=== PATIENT | male | born 1965 | race Caucasian/White ===

== ENCOUNTER → 2017-09-02 16:20 | Outpatient (REF) | payer MEDICAID, SELFPAY ==
[2017-09-02 20:30] LABS: Alanine Aminotransferase 47 U/L (12-78); Albumin/Globulin Ratio 1.4 (1.1-1.8); Alkaline Phosphatase 98 U/L (46-116); Anion Gap 11.5 mEq/L (5-15); Aspartate Amino Transferase 47 U/L (15-37); Bilirubin,Total 0.3 mg/dL (0.2-1.0); Blood Urea Nitrogen 12 mg/dL (7-18); Calcium 8.7 mg/dL (8.5-10.1); Carbon Dioxide 30 mmol/L (21.0-32.0); Chloride 102 mmol/L (98-107); Creatinine,Serum 1.17 mg/dL (0.70-1.30); Estimated Glomerular Filt Rate 66 ml/min (>60); GFR (African American) 80 ML/MIN (>60); Globulin 2.8 gm/dl (1.3-3.2); Glucose 72 mg/dL (74-106); Potassium 4.5 mmoL/L (3.5-5.1); Sodium 139 mmol/L (136-145); Total Protein,Serum 6.8 gm/dL (6.4-8.2)
== END ==
LOC: LAB 16:20
PROVIDERS: Visit Provider Emergency Medicine
DX: I10 Essential (primary) hypertension (principal); M54.2 Cervicalgia; Z29.9 Encounter for prophylactic measures, unspecified
CPT/HCPCS: 80053

== ENCOUNTER → 2022-07-13 10:56 | Outpatient (CLI) | payer MEDICAID, SELFPAY ==
--- NOTE | 2022-07-13 | CA_ITS ---
APPROVED REPORT Exam: Pharmacologic Technologist: Ana Hi, Ht: 6 ft 0 in Wt: 236 lbs BSA: 2.29 m2 HR: 59 bpm BP: 155/84 mmHg Medical History Medical History: HTN Medications: Lisinopril,,,,, Aspirin,,,,, Metoprolol,,,,, Trazadone,,,,, Gabapentin,,,,, Flovent,,,,, BuPRen-NALOXONE,,,,, Clonidine HCL,,,,, Allergies: CELECOXIB, NSAIDS, PENICILLIN Cardiac Risk Factors: HTN, FHX of CAD Stress Test Details Test: LEXISCAN HR Resting HR: 57 bpm Max Heart Rate (APMHR): 164.158117 bpm Max HR Achieved: 82 bpm Target HR (85% APMHR): 139.000432 bpm % of APMHR: 50.00 Recovery HR: 65 bpm BP Resting BP: 155/84 mmHg Max BP: 162/76 mmHg Recovery BP: 162.0/76.0 mmHg ECG Clinical Reason for Termination: Completed Protocol Exercise duration: 04:01 min Highest Stage Achieved: Stress ECG Conclusion NO CP <1.[address] SEGMENT CHANGES NON-DIAGNOSTIC Test Summary REST 12:14 . . 57 . 155/ 84 . . Stage 1 01:00 . . 74 . . . . Stage 2 01:00 . . 78 . . . . Stage 3 01:00 . . 69 . 159/ 85 . . Stage 4 01:00 . . 64 . 161/ 88 . . Stage 4 01:01 . . 64 . 161/ 88 . Stop exercise at 04:01 RECOVERY 01:00 . . 64 . . . . RECOVERY 01:55 . . 62 . 162/ 76 . . Electronically signed by : Diego Trejo MD 07/13/2022 15:51:44
--- NOTE | 2022-07-13 11:04 | CA_ITS ---
APPROVED REPORT EXAM: Comprehensive 2D, Doppler, and color-flow Echocardiogram Corporate Banking Officer: Danae Ko RVT Ht: 6 ft 0 in Wt: 236lbs BSA: 2.29 BP: 144/95 mmHg Indications: CP,HTN,VALADEZ,HTN,HLD,SMOKER 2D Dimensions LVOT 2.30 cm (M/F) 1.5-2.5 LA Volume 31.20 mL LA Volume Index 13.62 mL/m2 (M/F) 16-34 M-Mode Dimensions RVDd 3.90 cm (0.9-2.6) LA Diam 3.58 cm (1.9-4.0) LVDd 4.41 cm (3.5-5.7) Ao Diam 3.20 cm (2.0-3.7) LVDs 2.67 cm (3.5-5.7) IVSd 1.27 cm (0.6-1.1) PWd 1.06 cm (0.6-1.1) EF (Teich) 70.20% FS 39.50% EDV (Teich) 88.20 mL TAPSE 2.60 (<1.7) ESV (Teich) 26.30 mL LV Diastology E Decel Time 243.00 (160-240 msec) E/A Ratio 1.2 MED E' 8.60 (< 7 cm/sec) E'/MED E' Ratio 9.69 (>14) LAT E' 7.80 (<10 cm/sec) E/LAT E' Ratio 10.68 (>14) Aortic Valve AO Peak GR. 6.00 mmHg Mitral Valve MV E Max Michael. 83.00 (40-130 cm/s) MV A Velocity 68.00 (40-130 cm/s) E/A Ratio 1.23 MV Decel. Time 243.00 (160-240 ms) MV PHT 71.00 ms Pulmonary Valve PV Peak Velocity 82.00 (50-150 cm/s) Left Ventricle Left atrium is mildly enlarged, left ventricle normal size, mild concentric left ventricular hypertrophy, estimated ejection fraction 55% with no regional wall motion abnormality, diastolic parameters are inconclusive in the study. Right Ventricle Right atrium and right ventricle is mildly enlarged with normal contractility. Aortic Valve Aortic valve is minimally thickened and fibrosed there is no aortic stenosis or aortic insufficiency. Mitral Valve Mitral valve grossly normal, there is trace mitral regurgitation. Tricuspid Valve Tricuspid grossly normal, there is trace tricuspid regurgitation tricuspid regurgitation jet velocity is inadequate for calculation of the right ventricular systolic pressure. Pulmonic Valve Pulmonic valve is poorly visualized Great Vessels Aortic root is normal size. Inferior vena cava is normal 7 normal inspiratory collapse. Pericardium No significant pericardial effusion. Conclusion 1. Mild biatrial enlargement, normal left ventricular size, mild concentric left ventricular hypertrophy, estimated ejection fraction 55% with no regional wall motion abnormality, diastolic parameters are inconclusive. 2. Mildly enlarged right ventricle with normal contractility. 3. Trace mitral and tricuspid regurgitation. 4. No significant pericardial effusion 5. Inferior vena cava is normal size with normal inspiratory collapse. Electronically signed by : Diego Trejo MD 07/13/2022 12:36:38
--- NOTE | 2022-07-13 11:37 | NM_ITS ---
APPROVED REPORT Exam: Nuclear Stress Test Indication: chest pain..short of breath..fatigue Patient Location: Outpatient Stress Tech: Ana Hi NV Tech:Glory Haywood TAYLER RT(R)(N) Ht: 6 ft 0 in Wt: 230 lbs HR: 57 bpm BP: 155/84 mmHg BSA: 2.26 m2 TID: 1.21 History: chest pain..short of breath..fatigue Procedure: Patient received a 0.4 mg of intravenous Lexiscan, resting heart rate 57 bpm, resting blood pressure 155/84 mmHg, with Lexiscan maximum heart rate achived was 82 bpm which is Less than 85 % of the maximum predicted heart rate and blood pressure was 162/76 mmHg. With Lexiscan, patient denied any complaint of chest pain. Electrocardiogram Resting electrocardiogram shows sinus rhythm, with Lexiscan less than 1.[address] segment depression noted from the baseline EKG. The EKG portion of the Lexiscan is nondiagnostic. Cardiac Stress and Resting SPECT Images: Cardiac Stress and Resting SPECT images were obtained using technetium 99m Myoview 30.6 mCi stress and 10.69 mCi at rest. Gated SPECT analysis of segmental wall motion and calculation of the ejection fraction also done. Prone images were also obtained. Cardiac stress and rest SPECT images show reversible ischemia involving the apex and anteroseptal wall, computer derived ejection fraction is 53% with no regional wall motion abnormality, right ventricle is normal size and contractility. Conclusion: 1. The EKG portion of the Lexiscan is nondiagnostic. 2. Scintigraphic evidence of reversible ischemia involving the apex and anteroseptal wall, compared to ejection fraction 53% with no regional wall motion abnormality, right ventricle is normal size and contractility. 3. Abnormal Lexiscan Myoview study. Electronically signed by : Diego Trejo MD 07/13/2022 15:54:30
== END ==
PROVIDERS: PCP Family Medicine; Visit Provider Physician Assistant
DX: R07.89 Other chest pain (principal); I10 Essential (primary) hypertension; F17.200 Nicotine dependence, unspecified, uncomplicated; Z82.49 Family history of ischemic heart disease and other diseases of the circulatory system
CPT/HCPCS: 78452; 93017; 93306; A9502; J2785

== ENCOUNTER → 2022-07-18 13:47 | Outpatient (CLI) | payer MEDICAID, SELFPAY ==
[2022-07-18 14:22] LABS: Basophils % 0.7 % (0.1-2.0); Eosinophils # 0.3 K/mm3 (0.0-0.4); Eosinophils % 4.9 % (0.1-12.0); Hematocrit 43.9 % (42.0-52.0); Hemoglobin 13.9 g/dL (14.1-18.0); Lymphocytes # 1.4 K/mm3 (0.7-4.5); Lymphocytes % 21.8 % (10-50); Mean Corpuscular HGB Conc 31.8 g/dL (31.8-35.4); Mean Corpuscular Hemoglobin 32.1 pg (27.0-31.2); Mean Platelet Volume 8.2 fl (7.4-10.4); Monocytes # 0.5 K/mm3 (0.1-1.0); Monocytes % 8.3 % (1.7-9.3); Neutrophils % 64.3 % (37.0-80.0); Platelet Count 171 K/mm3 (142-424); Red Blood Count 4.35 M/mm3 (4.60-6.20); Red Cell Distribution Width 13.4 % (11.5-17.5); White Blood Count 6.2 K/mm3 (4.8-10.8)
[2022-07-18 15:29] LABS: Anion Gap 9.3 mEq/L (5-15); Blood Urea Nitrogen 9 mg/dl (9-20); Calcium 8.9 mg/dl (8.4-10.2); Carbon Dioxide 32 mmol/L (22.0-30.0); Chloride 103 mmol/L (98-107); Estimated Glomerular Filt Rate 52 ml/min (>60); GFR (African American) 63 ML/MIN (>60); Glucose 76 mg/dl (74-100); Potassium 4.3 mmoL/L (3.5-5.1); Sodium 140 mmol/L (136-145)
== END ==
PROVIDERS: PCP Family Medicine; Visit Provider Physician Assistant
DX: R06.00 Dyspnea, unspecified (principal); I20.8 Other forms of angina pectoris; I10 Essential (primary) hypertension; R94.39 Abnormal result of other cardiovascular function study; I63.9 Cerebral infarction, unspecified; F17.200 Nicotine dependence, unspecified, uncomplicated; Z82.49 Family history of ischemic heart disease and other diseases of the circulatory system
CPT/HCPCS: 36415; 80048; 85025

== ENCOUNTER 2022-07-23 14:53 | Observation (INO) | payer MEDICAID, SELFPAY ==
[2022-07-23] VITALS (20 sets, daily range): BP systolic 118–225; BP diastolic 39–130; PULSE 45–82; RESP 17–21; TEMP 36.6; O2SAT 90–100; BMI 33.2; BMI 32.1
--- NOTE | 2022-07-23 07:26 | IR_ITS ---
APPROVED REPORT Patient Location: Outpatient Floating Labor Gang Supervisor: TAYLER Joy RT (R) PROCEDURES Left heart catheterization Left ventriculogram Selective coronary angiogram Drug-eluting stent deployment to the proximal dominant right coronary INDICATION Coronary artery disease, Accelerated angina pectoris, Abnormal Myoview, Informed consent was obtained prior to the procedure. COMPLICATIONS None Estimated Blood Loss: Less than 10 mls TECHNIQUE One percent lidocaine used to anesthetize the right anterior aspect of the wrist. The right radial artery was accessed via the Seldinger technique. A 6 [place] sheath was placed in the right radial artery. 2.5 mg of verapamil, 800 mcg of nitroglycerin, 1mg Lidocaine and 5000 U Heparin were given through the arterial sheath. The papa catheter was also used to perform left heart catheterization, left ventriculogram and selective coronary angiogram. In the end of the diagnostic angiogram therapeutic heparin was administered giving a therapeutic ACT and the guide catheter was placed in the right coronary followed by a Choice PT extra-support wire. A 4 mm x 34 mm resolute [place] stent was deployed in the proximal portion of the right coronary and deployed at 20 ronald reducing the severe stenosis to 0% WILL-3 flow was present before and after the procedure. At the end of procedure the apparatus was removed the sheath was removed and hemostasis was achieved using TR banding patient was transferred to the postop putting in stable condition ANGIOGRAPHIC RESULTS The left main artery Normal The left anterior descending artery Has proximal 30% stenosis stenosis followed by an eccentric 30 to 40% stenosis immediately after a large first diagonal artery. The LAD itself after the first diagonal artery is 2 mm in diameter. The first diagonal artery is larger than the LAD itself. This diagonal artery has an ostial 40% concentric stenosis with distal 10 to 20% diffuse stenoses The circumflex artery Nondominant and has tandem 30 to 40% stenoses in the first obtuse marginal artery The right coronary artery Large dominant with a proximal concentric 70% stenosis The FONG ventriculogram reveals Normal 65% The left ventricular end-diastolic pressure 20 to 25 mmHg IMPRESSION Coronary disease as described above Successful stenting of the right coronary severe disease reduced to 0% with 1 drug-eluting stent Normal ejection fraction with elevated LVEDP PLAN 1. For antiplatelet therapy 2. LDL less than 55 to be achieved with high intensity statin 3. Avoidance of tobacco products 4. Recommend sleep study 5. Increase metoprolol succinate from 50 mg a day up to 100 mg daily 6. Add Lipitor 40 mg daily 7. Add hydrochlorothiazide 25 mg daily 8. Continue lisinopril 40 mg daily 9. Cardiac rehabilitation Electronically signed by : Noah Roche MD 07/23/2022 11:21:14
[2022-07-23 11:29] LABS: CATHL Activated Clotting Time 299 SEC (74-125)
--- NOTE | 2022-07-23 14:27 | SUR.PHASEI ---
1410 DR DRAPER CONTACTED R/T SOA AND HEART RATES DROPPING IN TO THE 38, BP 205/153. NEW ORDERS TO ADMIT THE PATIENT AND SEE MAR FOR MEDICATIONS
--- NOTE | 2022-07-23 14:42 | US_ITS ---
PROCEDURE INFORMATION: Exam: US Retroperitoneal; Complete; Kidneys and Bladder Exam date and time: 07/23/2022 4:40 PM Age: 57 years old Clinical indication: Condition or disease; Other: HTN; Additional info: Hypertension TECHNIQUE: Imaging protocol: Real-time ultrasound of the retroperitoneum with image documentation. Complete exam focused on the kidneys and bladder. COMPARISON: US CA RENAL ARTERY DUPLEX 07/23/2022 2:59 PM FINDINGS: Right kidney: Normal. No stones. No hydronephrosis. Left kidney: Normal. No stones. No hydronephrosis. Urinary bladder: Not imaged. IMPRESSION: Unremarkable kidneys.
--- NOTE | 2022-07-23 14:42 | CA_ITS ---
FINAL REPORT TECHNIQUE: Grayscale, color Doppler and duplex Doppler ultrasound of the kidneys, aorta and renal arteries was performed. Multiple velocities were measured. CLINICAL HISTORY: HYPERTENSION FINDINGS: Aorta velocity: 41 cm/sec Right kidney: 9.9 cm. No evidence of hydronephrosis or mass. Right intrarenal RI: 0.48 Right RAR (Renal artery-Aortic Ratio): 5.1 Left Kidney: 11.6 cm. No evidence of hydronephrosis or mass. Left intrarenal RI: 0.5 Left RAR (Renal Artery-Aortic Ratio): 5.6 IMPRESSION: Greater than 60% renal artery stenosis bilaterally. Recommend catheter directed angiogram. Reviewed, Interpreted and Dictated by Travon Malagon III, MD Transcribed by Radha Frazier Authenticated and [facility]
--- NOTE | 2022-07-23 14:52 | SUR.PHASEII ---
Pt in very SOA, notified and stated its from the brilinta, pt given supplemental o2 for comfort, VSS.
--- NOTE | 2022-07-23 15:25 | PC.NURSE ---
arrived to floor by stretcher from laborer [facility]
[2022-07-23 15:40] LABS: Coronavirus 19, PCR Not Detected (NotDetected); Influenza A, PCR Not Detected (NotDetected); Influenza B, PCR Not Detected (NotDetected)
--- NOTE | 2022-07-23 17:56 | EXP.HP ---
History of Present Illness *Admission Date: 07/23/22 *Reason for visit:: Chief complaint: Uncontrolled blood pressure *History of present illness: This is a 57-year-old male that presents to [facility] telemetry monitoring medical unit for uncontrolled blood pressure during his cardiac catheterization this afternoon. His past medical history significant for hypertension, coronary artery disease, osteoarthritis of the right hip and narcotic dependence. He reported chest discomfort to his PCP and was referred to cardiology for evaluation. A stress test was abnormal. He was referred for left heart cath which he underwent today identifying right coronary artery lesion requiring 1 drug-eluting stent. Uncontrolled blood pressures were identified during his procedure with systolics reaching 300. He required multiple agents to improve his blood pressure. After his cardiac procedure he was transitioned to the medical unit for telemetry monitoring and blood pressure control. Currently he is reporting a headache with no associated dysarthria, extremity numbness, or confusion. He denies any associated loss of motor function, visual changes or scotoma. He reports no associated retrosternal chest pain, palpitations or acute dyspnea. A renal ultrasound and duplex study was performed today which identifies bilateral greater than 60% renal artery stenosis. His most recent creatinine was 1.4 a few days ago with a baseline of 1.0 noted. [facility] Disclaimer: The information contained in this section may have been updated after the patient was seen, as this information can be updated by other users. Medical History (Updated 07/23/22 @ 18:04 by Marbin Hampton MD) Coronary artery disease HTN (hypertension) Narcotic dependence Osteoarthritis Tobacco dependence syndrome Surgical History (Updated 07/23/22 @ 18:04 by Marbin Hampton MD) History of right hip replacement S/P cardiac cath Family History (Updated 07/23/22 @ 18:05 by Marbin Hampton MD) Mother Heart attack, Onset Age: 42 Father Throat cancer, Onset Age: 81 Social History (Updated 07/23/22 @ 18:07 by Marbin Hampton MD) Smoking Status: Current every day smoker tobacco type: cigarettes packs per day: 1 years smoked: 30 alcohol intake: never substance use type: opiates current occupational status: employed Travel in the last 8 weeks: Inside the [place] household members: significant other lives independently: Yes marital status: number of children: 3 service: Yes status: retired branch: [employer] current occupation: [employer]- [employer] Review of Systems Review of Systems Review of systems:: pertinent systems reviewed and negative unless documented below Constitutional Constitutional: Reports headache(s) ENT Ears, Nose, Mouth, and Throat: Reports headache(s) *Cardiovascular Cardiovascular: Denies chest pain and Denies dyspnea *Respiratory Respiratory: Denies dyspnea *Gastrointestinal Gastrointestinal: Denies diarrhea and Denies vomiting *Neurologic Neurologic: Reports headache(s) Meds Home Medications and Allergies Home Medications Medication Instructions Recorded Confirmed Type buprenorphine 8 mg-naloxone 2 mg 2 tab sublingual QDAY . 09/02/17 07/23/22 History sublingual tablet fluticasone propionate 44 2 inh inhalation Q12H ,. 09/02/17 07/23/22 History mcg/actuation HFA aerosol inhaler gabapentin 400 mg capsule 400 mg PO TID Pain 06/19/22 07/23/22 History lisinopril 40 mg tablet 40 mg PO DAILY Hypertension 06/19/22 07/23/22 History trazodone 50 mg tablet 50 mg PO HS PRN Pain 06/19/22 07/23/22 History amlodipine 10 mg tablet (Norvasc) 10 mg PO DAILY #30 tabs 07/23/22 Rx aspirin 81 mg tablet,delayed 81 mg PO DAILY Chest pain 07/23/22 07/23/22 History release (Adult Aspirin Regimen) atorvastatin 40 mg tablet (Lipitor) 40 mg PO DAILY #30 tabs
[2022-07-23 18:45] LABS: Chloride 100 mmol/L (98-107); Potassium 3.8 mmoL/L (3.5-5.1); Sodium 140 mmol/L (136-145)
[2022-07-23 18:48] LABS: Anion Gap 14.8 mEq/L (5-15); Blood Urea Nitrogen 14 mg/dl (9-20); Calcium 9.9 mg/dl (8.4-10.2); Carbon Dioxide 29 mmol/L (22.0-30.0); Creatinine Clearance Estimated 90 mL/min (50-200); Estimated Glomerular Filt Rate 52 ml/min (>60); GFR (African American) 63 ML/MIN (>60); Glucose 104 mg/dl (74-100)
--- NOTE | 2022-07-23 21:08 | ECG_ITS ---
APPROVED REPORT Exam: Resting ECG HR:71 bpm ECG Measurements Heart Rate 71 AXES AK 155 P 64 QRSd 87 QRS -26 QT 399 T 64 QTc 422 Conclusion SINUS RHYTHM LEFT AXIS DEVIATION [QRS AXIS < -20] MODERATE VOLTAGE CRITERIA FOR LVH, CONSIDER NORMAL VARIANT [MEETS CRITERIA IN ONE OF: R(aVL), S(V1), R(V5), R(V5/V6)+S(V1)] NONSPECIFIC T-WAVE ABNORMALITY BORDERLINE ECG UNCONFIRMED REPORT Electronically signed by : Lior Harris MD 07/24/2022 19:55:06
[2022-07-24] VITALS (24 sets, daily range): BP systolic 117–194; BP diastolic 58–102; PULSE 43–85; RESP 12–26; TEMP 36.3–37; O2SAT 93–100; BMI 31.1
--- NOTE | 2022-07-24 00:46 | PC.NURSE ---
2345-bp 152/79, turned pt's drip off at 2350, bp had been below 160mmHg throughout shift; 0000-bp 182/82, turned drip back on at 0.1mcg/kg/min, bp at 0030 129/79
[2022-07-24 06:43] LABS: Basophils # 0.1 K/mm3 (0-0.2); Basophils % 0.7 % (0.1-2.0); Eosinophils # 0.3 K/mm3 (0.0-0.4); Eosinophils % 3.7 % (0.1-12.0); Hematocrit 43.8 % (42.0-52.0); Hemoglobin 14.2 g/dL (14.1-18.0); Lymphocytes # 1.7 K/mm3 (0.7-4.5); Lymphocytes % 20.2 % (10-50); Mean Corpuscular HGB Conc 32.5 g/dL (31.8-35.4); Mean Corpuscular Volume 98.6 fl (80-94); Mean Platelet Volume 8.8 fl (7.4-10.4); Monocytes # 0.6 K/mm3 (0.1-1.0); Monocytes % 7.5 % (1.7-9.3); Neutrophils # 5.7 K/mm3 (1.8-7.8); Platelet Count 174 K/mm3 (142-424); Red Blood Count 4.44 M/mm3 (4.60-6.20); Red Cell Distribution Width 13.8 % (11.5-17.5); White Blood Count 8.3 K/mm3 (4.8-10.8)
[2022-07-24 06:48] LABS: Chloride 101 mmol/L (98-107); Potassium 3.7 mmoL/L (3.5-5.1); Sodium 140 mmol/L (136-145)
[2022-07-24 06:49] LABS: Prothrombin Time 9.8 seconds (10.1-12.5)
[2022-07-24 06:51] LABS: Anion Gap 10.7 mEq/L (5-15); Blood Urea Nitrogen 12 mg/dl (9-20); Carbon Dioxide 32 mmol/L (22.0-30.0); Creatinine Clearance Estimated 87 mL/min (50-200); Estimated Glomerular Filt Rate 52 ml/min (>60); GFR (African American) 63 ML/MIN (>60); Glucose 104 mg/dl (74-100)
[2022-07-24 07:07] LABS: Hemoglobin A1C 5.9 % (4.0-6.0)
[2022-07-24 07:20] LABS: Thyroid Stimulating Hormone 2.06 uIU/mL (0.465-4.68)
--- NOTE | 2022-07-24 07:27 | HMH.PHAINT1 ---
Pharmacy Intervention Comments: Medication reconciliation completed via chart review and external fill history. -Bri Estrada, PharmD Candidate 2022
--- NOTE | 2022-07-24 08:47 | IR_ITS ---
APPROVED REPORT Patient Location: Inpatient Barrel Charrer: TAYLER Underwood RT (R) PROCEDURES Catheter placement in the abdominal aorta Abdominal aortography Bilateral selective renal angiography INDICATION Abnormal renal duplex, Bilateral renal artery stenosis, Chronic renal failure creatinine 1.4, Malignant hypertension, Informed consent was obtained prior to the procedure. COMPLICATIONS None Estimated Blood Loss: Less than 10 mls TECHNIQUE 1% lidocaine used to anesthetize the right femoral groin. The right femoral artery was accessed via the Seldinger technique. A 4 [place] sheath was placed in the right femoral artery. The JR4 catheter was used to selectively intubate each renal artery. At the end of the procedure pigtail catheter was advanced to the suprarenal abdominal aorta and abdominal aortography was performed. At the end the procedure the patient was transferred to the postop putting in stable condition for sheath removal ANGIOGRAPHIC RESULTS Right renal artery singular and has a proximal 10 to 20% nonflow limiting stenosis Left renal artery singular and has a proximal 10 to 20% nonflow limiting stenosis Suprarenal abdominal aorta is tortuous without atherosclerotic plaque Infrarenal abdominal aorta is tortuous without atherosclerotic plaque IMPRESSION Mild nonflow limiting renal artery stenosis which is not contributing to renovascular hypertension or renal insufficiency PLAN 1. Treatment of essential hypertension Electronically signed by : Noah Roche MD 07/24/2022 11:09:28
--- NOTE | 2022-07-24 09:34 | EXP.CARD.CON ---
History of Present Illness History of Present Illness Consult date: 07/24/22 Requesting physician: Marbin Hampton Consult reason: hypertension Chief complaint: htn post [facility] Additional Medical History:: Significant past medical history: Hypertension Coronary artery disease Osteoarthritis of right hip Narcotic dependent Left heart cath 07/23/2022: ANGIOGRAPHIC RESULTS The left main artery Normal The left anterior descending artery Has proximal 30% stenosis stenosis followed by an eccentric 30 to 40% stenosis immediately after a large first diagonal artery.? The LAD itself after the first diagonal artery is 2 mm in diameter.? The first diagonal artery is larger than the LAD itself.? This diagonal artery has an ostial 40% concentric stenosis with distal 10 to 20% diffuse stenoses The circumflex artery Nondominant and has tandem 30 to 40% stenoses in the first obtuse marginal artery The right coronary artery Large dominant with a proximal concentric 70% stenosis The FONG ventriculogram reveals Normal 65% The left ventricular end-diastolic pressure 20 to 25 mmHg IMPRESSION Coronary disease as described above Successful stenting of the right coronary severe disease reduced to 0% with 1 drug-eluting stent Normal ejection fraction with elevated LVEDP PLAN 1. For antiplatelet therapy 2. LDL less than 55 to be achieved with high intensity statin 3. Avoidance of tobacco products 4. Recommend sleep study 5. Increase metoprolol succinate from 50 mg a day up to 100 mg daily 6. Add Lipitor 40 mg daily 7. Add hydrochlorothiazide 25 mg daily 8. Continue lisinopril 40 mg daily 9. Cardiac rehabilitation History of present illness: 57-year-old white male with significant past medical history as listed above was admitted yesterday to the medical unit for telemetry monitoring for uncontrolled hypertension after left heart cath. Patient reports that he was initially referred to cardiology by his PCP after complaining of multiple episodes of intermittent midsternal chest pain. Patient underwent a stress test per cardiology which came back abnormal prompting left heart cath yesterday. Left heart cath identified a right coronary artery lesion which required 1 drug-eluting stent. Uncontrolled blood pressure was noted during procedure with systolic pressure reaching 300s. Patient was admitted and had a renal ultrasound and duplex which identified bilateral renal artery stenosis greater than 60%. Patient's creatinine noted to be 1.4 on admission. Baseline creatinine 1.1-1.3. Systolic blood pressure being maintained in the 130s on lowest dose of Nitropress. Patient's RN reports that as soon as she turns Nitropress off, blood pressure starts to rise. Patient denies chest pain or shortness of breath currently. Patient will return to [employer] today for procedural intervention. [facility] Disclaimer: The information contained in this section may have been updated after the patient was seen, as this information can be updated by other users. Medical History (Updated 07/24/22 @ 09:50 by Wendie Vázquez APRN) Coronary artery disease HTN (hypertension) Narcotic dependence Osteoarthritis Tobacco dependence syndrome Surgical History (Updated 07/23/22 @ 18:04 by Marbin Hampton MD) History of right hip replacement S/P cardiac cath Family History (Updated 07/23/22 @ 18:05 by Marbin Hampton MD) Mother Heart attack, Onset Age: 42 Father Throat cancer, Onset Age: 81 Social History (Updated 07/23/22 @ 18:07 by Marbin Hampton MD) Smoking Status: Current every day smoker tobacco type: cigarettes packs per day: 1 years smoked: 30 Tobacco counseling given: provider counseling alcohol intake: never substance use type: opiates current occupational status: employed Travel in the last 8 weeks: [place] the [place] household members: significant other lives independently: Yes marital status: number of
--- NOTE | 2022-07-24 10:13 | SUR.PREOP ---
Notified MD that pt is not able to give consent for renal angiogram, stated that it was an emergent procedure and MD is signing off on the procedure to be done.
--- NOTE | 2022-07-24 14:03 | EXP.DC.SUM ---
General Admission date:: 07/23/22 Discharge date: 07/24/22 HPI HPI HPI: This is a 57-year-old male that presents to [facility] telemetry monitoring medical unit for uncontrolled blood pressure during his cardiac catheterization this afternoon. His past medical history significant for hypertension, coronary artery disease, osteoarthritis of the right hip and narcotic dependence. He reported chest discomfort to his PCP and was referred to cardiology for evaluation. A stress test was abnormal. He was referred for left heart cath which he underwent today identifying right coronary artery lesion requiring 1 drug-eluting stent. Uncontrolled blood pressures were identified during his procedure with systolics reaching 300. He required multiple agents to improve his blood pressure. After his cardiac procedure he was transitioned to the medical unit for telemetry monitoring and blood pressure control. Currently he is reporting a headache with no associated dysarthria, extremity numbness, or confusion. He denies any associated loss of motor function, visual changes or scotoma. He reports no associated retrosternal chest pain, palpitations or acute dyspnea. A renal ultrasound and duplex study was performed today which identifies bilateral greater than 60% renal artery stenosis. His most recent creatinine was 1.4 a few days ago with a baseline of 1.0 noted. Hospital Course Hospital Course Hospital Course: 57-year-old male admitted for hypertensive emergency. Taken to the [facility] on 07/23 with findings as below. Given concern for renal artery stenosis on imaging, patient taken to [facility] on day of discharge for evaluation of renal arteries. No stents placed as flow was better than on ultrasound imaging. Did not necessitate stenting for renal artery stenosis. Patient had an abrupt change in his disposition and decided he no longer wanted to be in the hospital. Wanted to go smoke and was informed he could not. Became agitated and elected to leave AGAINST MEDICAL ADVICE after multiple attempts by nursing and providers to get him to stay for observation overnight and treatment of his hypertension. In light of his recent stent however, antiplatelet therapy was sent to his outpatient pharmacy to ensure that he at least had access to his Plavix if he chooses to take it. Cardiology counseled on the severity of his risk if he does not take medications and the necessity for him adhering to treatment of his blood pressure and meds for coronary artery disease. Would benefit from outpatient follow-up, unsure if he will keep appointment. Left heart cath 07/23/2022: ANGIOGRAPHIC RESULTS The left main artery Normal The left anterior descending artery Has proximal 30% stenosis followed by an eccentric 30 to 40% stenosis immediately after a large first diagonal artery. The LAD itself after the first diagonal artery is 2 mm in diameter.? The first diagonal artery is larger than the LAD itself.? This diagonal artery has an ostial 40% concentric stenosis with distal 10 to 20% diffuse stenoses The circumflex artery Nondominant and has tandem 30 to 40% stenoses in the first obtuse marginal artery The right coronary artery Large dominant with a proximal concentric 70% stenosis The FONG ventriculogram reveals Normal 65% The left ventricular end-diastolic pressure 20 to 25 mmHg IMPRESSION Coronary disease as described above Successful stenting of the right coronary severe disease reduced to 0% with 1 drug-eluting stent Normal ejection fraction with elevated LVEDP PLAN 1. For antiplatelet therapy 2. LDL less than 55 to be achieved with high intensity statin 3. Avoidance of tobacco products 4. Recommend sleep study 5. Increase metoprolol succinate from 50 mg a day up to 100 mg daily 6. Add Lipitor 40 mg daily 7. Add hydrochlorothiazide 25 mg daily 8. Continue lisinopril 40 mg daily 9. Cardiac rehabilitation Exam Data for Last 24 hours Vital signs and Labs f
--- NOTE | 2022-07-24 14:14 | PC.NURSE ---
While rounding on patient to check his groin patient stated he was ready to go home. He wants to leave to go smoke, offered patient nicotine patch which he declined, patient states he is not waiting for medication changes or the doctor to discharge him home he wants to leave AMA. Patient educated on the importance of medication changes and compliance to plan of care, patient still insisted on leaving AMA and began to rip off his telemetry leads and blood pressure cuff, obtained AMA form and was signed by patient, gave patient instructions on post cath care, medication changes, and follow up care, patient verbalized understanding, IV lines removed, left unit with girlfriend at [id number].
--- NOTE | 2022-07-25 13:20 | CARE MANAGER ---
Spoke with patient girlfriend for post-discharge phone interview, she states that patient is dong ok and has no issues at this time.
== END 2022-07-24 14:05 | disposition left against medical advice (07) ==
LOC: 2ND 14:55
PROVIDERS: Internal Medicine; Admitting Provider Family Medicine; PCP Family Medicine; Visit Provider Internal Medicine Adolescent Medicine
DX: I25.119 Atherosclerotic heart disease of native coronary artery with unspecified angina pectoris (principal); I16.1 Hypertensive emergency; I70.1 Atherosclerosis of renal artery; F17.210 Nicotine dependence, cigarettes, uncomplicated; I12.9 Hypertensive chronic kidney disease with stage 1 through stage 4 chronic kidney disease, or unspecified chronic kidney disease; M16.11 Unilateral primary osteoarthritis, right hip; Z95.5 Presence of coronary angioplasty implant and graft; Z66 Do not resuscitate; Z79.899 Other long term (current) drug therapy; N18.9 Chronic kidney disease, unspecified; Z20.822 Contact with and (suspected) exposure to COVID-19
CPT/HCPCS: 36252; 36415; 76770; 80048; 83036; 83735; 84443; 85025; 85347; 85610; 92928; 93005; 93458; 93976; 99152; C1725; C1769; C1876; C9600; C9803; G0378; J1644; Q9967; U0003; U0005

== ENCOUNTER → 2022-10-04 10:32 | Outpatient (CLI) | payer MEDICAID, SELFPAY ==
[2022-10-04 11:05] LABS: Basophils # 0.1 K/mm3 (0-0.2); Basophils % 0.8 % (0.1-2.0); Eosinophils # 0.3 K/mm3 (0.0-0.4); Eosinophils % 4.5 % (0.1-12.0); Hemoglobin 13.1 g/dL (14.1-18.0); Lymphocytes % 15.7 % (10-50); Mean Corpuscular Hemoglobin 31.5 pg (27.0-31.2); Mean Corpuscular Volume 98.4 fl (80-94); Mean Platelet Volume 8.4 fl (7.4-10.4); Monocytes # 0.5 K/mm3 (0.1-1.0); Monocytes % 6.9 % (1.7-9.3); Neutrophils # 4.7 K/mm3 (1.8-7.8); Neutrophils % 72.2 % (37.0-80.0); Platelet Count 214 K/mm3 (142-424); Red Blood Count 4.17 M/mm3 (4.60-6.20); Red Cell Distribution Width 14.1 % (11.5-17.5); White Blood Count 6.5 K/mm3 (4.8-10.8)
[2022-10-04 11:56] LABS: Chloride 104 mmol/L (98-107); Potassium 3.8 mmoL/L (3.5-5.1); Sodium 140 mmol/L (136-145)
[2022-10-04 11:58] LABS: Blood Urea Nitrogen 11 mg/dl (9-20); Estimated Glomerular Filt Rate 63 ml/min (>60); GFR (African American) 76 ML/MIN (>60)
[2022-10-04 11:59] LABS: Alanine Aminotransferase 31 U/L (12-78); Albumin Level 3.9 g/dl (3.5-5.0); Alkaline Phosphatase 105 U/L (38-126); Anion Gap 6.8 mEq/L (5-15); Aspartate Amino Transferase 34 U/L (17-59); Bilirubin,Direct 0.3 mg/dl (0.0-0.4); Bilirubin,Indirect 0.1 mg/dL (0.0-0.9); Bilirubin,Total 0.4 mg/dl (0.2-1.3); Bilirubin,Unconjugated 0.1 mg/dL (0.0-1.1); Calcium 8.5 mg/dl (8.4-10.2); Carbon Dioxide 33 mmol/L (22.0-30.0); Cholesterol 108 mg/dl (140-200); Glucose 119 mg/dl (74-100); Total Protein,Serum 6.5 g/dl (6.3-8.2); Triglycerides 110 mg/dl (30-150); VLDL Cholesterol 22 mg/dL (0-40)
[2022-10-04 12:00] LABS: Chol/HDL Ratio 3.7 (1-3.5); HDL Cholesterol 29 mg/dl (40-60); Magnesium 2.2 mg/dl (1.6-2.3)
[2022-10-04 12:11] LABS: Direct LDL Cholesterol 67.57 mg/dL (100-129)
[2022-10-04 12:15] LABS: Free T4 (Free Thyroxine) 0.85 ng/dl (0.78-2.19)
[2022-10-04 12:30] LABS: Thyroid Stimulating Hormone 0.74 uIU/mL (0.465-4.68)
== END ==
PROVIDERS: PCP Family Medicine; Visit Provider Nurse Practitioner
DX: R06.09 Other forms of dyspnea (principal); R60.0 Localized edema; I25.10 Atherosclerotic heart disease of native coronary artery without angina pectoris; I10 Essential (primary) hypertension; E78.5 Hyperlipidemia, unspecified; I70.1 Atherosclerosis of renal artery; F17.200 Nicotine dependence, unspecified, uncomplicated
CPT/HCPCS: 36415; 80048; 80061; 80076; 83735; 84439; 84443; 85025

== ENCOUNTER 2023-08-22 16:05 | Outpatient (CLI) | payer MEDICAID, SELFPAY ==
[2023-08-22 16:16] LABS: MANUAL DIFFERENTIAL MANUAL DIFFERENTIAL (MANUAL DIFF)
[2023-08-22 16:41] LABS: Basophils # 0.1 K/mm3 (0-0.2); Basophils % 0.8 % (0.1-2.0); Eosinophils # 0.3 K/mm3 (0.0-0.4); Eosinophils % 3.3 % (0.1-12.0); Hematocrit 45.1 % (42.0-52.0); Hemoglobin 15.1 g/dL (14.1-18.0); Lymphocytes # 2.1 K/mm3 (0.7-4.5); Lymphocytes % 21.4 % (10-50); Mean Corpuscular HGB Conc 33.6 g/dL (31.8-35.4); Mean Corpuscular Hemoglobin 32.8 pg (27.0-31.2); Mean Corpuscular Volume 97.7 fl (80-94); Mean Platelet Volume 8.8 fl (7.4-10.4); Monocytes # 0.7 K/mm3 (0.1-1.0); Monocytes % 6.6 % (1.7-9.3); Neutrophils # 6.6 K/mm3 (1.8-7.8); Neutrophils % 67.8 % (37.0-80.0); Platelet Count 223 K/mm3 (142-424); Red Blood Count 4.61 M/mm3 (4.60-6.20); Red Cell Distribution Width 13.5 % (11.5-17.5); White Blood Count 9.8 K/mm3 (4.8-10.8)
[2023-08-22 16:54] LABS: Eosinophils % 5 % (0-3); Lymphocytes % 25 % (10-50); Monocytes % 6 % (2-9); Neutrophils % 63 % (42-76); Nucleated Red Blood Cells 1; Platelet Estimate Normal; RBC Morphology Normal; Total Cells Counted 100
[2023-08-22 17:25] LABS: Chloride 98 mmol/L (98-107); Potassium 4.6 mmoL/L (3.5-5.1); Sodium 138 mmol/L (136-145)
[2023-08-22 17:27] LABS: Bilirubin,Unconjugated 0.5 mg/dL (0.0-1.1); Blood Urea Nitrogen 20 mg/dl (9-20); Estimated Glomerular Filt Rate 39 ml/min (>60); GFR (African American) 47 ML/MIN (>60)
[2023-08-22 17:28] LABS: Alanine Aminotransferase 36 U/L (12-78); Albumin Level 4.5 g/dl (3.5-5.0); Albumin/Globulin Ratio 1.7 (1.1-1.8); Alkaline Phosphatase 92 U/L (38-126); Anion Gap 13.6 mEq/L (5-15); Aspartate Amino Transferase 38 U/L (17-59); Bilirubin,Direct 0.1 mg/dl (0.0-0.4); Bilirubin,Indirect 0.4 mg/dL (0.0-0.9); Bilirubin,Total 0.5 mg/dl (0.2-1.3); Calcium 9.2 mg/dl (8.4-10.2); Carbon Dioxide 31 mmol/L (22.0-30.0); Chol/HDL Ratio 7.8 (1-3.5); Cholesterol 171 mg/dl (140-200); Globulin 2.7 g/dL (1.3-3.2); Glucose 91 mg/dl (74-100); HDL Cholesterol 22 mg/dl (40-60); Total Protein,Serum 7.2 g/dl (6.3-8.2); Triglycerides 229 mg/dl (30-150); VLDL Cholesterol 46 mg/dL (0-40)
[2023-08-22 17:39] LABS: Direct LDL Cholesterol 105.71 mg/dL (100-129)
== END 2023-08-22 23:59 ==
LOC: LAB 16:09
PROVIDERS: Visit Provider Internal Medicine
DX: I25.118 Atherosclerotic heart disease of native coronary artery with other forms of angina pectoris (principal)
CPT/HCPCS: 36415; 80053; 80061; 80076; 85007; 85014; 85018; 85048; 85049

== ENCOUNTER 2024-12-28 08:06 | Outpatient (CLI) | payer MEDICAID, SELFPAY ==
--- NOTE | 2024-12-28 08:09 | MR_ITS ---
FINAL REPORT CLINICAL HISTORY: *HARDWARE IN RT HIP/KNEE*SAMMY LBP/SAMMY SCIATICA right sided back pain with right leg pain pt stated right is worse than left COMPARISON: None FINDINGS: Multiplanar MR imaging of the lumbar spine was performed without contrast. On the sagittal T2-weighted images, there is abnormal decreased signal throughout the lumbar discs. There is significant disc space narrowing at L1-2, L3-4, L4-5, and L5-S1. The vertebral alignment is normal. T12-L1: There is no significant canal stenosis or neuroforaminal narrowing. L1-2: Moderate diffuse disc bulge. Endplate hypertrophy. Moderate spinal canal compromise. Moderate bilateral neuroforaminal narrowing. L2-3: Moderate diffuse disc bulge. Bilateral facet hypertrophy. Moderate spinal canal compromise. Moderate bilateral neuroforaminal narrowing. L3-4: Moderate diffuse disc bulge. Endplate hypertrophy. Moderate to high-grade spinal canal compromise. Moderate to high-grade left and moderate right neuroforaminal narrowing. L4-5: Moderate diffuse disc bulge. Bilateral facet hypertrophy. Moderate to high-grade spinal canal compromise. Moderate to high-grade bilateral neuroforaminal narrowing. L5-S1: Moderate diffuse disc bulge. Endplate hypertrophy. Facet hypertrophy. High-grade bilateral neuroforaminal narrowing. IMPRESSION: Multilevel changes of degenerative disc disease as above with neuroforaminal narrowing most evident on the left at L3-4 and bilaterally at L5-S1. Multilevel spinal canal compromise particularly evident at L1-2, L2-3, L3-4, and L4-5. Reviewed, Interpreted and Dictated by Carlos Enrique Barrera MD Transcribed by Stephanie Dougherty Authenticated and [facility]
== END 2024-12-28 23:59 | disposition home or self-care (01) ==
LOC: RAD 08:06
PROVIDERS: PCP Nurse Practitioner Family; Visit Provider Nurse Practitioner Family
DX: M51.16 Intervertebral disc disorders with radiculopathy, lumbar region (principal); M51.360 Other intervertebral disc degeneration, lumbar region with discogenic back pain only; M48.062 Spinal stenosis, lumbar region with neurogenic claudication; M51.17 Intervertebral disc disorders with radiculopathy, lumbosacral region; M99.73 Connective tissue and disc stenosis of intervertebral foramina of lumbar region
CPT/HCPCS: 72148

== ENCOUNTER 2025-01-13 12:31 | Observation (INO) | payer MEDICAID, SELFPAY ==
[2025-01-13] VITALS (40 sets, daily range): BP systolic 70–142; BP diastolic 37–110; PULSE 46–82; RESP 10–25; TEMP 36.4–36.8; O2SAT 75–98; BMI 30.5; BMI 28.4
--- NOTE | 2025-01-13 12:41 | ECG_ITS ---
APPROVED REPORT Exam: Resting ECG HR:78 bpm ECG Measurements Heart Rate 78 AXES FL 144 P 42 QRSd 111 QRS 10 QT 426 T 48 QTc 459 Conclusion SINUS RHYTHM MODERATE INTRAVENTRICULAR CONDUCTION DELAY [110+ ms QRS DURATION] MODERATE ST DEPRESSION [0.05+ mV ST DEPRESSION] No STEMI Electronically signed by : TY MACDONALD, 01/14/2025 06:42:57
--- NOTE | 2025-01-13 12:46 | ED_ITS ---
Discharge Plan Disposition Patient Disposition: Admitted Condition: Fair Prescriptions Prescriptions: No Action gabapentin 400 mg capsule 400 mg PO TID omeprazole 40 mg capsule,delayed release(DR/EC) 40 mg PO DAILY hydrochlorothiazide 12.5 mg tablet 12.5 mg PO DAILY Qty: 90 3RF valsartan 40 mg tablet 40 mg PO DAILY Qty: 90 3RF fluticasone propionate 44 mcg/actuation HFA aerosol inhaler 2 inh INHALATION Q12H buprenorphine-naloxone 8-2 mg tablet, sublingual 2 tab SUBLINGUAL QDAY aspirin 81 mg tablet,delayed release (DR/EC) See Rx Instructions .ROUTE .COMPLEX Qty: 90 3RF Dose Instruction: TAKE 1 TABLET 1 TIME EACH DAY Rx Instructions: TAKE 1 TABLET 1 TIME EACH DAY atorvastatin 40 mg tablet See Rx Instructions .ROUTE .COMPLEX Qty: 90 3RF Dose Instruction: TAKE 1 TABLET 1 TIME EACH DAY FOR HIGH CHOLESTEROL Rx Instructions: TAKE 1 TABLET 1 TIME EACH DAY FOR HIGH CHOLESTEROL clopidogrel 75 mg tablet See Rx Instructions .ROUTE .COMPLEX Qty: 90 3RF Dose Instruction: TAKE 1 TABLET 1 TIME EACH DAY FOR ARTERY DISEASE Rx Instructions: TAKE 1 TABLET 1 TIME EACH DAY FOR ARTERY DISEASE carvedilol 6.25 mg tablet See Rx Instructions .ROUTE .COMPLEX Qty: 180 3RF Dose Instruction: TAKE 1 TABLET 2 TIMES EACH DAY WITH FOOD Rx Instructions: TAKE 1 TABLET 2 TIMES EACH DAY WITH FOOD Referrals Follow up/Referrals: Rhiannon Almaguer APRN [Primary Care Provider, Medical] - See instructions Clinical Impressions Clinical Impression: Hypotension, Dehydration, GWENDOLYN (acute kidney injury), Hypokalemia, Diarrhea, Hypocalcemia, Knee pain, left Instructions Patient Instructions: DI for Syncope in Adults (Fainting), DI for Syncope in Children (Fainting) Print Language Print Language: Micronesian Discharge ED Provider: Rhiannon Jorge General Adult HPI General Chief complaint: Syncope Stated complaint: passing out/shaking for 2+days Time Seen by Provider: 01/13/25 12:37 History of Present Illness HPI narrative: This patient is a 59-year-old male with a history of CAD status post stenting, hypertension, hyperlipidemia, tobacco dependence, opioid dependence on Suboxone presenting to the emergency department for evaluation with concern for syncopal episode and shakiness. Patient states that he had been having really bad watery diarrhea for several days, nonbloody nonmelanotic. He states that yesterday while at work at [employer], he started having episodes of shaking and passing out, which have persisted into today. He denies anything else out of the ordinary such as headache, vision changes, numbness, tingling, unilateral weakness, chest pain, shortness of breath, abdominal pain, vomiting, urinary symptoms, or other concerns. He reports that he has had no recent changes in medications, taking all of his medications as prescribed including his valsartan and hydrochlorothiazide. In triage, he was noted to have hypotension with systolics in the 70s. No other concerns or complaints noted Related Data Home Medications ?Medication ?Instructions ?Recorded ?Confirmed buprenorphine 8 mg-naloxone 2 mg 2 tab sublingual QDAY opioid use 09/02/17 11/07/23 sublingual tablet disorder fluticasone propionate 44 2 inh inhalation Q12H Breath ing 09/02/17 11/07/23 mcg/actuation HFA aerosol inhaler problems gabapentin 400 mg capsule 400 mg PO TID Pain 06/19/22 11/07/23 omeprazole 40 mg capsule,delayed 40 mg PO DAILY 11/07/23 release Previous Rx's ?Medication ?Instructions ?Recorded aspirin 81 mg tablet,delayed See Rx Instructions .Rout e 09/26/22 release .COMPLEX #90 tabs atorvastatin 40 mg tablet See Rx Instructions .Route 0 10/01/23 .COMPLEX #90 tabs clopidogrel 75 mg tablet See Rx Instructions .Route 0 10/01/23 .COMPLEX #90 tabs hydrochlorothiazide 12.5 mg tablet 12.5 mg PO DAILY #9 0 tabs 10/22/23 valsartan 40 mg tablet 40 mg PO DAILY #90 tabs 10/10 10/05 carvedilol 6.25 mg tablet See Rx Instructions .Route 0 02/18/24 .COMPLEX #180 tabs Allergies Allergy/AdvReac Type Severity Reaction Status Date / Time celecoxib (From CELEBREX) Allergy Unknown I-HIVES Verified 11/07/23 14:39 NSAIDS (Non-Steroidal Allergy Unknown HEARTBURN/H Verified 11/07/23 14:39 Anti-Inflamma (NSAIDS EZEQUIEL (NON-STEROIDAL ANTI-INFLAMMA) Penicillins (PENICILLINS) Allergy Unknown I-HIVES Verified 11/07/23 14:39 amlodipine AdvReac Mild swelling Uncoded 11/07/23 14:39 brilinta AdvReac Mild Uncoded 11/07/23 14:59 isosorbide AdvReac Mild headache Uncoded 11/07/23 14:39 PFSH [facility] Disclaimer: The information contained in this section may have been updated after the patient was seen, as this information can be updated by other users. Medical History Typical angina Witnessed apneic spells Edema of both lower extremities Hyperlipidemia Osteoarthritis Narcotic dependence Coronary artery disease HTN (hypertension) Tobacco dependence syndrome Surgical History History of right hip replacement S/P cardiac cath Family History Mother Heart attack, Onset Age: 42 Father Throat cancer, Onset Age: 81 Social History Smoking Status: Current every day smoker tobacco type: cigarettes packs per day: 1 years smoked: 30 alcohol intake: never substance use type: opiates current occupational status: employed Travel in the last 8 weeks?: Inside the [place] household members: significant other lives independently: Yes marital status: number of children: 3 service: Yes status: retired branch: [employer] current occupation: [employer]- [employer] Have you lived/traveled outside US in past 30 days?: No Contact w/someone who lives/traveled outside US past 30 days?: No Exposure to someone with infectious disease in past 14 days?: No Do you have a fever (greater than 100.4 F or 38 C)?: No Have you tested positive for COVID-19?: No Exposed to someone with COVID-19 in past 14 days?: No Do you have a sore throat?: No Do you have a cough?: No Do you have any weakness?: No Do you have any diarrhea?: No Are you experiencing any unusual bleeding?: No Do you have any muscle aches/pain?: No Do you have any abdominal pain?: No Are you experiencing loss of taste or smell?: No Other Medical History Have you received the Flu Vaccine for this season: No Have you received the Pneumonia Vaccine: No ROS Obtained: Yes All systems reviewed & no additional complaints except as documented Physical Exam General General appearance: alert Comment: Ill-appearing, pale Head Head exam: atraumatic and normocephalic Eye Eye exam: Present normal appearance, PERRL and EOMI ENT ENT exam: Present mucous membranes dry and normal external ear exam Neck Neck exam: Present normal inspection, full ROM and trachea midline; Absent tenderness Chest Chest inspection: Present normal inspection and symmetric chest wall rise; Absent tenderness Respiratory Respiratory exam: Present normal lung sounds bilaterally; Absent respiratory distress, wheezes, stridor or accessory muscle use Cardiovascular Cardiovascular exam: Present regular rate and normal rhythm Abdominal Exam Abdominal exam: Present soft; Absent distention, tenderness or guarding Extremities Exam Extremities exam: Present normal inspection, full ROM and normal capillary refill; Absent tenderness or edema Back Exam Back exam: Present normal inspection and full ROM; Absent tenderness Neurological Exam Neurological exam: Present alert, oriented X3, CN II-XII intact and other (Generally weak without any focal deficit); Absent motor sensory deficit Psychiatric Psychiatric exam: Present normal affect and normal mood Skin Skin exam: Present warm, dry and pallor Medical Decision Making Medical Records Medical records reviewed: Yes I reviewed the patient's medical records. Screening: Per USPSTF and CDC recommendations, given the prevalence of disease in our region, it is our hospital?s policy to screen for HIV and viral Hepatitis for all patients aged 18 and over and those with ongoing risk factors. Bryson Inquiry Pt receiving controlled substance: No Vital Signs: 01/13/25 12:35 01/13/25 12:43 01/13/25 13:00 Temperature 98.2 F Temperature Source Oral Pulse Rate 70 63 Pulse Rate [Right] 82 Respiratory Rate 18 18 25 H Blood Pressure 73/48 L 88/52 L Blood Pressure [Right Arm] 70/41 L Blood Pressure Mean Blood Pressure Mean [Right Arm] 50 Blood Pressure Source [Right Arm] Automatic Cuff 02 Sat by Pulse Oximetry 94 L 95 95 Oxygen Delivery Method Room Air Room Air Room Air 01/13/25 13:54 01/13/25 14:01 01/13/25 14:03 Temperature Temperature Source Pulse Rate 57 L 60 60 Pulse Rate [Right] Respiratory Rate 13 17 Blood Pressure 79/41 L 88/62 L 88/62 L Blood Pressure [Right Arm] Blood Pressure Mean 67 Blood Pressure Mean [Right Arm] Blood Pressure Source [Right Arm] 02 Sat by Pulse Oximetry 97 97 96 Oxygen Delivery Method Room Air Room Air 01/13/25 14:17 01/13/25 14:31 01/13/25 15:00 Temperature Temperature Source Pulse Rate 60 60 57 L Pulse Rate [Right] Respiratory Rate 16 16 18 Blood Pressure 102/85 L 95/58 L 88/51 L Blood Pressure [Right Arm] Blood Pressure Mean 89 70 67 Blood Pressure Mean [Right Arm] Blood Pressure Source [Right Arm] 02 Sat by Pulse Oximetry 96 96 95 Oxygen Delivery Method Lab Data Lab results reviewed: Yes I reviewed the patient's lab results. Lab Results 01/13/25 12:43: VBG pH 7.39, VBG pCO2 62.7 H, VBG pO2 27.5 L, VBG HCO3 37.1 H, V BG Total CO2 39.0 H, VBG O2 Saturation 47.6 L, VBG Base Excess 12.1 H, VBG Lactic Acid 3.3 H 01/13/25 12:45: WBC 8.1, RBC 3.20 L, Hgb 12.4 L, Hct 34.8 L, MCV 108.8 H, MCH 38.8 H, MCHC 35.6 H, RDW 14.3, Plt Count 218, MPV 9.4, Neut % (Auto) 72.2, Lymph % (Auto) 13.4, [place] % (Auto) 11.4 H, Eos % (Auto) 2.0, Baso % (Auto) 0.4, Neut # (Auto) 5.9, Lymph # (Auto) 1.1, [place] # (Auto) 0.9, Eos # (Auto) 0.2, Baso # (Auto) 0.0, PT 11.4, INR 1.03, APTT 26.2, D-Dimer 1.24 H, Sodium 131 L, P otassium 2.4 L*, Chloride 86 L, Carbon Dioxide 40 H, Anion Gap 7.4, BUN 24 H, C reatinine 3.10 H, Estimated Creat Clear 37, Estimated GFR 21 L, Est GFR ( Amer) 25 L, Glucose 101 H, Calcium 8.0 L, Phosphorus 3.7, Magnesium 1.9, Total Bilirubin 1.3, AST 45, ALT 28, Alkaline Phosphatase 97, Troponin I 0.02, C- Reactive Protein 59.0 H, Total Protein 6.4, Albumin 3.6, Globulin 2.8, Albumin/Globulin Ratio 1.3, Procalcitonin 0.229, TSH 0.23 L, Thyroxine (T4) 8.0 01/13/25 12:45 01/13/25 12:45 Orders (Tests/Meds): ED MEDICATIONS Discontinued Medications Generic Name Dose Route Start Last Admin Trade Name Freq PRN Reason Stop Dose Admin Acetaminophen 1,000 mg 01/13/25 13:18 01/13/25 13:20 Acetaminophen 500mg Tab PO 01/13/25 13:19 1,000 mg ONCE ONE Administration Lactated Ringer's 2,000 mls @ 1,000 mls/hr 01/13/25 13:04 01/13/25 13:05 Lactated Ringer's 1000 Ml Bag IV 01/13/25 15:03 1,000 mls/hr .Q2H ONE Administration Potassium Chloride/Water 100 mls @ 100 mls/hr 01/13/25 13:15 01/13/25 14:58 Potassium Chloride 10meq/100ml Ivpb IV 01/13/25 15:14 100 mls/hr Q1H ELVIRA Administration Iopamidol 70 ml 01/13/25 13:55 01/13/25 13:59 Iopamidol-370 (76%);100ml Bottle IV 01/13/25 13:56 70 ml ONCE ONE Administration Ondansetron HCl 4 mg 01/13/25 13:18 01/13/25 13:19 Ondansetron 4mg/2ml Vial IV 01/13/25 13:19 4 mg ONCE ONE Administration Potassium Chloride 40 meq 01/13/25 13:15 01/13/25 13:19 Potassium Chloride 20meq Tab PO 01/13/25 13:16 40 meq ONCE ONE Administration Sodium Chloride 10 ml 01/13/25 13:55 01/13/25 13:59 Sodium Chloride 0.9% 10ml Syr (Rad Only) IV 01/13/25 13:56 10 ml ONCE ONE Administration Sodium Chloride 50 ml 01/13/25 13:55 01/13/25 13:59 0.9 % Sodium Chloride 50 Ml Vial IV 01/13/25 13:56 50 ml ONCE ONE Administration ORDERS Category Date Time Status CT abdomen pelvis w con Stat Cat Scan 01/13/25 13:[address] angio chest PE protocol Stat Cat Scan 01/13/25 13:30 Completed Femur XR left 2 views [XR femur LT 2V] Stat Exams 01/13/25 13:16 Taken Knee XR left 3 views [XR knee LT 3V] Stat Exams 01/13/25 13:16 Taken Tibia/fibula XR left 2 views [XR tibia fibula LT 2V] Exams 01/13/25 13:16 Taken Stat CBC w/Auto Diff [Complete Blood Count Auto Diff] Stat Lab 01/13/25 12:45 Completed CMP [Comprehensive Metabolic Panel] Stat Lab 01/13/25 12:45 Completed CRP [C-Reactive Protein] Stat Lab 01/13/25 12:45 Completed D-Dimer Stat Lab 01/13/25 12:45 Completed Diarrhea 23 Panel, PCR Stat Lab 01/13/25 12:43 Ordered MAG [Magnesium] Stat Lab 01/13/25 12:45 Completed PHOS [Phosphorous] Stat Lab 01/13/25 12:45 Completed PT INR [Prothrombin Time INR] Stat Lab 01/13/25 12:45 Completed PTT [Activated Partial Thrombo Time] Stat Lab 01/13/25 12:45 Completed Procalcitonin Stat Lab 01/13/25 12:45 Completed T4 (Thyroxine) Stat Lab 01/13/25 12:45 Completed TSH [Thyroid Stimulating Hormone] Stat Lab 01/13/25 12:45 Completed Trop I [Troponin I] Stat Lab 01/13/25 12:45 Completed Troponin I Q3H Lab 01/13/25 15:45 Ordered Troponin I Q3H Lab 01/13/25 18:45 Ordered UA [Urinalysis and Microscopic] Stat Lab 01/13/25 12:43 Ordered UDS [Drug Screen,Urine] Stat Lab 01/13/25 12:43 Ordered Blood Culture Stat Micro 01/13/25 12:47 Received VBG [Venous Blood Gas] Stat RT 01/13/25 12:43 Completed ECG Data Tracing #1: I reviewed this ECG and interpreted as documented below: Normal sinus rhythm with a ventricular rate of [address] changes concerning for ischemia. Normal intervals ECG initial impression date: 01/13/25 ECG initial impression time: 12:43 Medical Decision Narrative: In summary, this patient is a 59-year-old male presenting to the Emergency Department for evaluation of episodes of shaking and passing out for the last 2 days. He also notes that he has had multiple days of profuse, watery diarrhea. Differential diagnoses considered include but are not limited to dehydration, electrolyte derangements, orthostatic hypotension, sepsis, septic shock, colitis, ACS, PE. Ruling out the most morbid conditions drove assessment. It should be noted patient's history includes CAD status post stenting, hypertension, hyperlipidemia, tobacco dependence, opioid dependence which may or may not be at goal therapy. This complicates all aspects of care by increasing patient's risk for morbidity. I reviewed patient's past medical records and noted prior evaluations by cardiology for maintenance of health in the setting of CAD, hypertension, hyperlipidemia. On exam, the patient is ill-appearing, pale. He has dry mucous membranes. He is hypotensive with normal heart rate, normal O2 saturation. No increased work of breathing. He denies any current or recent complaints of pain, and cardiopulmonary and abdominal exams are within normal limits. He is completely neurologically intact without any neurologic symptoms that would suggest acute stroke or intracranial process. It is possible he could have volume depletion in the setting of recent diarrheal illness, but it also is possible he could be septic with septic shock in the setting of infection causing acute diarrheal illness. Patient is not tachycardic in the setting of hypotension, but he is on carvedilol. He also takes valsartan and hydrochlorothiazide, which she is still been taking despite this acute illness, so this is further contributing to his hypotension. Workup included broad lab evaluation to evaluate for infectious, metabolic, cardiac derangements. I did elect to obtain a D-dimer given multiple events of syncope, though I do feel that PE is less likely. EKG was obtained and is reassuring with no acute ST changes. Fluid resuscitation was initiated with a 1 L bolus of IV fluids. Labs are concerning for significant GWENDOLYN with a creatinine up to 3.1 from a baseline of around 1.8 on most recent labs from last year. He also has hyponatremia and significant hypokalemia with a potassium of 2.4. IV and oral potassium repletion were ordered, and patient was monitored on cardiac telemetry receiving potassium. CRP is elevated, but white blood cell count is normal. Lactic acid is mildly elevated. Lactic acid elevation could be related to dehydration and poor perfusion in the setting of hypotension, but cannot exclude sepsis. D-dimer that was obtained is elevated. Given this, I elected to obtain CTA PE protocol and CT abdomen pelvis with IV contrast to further assess for blood clot or acute infectious pathology. I did explain to the patient the risk of contrast induced nephropathy, though minimal, and he is also receiving IV fluids which will help dilute and improve his kidney function. He is receiving 2 L of IV fluids as opposed to a full sepsis bolus given history of cardiac dysfunction, as I felt 2.3 L could be detrimental to him. Patient also complains of left knee pain after falling during a syncopal episode yesterday, without any obvious deformity noted on exam. He is neurovascularly intact. I elected to obtain x-rays of the left femur, knee, and tib-fib. He was given oral Tylenol and IV Zofran for symptomatic improvement. I independently interpreted CT and x-ray prior to the radiologist read and noted no large focal consolidation concerning for pneumonia, no PE, no significant colonic inflammation, no urinary obstruction, no fracture. Please see their read for final interpretation. Patient received 2 L of IV fluids with systolics still in the 80s. Blood pressure was 80s over 50s with MAP of 67. He does have improved perfusion. Additional 500 of fluids was ordered for continued resuscitation while he receives IV potassium repletion. He has been afebrile the entire time is been in the emergency department. Ultimately, I feel he likely has GWENDOLYN in the setting of dehydration and the GWENDOLYN, dehydration, and continued use of his blood pressure medications are likely causing his hypotension. I considered starting antibiotics, but I do not have identifiable infection at this time aside from possible diarrheal illness, for which he is not been able to yet provide a stool sample. Given his low blood pressures, dehydration, GWENDOLYN, I feel he would benefit from admission for further evaluation and management. I had indirect discussion with the hospitalist who admitted the patient in stable condition Critical Care Critical Care Time Critical Care Time: Yes Attestation: On 01/13/25, the high probability of a clinically significant, sudden or life threatening deterioration of the following system(s) required my full and direct attention, intervention and personal management. The time I documented below is in addition to time spent performing reported procedures but includes the following listed in this critical care notation. Total Time Total Critical Care Time: 45
--- NOTE | 2025-01-13 12:57 | PC.NURSE ---
notified RT on vbg
[2025-01-13 12:58] LABS: Basophils % 0.4 % (0.1-2.0); Eosinophils # 0.2 Kmm3 (0.0-0.4); Hematocrit 34.8 % (42.0-52.0); Hemoglobin 12.4 g/dL (14.1-18.0); Immature Granulocytes # 0.05 10^3uL; Immature Granulocytes % 0.6 %; Lymphocytes # 1.1 K/mm3 (0.7-4.5); Lymphocytes % 13.4 % (10-50); Mean Corpuscular HGB Conc 35.6 g/dL (31.8-35.4); Mean Corpuscular Hemoglobin 38.8 pg (27.0-31.2); Mean Corpuscular Volume 108.8 fl (80-94); Mean Platelet Volume 9.4 fl (7.4-10.4); Monocytes # 0.9 K/mm3 (0.1-1.0); Monocytes % 11.4 % (1.7-9.3); Neutrophils # 5.9 K/mm3 (1.8-7.8); Neutrophils % 72.2 % (37.0-80.0); Nucleated Red Blood Cells # 0 10^3/uL; Nucleated Red Blood Cells % 0 %; Platelet Count 218 K/mm3 (142-424); Red Cell Distribution Width 14.3 % (11.5-17.5); Red Cell Distribution Width-SD 57.5 fL; White Blood Count 8.1 K/mm3 (4.8-10.8)
[2025-01-13 13:03] LABS: VBG Base Excess 12.1 mmol/L (-2.4-2.3); VBG HCO3 37.1 mmol/L (23-30); VBG Oxygen Saturation 47.6 % (50-70); VBG PCO2 62.7 mmol/L (35-51); VBG PH 7.39 mmol/L (7.31-7.41); VBG PO2 27.5 mmol/L (28-40)
[2025-01-13 13:03] LABS: Albumin Level 3.6 g/dl (3.5-5.0); Chloride 86 mmol/L (98-107); Sodium 131 mmol/L (136-145)
[2025-01-13 13:05] LABS: Lactate Venous 3.3 mmol/L (0.4-2.0)
[2025-01-13] MEDS: LACTATED RINGERS 1000ML 2,000 ML 1000 ML IV (13:05)
[2025-01-13 13:06] LABS: Alanine Aminotransferase 28 U/L (12-78); Albumin/Globulin Ratio 1.3 (1.1-1.8); Alkaline Phosphatase 97 U/L (38-126); Aspartate Amino Transferase 45 U/L (17-59); Bilirubin,Total 1.3 mg/dl (0.2-1.3); Blood Urea Nitrogen 24 mg/dl (9-20); Creatinine Clearance Estimated 37 mL/min (50-200); Estimated Glomerular Filt Rate 21 ml/min (>60); GFR (African American) 25 ML/MIN (>60); Globulin 2.8 g/dL (1.3-3.2); Total Protein,Serum 6.4 g/dl (6.3-8.2)
[2025-01-13 13:07] LABS: Glucose 101 mg/dl (74-100); Magnesium 1.9 mg/dl (1.6-2.3); Phosphorous 3.7 mg/dl (2.5-4.5)
[2025-01-13 13:09] LABS: Activated Partial Thrombo Time 26.2 seconds (22.8-30.6); INR 1.03 (0.9-1.1); Prothrombin Time 11.4 seconds (10.1-12.5)
[2025-01-13 13:14] LABS: Potassium 2.4 mmoL/L (3.5-5.1)
--- NOTE | 2025-01-13 13:16 | XR_ITS ---
FINAL REPORT CLINICAL HISTORY: syncope + fall, L knee pain COMPARISON: None FINDINGS: AP, lateral and oblique views of the left knee were obtained. There is no prior exam for comparison. There is no acute osseous abnormality of the left knee. The joint space is preserved. Chondrocalcinosis is noted. There is no joint effusion. IMPRESSION: No acute osseous abnormality of the left knee. Reviewed, Interpreted and Dictated by Ninfa Rincon MD Transcribed by Nathalia Reilly Authenticated and [facility]
--- NOTE | 2025-01-13 13:16 | XR_ITS ---
FINAL REPORT TECHNIQUE: 4 views left femur CLINICAL HISTORY: syncope + fall, L knee pain COMPARISON: None FINDINGS: LEFT FEMUR: 4 images of the left femur were obtained. There is no evidence of fracture or dislocation. Mild degenerative change of the left hip is noted. There is no soft tissue abnormality identified. IMPRESSION: No acute bony abnormality. Reviewed, Interpreted and Dictated by Ninfa Rincon MD Transcribed by Nathalia Reilly Authenticated and [facility]
--- NOTE | 2025-01-13 13:16 | XR_ITS ---
FINAL REPORT CLINICAL HISTORY: syncope + fall, L knee pain COMPARISON: None FINDINGS: AP and lateral views of the left tibia and fibula were obtained. There is no prior exam for comparison. There is no acute fracture of the left tibia or fibula. The knee and ankle demonstrate degenerative joint disease, greater in the ankle than the knee. The soft tissues are normal. IMPRESSION: No acute osseous abnormality of the left tibia or fibula. Reviewed, Interpreted and Dictated by Ninfa Rincon MD Transcribed by Nathalia Reilly Authenticated and [facility]
[2025-01-13 13:18] LABS: D-Dimer 1.24 ug/mL (0.0-0.5)
[2025-01-13] MEDS: POTASSIUM CHLORIDE 20MEQ TAB 40 MEQ PO (13:19)
[2025-01-13] MEDS: ONDANSETRON 4MG/2ML VIAL 4 MG IV ×2 (13:19→17:28)
[2025-01-13] MEDS: KCl 10mEq/100ml 100 ML 100 MEQ IV ×2 (13:19→14:58)
[2025-01-13] MEDS: ACETAMINOPHEN 500MG TAB 1000 MG PO (13:20)
[2025-01-13 13:21] LABS: Troponin I 0.02 ng/ml (0.00-0.034)
[2025-01-13 13:23] LABS: Anion Gap 7.4 mEq/L (5-15); Carbon Dioxide 40 mmol/L (22.0-30.0)
--- NOTE | 2025-01-13 13:30 | CT_ITS ---
FINAL REPORT TECHNIQUE: Axial imaging of the chest is obtained after the administration of contrast. 3-D MIP reformatted images were also obtained and reviewed per PE protocol. This study was performed with techniques to keep radiation doses as low as reasonably achievable (ALARA). Individualized dose reduction techniques using automated exposure control or adjustment of mA and/or kV according to the patient's size were employed. CLINICAL HISTORY: diarrhea, GWENDOLYN, hypotension, recurrent syncope COMPARISON: None FINDINGS: The pulmonary arteries are well filled. There is no evidence of pulmonary embolus. The exam is limited for evaluation of aortic dissection secondary to bolus timing. Heart size is normal. There is no mediastinal, hilar, or axillary lymphadenopathy. There are innumerable bilateral calcified granulomas present. There is a noncalcified groundglass nodule in the left upper lobe, measuring 8 mm in size, best seen on image #25 of series 5. There are additional noncalcified less than 5 mm in size nodules, that likely represent noncalcified granulomas. There is no pleural or pericardial effusion. Limited evaluation of the upper abdomen is without acute abnormality. No acute osseous abnormality. IMPRESSION: No evidence of pulmonary embolism. Aortic dissection cannot be excluded secondary to bolus timing. Noncalcified groundglass nodule in the left upper lobe, 8 mm in size, consider 6-month follow-up chest CT for further evaluation. Innumerable bilateral calcified granulomas. Reviewed, Interpreted and Dictated by Ninfa Rincon MD Transcribed by Nathalia Reilly Authenticated and [facility]
--- NOTE | 2025-01-13 13:30 | CT_ITS ---
FINAL REPORT TECHNIQUE: Thin section axial images are obtained through the abdomen and pelvis after intravenous contrast. Reconstruction images were obtained from the axial data. Exam was performed using dose reduction techniques. CLINICAL HISTORY: diarrhea, GWENDOLYN, hypotension, recurrent syncope FINDINGS: LIVER: Fatty infiltrated. No focal lesion. GALLBLADDER/BILIARY SYSTEM: Gallbladder is present. No gallstones. No biliary dilatation. SPLEEN: Unremarkable. PANCREAS: Unremarkable. ADRENALS: Unremarkable. KIDNEYS/URETERS/BLADDER: No hydronephrosis, renal mass, or renal stone. Unremarkable urinary bladder. GI TRACT: No small bowel obstruction or dilatation. Normal appendix. No acute colon abnormality. PELVIC ORGANS: Prostate is mildly enlarged. LYMPH NODES/RETROPERITONEUM/MESENTERY: No lymphadenopathy. No abdominal aortic aneurysm. ABDOMINAL WALL: The abdominal wall is intact. FREE FLUID: No ascites. BONES: No acute osseous abnormality. IMPRESSION: No acute abnormality. Fatty infiltration of the liver. Reviewed, Interpreted and Dictated by Ninfa Rincon MD Transcribed by Radha Frazier Authenticated and [facility]
[2025-01-13 13:31] LABS: Procalcitonin 0.229 ng/mL (0.0-2.0)
[2025-01-13 13:40] LABS: Thyroid Stimulating Hormone 0.23 uIU/mL (0.465-4.68)
--- NOTE | 2025-01-13 13:50 | PC.NURSE ---
pt back from rad
[2025-01-13] MEDS: SODIUM CHLORIDE 0.9% 10ML SYR (RAD ONLY) 10 ML IV (13:59)
[2025-01-13] MEDS: 0.9 % SODIUM CHLORIDE 50 ML VIAL IV (13:59)
[2025-01-13] MEDS: IOPAMIDOL-370 (76%);100ML BOTTLE 70 ML IV (13:59)
--- NOTE | 2025-01-13 15:30 | PC.NURSE ---
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
--- NOTE | 2025-01-13 15:49 | CA_ITS ---
APPROVED REPORT EXAM: Comprehensive 2D, Doppler, and color-flow Echocardiogram [employer]: Vivi Montes De Oca RT(R) Ht: 6 ft 0 in Wt: 225lbs BSA: 2.24 BP: 88/51 mmHg Indications: hypotension, bradycardia, syncope, smoker 2D Dimensions LVEF (Flowers's) 54.50 % M: 52 - 72 LV Volume 113.30 mL M: 62 - 150 EF AP4 55.20 % EF AP2 55.3 % EF BP 54.5 % GL Strain -20.4 % M-Mode Dimensions RVDd 2.96 cm (0.9-2.6) LA Diam 3.20 cm (1.9-4.0) LVDd 5.47 cm (3.5-5.7) LVDs 3.69 cm (3.5-5.7) IVSd 0.53 cm (0.6-1.1) PWd 0.84 cm (0.6-1.1) EF (Teich) 60.30% FS 32.50% EDV (Teich) 145.60 mL ESV (Teich) 57.80 mL LV Diastology E Decel Time 207 (160-240 msec) E/A Ratio 1.2 Mitral Valve MV E Max Michael. 83.0 (40-130 cm/s) MV A Velocity 68.0 (40-130 cm/s) E/A Ratio 1.23 MV PHT 61.0 ms Left Ventricle The left ventricle is normal size. The left ventricular systolic function is normal. The left ventricular ejection fraction is within the normal range. There is normal left ventricular wall thickness. There is normal LV segmental wall motion. The left ventricular diastolic function is normal. LVEF is 55%. Right Ventricle The right ventricle is normal size. The right ventricular systolic function is normal. Atria The left atrium size is normal. The right atrium size is normal. There is likely color Doppler evidence of left to right interatrial shunt. Aortic Valve The aortic valve opens well. There is no aortic valvular stenosis. No aortic regurgitation is present. Mitral Valve The mitral valve is normal in structure. No evidence of mitral valve stenosis. Trace mitral regurgitation. Tricuspid Valve Tricuspid valve is grossly normal in structure and function. Mild tricuspid regurgitation. RVSP is 20-25 mmHg. Pulmonic Valve The pulmonary valve is normal in structure. Trace pulmonic regurgitation. Great Vessels The aortic root is normal in size. IVC is normal in size and collapses >50% with inspiration. Pericardium There is no pericardial effusion. Other Information Study Quality: Fair Conclusion Normal biventricular size and systolic function. Mild TR. There is likely color Doppler evidence of left to right interatrial shunt. Electronically signed by : Joana Gomes MD 01/15/2025 14:52:39
--- NOTE | 2025-01-13 15:54 | P.HP_ITS ---
<Statement entered by Ta New MD - 01/18/25 17:41> Personally evaluated the patient and agree with the plan of care as outlined by the [facility]. History of Present Illness *Admission Date: 01/13/25 *Reason for visit:: Hypokalemia, hypotension, GWENDOLYN *History of present illness: Mr. Barker is a 59-year-old male with a history of hypertension, CAD, cardiac stents, tobacco dependence, alcohol use disorder, history of drug use, COPD, and GERD. He presented to the emergency department today with weakness, syncopal episodes, and injury to his left knee. He also complains of watery diarrhea for the last several days. After further evaluation in the emergency department was found that he has hypokalemia with a potassium of 2.4, sodium 131, and chloride 86. He was also found to have an acute kidney injury with a BUN of 24 and a creatinine of 3.3. D-dimer was also found to be elevated in the emergency department and CTA PE protocol was obtained and was unremarkable. CT of abdomen/pelvis were also obtained and were also unremarkable. Patient denies chest pain, shortness of breath, nausea, or vomiting. Decision was made by the ER physician to consult hospital medicine for admission and further management. [facility] Disclaimer: The information contained in this section may have been updated after the patient was seen, as this information can be updated by other users. Medical History Typical angina Witnessed apneic spells Edema of both lower extremities Hyperlipidemia Osteoarthritis Narcotic dependence Coronary artery disease HTN (hypertension) Tobacco dependence syndrome Surgical History History of right hip replacement S/P cardiac cath Family History Mother Heart attack, Onset Age: 42 Father Throat cancer, Onset Age: 81 Social History Smoking Status: Current every day smoker tobacco type: cigarettes packs per day: 1 years smoked: 30 alcohol intake: never substance use type: opiates current occupational status: employed Travel in the last 8 weeks?: [place] the [employer] household members: significant other lives independently: Yes marital status: number of children: 3 service: Yes status: retired branch: [employer] current occupation: [employer]- [employer] Have you lived/traveled outside [place] in past 30 days?: No Contact w/someone who lives/traveled outside US past 30 days?: No Exposure to someone with infectious disease in past 14 days?: No Do you have a fever (greater than 100.4 F or 38 C)?: No Have you tested positive for COVID-19?: No Exposed to someone with COVID-19 in past 14 days?: No Do you have a sore throat?: No Do you have a cough?: No Do you have any weakness?: No Do you have any diarrhea?: No Are you experiencing any unusual bleeding?: No Do you have any muscle aches/pain?: No Do you have any abdominal pain?: No Are you experiencing loss of taste or smell?: No Other Medical History Have you received the Flu Vaccine for this season: No Have you received the Pneumonia Vaccine: No Review of Systems Review of Systems Review of systems:: pertinent systems reviewed and negative unless documented below Constitutional Constitutional: Reports weakness ENT Ears, Nose, Mouth, and Throat: Reports dizziness *Cardiovascular Cardiovascular: Reports syncope *Gastrointestinal Gastrointestinal: Reports loose stools *Neurologic Neurologic: Reports dizziness, Reports restless legs, Reports syncope and Reports weakness Meds Home Medications and Allergies Home Medications ?Medication ?Instructions ?Recorded ?Confirmed ?Type buprenorphine 8 mg-naloxone 2 mg 2 tab sublingual QDAY opioid use 09/02/17 01/13/25 History sublingual tablet disorder fluticasone propionate 44 2 inh inhalation Q12H Breath ing 09/02/17 01/13/25 History mcg/actuation HFA aerosol inhaler problems aspirin 81 mg tablet,delayed See Rx Instructions .Rout e 09/26/22 01/13/25 Rx release .COMPLEX #90 tabs atorvastatin 40 mg tablet See Rx Instructions .Route 0 10/01/23 01/13/25 Rx .COMPLEX #90 tabs hydrochlorothiazide 12.5 mg tablet 12.5 mg PO DAILY #9 0 tabs 10/22/23 01/13/25 Rx omeprazole 40 mg capsule,delayed 40 mg PO DAILY 01/13/25 History release valsartan 40 mg tablet 40 mg PO DAILY #90 tabs 10/1001/13/25 Rx carvedilol 6.25 mg tablet See Rx Instructions .Route 0 02/18/24 01/13/25 Rx .COMPLEX #180 tabs New Prescriptions to Start Prescriptions: Allergies Allergy/AdvReac Type Severity Reaction Status Date / Time celecoxib (From CELEBREX) Allergy Unknown I-HIVES Verified 01/13/25 15:58 NSAIDS (Non-Steroidal Allergy Unknown HEARTBURN/H Verified 01/13/25 15:58 Anti-Inflamma (NSAIDS EZEQUIEL (NON-STEROIDAL ANTI-INFLAMMA) Penicillins (PENICILLINS) Allergy Unknown I-HIVES Verified 01/13/25 15:58 amlodipine AdvReac Mild swelling Uncoded 11/07/23 14:39 brilinta AdvReac Mild Hypertensio Uncoded 01/13/25 15:58 n isosorbide AdvReac Mild headache Uncoded 11/07/23 14:39 Exam Data for Last 24 hours Vital signs and Labs for Last 24 Hours: Temp Pulse Resp BP Pulse Ox O2 Del Method 98.2 F 62 16 100/56 L 98 Room Air 01/13/25 12:35 01/13/25 15:30 01/13/25 15:30 01/13/25 15:30 01/13/25 15:30 01/13/25 14:01 Laboratory Results - last 24 hr 01/13/25 12:43: VBG pH 7.39, VBG pCO2 62.7 H, VBG pO2 27.5 L, VBG HCO3 37.1 H, VBG Total CO2 39.0 H, VBG O2 Saturation 47.6 L, VBG Base Excess 12.1 H, VBG Lactic Acid 3.3 H 01/13/25 12:45: WBC 8.1, RBC 3.20 L, Hgb 12.4 L, Hct 34.8 L, MCV 108.8 H, MCH 38.8 H, MCHC 35.6 H, RDW 14.3, Plt Count 218, MPV 9.4, Neut % (Auto) 72.2, Lymph % (Auto) 13.4, [place] % (Auto) 11.4 H, Eos % (Auto) 2.0, Baso % (Auto) 0.4, Neut # (Auto) 5.9, Lymph # (Auto) 1.1, [place] # (Auto) 0.9, Eos # (Auto) 0.2, Baso # (Auto) 0.0, PT 11.4, INR 1.03, APTT 26.2, D-Dimer 1.24 H, Sodium 131 L, Potassium 2.4 L*, Chloride 86 L, Carbon Dioxide 40 H, Anion Gap 7.4, BUN 24 H, Creatinine 3.10 H, Estimated Creat Clear 37, Estimated GFR 21 L, Est GFR ( Amer) 25 L, Glucose 101 H, Calcium 8.0 L, Phosphorus 3.7, Magnesium 1.9, Total Bilirubin 1.3, AST 45, ALT 28, Alkaline Phosphatase 97, Troponin I 0.02, C-Reactive Protein 59.0 H, Total Protein 6.4, Albumin 3.6, Globulin 2.8, Albumin/Globulin Ratio 1.3, Procalcitonin 0.229, TSH 0.23 L, Thyroxine (T4) 8.0 I & O for Last 24 hours: Intake & Output 01/10/25 01/11/25 01/12/25 01/13/25 23:59 23:59 23:59 23:59 Weight 102.058 kg Constitutional Constitutional: mild distress and cooperative *Routine HEENT Exam Head: Present normocephalic Eye: Present EOMI ENT: Present mucous membranes dry *Routine Neck Exam Neck: Present full ROM *Routine Respiratory Exam Respiratory: Present CTA bilaterally and able to speak in complete sentences *Routine Cardiovascular Exam Cardiovascular: Present RRR *Routine Abdominal Exam Abdominal: Present normoactive bowel sounds and obese; Absent tenderness *Routine Rectal Exam Rectal:: deferred *Routine Genitalia Exam Genitalia:: deferred *Routine Extremities Exam Extremities: Present full ROM; Absent clubbing or edema *Routine Skin Exam Skin: Present intact and dry *Routine Neurological Exam Neurological: Present alert, oriented X3 and tremors; Absent facial asymmetry Assessment and Plan *Assessment and plan (1) Hypokalemia: Status: Acute Category: Medical Code(s): E87.6 - Hypokalemia (2) GWENDOLYN (acute kidney injury): Status: Acute Category: Medical Code(s): N17.9 - Acute kidney failure, unspecified (3) Hypotension: Status: Acute Category: Medical Code(s): I95.9 - Hypotension, unspecified (4) Dehydration: Status: Acute Category: Medical Code(s): E86.0 - Dehydration (5) Knee pain, left: Status: Acute Category: Medical Code(s): M25.562 - Pain in left knee (6) Diarrhea: Status: Acute Category: Medical Code(s): R19.7 - Diarrhea, unspecified (7) Coronary artery disease: Status: Acute Qualifiers: Associated angina: with other forms of angina Coronary Disease- Associated Artery/Lesion type: [place] artery [place] vs. transplanted heart: [place] heart Qualified Code(s): I25.118 - Atherosclerotic heart disease of [place] coronary artery with other forms of angina pectoris Category: Medical Code(s): I25.10 - Atherosclerotic heart disease of [place] coronary artery without angina pectoris (8) Tobacco dependence syndrome: Status: Acute Category: Medical Code(s): F17.200 - Nicotine dependence, unspecified, uncomplicated Plan Mr. Barker is a 59-year-old male admitted to the hospital today for hypotension, hypokalemia, and acute kidney injury. Patient does admit to drinking 5-6 beers per day, and smoking marijuana. Patient does have a history of narcotic drug use, currently takes Suboxone daily. Further management of his symptoms detailed below: #Hypokalemia: ?40 mEq oral potassium and 2-10 mEq runs of potassium given in the ED. ?Patient placed on telemetry to monitor for EKG changes. ?Electrolyte protocol ordered. ?CMP ordered for the a.m. #Acute kidney injury #Dehydration #Diarrhea: ?2.5 L bolus of LR given in the emergency room. ?Maintenance fluids of LR at 125 mL an hour started. ?Oral hydration encouraged. ?Repeat kidney function ordered for the morning. ?Patient states he is no longer having the diarrhea, discussed with patient if he does have another bowel movement to let us know so we can send off a stool sample. #Hypotension: ?Patient placed in stepdown for frequent blood pressure checks and close monitoring. #Knee pain, left: ?Patient received x-rays of left tibia and fibula, knee, and femur; all were unremarkable. ?Acetaminophen 650 every 6 hours as needed for pain ordered. #Coronary artery disease: ?Home meds continued, atorvastatin 40 mg daily. #Tobacco use disorder: ?Transdermal nicotine patches ordered as needed. ?Smoking cessation education given. Full code Regular diet Up as tolerated Lovenox 30 mg sq DVT prophylaxis
[2025-01-13 16:12] LABS: Creatine Kinase 528 U/L (55-170)
--- NOTE | 2025-01-13 16:20 | PC.NURSE ---
I spoke with Briana SINGLETON notifying her of the pts blood pressure drop.
[2025-01-13 16:30] LABS: Free T4 (Free Thyroxine) 1.39 ng/dl (0.78-2.19)
[2025-01-13 16:35] LABS: Troponin I 0.02 ng/ml (0.00-0.034)
--- NOTE | 2025-01-13 16:39 | PC.NURSE ---
Patients blood pressure of 74/40. notified. New orders received. Continuation of care plan.
[2025-01-13] MEDS: LACTATED RINGERS 1000ML 1,000 ML 999 ML IV (16:42)
--- NOTE | 2025-01-13 16:42 | PC.NURSE ---
states administer LR bolus and Glucagon before starting ordered Levophed. Continuation of care plan.
[2025-01-13] MEDS: NICOTINE 21MG/24HR PATCH 21 MG TD (16:43)
[2025-01-13 17:06] LABS: Reflex Lactic Add Lactic Reflex
[2025-01-13] MEDS: GLUCAGON 1 MG/ML VIAL 5 MG IV (17:07)
[2025-01-13] MEDS: ACETAMINOPHEN 325MG TAB 650 MG PO (17:09)
[2025-01-13 17:30] LABS: Adenovirus,PCR Not Detected (NotDetected); Bordetella Pertussis Not Detected (NotDetected); Chlamydophila Pneumoniae, PCR Not Detected (NotDetected); Coronavirus 19, PCR Not Detected (NotDetected); Coronavirus 229E Not Detected (NotDetected); Coronavirus NL63 Not Detected (NotDetected); Coronavirus OC43 Not Detected (NotDetected); Coronovirus HKU1,PCR Not Detected (NotDetected); Human Metapneumovirus Not Detected (NotDetected); Influenza A, PCR Not Detected (NotDetected); Influenza AH1, 2009 Not Detected (NotDetected); Influenza AH1, PCR Not Detected (NotDetected); Influenza AH3,PCR Not Detected (NotDetected); Influenza B, PCR Not Detected (NotDetected); Mycoplasma Pneumoniae, PCR Not Detected (NotDetected); Parainfluenza 1, PCR Not Detected (NotDetected); Parainfluenza 2, PCR Not Detected (NotDetected); Parainfluenza 4, PCR Not Detected (NotDetected); Respiratory Syncytial Virus Not Detected (NotDetected); Rhinovirus/Enterovirus Not Detected (NotDetected)
--- NOTE | 2025-01-13 17:51 | PC.NURSE ---
Patients blood pressure of 74/40. notified. New orders received. Continuation of care plan.
--- NOTE | 2025-01-13 17:57 | PC.NURSE ---
Echo states patients EF is between 50-55%. notified. No new orders received. Continuation of care plan.
[2025-01-13] MEDS: LACTATED RINGERS 1000ML 1,000 ML 125 ML IV (18:08)
[2025-01-13] MEDS: NOREPINEPHRINE BITARTRATE/D5W 8 MG/250 ML PLAST..BAG 3.87 MG IV (18:25)
[2025-01-13 19:17] LABS: Lactic Acid Follow Up (RFLX 1) 1.5 mmol/L (0.7-2.1)
[2025-01-13 19:31] LABS: Troponin I 0.01 ng/ml (0.00-0.034)
[2025-01-13 19:31] LABS: Parainfluenza 3, PCR Detected (NotDetected)
[2025-01-13 20:19] LABS: Amphetamine/Metha Screen,Urine Negative ng/ml (<1000)
[2025-01-13 20:20] LABS: Barbiturates Screen,Urine Negative ng/ml (<200); Benzodiazepines Screen,Urine Negative ng/ml (<200)
[2025-01-13 20:21] LABS: Cannabinoid Screen,Urine Negative ng/ml (<50); Cocaine Screen,Urine Negative ng/ml (<300)
[2025-01-13 20:22] LABS: Methadone Screen,Urine Negative ng/ml (<300)
[2025-01-13 20:24] LABS: Opiate Screen,Urine Negative ng/ml (<300)
[2025-01-13 20:25] LABS: Phencyclidine Screen,Urine Negative ng/ml (<25)
[2025-01-13 23:36] LABS: Microscopic, Urine URINE MICROSCOPIC (MICROSCOPIC)
[2025-01-13 23:37] LABS: Appearance,Urine CLEAR (Clear); Bilirubin,Urine Negative (Negative); Blood, Urine Negative (Negative); Color,Urine YELLOW (Yellow); Glucose,Urine (UA) Negative (Negative); Ketones,Urine Negative (Negative); Leukocyte Esterase,Urine Negative (Negative); Nitrate,Urine Negative (Negative); Protein,Urine Negative (Negative); Specific Gravity, Urine <= 1.005 (1.005-1.030); Urobilinogen,Urine 0.2 EU/dl (0.2)
[2025-01-13 23:57] LABS: Bacteria,Urine 1+ /lpf; RBC,Urine Occasional #/hpf (0-3)
[2025-01-14] VITALS (23 sets, daily range): BP systolic 94–158; BP diastolic 55–106; PULSE 44–71; RESP 11–22; O2SAT 92–100; BMI 28.6
[2025-01-14] MEDS: LACTATED RINGERS 1000ML 1,000 ML 125 ML IV ×2 (03:39→08:54)
--- NOTE | 2025-01-14 04:20 | ECG_ITS ---
APPROVED REPORT Exam: Resting ECG HR:49 bpm ECG Measurements Heart Rate 49 AXES [place] 134 P 99 QRSd 111 QRS -5 QT 489 T -11 QTc 458 Conclusion SINUS BRADYCARDIA POSSIBLE LATERAL MYOCARDIAL INFARCTION , PROBABLY OLD [30 ms Q WAVE IN I/aVL/V5/V6] BORDERLINE ECG UNCONFIRMED REPORT Electronically signed by : Lior Harris MD 01/14/2025 08:35:02
--- NOTE | 2025-01-14 04:28 | PC.NURSE ---
Provider axel schmidt notified of heart rate going down to 32, patient complained of lightheadedness and was harder to arouse but blood pressure was stable at 187/89, has not been low since heart rate has dropped. Since arrival to my shift patient heart rate has stayed between 42-59 and has not had any complaints, ekg done and showed no significant changes or concerns. provider was at bedside, aware of ekg and said as long as bp is not dropping with heart rate to continue to monitor.
[2025-01-14] MEDS: ACETAMINOPHEN 500MG TAB 1000 MG PO (05:08)
[2025-01-14 06:12] LABS: Albumin Level 3.2 g/dl (3.5-5.0)
[2025-01-14 06:13] LABS: Chloride 98 mmol/L (98-107); Sodium 135 mmol/L (136-145)
[2025-01-14 06:15] LABS: Alanine Aminotransferase 25 U/L (12-78); Albumin/Globulin Ratio 1.2 (1.1-1.8); Alkaline Phosphatase 108 U/L (38-126); Anion Gap 6.8 mEq/L (5-15); Aspartate Amino Transferase 61 U/L (17-59); Bilirubin,Total 0.7 mg/dl (0.2-1.3); Blood Urea Nitrogen 20 mg/dl (9-20); Carbon Dioxide 33 mmol/L (22.0-30.0); Creatinine Clearance Estimated 68 mL/min (50-200); Estimated Glomerular Filt Rate 45 ml/min (>60); GFR (African American) 54 ML/MIN (>60); Globulin 2.6 g/dL (1.3-3.2); Total Protein,Serum 5.8 g/dl (6.3-8.2); Triglycerides 80 mg/dl (30-150); VLDL Cholesterol 16 mg/dL (0-40)
[2025-01-14 06:16] LABS: Calcium 7.8 mg/dl (8.4-10.2); Chol/HDL Ratio 4.8 (1-3.5); Cholesterol 96 mg/dl (140-200); Glucose 113 mg/dl (74-100); HDL Cholesterol 20 mg/dl (40-60); Magnesium 2.2 mg/dl (1.6-2.3); Phosphorous 3.4 mg/dl (2.5-4.5)
[2025-01-14 06:19] LABS: Potassium 2.8 mmoL/L (3.5-5.1)
[2025-01-14 06:27] LABS: Direct LDL Cholesterol 45.65 mg/dL (100-129)
[2025-01-14 06:33] LABS: Basophils % 0.8 % (0.1-2.0); Eosinophils # 0.1 Kmm3 (0.0-0.4); Eosinophils % 3.8 % (0.1-12.0); Hematocrit 33.5 % (42.0-52.0); Hemoglobin 11.9 g/dL (14.1-18.0); Immature Granulocytes # 0.04 10^3uL; Immature Granulocytes % 1.1 %; Lymphocytes % 26.1 % (10-50); Mean Corpuscular HGB Conc 35.5 g/dL (31.8-35.4); Mean Corpuscular Hemoglobin 38.5 pg (27.0-31.2); Mean Corpuscular Volume 108.4 fl (80-94); Mean Platelet Volume 10.6 fl (7.4-10.4); Monocytes # 0.4 K/mm3 (0.1-1.0); Monocytes % 10.1 % (1.7-9.3); Neutrophils # 2.1 K/mm3 (1.8-7.8); Neutrophils % 58.1 % (37.0-80.0); Nucleated Red Blood Cells # 0 10^3/uL; Nucleated Red Blood Cells % 0 %; Platelet Count 148 K/mm3 (142-424); Red Blood Count 3.09 M/mm3 (4.60-6.20); Red Cell Distribution Width 14.5 % (11.5-17.5); Red Cell Distribution Width-SD 56.9 fL; White Blood Count 3.7 K/mm3 (4.8-10.8)
[2025-01-14 06:49] LABS: VBG Base Excess 11.6 mmol/L (-2.4-2.3); VBG HCO3 34.5 mmol/L (23-30); VBG Oxygen Saturation 87.9 % (50-70); VBG PCO2 43.5 mmol/L (35-51); VBG PH 7.52 mmol/L (7.31-7.41); VBG Total CO2 35.8 mmol/L (23-27)
[2025-01-14 06:50] LABS: Lactate Venous 2.1 mmol/L (0.4-2.0)
[2025-01-14 07:32] LABS: POC Glucose,Bedside 116 (70-110)
--- NOTE | 2025-01-14 08:07 | PC.NURSE ---
Pt placed in droplet precautions for + parainfluenza 3 per resp panel
--- NOTE | 2025-01-14 08:35 | HMH.PHAINT1 ---
Pharmacy Intervention Comments: MEDICATION RECONCILIATION COMPLETED ON PATIENT USING EXTERNAL FILL HISTORY FROM PHARMACY AND ASHTYN REPORT. -JAZZY LANG, HAKEEMD
[2025-01-14] MEDS: ENOXAPARIN 40MG/0.4ML SYRINGE 40 MG SUBCUT (08:52)
[2025-01-14] MEDS: POTASSIUM CHLORIDE 20MEQ TAB 40 MEQ PO ×3 (08:52→15:34)
[2025-01-14] MEDS: THIAMINE 100MG TABLET 100 MG PO (08:53)
[2025-01-14] MEDS: FOLIC ACID 1MG TABLET 1 MG PO (08:53)
--- NOTE | 2025-01-14 09:39 | XR_ITS ---
FINAL REPORT CLINICAL HISTORY: cough and congestion COMPARISON: 09/02/2024 FINDINGS: A portable view of the chest was obtained. Cardiac and mediastinal silhouettes are within normal limits. There are multiple bilateral calcified granulomas. The lungs are otherwise clear. There is no pleural effusion or pneumothorax. IMPRESSION: No acute process on this portable exam. Reviewed, Interpreted and Dictated by Ninfa Rincon MD Transcribed by Stephanie Dougherty Authenticated and [facility]
--- NOTE | 2025-01-14 10:18 | P.PN_ITS ---
Subjective Subjective Date: 01/14/25 Time: 09:00 Principal diagnosis: syncope Interval history: This patient is a 59-year-old male with a history of CAD status post stenting, hypertension, hyperlipidemia, tobacco dependence and opioid dependency on Suboxone who present to the emergency department for evaluation of syncope and shakiness. Patient complains of watery diarrhea for several days. Patient was noted to be hypotensive on presentation to ER. Initial EKG showed sinus rhythm at a rate of 78, negative for stemi. Significant labs as follow: Sodium 131, potassium 2.4, BUN 24, creatinine 3.1, total creatinine kinase 528, C-reactive protein 59, D-dimer positive and serial troponins negative. CTA was negative for PE. CT abdomen pelvis was negative for acute findings. Patient was started on IV and oral potassium repletion and admitted for dehydration, acute kidney injury, hyponatremia and hypokalemia. Last night patient became bradycardic and hypotensive briefly requiring a Levophed drip. Patient has been weaned off of Levophed and is maintaining a blood pressure of 114/73 today. Patient remains bradycardic with heart rate in the 50s. Patient denies dizziness or lightheadedness. Continues to receive fluids for dehydration. Preliminary echo shows an estimated EF of 55%. Official read is pending. Serial troponins remain negative. Of note, patient was evaluated in cardiology clinic over a year ago with complaints of chest pain and was advised he should obtain an outpatient stress test and echo which he did not have done. At this time patient denies chest pain or shortness of breath. Exam Data for Last 24 hours Vital signs and Labs for Last 24 Hours: Temp Pulse Resp BP Pulse Ox O2 Del Method O2 Flow Rate 97.6 F 49 L 13 114/73 92 L Room Air 2 01/13/25 16:01 01/14/25 10:01/14/25 10:01/14/25 10:01/14/25 10:01/14/25 10:01/14/25 07:31 Laboratory Results - last 24 hr 01/13/25 12:43: VBG pH 7.39, VBG pCO2 62.7 H, VBG pO2 27.5 L, VBG HCO3 37.1 H, VBG Total CO2 39.0 H, VBG O2 Saturation 47.6 L, VBG Base Excess 12.1 H, VBG Lactic Acid 3.3 H 01/13/25 12:45: WBC 8.1, RBC 3.20 L, Hgb 12.4 L, Hct 34.8 L, MCV 108.8 H, MCH 38.8 H, MCHC 35.6 H, RDW 14.3, Plt Count 218, MPV 9.4, Neut % (Auto) 72.2, Lymph % (Auto) 13.4, [place] % (Auto) 11.4 H, Eos % (Auto) 2.0, Baso % (Auto) 0.4, Neut # (Auto) 5.9, Lymph # (Auto) 1.1, [place] # (Auto) 0.9, Eos # (Auto) 0.2, Baso # (Auto) 0.0, PT 11.4, INR 1.03, APTT 26.2, D-Dimer 1.24 H, Sodium 131 L, Potassium 2.4 L*, Chloride 86 L, Carbon Dioxide 40 H, Anion Gap 7.4, BUN 24 H, Creatinine 3.10 H, Estimated Creat Clear 37, Estimated GFR 21 L, Est GFR ( Amer) 25 L, Glucose 101 H, Calcium 8.0 L, Phosphorus 3.7, Magnesium 1.9, Total Bilirubin 1.3, AST 45, ALT 28, Alkaline Phosphatase 97, Total Creatine Kinase 528 H*, Troponin I 0.02, C-Reactive Protein 59.0 H, Total Protein 6.4, Albumin 3.6, Globulin 2.8, Albumin/Globulin Ratio 1.3, Procalcitonin 0.229, TSH 0.23 L, Free T4 1.39, Thyroxine (T4) 8.0 01/13/25 16:07: Troponin I 0.02 01/13/25 17:23: Chlamy pneumoniae PCR Not detected, Adenovirus (PCR) Not detected, B. pertussis DNA (PCR) Not detected, Coronavirus OC43 (PCR) Not detected, Coronavirus HKU1 (PCR) Not detected, Coronavirus 229E (PCR) Not detected, SARS-CoV-2 (PCR) Not detected, Coronavirus NL63 (PCR) Not detected, Human Metapneumovir PCR Not detected, Influenza A (H1) PCR Not detected, Influ A (H1N1/09) PCR Not detected, Influenza A (H3) PCR Not detected, Influenza Type A (PCR) Not detected, Influenza Type B (PCR) Not detected, M. pneumoniae (PCR) Not detected, Parainfluenza 1 (PCR) Not detected, Parainfluenza 2 (PCR) Not detected, Parainfluenza 3 (PCR) Detected A, Parainfluenza 4 (PCR) Not detected, RSV (PCR) Not detected, Entero/Rhino (PCR) Not detected 01/13/25 18:55: Lactate 1.5, Troponin I 0.01 01/13/25 18:56: Urine Color Yellow, Urine Appearance Clear, Urine pH 6.0, Ur Specific [place] <= 1.005, Urine Protein Negative, Urine Glucose (UA) Negative, Urine Ketones Negative, Urine Blood Negative, Urine Nitrate Negative, Urine Bilirubin Negative, Urine Urobilinogen 0.2, Ur Leukocyte Esterase Negative, Urine RBC Occasional, Urine WBC 3-5, Ur Squamous Epith Cells 3-5, Urine Bacteria 1+, Urine Opiates Screen Negative, Urine Methadone Screen Negative, Ur Maryjane tuates Screen Negative, Ur Phencyclidine Scrn Negative, Ur Amphetamines Screen Negative, U Benzodiazepines Scrn Negative, Urine Cocaine Screen Negative, U Marijuana (THC) Screen Negative 01/14/25 04:22: POC Glucose 116 H 01/14/25 04:59: WBC 3.7 L D, RBC 3.09 L, Hgb 11.9 L, Hct 33.5 L, MCV 108.4 H, MCH 38.5 H, MCHC 35.5 H, RDW 14.5, Plt Count 148 D, MPV 10.6 H, Neut % (Auto) 58.1, Lymph % (Auto) 26.1, [place] % (Auto) 10.1 H, Eos % (Auto) 3.8, Baso % (Auto) 0.8, Neut # (Auto) 2.1, Lymph # (Auto) 1.0, [place] # (Auto) 0.4, Eos # (Auto) 0.1, Baso # (Auto) 0.0, Sodium 135 L, Potassium 2.8 L*, Chloride 98, Carbon Dioxide 33 H, Anion Gap 6.8, BUN 20, Creatinine 1.60 H D, Estimated Creat Clear 68, Estimated GFR 45 L, Est GFR ( Amer) 54 L D, Glucose 113 H, Calcium 7.8 L, Phosphorus 3.4, Magnesium 2.2 D, Total Bilirubin 0.7, AST 61 H D, ALT 25, Alkaline Phosphatase 108, Total Protein 5.8 L, Albumin 3.2 L D, Globulin 2.6, Albumin/Globulin Ratio 1.2, Triglycerides 80, Cholesterol 96 L, LDL Cholesterol Direct 45.65 L, VLDL Cholesterol 16, HDL Cholesterol 20 L, Cholesterol/HDL Ratio 4.8 H 01/14/25 06:00: VBG pH 7.52 H, VBG pCO2 43.5, VBG pO2 50.0 H, VBG HCO3 34.5 H, VBG Total CO2 35.8 H, VBG O2 Saturation 87.9 H, VBG Base Excess 11.6 H, VBG Lactic Acid 2.1 H I & O for Last 24 hours: Intake & Output 01/11/25 01/12/25 01/13/25 01/14/25 23:59 23:59 23:59 23:59 Intake Total 1302.321 / 1802.321 763.688 / 763.688 Output Total 1400 / 2100 3325 / 3325 Balance -97.679 / -297.679 -2561.312 / -2561.312 Weight 209 lb 9.6 oz 211 lb 9.6 oz Constitutional Constitutional: no acute distress *Routine Respiratory Exam Respiratory: Present CTA bilaterally and symmetric chest movement *Routine Cardiovascular Exam Cardiovascular: Present RRR, Normal S1 and Normal S2 *Routine Abdominal Exam Abdominal: Present soft and normoactive bowel sounds; Absent tenderness *Routine Extremities Exam Extremities: Present full ROM and normal capillary refill; Absent edema *Routine Skin Exam Skin: Present intact, dry and warm Detailed Neck Exam: Thyroids Thyroid: Absent bruit Progress Note: A&P Assessment and plan (1) Hypokalemia: Status: Acute (2) GWENDOLYN (acute kidney injury): Status: Acute (3) Hypotension: Status: Acute (4) Dehydration: Status: Acute (5) Knee pain, left: Status: Acute (6) Diarrhea: Status: Acute (7) Coronary artery disease: Status: Acute (8) Tobacco dependence syndrome: Status: Acute Assessment and Plan Assessment and Plan for All Diagnoses:: Bradycardia Hypotension Diarrhea Parainfluenza Acute kidney injury Preliminary echo shows a estimated EF of 55%. Official read is pending Serial troponins remain negative Sodium 131 trending up to 135 Potassium 2.4 trending up to 2.8 Creatinine 3.1 trending down to 1.6 Blood pressure and heart rate improving Recommend holding AV blockers, valsartan and hydrochlorothiazide. Can resume as blood pressure will tolerate. Continue fluids Primary services replacing potassium Discharge home with a 2-week event monitor Outpatient ischemic evaluation as needed 01/14/2025: Bradycardia and hypotension are likely secondary to dehydration from diarrhea. Recommend holding all AV blockers, valsartan and hydrochlorothiazide and continue to hydrate patient. Can slowly resume blood pressure medications as blood pressure will tolerate. Please discharge patient in a 2-week event monitor for further evaluation of bradycardia. Cardiology will sign off. Please contact service as needed for any additional concerns.
--- NOTE | 2025-01-14 10:22 | PC.NURSE ---
Pain Management notified of consult @ this time
--- NOTE | 2025-01-14 10:33 | P.PN_ITS ---
Subjective *Date: 01/14/25 *Time: 14:13 Interval history: Patient lying in bed sleeping this morning. Awoken for exam. Patient denies weakness, dizziness, chest pain, shortness of breath. Patient does complain of chronic knee pain. Patient takes Suboxone which he gets through the [facility] in [facility]. Plan to restart Suboxone today. Patient states he is tolerating his diet well and has had no episodes of diarrhea since admission. Patient did have an episode of bradycardia overnight heart rate down to the 30s. Patient states during this period he felt dizzy and lightheaded. Cardiology consulted and discussed with patient. Medical Exam Vital signs and Labs for Last 24 Hours: Vital Signs Temp Pulse Pulse Pulse Pulse Resp BP 01/14/25 10:00 50 L 22 123/73 01/14/25 10:00 49 L 13 114/73 01/14/25 09:30 52 L 15 117/58 L 01/14/25 09:01 56 L 15 113/55 L 01/14/25 09:00 01/14/25 08:31 50 L 16 102/55 L 01/14/25 08:00 68 01/14/25 08:00 70 17 109/59 L 01/14/25 07:54 51 L 15 01/14/25 07:46 64 14 128/74 01/14/25 07:31 60 16 94/73 L 01/14/25 07:15 54 L 17 135/93 H 01/14/25 07:00 01/14/25 06:00 53 L 16 114/73 01/14/25 05:00 71 17 142/80 H 01/14/25 05:00 01/14/25 04:00 01/14/25 04:00 44 L 01/14/25 04:00 47 L 16 143/86 H 01/14/25 03:00 52 L 12 138/70 01/14/25 03:00 01/14/25 02:00 46 L 14 129/77 01/14/25 01:01 46 L 14 128/79 01/14/25 01:00 01/14/25 00:31 49 L 14 01/14/25 00:31 112/71 01/14/25 00:15 50 L 13 01/14/25 00:15 136/84 01/14/25 00:00 45 L 01/14/25 00:00 50 L 13 116/77 01/13/25 23:45 50 L 12 103/75 L 01/13/25 23:30 56 L 10 L 99/64 L 01/13/25 23:15 129/79 01/13/25 23:15 52 L 11 L 01/13/25 23:01 69 10 L 01/13/25 23:01 99/80 L 01/13/25 23:00 64 10 L 99/80 L 01/13/25 22:20 01/13/25 22:01 55 L 15 117/98 H 01/13/25 22:00 62 14 117/98 H 01/13/25 21:45 51 L 14 121/76 01/13/25 21:30 46 L 15 109/71 L 01/13/25 21:16 51 L 15 109/69 L 01/13/25 21:00 57 L 16 142/81 H 01/13/25 21:00 01/13/25 20:00 55 L 01/13/25 20:00 112/65 01/13/25 20:00 64 13 01/13/25 20:00 01/13/25 19:45 112/61 01/13/25 19:45 14 01/13/25 19:31 55 L 20 01/13/25 19:31 131/110 H 01/13/25 19:16 16 01/13/25 19:16 111/67 01/13/25 19:01 51 L 16 109/63 L 01/13/25 19:00 46 L 15 109/63 L 01/13/25 18:45 55 L 15 115/63 01/13/25 18:32 56 L 89/55 L 01/13/25 18:14 47 L 15 80/40 L 01/13/25 18:07 01/13/25 18:00 59 L 15 85/54 L 01/13/25 17:45 72 14 89/50 L 01/13/25 17:31 67 16 71/49 L 01/13/25 17:18 63 16 79/44 L 01/13/25 17:01 62 16 86/37 L 01/13/25 17:00 58 L 58 L 01/13/25 17:00 01/13/25 17:00 16 01/13/25 16:47 60 14 71/44 L 01/13/25 16:38 60 16 74/40 L 01/13/25 16:01 97.6 F 65 16 74/41 L 01/13/25 16:00 98.2 F 60 16 100/60 L 01/13/25 15:30 62 16 100/56 L 01/13/25 15:00 57 L 18 88/51 L 01/13/25 14:31 60 16 95/58 L 01/13/25 14:17 60 16 102/85 L 01/13/25 14:03 60 17 88/62 L 01/13/25 14:01 60 13 88/62 L 01/13/25 13:54 57 L 79/41 L 01/13/25 13:00 63 25 H 88/52 L 01/13/25 12:43 70 18 73/48 L 01/13/25 12:35 98.2 F 82 18 BP BP BP Pulse Ox O2 Del Method O2 Flow Rate 01/14/25 10:00 97 Room Air 01/14/25 10:00 92 L Room Air 01/14/25 09:30 92 L Room Air 01/14/25 09:01 97 Room Air 01/14/25 09:00 Room Air 01/14/25 08:31 92 L Room Air 01/14/25 08:00 01/14/25 08:00 97 Room Air 01/14/25 07:54 93 L Room Air 01/14/25 07:46 92 L Room Air 01/14/25 07:31 98 Nasal Cannula 2 01/14/25 07:15 98 Nasal Cannula 2 01/14/25 07:00 Nasal Cannula 3 01/14/25 06:00 96 01/14/25 05:00 92 L 01/14/25 05:00 Nasal Cannula 2 01/14/25 04:00 Nasal Cannula 3 01/14/25 04:00 01/14/25 04:00 95 01/14/25 03:00 100 01/14/25 03:00 Nasal Cannula 2 01/14/25 02:00 96 Nasal Cannula 2 01/14/25 01:01 98 01/14/25 01:00 Nasal Cannula 2 01/14/25 00:31 96 01/14/25 00:31 01/14/25 00:15 97 01/14/25 00:15 01/14/25 00:00 01/14/25 00:00 95 01/13/25 23:45 94 L 01/13/25 23:30 93 L 01/13/25 23:15 01/13/25 23:15 93 L 01/13/25 23:01 75 L 01/13/25 23:01 01/13/25 23:00 92 L 01/13/25 22:20 Nasal Cannula 2 01/13/25 22:01 96 01/13/25 22:00 94 L 01/13/25 21:45 89 L 01/13/25 21:30 94 L 01/13/25 21:16 93 L 01/13/25 21:00 90 L 01/13/25 21:00 Nasal Cannula 2 01/13/25 20:00 01/13/25 20:00 01/13/25 20:00 95 01/13/25 20:00 Nasal Cannula 2 01/13/25 19:45 01/13/25 19:45 01/13/25 19:31 96 01/13/25 19:31 01/13/25 19:16 01/13/25 19:16 01/13/25 19:01 97 01/13/25 19:00 96 01/13/25 18:45 94 L Nasal Cannula 2 01/13/25 18:32 93 L Nasal Cannula 2 01/13/25 18:14 92 L Nasal Cannula 2 01/13/25 18:07 Nasal Cannula 2 01/13/25 18:00 92 L Nasal Cannula 2 01/13/25 17:45 92 L Nasal Cannula 2 01/13/25 17:31 93 L Nasal Cannula 2 01/13/25 17:18 96 Nasal Cannula 2 01/13/25 17:01 98 Nasal Cannula 2 01/13/25 17:00 71/44 L 80/40 L 01/13/25 17:00 Nasal Cannula 2 01/13/25 17:00 96 Nasal Cannula 2 01/13/25 16:47 96 Nasal Cannula 2 01/13/25 16:38 95 Nasal Cannula 2 01/13/25 16:01 95 Nasal Cannula 2 01/13/25 16:00 Nasal Cannula 2 01/13/25 15:30 98 01/13/25 15:00 95 01/13/25 14:31 96 01/13/25 14:17 96 01/13/25 14:03 96 01/13/25 14:01 97 Room Air 01/13/25 13:54 97 Room Air 01/13/25 13:00 95 Room Air 01/13/25 12:43 95 Room Air 01/13/25 12:35 70/41 L 94 L Room Air Intake and Output 01/13/25 01/14/25 01/14/25 23:59 07:59 15:59 Intake Total 1302.321 / 1802.321 523.688 / 763.688 240 / 763.688 Output Total 1400 / 2100 2875 / 3325 450 / 3325 Balance -97.679 / -297.679 -2351.312 / -2561.312 -210 / -2561.312 Intake: Intake, Oral Amount 280 / 280 240 / 240 Intake, Total IV Amount 1022.321 / 1522.321 523.688 / 523.688 Lactated Ringers 1000ML 1,000 1000 / 1500 500 / 500 ml @ 999 mls/hr IV .Q1H1M ONE Rx#:[id number] Output: Output, Urine Amount 1200 / 1900 2875 / 3325 450 / 3325 Output, Emesis Amount 200 / 200 Other: Weight 95.073 kg 95.98 kg Patient Weight 01/14/25 23:59 Weight 95.98 kg Laboratory Results - last 24 hr 01/13/25 12:43: VBG pH 7.39, VBG pCO2 62.7 H, VBG pO2 27.5 L, VBG HCO3 37.1 H, VBG Total CO2 39.0 H, VBG O2 Saturation 47.6 L, VBG Base Excess 12.1 H, VBG Lactic Acid 3.3 H 01/13/25 12:45: WBC 8.1, RBC 3.20 L, Hgb 12.4 L, Hct 34.8 L, MCV 108.8 H, MCH 38.8 H, MCHC 35.6 H, RDW 14.3, Plt Count 218, MPV 9.4, Neut % (Auto) 72.2, Lymph % (Auto) 13.4, [place] % (Auto) 11.4 H, Eos % (Auto) 2.0, Baso % (Auto) 0.4, Neut # (Auto) 5.9, Lymph # (Auto) 1.1, [place] # (Auto) 0.9, Eos # (Auto) 0.2, Baso # (Auto) 0.0, PT 11.4, INR 1.03, APTT 26.2, D-Dimer 1.24 H, Sodium 131 L, Potassium 2.4 L*, Chloride 86 L, Carbon Dioxide 40 H, Anion Gap 7.4, BUN 24 H, Creatinine 3.10 H, Estimated Creat Clear 37, Estimated GFR 21 L, Est GFR ( Amer) 25 L, Glucose 101 H, Calcium 8.0 L, Phosphorus 3.7, Magnesium 1.9, Total Bilirubin 1.3, AST 45, ALT 28, Alkaline Phosphatase 97, Total Creatine Kinase 528 H*, Troponin I 0.02, C-Reactive Protein 59.0 H, Total Protein 6.4, Albumin 3.6, Globulin 2.8, Albumin/Globulin Ratio 1.3, Procalcitonin 0.229, TSH 0.23 L, Free T4 1.39, Thyroxine (T4) 8.0 01/13/25 16:07: Troponin I 0.02 01/13/25 17:23: Chlamy pneumoniae PCR Not detected, Adenovirus (PCR) Not detected, B. pertussis DNA (PCR) Not detected, Coronavirus OC43 (PCR) Not detected, Coronavirus HKU1 (PCR) Not detected, Coronavirus 229E (PCR) Not detected, SARS-CoV-2 (PCR) Not detected, Coronavirus NL63 (PCR) Not detected, Human Metapneumovir PCR Not detected, Influenza A (H1) PCR Not detected, Influ A (H1N1/09) PCR Not detected, Influenza A (H3) PCR Not detected, Influenza Type A (PCR) Not detected, Influenza Type B (PCR) Not detected, M. pneumoniae (PCR) Not detected, Parainfluenza 1 (PCR) Not detected, Parainfluenza 2 (PCR) Not detected, Parainfluenza 3 (PCR) Detected A, Parainfluenza 4 (PCR) Not detected, RSV (PCR) Not detected, Entero/Rhino (PCR) Not detected 01/13/25 18:55: Lactate 1.5, Troponin I 0.01 01/13/25 18:56: Urine Color Yellow, Urine Appearance Clear, Urine pH 6.0, Ur Specific [place] <= 1.005, Urine Protein Negative, Urine Glucose (UA) Negative, Urine Ketones Negative, Urine Blood Negative, Urine Nitrate Negative, Urine Bilirubin Negative, Urine Urobilinogen 0.2, Ur Leukocyte Esterase Negative, Urine RBC Occasional, Urine WBC 3-5, Ur Squamous Epith Cells 3-5, Urine Bacteria 1+, Urine Opiates Screen Negative, Urine Methadone Screen Negative, Ur Barbituates Screen Negative, Ur Phencyclidine Scrn Negative, Ur Amphetamines Screen Negative, U Benzodiazepines Scrn Negative, Urine Cocaine Screen Negative, U Marijuana (THC) Screen Negative 01/14/25 04:22: POC Glucose 116 H 01/14/25 04:59: WBC 3.7 L D, RBC 3.09 L, Hgb 11.9 L, Hct 33.5 L, MCV 108.4 H, MCH 38.5 H, MCHC 35.5 H, RDW 14.5, Plt Count 148 D, MPV 10.6 H, Neut % (Auto) 58.1, Lymph % (Auto) 26.1, [place] % (Auto) 10.1 H, Eos % (Auto) 3.8, Baso % (Auto) 0.8, Neut # (Auto) 2.1, Lymph # (Auto) 1.0, [place] # (Auto) 0.4, Eos # (Auto) 0.1, Baso # (Auto) 0.0, Sodium 135 L, Potassium 2.8 L*, Chloride 98, Carbon Dioxide 33 H, Anion Gap 6.8, BUN 20, Creatinine 1.60 H D, Estimated Creat Clear 68, Estimated GFR 45 L, Est GFR ( Amer) 54 L D, Glucose 113 H, Calcium 7.8 L, Phosphorus 3.4, Magnesium 2.2 D, Total Bilirubin 0.7, AST 61 H D, ALT 25, Alkaline Phosphatase 108, Total Protein 5.8 L, Albumin 3.2 L D, Globulin 2.6, Albumin/Globulin Ratio 1.2, Triglycerides 80, Cholesterol 96 L, LDL Cholesterol Direct 45.65 L, VLDL Cholesterol 16, HDL Cholesterol 20 L, Cholesterol/HDL Ratio 4.8 H 01/14/25 06:00: VBG pH 7.52 H, VBG pCO2 43.5, VBG pO2 50.0 H, VBG HCO3 34.5 H, VBG Total CO2 35.8 H, VBG O2 Saturation 87.9 H, VBG Base Excess 11.6 H, VBG Lactic Acid 2.1 H I & O for Labs for Last 24 Hours: Intake & Output 01/11/25 01/12/25 01/13/25 01/14/25 23:59 23:59 23:59 23:59 Intake Total 1302.321 / 1802.321 763.688 / 763.688 Output Total 1400 / 2100 3325 / 3325 Balance -97.679 / -297.679 -2561.312 / -2561.312 Weight 95.073 kg 95.98 kg Neck: Present normal inspection and full ROM Respiratory: Present CTA bilaterally, diminished air movement and symmetric chest movement Comment:: productive cough Cardiac: Present Regular Rhythm and Bradycardia GI: Present soft and normal bowel sounds; Absent tenderness Rectal (male): Present deferred (male): Present deferred Extremities: Present normal inspection, tenderness (Bilateral knees) and joint swelling (Left knee) Skin: Present intact Neuro: Present awake, oriented x 3 and moves all extremities Assessment and Plan *Assessment and plan (1) Hypovolemic shock: Status: Acute Category: Medical Code(s): R57.1 - Hypovolemic shock (2) Hypotension: Status: Acute Category: Medical Code(s): I95.9 - Hypotension, unspecified (3) Bradycardia: Status: Acute Category: Medical Code(s): R00.1 - Bradycardia, unspecified (4) GWENDOLYN (acute kidney injury): Status: Acute Category: Medical Code(s): N17.9 - Acute kidney failure, unspecified (5) Hypokalemia: Status: Acute Category: Medical Code(s): E87.6 - Hypokalemia (6) Dehydration: Status: Acute Category: Medical Code(s): E86.0 - Dehydration (7) Knee pain, left: Status: Acute Category: Medical Code(s): M25.562 - Pain in left knee (8) Parainfluenza: Status: Acute Category: Medical Code(s): B34.8 - Other viral infections of unspecified site (9) Diarrhea: Status: Acute Category: Medical Code(s): R19.7 - Diarrhea, unspecified (10) Coronary artery disease: Status: Acute Qualifiers: Associated angina: with other forms of angina Coronary Disease- Associated Artery/Lesion type: [place] artery [place] vs. transplanted heart: [place] heart Qualified Code(s): I25.118 - Atherosclerotic heart disease of [place] coronary artery with other forms of angina pectoris Category: Medical Code(s): I25.10 - Atherosclerotic heart disease of [place] coronary artery without angina pectoris (11) Tobacco dependence syndrome: Status: Acute Category: Medical Code(s): F17.200 - Nicotine dependence, unspecified, uncomplicated (12) Opioid use disorder in remission: Status: Acute Category: Medical Code(s): F11.91 - Opioid use, unspecified, in remission Plan Mr. Barker is a 59-year-old male admitted to the hospital today for hypotension, hypokalemia, and acute kidney injury. He initially presented to the emergency department with a syncopal episode yesterday and weakness. After evaluation he was found to have significant electrolyte abnormalities and hospital medicine was consulted for admission. Further management of his symptoms detailed below: #Hypovolemic shock #Parainfluenza #Gastroenteritis #Acute kidney injury #Dehydration #Diarrhea #Hypokalemia #Hypotension: Patient presented to the emergency department with weakness and syncopal episode. Upon evaluation was found to be hypotensive with systolic pressures in the 70s. Fluid resuscitation initiated with a 2-1/2 L bolus given in the emergency department. Patient was also found to have acute kidney injury with a creatinine of 3.1 and hypokalemia with a potassium of 2.4. Patient stated that he had watery diarrhea stools x 1 week. Patient had full respiratory panel and tested positive for parainfluenza, diarrhea likely related related to gastroenteritis due to viral infection. Other infectious workup unremarkable patient responded well to fluid resuscitation and potassium given p.o. and IV. L evophed briefly given to maintain blood pressure. Maintenance IV fluids given and oral hydration encouraged. Repeat creatinine today close to baseline at 1.6, down from 3.1. Potassium repleted orally. Patient has had no episodes of diarrhea since being admitted. Has had 1 normal bowel movement. #Bradycardia: Orthostatic vital signs were within normal limits and walk test was successful with no signs of distress noted. Patient did have 1 episode of asymptomatic bradycardia during the night, an EKG was obtained cardiology consulted. Echo ordered and prelim shows EF of 55%. Patient baseline heart rate usually in the 50s. Cardiology recommends 2-week event monitor upon discharge and outpatient follow-up with cardiology. #Knee pain, left: Patient received x-rays of left tibia and fibula, knee, and femur; all were unremarkable. Pain management was consulted and outpatient appointment was made for follow-up. Patient will be discharged with a knee brace. #Coronary artery disease: ?Home meds continued, atorvastatin 40 mg daily. #Tobacco use disorder: ?Transdermal nicotine patches prescribed. ?Smoking cessation education given. #Alcohol use disorder: CIWA protocol was initiated upon admission. Patient never exhibited signs of withdrawal. Scores always have been less than 1. Peers support was consulted to assess patient during admission. #Opioid use disorder, former: Patient receives Suboxone from [facility] in [place], Suboxone therapy initiated during stay.
[2025-01-14 10:50] LABS: Reflex Lactic Add Lactic Reflex
[2025-01-14] MEDS: BUPRENORPHINE/NALOXONE 8MG/2MG ODT 2 EACH SL (12:01)
[2025-01-14 13:46] LABS: Occult Blood,Stool Negative (Negative)
--- NOTE | 2025-01-14 14:05 | PC.NURSE ---
Pt ambulated in room w/o difficulty. Denies dizziness w/ activity. Pt does c/o pain in his left knee from recent fall [employer]. L knee visibly swollen, skin intact, no bruising. Brace provided to pt for his knee w/ providers approval.
--- NOTE | 2025-01-14 14:12 | PC.NURSE ---
RT notified of need for event monitor.
--- NOTE | 2025-01-14 14:36 | P.DS_ITS ---
<Statement entered by Ta New MD - 01/18/25 17:39> Personally evaluated the patient and agree with the plan of care as outlined by the SENIOR COMMUNICATIONS ENGINEER. General Admission date:: 01/13/25 Discharge date: 01/14/25 HPI HPI HPI: Mr. Barker is a 59-year-old male with a history of hypertension, CAD, cardiac stents, tobacco dependence, alcohol use disorder, history of drug use, COPD, and GERD. He presented to the emergency department today with weakness, syncopal episodes, and injury to his left knee. He also complains of watery diarrhea for the last several days. After further evaluation in the emergency department was found that he has hypokalemia with a potassium of 2.4, sodium 131, and chloride 86. He was also found to have an acute kidney injury with a BUN of 24 and a creatinine of 3.3. D-dimer was also found to be elevated in the emergency department and CTA PE protocol was obtained and was unremarkable. CT of abdomen/pelvis were also obtained and were also unremarkable. Patient denies chest pain, shortness of breath, nausea, or vomiting. Decision was made by the ER physician to consult hospital medicine for admission and further management. Hospital Course Hospital Course Hospital Course: Mr. Barker is a 59-year-old male admitted to the hospital today for h ypotension, hypokalemia, and acute kidney injury. He initially presented to the emergency department with a syncopal episode yesterday and weakness. After evaluation he was found to have significant electrolyte abnormalities and hospital medicine was consulted for admission. Further management of his symptoms detailed below: #Hypovolemic shock #Parainfluenza #Gastroenteritis #Acute kidney injury #Dehydration #Diarrhea #Hypokalemia #Hypotension: Patient presented to the emergency department with weakness and syncopal episode. Upon evaluation was found to be hypotensive with systolic pressures in the 70s. Aggressive fluid resuscitation initiated. Patient was also found to have acute kidney injury with a creatinine of 3.1 and hypokalemia with a potassium of 2.4. Patient stated that he had watery diarrhea stools x 1 week. Patient had full respiratory panel and tested positive for parainfluenza, diarrhea likely related related to gastroenteritis due to viral infection. Other infectious workup unremarkable patient responded well to fluid resuscitation and potassium given p.o. and IV. Levophed briefly given to maintain blood pressure. Maintenance IV fluids given and oral hydration encouraged. Repeat creatinine today close to baseline at 1.6, down from 3.1. Potassium repleted orally. Patient has had no episodes of diarrhea since being admitted. Has had 1 normal bowel movement. #Bradycardia: Orthostatic vital signs were within normal limits and walk test was successful with no signs of distress noted. Patient did have 1 episode of asymptomatic bradycardia during the night, an EKG was obtained cardiology consulted. Echo ordered and prelim shows EF of 55%. Patient baseline heart rate usually in the 50s. Cardiology recommends 2-week event monitor upon discharge and outpatient follow-up with cardiology. #Knee pain, left: Patient received x-rays of left tibia and fibula, knee, and femur; all were unremarkable. Pain management was consulted and outpatient appointment was made for follow-up. Patient will be discharged with a knee brace. #Coronary artery disease: ?Home meds continued, atorvastatin 40 mg daily. #Tobacco use disorder: ?Transdermal nicotine patches prescribed. ?Smoking cessation education given. #Alcohol use disorder: CIWA protocol was initiated upon admission. Patient never exhibited signs of withdrawal. Scores always have been less than 1. Peers support was consulted to assess patient during admission. #Opioid use disorder, former: Patient receives Suboxone from [facility] in [place], Suboxone therapy initiated during stay. Total time spent on discharge: 32 minutes on chart review, counseling, documentation, and direct care with patient. Exam Data for Last 24 hours Vital signs and Labs for Last 24 Hours: Temp Pulse Resp BP Pulse Ox O2 Del Method O2 Flow Rate 97.6 F 58 L 11 L 128/106 H 95 Room Air 2 01/13/25 16:01 01/14/25 13:00 01/14/25 13:00 01/14/25 12:00 01/14/25 13:00 01/14/25 13:00 01/14/25 07:31 Laboratory Results - last 24 hr 01/13/25 12:45: Total Creatine Kinase 528 H*, Free T4 1.39 01/13/25 16:07: Troponin I 0.02 01/13/25 17:23: Chlamy pneumoniae PCR Not detected, Adenovirus (PCR) Not detected, B. pertussis DNA (PCR) Not detected, Coronavirus OC43 (PCR) Not detected, Coronavirus HKU1 (PCR) Not detected, Coronavirus 229E (PCR) Not detected, SARS-CoV-2 (PCR) Not detected, Coronavirus NL63 (PCR) Not detected, Human Metapneumovir PCR Not detected, Influenza A (H1) PCR Not detected, Influ A (H1N1/09) PCR Not detected, Influenza A (H3) PCR Not detected, Influenza Type A (PCR) Not detected, Influenza Type B (PCR) Not detected, M. pneumoniae (PCR) Not detected, Parainfluenza 1 (PCR) Not detected, Parainfluenza 2 (PCR) Not detected, Parainfluenza 3 (PCR) Detected A, Parainfluenza 4 (PCR) Not detected, RSV (PCR) Not detected, Entero/Rhino (PCR) Not detected 01/13/25 18:55: Lactate 1.5, Troponin I 0.01 01/13/25 18:56: Urine Color Yellow, Urine Appearance Clear, Urine pH 6.0, Ur Specific [place] <= 1.005, Urine Protein Negative, Urine Glucose (UA) Negative, Urine Ketones Negative, Urine Blood Negative, Urine Nitrate Negative, Urine Bilirubin Negative, Urine Urobilinogen 0.2, Ur Leukocyte Esterase Negative, Urine RBC Occasional, Urine WBC 3-5, Ur Squamous Epith Cells 3-5, Urine Bacteria 1+, Urine Opiates Screen Negative, Urine Methadone Screen Negative, Ur Barbituates Screen Negative, Ur Phencyclidine Scrn Negative, Ur Amphetamines Screen Negative, U Benzodiazepines Scrn Negative, Urine Cocaine Screen Negative, U Marijuana (THC) Screen Negative 01/14/25 04:22: POC Glucose 116 H 01/14/25 04:59: WBC 3.7 L D, RBC 3.09 L, Hgb 11.9 L, Hct 33.5 L, MCV 108.4 H, MCH 38.5 H, MCHC 35.5 H, RDW 14.5, Plt Count 148 D, MPV 10.6 H, Neut % (Auto) 58.1, Lymph % (Auto) 26.1, [place] % (Auto) 10.1 H, Eos % (Auto) 3.8, Baso % (Auto) 0.8, Neut # (Auto) 2.1, Lymph # (Auto) 1.0, [place] # (Auto) 0.4, Eos # (Auto) 0.1, Baso # (Auto) 0.0, Sodium 135 L, Potassium 2.8 L*, Chloride 98, Carbon Dioxide 33 H, Anion Gap 6.8, BUN 20, Creatinine 1.60 H D, Estimated Creat Clear 68, Estimated GFR 45 L, Est GFR ( Amer) 54 L D, Glucose 113 H, Calcium 7.8 L, Phosphorus 3.4, Magnesium 2.2 D, Total Bilirubin 0.7, AST 61 H D, ALT 25, Alkaline Phosphatase 108, Total Protein 5.8 L, Albumin 3.2 L D, Globulin 2.6, Albumin/Globulin Ratio 1.2, Triglycerides 80, Cholesterol 96 L, LDL Cholesterol Direct 45.65 L, VLDL Cholesterol 16, HDL Cholesterol 20 L, Cholesterol/HDL Ratio 4.8 H 01/14/25 06:00: VBG pH 7.52 H, VBG pCO2 43.5, VBG pO2 50.0 H, VBG HCO3 34.5 H, VBG Total CO2 35.8 H, VBG O2 Saturation 87.9 H, VBG Base Excess 11.6 H, VBG Lactic Acid 2.1 H 01/14/25 13:20: Stool Occult Blood Negative I & O for Last 24 hours: Intake & Output 01/11/25 01/12/25 01/13/25 01/14/25 23:59 23:59 23:59 23:59 Intake Total 1302.321 / 0479.183 0941.688 / 1123.688 Output Total 1400 / 2100 4275 / 4275 Balance -97.679 / -297.679 -3151.312 / -3151.312 Weight 95.073 kg 95.98 kg Microbiology Reports for the Last 24 Hours: Microbiology 01/13/25 12:47 Blood Blood Culture - Preliminary NO GROWTH AFTER 24 HOURS 01/13/25 12:47 Blood Blood Culture - Preliminary NO GROWTH AFTER 24 HOURS Constitutional Constitutional: no acute distress and cooperative *Routine Neck Exam Neck: Present full ROM *Routine Respiratory Exam Respiratory: Present CTA bilaterally and symmetric chest movement *Routine Cardiovascular Exam Cardiovascular: Present Normal S1, Normal S2 and bradycardia *Routine Abdominal Exam Abdominal: Present soft and normoactive bowel sounds; Absent tenderness *Routine Extremities Exam Extremities: Present full ROM, normal capillary refill and tenderness (left knee); Absent edema *Routine Skin Exam Skin: Present intact, dry and warm *Routine Neurological Exam Neurological: Present alert, oriented X3 and moving all extremities Detailed Neck Exam: Thyroids Thyroid: Absent bruit Results Data Completed and Pending Labs on day of discharge: Labs from last 24 hours 01/14/25 01/14/25 01/14/25 13:20 06:00 04:59 WBC 3.7 L D RBC 3.09 L Hgb 11.9 L Hct 33.5 L MCV 108.4 H MCH 38.5 H MCHC 35.5 H RDW 14.5 Plt Count 148 D MPV 10.6 H Neut % (Auto) 58.1 Lymph % (Auto) 26.1 [place] % (Auto) 10.1 H Eos % (Auto) 3.8 Baso % (Auto) 0.8 Neut # (Auto) 2.1 Lymph # (Auto) 1.0 [place] # (Auto) 0.4 Eos # (Auto) 0.1 Baso # (Auto) 0.0 VBG pH 7.52 H VBG pCO2 43.5 VBG pO2 50.0 H VBG HCO3 34.5 H VBG Total CO2 35.8 H VBG O2 Saturation 87.9 H VBG Base Excess 11.6 H VBG Lactic Acid 2.1 H Sodium 135 L Potassium 2.8 L* Chloride 98 Carbon Dioxide 33 H Anion Gap 6.8 BUN 20 Creatinine 1.60 H D Estimated Creat Clear 68 Estimated GFR 45 L Est GFR ( Amer) 54 L D Glucose 113 H POC Glucose Lactate Calcium 7.8 L Phosphorus 3.4 Magnesium 2.2 D Total Bilirubin 0.7 AST 61 H D ALT 25 Alkaline Phosphatase 108 Total Creatine Kinase Troponin I Total Protein 5.8 L Albumin 3.2 L D Globulin 2.6 Albumin/Globulin Ratio 1.2 Triglycerides 80 Cholesterol 96 L LDL Cholesterol Direct 45.65 L VLDL Cholesterol 16 HDL Cholesterol 20 L Cholesterol/HDL Ratio 4.8 H Free T4 Urine Color Urine Appearance Urine pH Ur Specific [place] Urine Protein Urine Glucose (UA) Urine Ketones Urine Blood Urine Nitrate Urine Bilirubin Urine Urobilinogen Ur Leukocyte Esterase Urine RBC Urine WBC Ur Squamous Epith Cells Urine Bacteria Stool Occult Blood Negative Urine Opiates Screen Urine Methadone Screen Ur Barbituates Screen Ur Phencyclidine Scrn Ur Amphetamines Screen U Benzodiazepines Scrn Urine Cocaine Screen U Marijuana (THC) Screen Chlamy pneumoniae PCR Adenovirus (PCR) B. pertussis DNA (PCR) Coronavirus OC43 (PCR) Coronavirus HKU1 (PCR) Coronavirus 229E (PCR) SARS-CoV-2 (PCR) Coronavirus NL63 (PCR) Human Metapneumovir PCR Influenza A (H1) PCR Influ A () PCR Influenza A (H3) PCR Influenza Type A (PCR) Influenza Type B (PCR) M. pneumoniae (PCR) Parainfluenza 1 (PCR) Parainfluenza 2 (PCR) Parainfluenza 3 (PCR) Parainfluenza 4 (PCR) RSV (PCR) Entero/Rhino (PCR) 01/14/25 01/13/25 01/13/25 04:22 18:56 18:55 WBC RBC Hgb Hct MCV MCH MCHC RDW Plt Count MPV Neut % (Auto) Lymph % (Auto) [place] % (Auto) Eos % (Auto) Baso % (Auto) Neut # (Auto) Lymph # (Auto) [place] # (Auto) Eos # (Auto) Baso # (Auto) VBG pH VBG pCO2 VBG pO2 VBG HCO3 VBG Total CO2 VBG O2 Saturation VBG Base Excess VBG Lactic Acid Sodium Potassium Chloride Carbon Dioxide Anion Gap BUN Creatinine Estimated Creat Clear Estimated GFR Est GFR ( Amer) Glucose POC Glucose 116 H Lactate 1.5 Calcium Phosphorus Magnesium Total Bilirubin AST ALT Alkaline Phosphatase Total Creatine Kinase Troponin I 0.01 Total Protein Albumin Globulin Albumin/Globulin Ratio Triglycerides Cholesterol LDL Cholesterol Direct VLDL Cholesterol HDL Cholesterol Cholesterol/HDL Ratio Free T4 Urine Color Yellow Urine Appearance Clear Urine pH 6.0 Ur Specific [place] <= 1.005 Urine Protein Negative Urine Glucose (UA) Negative Urine Ketones Negative Urine Blood Negative Urine Nitrate Negative Urine Bilirubin Negative Urine Urobilinogen 0.2 Ur Leukocyte Esterase Negative Urine RBC Occasional Urine WBC 3-5 Ur Squamous Epith Cells 3-5 Urine Bacteria 1+ Stool Occult Blood Urine Opiates Screen Negative Urine Methadone Screen Negative Ur Barbituates Screen Negative Ur Phencyclidine Scrn Negative Ur Amphetamines Screen Negative U Benzodiazepines Scrn Negative Urine Cocaine Screen Negative U Marijuana (THC) Screen Negative Chlamy pneumoniae PCR Adenovirus (PCR) B. pertussis DNA (PCR) Coronavirus OC43 (PCR) Coronavirus HKU1 (PCR) Coronavirus 229E (PCR) SARS-CoV-2 (PCR) Coronavirus NL63 (PCR) Human Metapneumovir PCR Influenza A (H1) PCR Influ A () PCR Influenza A (H3) PCR Influenza Type A (PCR) Influenza Type B (PCR) M. pneumoniae (PCR) Parainfluenza 1 (PCR) Parainfluenza 2 (PCR) Parainfluenza 3 (PCR) Parainfluenza 4 (PCR) RSV (PCR) Entero/Rhino (PCR) 01/13/25 01/13/25 01/13/25 17:23 16:07 12:45 WBC RBC Hgb Hct MCV MCH MCHC RDW Plt Count MPV Neut % (Auto) Lymph % (Auto) [place] % (Auto) Eos % (Auto) Baso % (Auto) Neut # (Auto) Lymph # (Auto) [place] # (Auto) Eos # (Auto) Baso # (Auto) VBG pH VBG pCO2 VBG pO2 VBG HCO3 VBG Total CO2 VBG O2 Saturation VBG Base Excess VBG Lactic Acid Sodium Potassium Chloride Carbon Dioxide Anion Gap BUN Creatinine Estimated Creat Clear Estimated GFR Est GFR ( Amer) Glucose POC Glucose Lactate Calcium Phosphorus Magnesium Total Bilirubin AST ALT Alkaline Phosphatase Total Creatine Kinase 528 H* Troponin I 0.02 Total Protein Albumin Globulin Albumin/Globulin Ratio Triglycerides Cholesterol LDL Cholesterol Direct VLDL Cholesterol HDL Cholesterol Cholesterol/HDL Ratio Free T4 1.39 Urine Color Urine Appearance Urine pH Ur Specific [place] Urine Protein Urine Glucose (UA) Urine Ketones Urine Blood Urine Nitrate Urine Bilirubin Urine Urobilinogen Ur Leukocyte Esterase Urine RBC Urine WBC Ur Squamous Epith Cells Urine Bacteria Stool Occult Blood Urine Opiates Screen Urine Methadone Screen Ur Barbituates Screen Ur Phencyclidine Scrn Ur Amphetamines Screen U Benzodiazepines Scrn Urine Cocaine Screen U Marijuana (THC) Screen Chlamy pneumoniae PCR Not detected Adenovirus (PCR) Not detected B. pertussis DNA (PCR) Not detected Coronavirus OC43 (PCR) Not detected Coronavirus HKU1 (PCR) Not detected Coronavirus 229E (PCR) Not detected SARS-CoV-2 (PCR) Not detected Coronavirus NL63 (PCR) Not detected Human Metapneumovir PCR Not detected Influenza A (H1) PCR Not detected Influ A (H1N1/09) PCR Not detected Influenza A (H3) PCR Not detected Influenza Type A (PCR) Not detected Influenza Type B (PCR) Not detected M. pneumoniae (PCR) Not detected Parainfluenza 1 (PCR) Not detected Parainfluenza 2 (PCR) Not detected Parainfluenza 3 (PCR) Detected A Parainfluenza 4 (PCR) Not detected RSV (PCR) Not detected Entero/Rhino (PCR) Not detected Preliminary micro results at discharge 01/13/25 12:47 Blood Culture - Preliminary Blood NO GROWTH AFTER 24 HOURS 01/13/25 12:47 Blood Culture - Preliminary Blood NO GROWTH AFTER 24 HOURS DS: Diagnosis Discharge Diagnosis (1) Hypovolemic shock: Status: Acute Code(s): R57.1 - Hypovolemic shock (2) Hypotension: Status: Acute Code(s): I95.9 - Hypotension, unspecified (3) Bradycardia: Status: Acute Code(s): R00.1 - Bradycardia, unspecified (4) GWENDOLYN (acute kidney injury): Status: Acute Code(s): N17.9 - Acute kidney failure, unspecified (5) Hypokalemia: Status: Acute Code(s): E87.6 - Hypokalemia (6) Dehydration: Status: Acute Code(s): E86.0 - Dehydration (7) Knee pain, left: Status: Acute Code(s): M25.562 - Pain in left knee (8) Parainfluenza: Status: Acute Code(s): B34.8 - Other viral infections of unspecified site (9) Diarrhea: Status: Acute Code(s): R19.7 - Diarrhea, unspecified (10) Coronary artery disease: Status: Acute Code(s): I25.10 - Atherosclerotic heart disease of [place] coronary artery without angina pectoris Qualifiers: Associated angina: with other forms of angina Coronary Disease- Associated Artery/Lesion type: [place] artery [place] vs. transplanted heart: [place] heart Qualified Code(s): I25.118 - Atherosclerotic heart disease of [place] coronary artery with other forms of angina pectoris (11) Tobacco dependence syndrome: Status: Acute Code(s): F17.200 - Nicotine dependence, unspecified, uncomplicated (12) Opioid use disorder in remission: Status: Acute Code(s): F11.91 - Opioid use, unspecified, in remission Meds Home Medications and Allergies Home Medications ?Medication ?Instructions ?Recorded ?Confirmed ?Type omeprazole 40 mg capsule,delayed 40 mg PO DAILY 01/13/25 History release aspirin 81 mg tablet,delayed 81 mg PO DAILY 01/14/25 0 01/14/25 History release atorvastatin 40 mg tablet 40 mg PO HS 01/14/25 5 History buprenorphine 8 mg-naloxone 2 mg 2 tab sublingual JONNATHAN Y 01/14/25 01/14/25 History sublingual tablet carvedilol 6.25 mg tablet 6.25 mg PO BID 01/14/2501/03 History Held on 01/14/25. Instructions: after visit with cardiology hydrochlorothiazide 25 mg tablet 25 mg PO DAILY 01/14/25 History Held on 01/14/25. Instructions: until PCP visit nicotine 21 mg/24 hr daily 1 patch transdermal Q24H sm oking 01/14/25 Rx transdermal patch cessation #28 ea valsartan 80 mg tablet 80 mg PO DAILY 01/14/2501/03 History Held on 01/14/25. Instructions: until visit with PCP New Prescriptions to Start Prescriptions: Briana Garg Allergy/AdvReac Type Severity Reaction Status Date / Time celecoxib (From CELEBREX) Allergy Unknown I-HIVES Verified 01/13/25 15:58 NSAIDS (Non-Steroidal Allergy Unknown HEARTBURN/H Verified 01/13/25 15:58 Anti-Inflamma (NSAIDS EZEQUIEL (NON-STEROIDAL ANTI-INFLAMMA) Penicillins (PENICILLINS) Allergy Unknown I-HIVES Verified 01/13/25 15:58 amlodipine AdvReac Mild swelling Uncoded 11/07/23 14:39 brilinta AdvReac Mild Hypertensio Uncoded 01/13/25 15:58 n isosorbide AdvReac Mild headache Uncoded 11/07/23 14:39 Discharge Plan Disposition Patient Disposition: Home, Self-Care Condition: Fair Discharge Order Discharge Orders: Discharge Order (Routine); Ordered 01/14/25 Ordered By: Briana Hardwick Follow up Plan Follow up with: Wendie Jarrell APRN [Nurse Practitioner, Cardiology] - Enter time for follow up Referral Note: 3 weeks Alessio Bonilla MD [Staff Physician, Pain Management] - 01/27/25 2:30 pm Rhiannon Almaguer APRN [Primary Care Provider, Medical] - Enter time for follow up Referral Note: 1 week Prescriptions/Medication Reconciliation: New nicotine 21 mg/24 hr patch 24 hour 1 patch transdermal Q24H Qty: 28 0RF Continued omeprazole 40 mg capsule,delayed release(DR/EC) 40 mg PO DAILY atorvastatin 40 mg tablet 40 mg PO HS aspirin 81 mg tablet,delayed release (DR/EC) 81 mg PO DAILY buprenorphine-naloxone 8-2 mg Tablet, Sublingual 2 tab SUBLINGUAL DAILY Held valsartan 80 mg tablet 80 mg PO DAILY Hold Instructions: until visit with PCP Patient Comments: TAKE ONE TABLET BY MOUTH EVERY DAY hydrochlorothiazide 25 mg tablet 25 mg PO DAILY Hold Instructions: until PCP visit Patient Comments: TAKE ONE TABLET BY MOUTH EVERY DAY carvedilol 6.25 mg tablet 6.25 mg PO BID Hold Instructions: after visit with cardiology Problem Reconciliation Problems Reviewed?: Yes Patient Discharge Instructions ACTIVITY: Continue current activity DIET: continue same diet Patient Instructions: Nicotine Addiction, Bradycardia, Acute Kidney Injury, DI for Chronic Pain -- Adult Print Language: [place]ic Providers Primary Care Provider: Rhiannon Almaguer Admit Provider: Surinder Ambriz Attending Provider: Surinder Ambriz
[2025-01-14] MEDS: ACETAMINOPHEN 325MG TAB 650 MG PO (14:41)
--- NOTE | 2025-01-14 14:55 | PC.NURSE ---
RT @ bedside placing event monitor on pt
--- NOTE | 2025-01-15 10:27 | SW/DCPLANNER ---
Spoke with patient on the phone. Patient stated that he is doing ok. Patient stated that he hasnt gotten his medicine picked up yet but plans on getting them today. Patient stated that he is aware of his upcoming appointments. Patient stated that he has no concerns or questions at this time. Elif Cee
--- NOTE | 2025-01-18 16:27 | PEERSUPPORT ---
Peer Support Note Patient Information Patient Information: DOS: 01/14/2025 ? Pt admitted he has been drinking for pain relief in evenings. He is enrolled and actively participates at [facility] outpatient MAT clinic. Has great relationships with providers and counselors. ? -Pt is in [facility] recovery from opiate use disorder managed with buprenorphine. Ps provided positive support with understanding to importance of a program and services offered for maintaining and sustaining recovery. ? Ps shared personal experience relevant to situation, emphasizing priority of sobriety through healthy coping skills alternative to substances and or chemicals. ? -Pt stated he is attending [facility]? bi-weekly for his drinking habits and openly discussing with his treatment team. ? Pt receptive to ps and appreciates supportive visit agreeing to follow up phone calls. ? Plan of action: Follow up with [facility] for managing alcohol use Take medications as prescribed Attend follow up appointments Ps will follow up periodically Refrain from use of use of alcohol and or drugs for overall health ?
== END 2025-01-14 16:05 | disposition home or self-care (01) ==
LOC: ER 15:06 → ICU 01-14 00:05
PROVIDERS: Admitting Provider Nurse Practitioner Family; Emergency Provider Emergency Medicine; PCP Nurse Practitioner Family; Visit Provider Nurse Practitioner Family
DX: B34.8 Other viral infections of unspecified site (principal); R57.1 Hypovolemic shock; K52.9 Noninfective gastroenteritis and colitis, unspecified; N17.9 Acute kidney failure, unspecified; E86.0 Dehydration; E87.6 Hypokalemia; I95.9 Hypotension, unspecified; R00.1 Bradycardia, unspecified; M25.562 Pain in left knee; I25.10 Atherosclerotic heart disease of native coronary artery without angina pectoris; F17.210 Nicotine dependence, cigarettes, uncomplicated; F11.91 Opioid use, unspecified, in remission; Z95.5 Presence of coronary angioplasty implant and graft; Z79.82 Long term (current) use of aspirin; Z79.899 Other long term (current) drug therapy
CPT/HCPCS: 96361; 96365; 96366 ×2; 96367; 96375; 99285; 0223U; 36415; 71045; 71275; 73552; 73562; 73590; 74177; 80053; 80061; 80307; 81001; 82272; 82533; 82550; 82803; 82962; 83605; 83735; 84100; 84145; 84436; 84439; 84443; 84484; 85025; 85378; 85610; 85730; 86140; 87040; 87633; 93005; 93270; 93306; G0328; G0378; J0574; J1611; J1650; J2405; J3480; J7120; Q9967

== ENCOUNTER 2025-04-26 12:43 | Inpatient (IN) | payer MEDICAID, SELFPAY ==
[2025-04-26] VITALS (12 sets, daily range): BP systolic 143–237; BP diastolic 74–140; PULSE 42–132; RESP 14–24; TEMP 36.4–37; O2SAT 91–100; BMI 42.2; BMI 25.5
--- NOTE | 2025-04-26 12:42 | ECG_ITS ---
APPROVED REPORT Exam: Resting ECG HR:93 bpm ECG Measurements Heart Rate 93 AXES NJ 124 P 80 QRSd 116 QRS 3 QT 337 T 52 QTc 388 Conclusion SINUS RHYTHM WITH FREQUENT VENTRICULAR PREMATURE COMPLEXES IN A BIGEMINAL PATTERN POSSIBLE LEFT ATRIAL ENLARGEMENT [-0.1mV P-WAVE IN V1/V2] INCOMPLETE RIGHT BUNDLE BRANCH BLOCK [90+ ms QRS DURATION, TERMINAL R IN V1/V2, 40+ ms S IN I/aVL/V4/V5/V6] POSSIBLE SEPTAL MYOCARDIAL INFARCTION , PROBABLY OLD [30 ms Q WAVE IN V1/V2] PROBABLE LATERAL MYOCARDIAL INFARCTION , PROBABLY OLD [35 ms Q WAVE IN I/aVL/V5/V6] ST DEPRESSION, CONSIDER SUBENDOCARDIAL INJURY [0.1+ mV ST DEPRESSION] ABNORMAL ECG UNCONFIRMED REPORT Electronically signed by : Geovanni Dean, 04/26/2025 15:25:59
--- OUTSIDE RECORDS SUMMARY | 2025-04-26 12:54 | XMS_ITS | Referral Summary ---
Author Organization [employer] ([place], [place], [place], [place]) Address [address] [place] [address] Care Team Providers Care Demurrage Clerk Name Role Phone Unavailable Primary Care Provider Unavailabl e Allergies Active Allergy Reactions Criticality Noted Date Comments Penicillin 06/28/2022 Medications ProAir HFA 90 mcg/actuation inhaler 2 puffs every 4 (four) hours as needed. 04/03/2022 Active aspirin 81 MG EC tablet TAKE 1 TABLET 1 TIME EACH DAY 06/19/2022 Active buprenorphine-na loxone (SUBOXONE) 8-[address] 2 tablets under the tongue daily. 06/21/2022 Active gabapentin (NEURONTIN) 400 MG capsule Take 400 mg by mouth 3 (three) times daily. 06/19/2022 Active lisinopriL (PRINIVIL,ZESTRI L) 40 MG tablet TAKE 1 TABLET 1 TIME EACH DAY 06/19/2022 Active pantoprazole (PROTONIX) 40 MG tablet Take 1 tablet (40 mg total) by mouth 2 (two) times daily before meals. 90 tablet 3 07/17/2022 Active amLODIPine (NORVASC) 10 MG tablet Take 1 tablet (10 mg total) by mouth in the morning. 09/12/2022 Active atorvastatin (LIPITOR) 40 MG tablet Take 1 tablet (40 mg total) by mouth in the morning. 09/12/2022 Active carvediloL (COREG) 6.25 MG tablet Take 1 tablet (6.25 mg total) by mouth in the morning and 1 tablet (6.25 mg total) before bedtime. 09/26/2022 Active clopidogreL (PLAVIX) 75 mg tablet Take 1 tablet (75 mg total) by mouth in the morning. 09/12/2022 Active hydroCHLOROthiaz lamonte (HYDRODIURIL) 25 MG tablet Take 1 tablet (25 mg total) by mouth in the morning. 09/12/2022 Active isosorbide mononitrate (IMDUR) 30 MG 24 hr tablet Take 1 tablet (30 mg total) by mouth in the morning. 09/26/2022 Active metoprolol succinate (TOPROL-XL) 100 MG 24 hr tablet TAKE 1 TABLET 1 TIME EACH DAY 09/12/2022 Active Narcan 4 mg/actuation [place] SMARTSIG:Bot h Nares 08/23/2022 Active loratadine (CLARITIN) 10 mg tablet Take 1 tablet (10 mg total) by mouth in the morning. Active Active Problems Problem Noted Date Diagnosed Date COPD (chronic obstructive pulmonary disease) Coronary arteriosclerosis 11/09/2022 Stented coronary artery 11/09/2022 Chest pain 11/09/2022 Hypertension 07/02/2022 Chronic pain 07/02/2022 Social History Tobacco Use Types Packs/Day Years Used Date Smoking Tobacco: Every Day Cigarettes 1 25 Smokeless Tobacco: Never Alcohol Use Standard Drinks/Week Comments Yes 0 (1 standard drink = 0.6 oz pur e alcohol) Caffeine use Food Insecurity Answer Date Recorded Food run out past 12 months Not on file 08/12 Food did not last past 12 months Not on file 08/30/2023 Employment Answer Date Recorded Help finding and keeping a job Not on file 0 08/30/2023 Family and Community Support Answer Sudheer e Recorded Help with Day to Day Activities Not on file 08/30/2023 Feeling Lonely or Isolated Not on file 08/30 Educational Attainment Answer Date Calvin rded Speak language other than [place] at home Not on file 08/30/2023 Want help with school or training Not on file 08/30/2023 Substance Use Answer Date Recorded Used prescription meds for non-medical reasons N ot on file 08/30/2023 Used illegal drugs past 12 months Not on file 08/30/2023 Sex and Gender Information Value Date Recorded Sex Assigned at Not on file Legal Sex Male 7:22 PM CDT Gender Identity Not on file Sexual Orientation Not on file Last Filed Vital Signs Vital Sign Reading Time Taken Comments Blood Pressure 149/107 07/02/2022 2:38 PM EST Pulse 69 07/02/2022 2:38 PM EST Temperature 36.4 C (97.6 F) 07/02/2022 2:07 PM EST Respiratory Rate 20 07/02/2022 2:38 PM EST Oxygen Saturation 99% 07/02/2022 2:38 PM EST RA Inhaled Oxygen Concentration - - Weight 104.3 kg (230 lb) 07/02/2022 12:45 PM EST Height 182.9 cm (6') 07/02/2022 12:45 PM EST Body Mass Index 31.19 07/02/2022 12:45 PM EST Plan of Treatment Not on file Medical Devices Implanted Type Area Applicator Sprayer Device Identifier Shelf Expiration Date Model / Serial / Lot Implants IMPLANTS Right: Hip Insurance [employer] [facility] Advance Directives For more information, please contact: [phone] * Full Code (Latest Code Status on File) Date Activated Date Inactivated Comments 07/02/2022 11:51 AM 07/02/2022 4:02 PM -Attempt Resuscitation if person has no pulse and is not breathing. -If no pulse or not breathing attempt CPR/CODE. -Call Rapid Response if patient is in distress.
--- OUTSIDE RECORDS SUMMARY | 2025-04-26 12:54 | XMS_ITS | Clinical Summary ---
Author Organization [employer] ([place], [place], [place], [place]) Address [address] [place] [address] Care Team Providers Care Transmission And Coordination Engineer Name Role Phone Unavailable Primary Care Provider [...] EACH DAY 09/12/2022 Active Narcan 4 mg/actuation [place] SMARTSIG:Bot h Nares 08/23/2022 Active loratadine (CLARITIN) 10 mg tablet Take 1 tablet (10 mg total) by mouth in the morning. Active Active Problems Problem Noted Date Diagnosed Date COPD (chronic obstructive pulmonary disease) Coronary arteriosclerosis 11/09/2022 Stented coronary artery 11/09/2022 Chest pain 11/09/2022 Hypertension 07/02/2022 Chronic pain 07/02/2022 Family History Medical History Relation Name Comments Cancer Father throat cancer Relation Name Status Comments Father Social History Tobacco Use Types Packs/Day Years [...] Date Calvin rded Speak language other than [place] at home Not on file 08/30/2023 Want [...] 07/02/2022 12:45 PM EST Plan of Treatment Health Maintenance Due Date Last Done Comments CT Colonography 1966 FOBT/FIT 1966 Fit-DNA (Cologuard) 1966 Sigmoidoscopy 1966 Depression Screening (12+) 1978 HIV Screening 1981 Hepatitis C Screening 02/10/1984 DTAP/TDAP/TD VACCINES (1 - Tdap) 1985 Lipid Panel 2001 Shingles Vaccine (Zoster) (1 of 2) 02/10/2016 Pneumococcal 50+ years (2 of 2 - PCV) 09/02/2018 Tobacco Cessation Counseling and Screening (12+) 07/02/2023 07/02/2022 COVID-19 VACCINE (2 - season) 04/12/202510/2020 Influenza Vaccine (#1) 2025 , 07/14/2018, 09/02/2017 Colonoscopy 07/02/2032 07/02/2022 Colorectal Cancer Screening 07/02/2032 Medical Devices Implanted Type Area Em Physician Device Identifier Shelf Expiration Date Model / Serial / Lot Implants IMPLANTS Right: Hip Insurance [employer]ORT [facility] [place] [address] Advance Directives For more information, please contact: [phone] * Full Code (Latest Code Status on File) Date Activated Date Inactivated Comments 07/02/2022 11:51 AM 07/02/2022 4:02 PM -Attempt Resuscitation if person has no pulse and is not breathing. -If no pulse or not breathing attempt CPR/CODE. -Call Rapid Response if patient is in distress.
--- OUTSIDE RECORDS SUMMARY | 2025-04-26 12:54 | XMS_ITS | Clinical Summary ---
Author Organization Healthcare Address [address] [place] [address] Care Team Providers Care Operation Specialist Name Role Phone Felton Cruz MD Primary Care Provider + [phone] Family History Medical History Relation Name Comments Hypertension Mother Relation Name Status Comments Mother Social History Tobacco Use Types Packs/Day Years Used Date Smoking Tobacco: Every Day Sex and Gender Information Value Date Recorded Sex Assigned at Not on file Legal Sex Male 8:40 PM EDT Gender Identity Not on file Sexual Orientation Not on file Last Filed Vital Signs Vital Sign Reading Time Taken Comments Blood Pressure - - Pulse - - Temperature - - Respiratory Rate - - Oxygen Saturation - - Inhaled Oxygen Concentration - - Weight 106 kg (233 lb 15.9 oz) 10/26/2014 10:59 AM EDT Height - - Body Mass Index - - Plan of Treatment Not on file Care Teams Operation Specialist Relationship Specialty Start Date End Date Felton Cruz MD [address] [place] [address] PCP - General 12/23/20
--- NOTE | 2025-04-26 13:04 | CT_ITS ---
FINAL REPORT TECHNIQUE: After the administration of intravenous contrast, axial images were obtained through the abdomen and pelvis by computed tomography. This study was performed with technique to keep radiation doses as low as reasonably achievable, (ALARA). Individualized dose reduction techniques using automated exposure control or adjustment of the MA and/or KV according to the patient's size were employed. CLINICAL HISTORY: Diffuse abd pain nausea vomiting FINDINGS: Abdomen: There are innumerable calcified granulomas at the lung bases. Lung bases are otherwise clear. The liver is normal in size and attenuation. The spleen is unremarkable. The adrenals are normal. There is stranding surrounding the entire pancreas consistent with pancreatitis. There is no pseudocyst or evidence or pancreatic necrosis. Gallbladder is unremarkable. No biliary obstruction is seen. The kidneys enhance appropriately. The aorta is normal in caliber. There is no free fluid or adenopathy. Bowel is unremarkable. Pelvis: The appendix is normal. The urinary bladder is unremarkable. There is no free fluid or adenopathy. IMPRESSION: Pancreatitis without evidence of pseudocyst, pancreatic necrosis or biliary obstruction. Reviewed, Interpreted and Dictated by Zafar Vela MD Transcribed by Radha Frazier Authenticated and [facility]
--- NOTE | 2025-04-26 13:05 | XR_ITS ---
FINAL REPORT TECHNIQUE: Single view chest CLINICAL HISTORY: CP COMPARISON: 01/14/2025 FINDINGS: A single view of the chest was obtained. The heart and mediastinum are within normal limits. There are innumerable, tiny calcified granulomas throughout the lungs. The lungs are otherwise clear. There is no pneumothorax. IMPRESSION: No acute cardiopulmonary process. Reviewed, Interpreted and Dictated by Zafar Vela MD Transcribed by Radha Frazier Authenticated and [facility]
--- NOTE | 2025-04-26 13:07 | ED_ITS ---
<Statement entered by Soledad Dean MD - 04/26/25 15:42> I was consulted by the BEN, and we discussed the complexity of the problems being addressed. I approved the treatment and management plan for this patient's care in the emergency department, thus performing a substantive portion of the medical decision making. Soledad Dean MD, DIANA, FACEP Discharge Plan Disposition Patient Disposition: Admitted Condition: Fair Clinical Impressions Clinical Impression: Pancreatitis, History of alcohol use, Acute hypokalemia Discharge ED Provider: Soledad Dean General Adult HPI General Chief complaint: Abdominal Pain Stated complaint: chest pain Time Seen by Provider: 04/26/25 13:01 Mode of Arrival: Ambulatory Source of Information: Patient Limitations: No Limitations History of Present Illness HPI narrative: 60-year-old male presents the emergency department with diffuse abdominal pain, nausea and vomiting that started this morning, patient denies any fever chills, admits to chest pain that started this morning as well, he is actively vomiting and retching at the bedside, he is unsure if it is his chest or stomach hurting, he denies any diarrhea constipation, hematuria melena hematochezia or hematemesis, denies any urinary type symptomatology, is any fever chills, denies any shortness of breath, patient states that he drinks alcohol every other day , patient states he drank 6 fireball shots , last night around 6 PM, he is a current everyday smoker, denies any other drug use, initial triage vitals are notable for tachycardia, other past medical history is consistent with opioid use disorder in remission, CAD status post 1 stent placement, hyperlipidemia, hypertension. please note that above description of symptoms, in this electronic medical record under categorization of recalled from ER triage doctor by RN are reflective of an initial nursing assessment, however, is not reflective of my full history and physical exam that was personally taken and clarified. Consequentially, this preceding description of symptoms, which may include the patient's categorized chief complaint in the EMR, do not reflect my personal clinical impression, and the ultimate description of history of present illness and patient stated complaints should be deferred to this section of the note. Unless stated otherwise or congruent with this section of the note, additional signs, symptoms, or incongruence should be interpreted as inaccurate with my clinical impression. Onset (ago): hour(s) Related Data Home Medications ?Medication ?Instructions ?Recorded ?Confirmed omeprazole 40 mg capsule,delayed 40 mg PO DAILY 04/26/25 release aspirin 81 mg tablet,delayed 81 mg PO DAILY 01/14/25 0 04/26/25 release atorvastatin 40 mg tablet 40 mg PO HS 01/14/25 5 buprenorphine 8 mg-naloxone 2 mg 2 tab sublingual JONNATHAN Y 01/14/25 01/14/25 sublingual tablet carvedilol 6.25 mg tablet 6.25 mg PO BID 01/14/2501/03 Held on 01/14/25. Instructions: after visit with cardiology hydrochlorothiazide 25 mg tablet 25 mg PO DAILY 01/14/25 Held on 01/14/25. Instructions: until PCP visit valsartan 80 mg tablet 80 mg PO DAILY 01/14/2501/03 Held on 01/14/25. Instructions: until visit with PCP Allergies Allergy/AdvReac Type Severity Reaction Status Date / Time celecoxib (From CELEBREX) Allergy Unknown I-HIVES Verified 02/10/25 08:51 NSAIDS (Non-Steroidal Allergy Unknown HEARTBURN/H Verified 02/10/25 08:51 Anti-Inflamma (NSAIDS EZEQUIEL (NON-STEROIDAL ANTI-INFLAMMA) Penicillins (PENICILLINS) Allergy Unknown I-HIVES Verified 02/10/25 08:51 amlodipine AdvReac Mild swelling Uncoded 02/10/25 08:51 brilinta AdvReac Mild Hypertensio Uncoded 02/10/25 08:51 n isosorbide AdvReac Mild headache Uncoded 02/10/25 08:51 PFSH PFS Disclaimer: The information contained in this section may have been updated after the patient was seen, as this information can be updated by other users. Medical History Hypovolemic shock Hypocalcemia Diarrhea Abnormal cardiovascular stress test Atypical angina Dyspnea Atypical chest pain Opioid use disorder Typical angina Witnessed apneic spells Edema of both lower extremities Hyperlipidemia Osteoarthritis Narcotic dependence Coronary artery disease HTN (hypertension) Tobacco dependence syndrome Surgical History History of right hip replacement S/P cardiac cath Family History Mother Heart attack, Onset Age: 42 Father Throat cancer, Onset Age: 81 Social History Smoking Status: Current every day smoker tobacco type: cigarettes packs per day: 1 years smoked: 30 alcohol intake: never substance use type: opiates current occupational status: employed Travel in the last 8 weeks?: Inside the [place] household members: significant other lives independently: Yes marital status: number of children: 3 service: Yes status: retired branch: [employer] current occupation: [employer]- [employer] Have you lived/traveled outside [place] in past 30 days?: No Contact w/someone who lives/traveled outside [place] past 30 days?: No Exposure to someone with infectious disease in past 14 days?: No Do you have a fever (greater than 100.4 F or 38 C)?: No Have you tested positive for COVID-19?: No Exposed to someone with COVID-19 in past 14 days?: No Do you have a sore throat?: No Do you have a cough?: No Do you have any weakness?: No Do you have any diarrhea?: No Are you experiencing any unusual bleeding?: No Do you have any muscle aches/pain?: No Do you have any abdominal pain?: No Are you experiencing loss of taste or smell?: No Other Medical History Have you received the Flu Vaccine for this season: No Have you received the Pneumonia Vaccine: Yes ROS Obtained: Yes All systems reviewed & no additional complaints except as documented Physical Exam General General appearance: alert, in no apparent distress and anxious Comment: Diaphoretic, anxious, actively vomiting and retching at the bedside Head Head exam: atraumatic and normocephalic Eye Eye exam: Present PERRL and EOMI ENT ENT exam: Present mucous membranes moist Neck Neck exam: Present normal inspection Chest Chest inspection: Present normal inspection and symmetric chest wall rise Respiratory Respiratory exam: Present normal lung sounds bilaterally; Absent respiratory distress, wheezes or stridor Cardiovascular Cardiovascular exam: Present regular rate and normal rhythm Abdominal Exam Abdominal exam: Present soft and tenderness; Absent guarding, rebound or rigidity Abdominal tenderness: Present diffuse Extremities Exam Extremities exam: Present normal inspection Neurological Exam Neurological exam: Present alert and oriented X3 Psychiatric Psychiatric exam: Present normal affect Skin Skin exam: Present warm and dry Medical Decision Making Medical Records Medical records reviewed: Yes I reviewed the patient's medical records. Screening: Per USPSTF and CDC recommendations, given the prevalence of disease in our region, it is our hospital?s policy to screen for HIV and viral Hepatitis for all patients aged 18 and over and those with ongoing risk factors. Bryson Inquiry Pt receiving controlled substance: Yes Bryson was queried for this patient: No Reason not queried -: Emergent pt cond-no time Risks and benefits of using a controlled substance: were discussed with pt by me Vital Signs: 04/26/25 12:43 04/26/25 13:55 04/26/25 14:09 Temperature 98.6 F Temperature Source Oral Pulse Rate 121 H 76 Pulse Rate [Left Radial] 85 Respiratory Rate 18 18 18 Blood Pressure 212/114 H 187/114 H Blood Pressure [Right Arm] 143/74 H Blood Pressure Mean 168 Blood Pressure Mean [Right Arm] 97 Blood Pressure Source Blood Pressure Position 02 Sat by Pulse Oximetry 93 L 98 91 L Oxygen Delivery Method Room Air 04/26/25 14:30 04/26/25 15:00 04/26/25 15:10 Temperature Temperature Source Pulse Rate 124 H 129 H 132 H Pulse Rate [Left Radial] Respiratory Rate 24 24 20 Blood Pressure 171/127 H 219/140 H 186/110 H Blood Pressure [Right Arm] Blood Pressure Mean 141 152 Blood Pressure Mean [Right Arm] Blood Pressure Source Automatic Cuff Blood Pressure Position Supine 02 Sat by Pulse Oximetry 100 100 100 Oxygen Delivery Method Room Air 04/26/25 15:11 04/26/25 15:35 Temperature Temperature Source Pulse Rate 81 78 Pulse Rate [Left Radial] Respiratory Rate Blood Pressure 186/110 H 237/89 H Blood Pressure [Right Arm] Blood Pressure Mean 135 138 Blood Pressure Mean [Right Arm] Blood Pressure Source Blood Pressure Position 02 Sat by Pulse Oximetry 100 Oxygen Delivery Method Lab Data Lab results reviewed: Yes I reviewed the patient's lab results. Lab Results 04/26/25 12:50: WBC 7.2, RBC 4.16 L, Hgb 15.4, Hct 42.7, MCV 102.6 H, MCH 37.0 H , MCHC 36.1 H, RDW 13.2, Plt Count 146, MPV 10.0, Neut % (Auto) 83.8 H, Lymph % (Auto) 10.2, [place] % (Auto) 4.9, Eos % (Auto) 0.4, Baso % (Auto) 0.1, Neut # (Auto) 6.0, Lymph # (Auto) 0.7, [place] # (Auto) 0.4, Eos # (Auto) 0.0, Baso # (Auto) 0.0, Sodium 136, Potassium 1.6 L*, Chloride 83 L, Carbon Dioxide 37 H, [place] 17.6 H, BUN 4 L, Creatinine 0.70, Estimated GFR 115, Est GFR ( Amer) 140, Glucose 185 H, Calcium 8.0 L, Magnesium 1.3 L, Total Bilirubin 2.0 H, AST 86 H, ALT 52, Alkaline Phosphatase 155 H, Troponin I 0.02, NT-Pro-B Natriuret Pep 681 H, Total Protein 7.1, Albumin 4.0, Globulin 3.1, Albumin/Globulin Ratio 1.3, Lipase 1644 H, Plasma/Serum Alcohol < 10 04/26/25 14:14: Potassium 2.5 L* D 04/26/25 14:22: Urine Color Yellow, Urine Appearance Clear, Urine pH 8.0, Ur Specific [place] 1.015, Urine Protein Negative, Urine Glucose (UA) Trace, Urine Ketones Negative, Urine Blood 1+ A, Urine Nitrate Negative, Urine Bilirubin Negative, Urine Urobilinogen 0.2, Ur Leukocyte Esterase Negative, Urine RBC None, Urine WBC Occasional, Ur Squamous Epith Cells Occasional, Urine Bacteria None, Urine Opiates Screen Positive H, Urine Methadone Screen Negative, Ur Barbituates Screen Negative, Ur Phencyclidine Scrn Negative, Ur Amphetamines Screen Negative, U Benzodiazepines Scrn Negative, Urine Cocaine Screen Negative, U Marijuana (THC) Screen Negative 04/26/25 12:50 04/26/25 14:14 Orders (Tests/Meds): ED MEDICATIONS Generic Name Dose Route Start Last Admin Trade Name Freq PRN Reason Stop Dose Admin Potassium Chloride/Water 100 mls @ 100 mls/hr 04/26/25 13:45 04/26/25 16:22 Potassium Chloride 10meq/100ml Ivpb IV 04/26/25 16:44 Infused Q1H ELVIRA Infusion Discontinued Medications Generic Name Dose Route Start Last Admin Trade Name Freq PRN Reason Stop Dose Admin Diazepam 2 mg 04/26/25 15:39 04/26/25 15:44 Diazepam 10mg/2ml Syringe IV 04/26/25 15:40 2 mg ONCE ONE Administration Hydromorphone HCl 0.5 mg 04/26/25 13:55 04/26/25 14:04 Hydromorphone 2mg/Ml Syringe IV 04/26/25 13:56 0.5 mg ONCE ONE Administration Hydromorphone HCl 0.5 mg 04/26/25 15:00 04/26/25 15:08 Hydromorphone 2mg/Ml Syringe IV 04/26/25 15:01 0.5 mg ONCE ONE Administration Magnesium Sulfate 2 gm in 50 mls @ 50 mls/hr 04/26/25 13:30 04/26/25 16:22 Magnesium Sulfate 2gm/50ml Premix IV 04/26/25 14:29 Infused ONCE ONE Infusion Iopamidol 75 ml 04/26/25 13:38 04/26/25 13:39 Iopamidol-370 (76%);100ml Bottle IV 04/26/25 13:39 75 ml ONCE ONE Administration Morphine Sulfate 4 mg 04/26/25 13:06 04/26/25 13:18 Morphine 4mg/Ml Syringe IV 04/26/25 13:07 4 mg ONCE ONE Administration Ondansetron HCl 4 mg 04/26/25 13:06 04/26/25 13:18 Ondansetron 4mg/2ml Vial IV 04/26/25 13:07 4 mg ONCE ONE Administration Sodium Chloride 10 ml 04/26/25 13:38 04/26/25 13:39 Sodium Chloride 0.9% 10ml Syr (Rad Only) IV 04/26/25 13:39 10 ml ONCE ONE Administration ORDERS Category Date Time Status CT abdomen pelvis w con Stat Cat Scan 04/26/25 13:04 Completed XR chest portable Stat Exams 04/26/25 13:05 Completed Complete Blood Count Auto Diff Stat Lab 04/26/25 12:50 Completed Comprehensive Metabolic Panel Stat Lab 04/26/25 12:50 Completed Drug Screen,Urine Stat Lab 04/26/25 14:22 Completed Ethanol [Ethyl Alcohol] Stat Lab 04/26/25 12:50 Completed Lactic Acid Stat Lab 04/26/25 13:05 Ordered Lipase Stat Lab 04/26/25 12:50 Completed Magnesium Stat Lab 04/26/25 12:50 Completed NT Pro Brain Natriuretic Pep. Stat Lab 04/26/25 12:50 Completed Potassium Stat Lab 04/26/25 14:14 Completed Troponin I Q3H Lab 04/26/25 16:13 Received Troponin I Q3H Lab 04/26/25 19:15 Ordered Troponin I Stat Lab 04/26/25 12:50 Completed Urinalysis and Microscopic Stat Lab 04/26/25 14:22 Completed Medical Decision Narrative: 60-year-old male presents to the emergency department with abdominal pain chest pain nausea vomiting for several hours, differential diagnose include but not limited to, alcoholic gastritis, ACS, cardiac arrhythmia, electrolyte disturbance, pancreatitis, diverticulitis, cholelithiasis, cholecystitis, cholangitis, bowel obstruction, ileus, alcohol withdrawal, acute alcohol intoxication, among others. I discussed this patient's case with the attending physician Will obtain basic labs lipase lactate level UDS ethanol level magnesium level, proBNP troponin UA, EKG CT head and pelvis with contrast and chest x-ray. Will give 4 mg IV morphine and 4 mg IV Zofran for pain and nausea, will also obtain CIWA protocol per nursing staff. CBC is notable for MCV elevation at 102.6, appears to be within baseline anemia CMP is noted for severe hypokalemia at 1.6, anion gap of 17.6, hypocalcemia at 8, hypomagnesia 1.3, total bilirubin is elevated 2, AST is elevated 86, lipase is significantly elevated at 1644, ethyl alcohol levels less than 10. Start hypokalemia potassium replacement protocol, also start IV magnesium with 2 g IV magnesium replacement. I reviewed the patient's EKG along with the attending physician, see documentation, patient has tachycardia and frequent PVCs, will however repeat repeat CMP for potassium. Initial troponin 0.02, proBNP is mildly evaded at 681 Patient still and quite significant amount of pain, will give 0.05 of IV Dilaudid for pain. I reviewed the patient's CT abdomen pelvis with contrast along the corresponding radiologic report, there is pancreatitis without evidence of pseudocyst pancreatic necrosis or biliary obstruction. I called hospitalist physician at approximately 2 PM, performing patient care at this time, will call me back. Discussed this case again with the hospitalist physician via telephone at 2:12 PM, he is in agreement with the current initial plan/admission plan, patient be admitted to stepdown unit. I discussed need for admission with the patient the bedside patient is in agreement with the current admission plan/treatment plan. I reviewed the patient's chest x-ray along with the corresponding radiologic report no acute cardiopulmonary process. Repeat potassium is 2.5 Patient still complaining of some pain, will give additional dose of 0.5 Dilaudid IV. UA is notable for 1+ hematuria, negative for nitrites negative leukocyte esterase. UDS is positive for opioids otherwise negative. Upon admission to the floor, patient is quite hypertensive, still has some sweating, CIWA was recorded as less than 8, however to prevent alcohol withdrawal in the setting of the patient's most likely alcohol induced pancreatitis, will give 2 IV Valium. Critical Care Critical Care Time Critical Care Time: No
[2025-04-26 13:13] LABS: Hematocrit 42.7 % (42.0-52.0); Hemoglobin 15.4 g/dL (14.1-18.0); Immature Granulocytes % 0.6 %; Mean Corpuscular HGB Conc 36.1 g/dL (31.8-35.4); Mean Corpuscular Hemoglobin 37.0 pg (27.0-31.2); Mean Corpuscular Volume 102.6 fl (80-94); Nucleated Red Blood Cells % 0 %; Platelet Count 146 K/mm3 (142-424); Red Blood Count 4.16 M/mm3 (4.60-6.20); Red Cell Distribution Width-SD 50.4 fL; White Blood Count 7.2 K/mm3 (4.8-10.8)
[2025-04-26 13:18] LABS: Chloride 83 mmol/L (98-107)
[2025-04-26] MEDS: ONDANSETRON 4MG/2ML VIAL 4 MG IV ×2 (13:18→16:57)
[2025-04-26] MEDS: MORPHINE 4MG/ML SYRINGE 4 MG IV ×2 (13:18→16:44)
[2025-04-26 13:19] LABS: Albumin Level 4.0 g/dl (3.5-5.0); Sodium 136 mmol/L (136-145)
[2025-04-26 13:21] LABS: Blood Urea Nitrogen 4 mg/dl (9-20); Creatinine,Serum 0.70 mg/dl (0.66-1.25); Estimated Glomerular Filt Rate 115 ml/min (>60); GFR (African American) 140 ML/MIN (>60)
[2025-04-26 13:22] LABS: Alanine Aminotransferase 52 U/L (12-78); Albumin/Globulin Ratio 1.3 (1.1-1.8); Alkaline Phosphatase 155 U/L (38-126); Anion Gap 17.6 mEq/L (5-15); Aspartate Amino Transferase 86 U/L (17-59); Bilirubin,Total 2.0 mg/dl (0.2-1.3); Calcium 8.0 mg/dl (8.4-10.2); Carbon Dioxide 37 mmol/L (22.0-30.0); Globulin 3.1 g/dL (1.3-3.2); Glucose 185 mg/dl (74-100); Total Protein,Serum 7.1 g/dl (6.3-8.2)
[2025-04-26 13:23] LABS: Magnesium 1.3 mg/dl (1.6-2.3)
[2025-04-26 13:26] LABS: Lipase 1644 U/L (23-300); Potassium 1.6 mmoL/L (3.5-5.1)
[2025-04-26 13:31] LABS: NT Pro Brain Natriuretic Pep. 681 pg/mL (0-125)
[2025-04-26 13:34] LABS: Troponin I 0.02 ng/ml (0.00-0.034)
[2025-04-26] MEDS: SODIUM CHLORIDE 0.9% 10ML SYR (RAD ONLY) 10 ML IV (13:39)
[2025-04-26] MEDS: IOPAMIDOL-370 (76%);100ML BOTTLE 75 ML IV (13:39)
[2025-04-26] MEDS: HYDROMORPHONE 2MG/ML SYRINGE 0.5 MG IV ×3 (14:04→23:25)
--- NOTE | 2025-04-26 14:21 | PC.NURSE ---
print line supervisor contacted for bed
[2025-04-26] MEDS: MAGNESIUM SULFATE IN WATER 2 GM/50 ML PIGGYBACK IV (14:32)
[2025-04-26 14:33] LABS: Microscopic, Urine URINE MICROSCOPIC (MICROSCOPIC)
--- NOTE | 2025-04-26 14:36 | EXP.HP ---
History of Present Illness *Admission Date: 04/26/25 *Reason for visit:: Abdominal pain *History of present illness: Jeison Barker is a 60-year-old male with a medical history significant for alcohol use disorder, opioid use disorder (reportedly on Suboxone), CAD with stents, GERD who presents with abdominal pain that started this morning. Patient states he has been drinking both beer and 5 shots of fireball, started having epigastric abdominal pain today. Also endorses some chest pain without radiation, denies shortness of breath, fever/chills. Workup in the ED significant for lipase 1644, troponin 0.06, AST 86, ALP 155 CT abdomen/pelvis showed pancreatitis without pseudocyst or necrosis. WBC 7.2, potassium 1.6, magnesium 1.3.. Patient was given morphine, Dilaudi x 2, Zofran, IV potassium and magnesium. Given these findings ED provider discussed case with manage decided to admit patient for acute pancreatitis. [facility] Disclaimer: The information contained in this section may have been updated after the patient was seen, as this information can be updated by other users. Medical History (Updated 04/26/25 @ 18:24 by Ta New MD) Hypovolemic shock Hypocalcemia Diarrhea Abnormal cardiovascular stress test Atypical angina Dyspnea Atypical chest pain Opioid use disorder Typical angina Witnessed apneic spells Edema of both lower extremities Hyperlipidemia Osteoarthritis Narcotic dependence Coronary artery disease HTN (hypertension) Tobacco dependence syndrome Surgical History History of right hip replacement S/P cardiac cath Family History Mother Heart attack, Onset Age: 42 Father Throat cancer, Onset Age: 81 Social History (Updated 04/26/25 @ 17:14 by Yelitza Mars RN) Smoking Status: Current every day smoker tobacco type: cigarettes packs per day: 1 years smoked: 30 alcohol intake: current substance use type: opiates current occupational status: employed Travel in the last 8 weeks?: [place] the [place] household members: significant other lives independently: Yes marital status: number of children: 3 service: Yes status: retired branch: [employer] current occupation: [employer]- [employer] Have you lived/traveled outside US in past 30 days?: No Contact w/someone who lives/traveled outside US past 30 days?: No Exposure to someone with infectious disease in past 14 days?: No Do you have a fever (greater than 100.4 F or 38 C)?: No Have you tested positive for COVID-19?: No Exposed to someone with COVID-19 in past 14 days?: No Do you have a sore throat?: No Do you have a cough?: No Do you have any weakness?: No Are you experiencing any nausea/vomitting?: No Do you have any diarrhea?: No Are you experiencing any unusual bleeding?: No Do you have any muscle aches/pain?: No Do you have any abdominal pain?: No Are you experiencing loss of taste or smell?: No Other Medical History Have you received the Flu Vaccine for this season: No Have you received the Pneumonia Vaccine: Yes Meds Home Medications and Allergies Home Medications ?Medication ?Instructions ?Recorded ?Confirmed ?Type omeprazole 40 mg capsule,delayed 40 mg PO DAILY 10/22/23 04/26/25 History release aspirin 81 mg tablet,delayed 81 mg PO DAILY 01/14/25 04/26/25 History release atorvastatin 40 mg tablet 40 mg PO HS 01/14/25 04/26/25 History buprenorphine 8 mg-naloxone 2 mg 2 tab sublingual DAILY 01/14/25 04/26/25 History sublingual tablet New Prescriptions to Start Prescriptions: Allergies Allergy/AdvReac Type Severity Reaction Status Date / Time celecoxib (From CELEBREX) Allergy Unknown I-HIVES Verified 02/10/25 08:51 NSAIDS (Non-Steroidal Allergy Unknown HEARTBURN/H Verified 02/10/25 08:51 Anti-Inflamma (NSAIDS EZEQUIEL (NON-STEROIDAL ANTI-INFLAMMA) Penicillins (PENICILLINS) Allergy Unknown I-HIVES Verified 02/10/25 08:51 amlodipine AdvReac Mild swelling Uncoded 02/10/25 08:51 brilinta AdvReac Mild Hypertensio Uncoded 02/10/25 08:51 n isosorbide AdvReac Mild headache Uncoded 02/10/25 08:51 Exam Data for Last 24 hours Vital signs and Labs for Last 24 Hours: Temp Pulse Resp BP Pulse Ox O2 Del Method 98.6 F 76 18 187/114 H 91 L Room Air 04/26/25 12:43 04/26/25 14:04/26/25 14:04/26/25 14:04/26/25 14:04/26/25 12:43 Laboratory Results - last 24 hr 04/26/25 12:50: WBC 7.2, RBC 4.16 L, Hgb 15.4, Hct 42.7, MCV 102.6 H, MCH 37.0 H, MCHC 36.1 H, RDW 13.2, Plt Count 146, MPV 10.0, Neut % (Auto) 83.8 H, Lymph % (Auto) 10.2, [place] % (Auto) 4.9, Eos % (Auto) 0.4, Baso % (Auto) 0.1, Neut # (Auto) 6.0, Lymph # (Auto) 0.7, [place] # (Auto) 0.4, Eos # (Auto) 0.0, Baso # (Auto) 0.0, Sodium 136, Potassium 1.6 L*, Chloride 83 L, Carbon Dioxide 37 H, Anion Gap 17.6 H, BUN 4 L, Creatinine 0.70, Estimated GFR 115, Est GFR ( Amer) 140, Glucose 185 H, Calcium 8.0 L, Magnesium 1.3 L, Total Bilirubin 2.0 H, AST 86 H, ALT 52, Alkaline Phosphatase 155 H, Troponin I 0.02, NT-Pro-B Natriuret Pep 681 H, Total Protein 7.1, Albumin 4.0, Globulin 3.1, Albumin/Globulin Ratio 1.3, Lipase 1644 H, Plasma/Serum Alcohol < 10 I & O for Last 24 hours: Intake & Output 04/23/25 04/24/25 04/25/25 04/26/25 23:59 23:59 23:59 23:59 Weight 88.451 kg Constitutional Constitutional: no acute distress *Routine HEENT Exam Head: Present normocephalic Eye: Present EOMI and PERRL ENT: Present mucous membranes moist *Routine Neck Exam Neck: Present supple; Absent lymphadenopathy *Routine Respiratory Exam Respiratory: Present CTA bilaterally *Routine Cardiovascular Exam Cardiovascular: Present RRR *Routine Abdominal Exam Abdominal: Present soft, normoactive bowel sounds and tenderness *Routine Rectal Exam Rectal:: deferred *Routine Genitalia Exam Genitalia:: deferred *Routine Extremities Exam Extremities: Absent cyanosis, clubbing or edema *Routine Skin Exam Skin: Present warm; Absent rash *Routine Neurological Exam Neurological: Present alert and oriented X3 Assessment and Plan *Assessment and plan (1) Acute hypokalemia: Status: Acute Category: Medical Code(s): E87.6 - Hypokalemia (2) History of alcohol use: Status: Acute Category: Medical Code(s): Z87.898 - Personal history of other specified conditions (3) Pancreatitis: Status: Acute Category: Medical Code(s): K85.90 - Acute pancreatitis without necrosis or infection, unspecified (4) NSTEMI (non-ST elevated myocardial infarction): Status: Acute Category: Medical Code(s): I21.4 - Non-ST elevation (NSTEMI) myocardial infarction (5) Opioid use disorder: Status: Acute Category: Medical Code(s): F11.90 - Opioid use, unspecified, uncomplicated Plan Jeison Barker is a 60-year-old male with a medical history significant for alcohol use disorder, opioid use disorder (reportedly on Suboxone), CAD with stents, GERD who presents with abdominal pain that started this morning. Patient states he has been drinking both beer and 5 shots of fireball, started having epigastric abdominal pain today. Also endorses some chest pain without radiation, denies shortness of breath, fever/chills. Workup in the ED significant for lipase 1644, troponin 0.06, AST 86, ALP 155, total bilirubin 2.0, CT abdomen/pelvis showed pancreatitis without pseudocyst or necrosis. WBC 7.2, potassium 1.6, magnesium 1.3.. Patient was given morphine, Dilaudi x 2, Zofran, IV potassium and magnesium. Given these findings ED provider discussed case with manage decided to admit patient for acute pancreatitis. #Acute pancreatitis #Elevated LFTs ? Presented with epigastric pain, had been drinking beer and 5 shots of fireball daily. Initial lipase 1644, with CT findings of acute pancreatitis. ? LFTs also elevated, AST 86, ALP 155, total bilirubin 2.0. Also concern for gallstone pancreatitis. ? Follow-up RUQ ultrasound. N.p.o. at midnight. ? Full liquid diet ordered. Advance diet as tolerated. Rally pack at 125 mL/h. ? Toradol 30 mg, Percocet 5 to 10 mg, and IV Dilaudid 0.5 mg available for breakthrough pain. Patient is on Suboxone, may require higher doses of opioids. Monitor for toxicity. #NSTEMI, likely type II #History of CAD with stents #PVCs ? Initial troponin 0.06, continue to trend. EKG without acute ischemic changes. Does have profound PVCs. ? Will give one-time dose of therapeutic Lovenox. ? Follow-up ECHO. ? Consider cardiology consultation if troponin uptrend, ECHO abnormalities. ? Continue home aspirin, statin. ? Started metoprolol succinate 25 mg for PVCs. #Hypokalemia #Hypomagnesemia ? Initial potassium 1.6, improved to 2.5. Initial magnesium 1.3. Replete per protocol. ? Follow-up morning CMP. #Alcohol use disorder ? Multivitamins, rally pack. ? Monitor for withdrawal signs with CIWA. Diazepam as needed. ? Peer support consulted, patient open to alcohol cessation. #Opioid use disorder ? Reportedly on Suboxone. Will need to confirm with [facility] clinic. Hold during admission due to opioid needs. ? Also reports using friend's Percocet to help control abdominal pain. #GERD ? Continue IV Protonix nightly. Full code DVT prophylaxis: Lovenox 40 mg
[2025-04-26 14:42] LABS: Potassium 2.5 mmoL/L (3.5-5.1)
--- NOTE | 2025-04-26 14:43 | PC.NURSE ---
CHAPIS Hagen notified of K+ 2.5.
[2025-04-26 14:53] LABS: Bilirubin,Urine Negative (Negative); Color,Urine YELLOW (Yellow); Glucose,Urine (UA) TRACE (Negative); Ketones,Urine Negative (Negative); Leukocyte Esterase,Urine Negative (Negative); PH,Urine 8.0 (5.0-8.5); Protein,Urine Negative (Negative); Specific Gravity, Urine 1.015 (1.005-1.030); Urobilinogen,Urine 0.2 EU/dl (0.2)
--- NOTE | 2025-04-26 15:07 | PC.NURSE ---
attempted to call report. ICU staff busy with high acuity patient and will call back for pt report.
[2025-04-26 15:09] LABS: Amphetamine/Metha Screen,Urine Negative ng/ml (<1000); Barbiturates Screen,Urine Negative ng/ml (<200)
[2025-04-26 15:10] LABS: Benzodiazepines Screen,Urine Negative ng/ml (<200)
[2025-04-26 15:12] LABS: Methadone Screen,Urine Negative ng/ml (<300)
[2025-04-26 15:13] LABS: Opiate Screen,Urine Positive ng/ml (<300); Phencyclidine Screen,Urine Negative ng/ml (<25)
[2025-04-26 15:25] LABS: Squamous Epithelial Cell,Urine Occasional #/hpf (0-5); WBC,Urine Occasional #/hpf (0-3)
[2025-04-26] MEDS: diazePAM 10MG/2ML SYRINGE 2 MG IV (15:44)
--- NOTE | 2025-04-26 16:18 | PC.NURSE ---
arrived by w/c from ED
[2025-04-26 16:41] LABS: Troponin I 0.06 ng/ml (0.00-0.034)
[2025-04-26] MEDS: LACTATED RINGERS 1000ML 1,000 ML 100 ML IV (16:57)
[2025-04-26] MEDS: KETOROLAC 30MG/ML VIAL 30 MG IV (17:55)
[2025-04-26] MEDS: MVI, ADULT NO.1 WITH VIT K 10 ML, THIAMINE HCL 100 MG, MAGNESIUM SULFATE 2 GM in LACTAT... 125 ML IV (18:06)
[2025-04-26 18:07] LABS: Cholesterol 106 mg/dl (140-200); HDL Cholesterol 31 mg/dl (40-60); Triglycerides 120 mg/dl (30-150)
--- NOTE | 2025-04-26 18:17 | PC.NURSE ---
CIWA at 1700 was 1 (nausea) pts is rating abd pain 10/10 with no relief from prescribed pain meds, notified md. md came to bs to assess pt and change pain meds. pt admits to drinking 6 shot size bottles of fireball and a few beers with it everyday for atleast the last 6 months not missing a day. pt stated his pain began this morning and he got a percocet 10 of his jaquan. also said he snorted a percocet last night but he does not do them often. takes suboxon daily. cb within reach, walks independently, seizure precautions in place. pt still c/o of pain at this time. ivmf started. no needs at this time
[2025-04-26] MEDS: OXYCODONE 5MG W/APAP 325MG TABLET 2 EACH PO ×2 (19:24→23:00)
[2025-04-26] MEDS: diazePAM 10MG/2ML SYRINGE 5 MG IV ×2 (19:50→22:04)
--- NOTE | 2025-04-26 20:32 | PC.NURSE ---
2027 lactate was called to Sonya Barrera ACPN notified. Orders to follow. MATTHEW CAMPOS RN
[2025-04-26 20:42] LABS: Troponin I 0.27 ng/ml (0.00-0.034)
[2025-04-26] MEDS: RINGERS SOLUTION,LACTATED 500 ML 999 ML IV (20:55)
--- NOTE | 2025-04-26 20:57 | ECG_ITS ---
APPROVED REPORT Exam: Resting ECG HR:92 bpm ECG Measurements Heart Rate 92 AXES VT 168 P 61 QRSd 106 QRS -14 QT 327 T 59 QTc 376 Conclusion SINUS RHYTHM WITH FREQUENT VENTRICULAR PREMATURE COMPLEXES POSSIBLE LEFT ATRIAL ENLARGEMENT [-0.1mV P-WAVE IN V1/V2] NONSPECIFIC ST & T-WAVE ABNORMALITY ABNORMAL RHYTHM ECG UNCONFIRMED REPORT Electronically signed by : Lior Harris MD 04/27/2025 08:43:32
[2025-04-26] MEDS: ATORVASTATIN 40MG TABLET 40 MG PO (21:42)
[2025-04-26] MEDS: THIAMINE 100MG TABLET 100 MG PO (21:43)
[2025-04-26] MEDS: PANTOPRAZOLE 40MG VIAL 40 MG IV (21:45)
[2025-04-26] MEDS: ASPIRIN 325MG TABLET 325 MG PO (22:50)
[2025-04-26] MEDS: METOPROLOL SUCCINATE XL 25MG TABLET 25 MG PO (22:54)
[2025-04-26 23:49] LABS: Reflex Lactic Add Lactic Reflex
[2025-04-27] VITALS (8 sets, daily range): BP systolic 136–187; BP diastolic 73–110; PULSE 42–93; RESP 14–17; TEMP 36.4–36.7; O2SAT 90–98; BMI 26.4
[2025-04-27] MEDS: PROMETHAZINE HCL 25MG/ML 1ML VIAL 25 MG IV ×3 (00:38→17:04)
[2025-04-27] MEDS: SODIUM CHLORIDE 0.9% 25ML BAG 25 ML IV ×3 (00:39→17:04)
[2025-04-27 00:53] LABS: Lactic Acid Follow Up (RFLX 1) 2.9 mmol/L (0.7-2.1)
[2025-04-27] MEDS: HYDROMORPHONE 2MG/ML SYRINGE 0.5 MG IV ×3 (00:53→20:16)
[2025-04-27 01:53] LABS: Troponin I 0.44 ng/ml (0.00-0.034)
[2025-04-27 02:26] LABS: Reflex Lactic (2 hrs) Add Lactic Reflex
[2025-04-27 03:15] LABS: Lactic Acid Follow up (RFLX 2) 3.3 mmol/L (0.7-2.1)
[2025-04-27] MEDS: OXYCODONE 5MG W/APAP 325MG TABLET 2 EACH PO ×2 (03:17→09:30)
[2025-04-27] MEDS: diazePAM 10MG/2ML SYRINGE 5 MG IV (03:17)
[2025-04-27] MEDS: HYDRALAZINE 20MG/ML VIAL 10 MG IV (04:19)
--- NOTE | 2025-04-27 06:00 | US_ITS ---
FINAL REPORT TECHNIQUE: Multiple transverse and longitudinal images CLINICAL HISTORY: Acute pancreatitis COMPARISON: None FINDINGS: The gallbladder shows no wall thickening, distention or stone disease. No biliary ductal dilatation is appreciated. A trace amount of perihepatic ascites is noted. There is fatty infiltration of the liver. Limited portions of the right kidney are unremarkable. Pancreas is largely obscured by bowel gas. IMPRESSION: No evidence of acute gallbladder disease or biliary obstruction. Small amount of ascites in the right upper quadrant Reviewed, Interpreted and Dictated by Zafar Vela MD Transcribed by Stephanie Dougherty Authenticated and [facility]
--- NOTE | 2025-04-27 06:06 | PC.NURSE ---
2028 troponin of 0.20 was call as critical. notified Sonya Barrera CIGAR HEAD PEGGER was made aware. MATTHEW CAMPOS RN
--- NOTE | 2025-04-27 06:08 | PC.NURSE ---
at 0026 PT was vomiting , heart rate has dropped to 43 during vital check. Notified Sonya Barrera MYSQL DATABASE ADMINISTRATOR Added Telemetry at that time to PT. Sonya Barrera MYSQL DATABASE ADMINISTRATOR came to see patient and ordered Phenergan and a One time dose of Dilaudid 0.50 mg. Pt was resting quietly. call light with in reach, MATTHEW CAMPOS RN
--- NOTE | 2025-04-27 06:13 | PC.NURSE ---
015 Critical Troponin was called 0.44 was the Level Notified Sonya Barrera NP. MATTHEW CAMPOS RN
--- NOTE | 2025-04-27 06:14 | PC.NURSE ---
0916 @ 0354 PT b/p 187/110 messaged Sonya Barrera CARD CLEANER she had orders to follow. MATTHEW CAMPOS RN
[2025-04-27 06:29] LABS: Hematocrit 50.0 % (42.0-52.0); Immature Granulocytes % 0.6 %; Mean Corpuscular HGB Conc 34.4 g/dL (31.8-35.4); Mean Corpuscular Hemoglobin 36.1 pg (27.0-31.2); Mean Corpuscular Volume 105.0 fl (80-94); Nucleated Red Blood Cells % 0 %; Platelet Count 104 K/mm3 (142-424); Red Blood Count 4.76 M/mm3 (4.60-6.20); Red Cell Distribution Width-SD 54.2 fL; White Blood Count 17.1 K/mm3 (4.8-10.8)
[2025-04-27 06:45] LABS: Alanine Aminotransferase 43 U/L (12-78); Albumin Level 3.6 g/dl (3.5-5.0); Albumin/Globulin Ratio 1.1 (1.1-1.8); Alkaline Phosphatase 185 U/L (38-126); Anion Gap 11.6 mEq/L (5-15); Aspartate Amino Transferase 114 U/L (17-59); Bilirubin,Total 1.9 mg/dl (0.2-1.3); Blood Urea Nitrogen 11 mg/dl (9-20); Calcium 7.0 mg/dl (8.4-10.2); Carbon Dioxide 39 mmol/L (22.0-30.0); Chloride 85 mmol/L (98-107); Creatinine Clearance Estimated 142 mL/min (50-200); Creatinine,Serum 0.70 mg/dl (0.66-1.25); Estimated Glomerular Filt Rate 115 ml/min (>60); GFR (African American) 140 ML/MIN (>60); Globulin 3.2 g/dL (1.3-3.2); Glucose 133 mg/dl (74-100); Magnesium 2.3 mg/dl (1.6-2.3); Sodium 134 mmol/L (136-145); Total Protein,Serum 6.8 g/dl (6.3-8.2)
[2025-04-27 06:50] LABS: Potassium 1.6 mmoL/L (3.5-5.1)
[2025-04-27 07:15] LABS: Thyroid Stimulating Hormone 0.23 uIU/mL (0.465-4.68)
[2025-04-27 07:41] LABS: Total Cells Counted 100
[2025-04-27 07:42] LABS: Macrocytosis 2+
[2025-04-27] MEDS: MORPHINE 4MG/ML SYRINGE 4 MG IV (07:49)
[2025-04-27 08:16] LABS: Phosphorous 4.0 mg/dl (2.5-4.5)
[2025-04-27] MEDS: MVI, ADULT NO.1 WITH VIT K 10 ML, THIAMINE HCL 100 MG, MAGNESIUM SULFATE 2 GM in LACTAT... 125 ML IV (09:32)
[2025-04-27] MEDS: CALCIUM GLUC IN NACL, ISO-OSM 2 GM/100 ML BAG IV (09:33)
[2025-04-27 11:24] LABS: Hemoglobin 17.2 g/dL (14.1-18.0)
[2025-04-27] MEDS: OXYCODONE 5MG W/APAP 325MG TABLET 3 EACH PO ×3 (12:06→23:28)
--- NOTE | 2025-04-27 12:06 | P.CONPHA_ITS ---
Pharmacy Intervention Comments: MEDICATION RECONCILIATION COMPLETED ON PATIENT USING EXTERNAL FILL HISTORY FROM PHARMACY. VERIFIED SUBOXONE DOSE WITH ELLY IN [place]. -HAKEEM DAVISOND
[2025-04-27] MEDS: POTASSIUM CHLORIDE 20MEQ TAB 40 MEQ PO ×5 (12:15→23:29)
[2025-04-27] MEDS: FOLIC ACID 1MG TABLET 1 MG PO (12:16)
[2025-04-27] MEDS: THIAMINE 100MG TABLET 100 MG PO (12:16)
[2025-04-27] MEDS: CAPTOPRIL 12.5MG TABLET 6.25 MG PO (12:16)
[2025-04-27] MEDS: ASPIRIN EC 81MG TABLET 81 MG PO (12:16)
[2025-04-27] MEDS: METOPROLOL SUCCINATE XL 25MG TABLET 25 MG PO (12:16)
[2025-04-27] MEDS: NICOTINE 21MG/24HR PATCH 21 MG TD (12:21)
--- NOTE | 2025-04-27 12:25 | EXP.CARD.CON ---
History of Present Illness History of Present Illness Consult date: 04/27/25 Requesting physician: Ta New Chief complaint: elevated troponin in setting of pancreatitis Additional Medical History:: 1. Tobacco use 2. Hypertension A. Echo, 07/2022, mild biatrial enlargement, normal LV size, mild concentric LVH, EF 55%, mild RVE with normal contractility. Trace MR/TR. B. Renal angiogram, 07/2022, 10-20% bilateral TRICIA. Tortuous aorta noted 3. Family history of coronary artery disease 4. CAD A. Lexiscan Myoview, 07/2022, reversible ischemia in the apex and anteroseptal wall, EF 53% B. Cardiac cath, 07/23/2022, RENY to RCA. Medical therapy for moderate LAD, diagonal and circumflex disease. EF 65%, LVEDP 20-25 mmHg. 5. Hyperlipidemia 6. History of opioid dependency, on Suboxone 7. Arrhythmias, event monitor, 01/2025, PACs, PVCs, atrial runs and ventricular couplets. 3.3-second pause on the day the monitor was put on was felt due to recent acute illness. No significant bradycardia or pauses thereafter. History of present illness: Jeison Barker is a 60-year-old male with a medical history significant for alcohol use disorder, opioid use disorder (reportedly on Suboxone), CAD with stents, GERD who presents with abdominal pain that started this morning. Patient states he has been drinking both beer and 5 shots of fireball, started having epigastric abdominal pain today. Also endorses some chest pain without radiation, denies shortness of breath, fever/chills. Workup in the ED significant for lipase 1644, troponin 0.06, AST 86, ALP 155 CT abdomen/pelvis showed pancreatitis without pseudocyst or necrosis. WBC 7.2, potassium 1.6, magnesium 1.3.. Patient was given morphine, Dilaudid x 2, Zofran, IV potassium and magnesium. Given these findings ED provider discussed case with manage decided to admit patient for acute pancreatitis. The above per Dr. New. Cardiology consulted due to the patient's history of coronary artery disease with stenting and now with elevated troponins and significant PVCs in setting of hypokalemia and hypomagnesemia. Patient's already being supplemented with potassium and magnesium. He has been started on metoprolol for the PVCs along with continuing his home aspirin and statin use. [facility] Disclaimer: The information contained in this section may have been updated after the patient was seen, as this information can be updated by other users. Medical History (Updated 04/27/25 @ 14:48 by CHAPIS Gonzalez) Hypovolemic shock Hypocalcemia Diarrhea Abnormal cardiovascular stress test Atypical angina Dyspnea Atypical chest pain Opioid use disorder Typical angina Witnessed apneic spells Edema of both lower extremities Hyperlipidemia Osteoarthritis Narcotic dependence Coronary artery disease HTN (hypertension) Tobacco dependence syndrome Surgical History History of right hip replacement S/P cardiac cath Family History Mother Heart attack, Onset Age: 42 Father Throat cancer, Onset Age: 81 Social History (Updated 04/26/25 @ 17:14 by Yelitza Mars RN) Smoking Status: Current every day smoker tobacco type: cigarettes packs per day: 1 years smoked: 30 alcohol intake: current substance use type: opiates current occupational status: employed Travel in the last 8 weeks?: [place] the [place] household members: significant other lives independently: Yes marital status: number of children: 3 service: Yes status: retired branch: [employer] current occupation: [employer]- [employer] Have you lived/traveled outside US in past 30 days?: No Contact w/someone who lives/traveled outside US past 30 days?: No Exposure to someone with infectious disease in past 14 days?: No Do you have a fever (greater than 100.4 F or 38 C)?: No Have you tested positive for COVID-19?: No Exposed to someone with COVID-19 in past 14 days?: No Do you have a sore throat?: No Do you have a cough?: No Do you have any weakness?: No Are you experiencing any nausea/vomitting?: No Do you have any diarrhea?: No Are you experiencing any unusual bleeding?: No Do you have any muscle aches/pain?: No Do you have any abdominal pain?: No Are you experiencing loss of taste or smell?: No Review of Systems Review of Systems Review of systems:: pertinent systems reviewed and negative unless documented below *Cardiovascular Cardiovascular: Denies chest pain and Reports dyspnea on exertion *Respiratory Respiratory: Denies cough and Reports dyspnea on exertion *Gastrointestinal Gastrointestinal: Reports abdominal pain Exam Data for Last 24 hours Vital signs and Labs for Last 24 Hours: Temp Pulse Resp BP Pulse Ox O2 Del Method 97.7 F 75 17 149/73 H 95 Room Air 04/27/25 08:00 04/27/25 08:00 04/27/25 08:00 04/27/25 08:00 04/27/25 08:00 04/27/25 11:00 Laboratory Results - last 24 hr 04/26/25 12:50: WBC 7.2, RBC 4.16 L, Hgb 15.4, Hct 42.7, MCV 102.6 H, MCH 37.0 H, MCHC 36.1 H, RDW 13.2, Plt Count 146, MPV 10.0, Neut % (Auto) 83.8 H, Lymph % (Auto) 10.2, [place] % (Auto) 4.9, Eos % (Auto) 0.4, Baso % (Auto) 0.1, Neut # (Auto) 6.0, Lymph # (Auto) 0.7, [place] # (Auto) 0.4, Eos # (Auto) 0.0, Baso # (Auto) 0.0, Sodium 136, Potassium 1.6 L*, Chloride 83 L, Carbon Dioxide 37 H, Anion Gap 17.6 H, BUN 4 L, Creatinine 0.70, Estimated GFR 115, Est GFR ( Amer) 140, Glucose 185 H, Calcium 8.0 L, Magnesium 1.3 L, Total Bilirubin 2.0 H, AST 86 H, ALT 52, Alkaline Phosphatase 155 H, Troponin I 0.02, NT-Pro-B Natriuret Pep 681 H, Total Protein 7.1, Albumin 4.0, Globulin 3.1, Albumin/Globulin Ratio 1.3, Lipase 1644 H, Plasma/Serum Alcohol < 10 04/26/25 14:14: Potassium 2.5 L* D 04/26/25 14:22: Urine Color Yellow, Urine Appearance Clear, Urine pH 8.0, Ur Specific Mona 1.015, Urine Protein Negative, Urine Glucose (UA) Trace, Urine Ketones Negative, Urine Blood 1+ A, Urine Nitrate Negative, Urine Bilirubin Negative, Urine Urobilinogen 0.2, Ur Leukocyte Esterase Negative, Urine RBC None, Urine WBC Occasional, Ur Squamous Epith Cells Occasional, Urine Bacteria None, Urine Opiates Screen Positive H, Urine Methadone Screen Negative, Ur Barbituates Screen Negative, Ur Phencyclidine Scrn Negative, Ur Amphetamines Screen Negative, U Benzodiazepines Scrn Negative, Urine Cocaine Screen Negative, U Marijuana (THC) Screen Negative 04/26/25 16:13: Troponin I 0.06 H, Triglycerides 120, Cholesterol 106 L, LDL Cholesterol Direct 51.40 L, VLDL Cholesterol 24, HDL Cholesterol 31 L, Cholesterol/HDL Ratio 3.4 04/26/25 19:42: Lactate 4.2 H, Troponin I 0.27 H 04/26/25 23:46: Troponin I 0.44 H 04/27/25 00:15: Lactate 2.9 H 04/27/25 02:55: Lactate 3.3 H 04/27/25 06:03: WBC 17.1 H D, RBC 4.76, Hgb 17.2 D, Hct 50.0, MCV 105.0 H, MCH 36.1 H, MCHC 34.4, RDW 13.7, Plt Count 104 L D, MPV 10.3, Neut % (Auto) 92.2 H, Lymph % (Auto) 3.0 L, [place] % (Auto) 4.0, Eos % (Auto) 0.1, Baso % (Auto) 0.1, Neut # (Auto) 15.8 H, Lymph # (Auto) 0.5 L, [place] # (Auto) 0.7, Eos # (Auto) 0.0, Baso # (Auto) 0.0, Total Counted 100, Neutrophils % (Manual) 92 H, Lymphocytes % (Manual) 5 L, Monocytes % (Manual) 3, Platelet Estimate Slight decrease, Macrocytosis 2+, Sodium 134 L, Potassium 1.6 L* D, Chloride 85 L, Carbon Dioxide 39 H, Anion Gap 11.6, BUN 11 D, Creatinine 0.70, Estimated Creat Clear 142, Estimated GFR 115, Est GFR ( Amer) 140, Glucose 133 H D, Calcium 7.0 L, Phosphorus 4.0, Magnesium 2.3 D, Total Bilirubin 1.9 H, AST 114 H D, ALT 43, Alkaline Phosphatase 185 H, Total Protein 6.8, Albumin 3.6, Globulin 3.2, Albumin/Globulin Ratio 1.1, TSH 0.23 L I & O for Last 24 hours: Intake & Output 04/25/25 04/26/25 04/27/25 04/28/25 11:59 11:59 11:59 11:59 Intake Total 2201.667 / 2201.667 Output Total 501 / 501 Balance 1700.667 / 1700.667 Weight 195 lb Constitutional Constitutional: moderate distress *Routine Respiratory Exam Respiratory: Present CTA bilaterally and diminished air movement *Routine Cardiovascular Exam Cardiovascular: Present RRR; Absent murmur, gallop or rubs *Routine Extremities Exam Extremities: Absent edema *Routine Neurological Exam Neurological: Present alert, oriented X3 and CN II-XII intact Meds Home Medications and Allergies Home Medications ?Medication ?Instructions ?Recorded ?Confirmed ?Type omeprazole 40 mg capsule,delayed 40 mg PO DAILY 10/22/23 04/26/25 History release aspirin 81 mg tablet,delayed 81 mg PO DAILY 01/14/25 04/26/25 History release atorvastatin 40 mg tablet 40 mg PO HS 01/14/25 04/26/25 History buprenorphine 8 mg-naloxone 2 mg 2 tab sublingual DAILY 01/14/25 04/26/25 History sublingual tablet New Prescriptions to Start Prescriptions: Allergies Allergy/AdvReac Type Severity Reaction Status Date / Time celecoxib (From CELEBREX) Allergy Unknown I-HIVES Verified 02/10/25 08:51 NSAIDS (Non-Steroidal Allergy Unknown HEARTBURN/H Verified 02/10/25 08:51 Anti-Inflamma (NSAIDS EZEQUIEL (NON-STEROIDAL ANTI-INFLAMMA) Penicillins (PENICILLINS) Allergy Unknown I-HIVES Verified 02/10/25 08:51 amlodipine AdvReac Unknown Verified 04/27/25 07:24 allergy reaction isosorbide AdvReac Headache Verified 04/27/25 07:24 ticagrelor (From Brilinta) AdvReac Hypertensio Verified 04/27/25 07:24 n Assessment and Plan *Assessment and plan (1) Pancreatitis: Status: Acute Qualifiers: Chronicity: acute Pancreatitis type: alcohol induced Acute pancreatitis complication: unspecified Qualified Code(s): K85.20 - Alcohol induced acute pancreatitis without necrosis or infection Category: Medical Code(s): K85.90 - Acute pancreatitis without necrosis or infection, unspecified (2) History of alcohol use: Status: Acute Category: Medical Code(s): Z87.898 - Personal history of other specified conditions (3) Acute hypokalemia: Status: Acute Category: Medical Code(s): E87.6 - Hypokalemia (4) Opioid use disorder: Status: Acute Category: Medical Code(s): F11.90 - Opioid use, unspecified, uncomplicated (5) NSTEMI (non-ST elevated myocardial infarction): Status: Acute Category: Medical Code(s): I21.4 - Non-ST elevation (NSTEMI) myocardial infarction (6) Coronary artery disease: Status: Acute Qualifiers: Coronary Disease-Associated Artery/Lesion type: [place] artery [place] vs. transplanted heart: [place] heart Associated angina: with other forms of angina Qualified Code(s): I25.118 - Atherosclerotic heart disease of [place] coronary artery with other forms of angina pectoris Category: Medical Code(s): I25.10 - Atherosclerotic heart disease of [place] coronary artery without angina pectoris Plan 1. Alcohol induced pancreatitis -Lipase [address] findings of acute pancreatitis -Workup in progress with pain medication per hospitalist -monitor for withdrawal symptoms -Lactate decreasing from 4.2-3.3 currently 2. Electrolyte abnormalities including hypokalemia and hypomagnesemia -Replacements have been ordered 3. Elevated troponins (Tmax 0.44) with concern for non-STEMI type II -Limited echo shows normal ejection fraction -Consider Lexiscan Myoview as outpatient, once patient's pancreatitis has cleared -Continue aspirin and metoprolol -repeat troponin in today 4. Cardiac arrhythmias on admission (PVCs) -Improving with replacement of electrolytes -repeat EKG today and in AM -on metoprolol 5. Hypertension, improving - On metoprolol and captopril 6. Hyperlipidemia -On atorvastatin as outpatient 7. Coronary disease with history of stenting to RCA -Continue aspirin and metoprolol Concerned that captopril and statin could worsen the pancreatitis. Recommend discontinue and use more metoprolol if needed for BP control. Consider restarting statin as outpatient. Nothing further to add. No plans for further testing this admission unless something changes. Please call if needed.
[2025-04-27] MEDS: MULTIVITAMIN TABLET 1 EACH PO (16:57)
[2025-04-27 17:02] LABS: Troponin I 0.36 ng/ml (0.00-0.034)
--- NOTE | 2025-04-27 18:09 | PC.NURSE ---
pt has had better pain control this shift. currently asleep in bed. peer support gayatri was just at bs. n/v (green bile- one time) this shift, treated per mar with relief. cb within reach no needs at this time
--- NOTE | 2025-04-27 18:20 | CA_ITS ---
APPROVED REPORT EXAM: Limited 2D Echocardiogram Lacquer Sizer: Rosalba Cormier CRT Ht: 6 ft 0 in Wt: 188lbs BSA: 2.08 BP: 100/60 mmHg Indications: EF Check, alcohol use disorder, CAD, stents, smoker M-Mode Dimensions RVDd 2.43 cm (0.9-2.6) LA Diam 2.83 cm (1.9-4.0) LVDd 3.93 cm (3.5-5.7) LVDs 2.54 cm (3.5-5.7) IVSd 1.86 cm (0.6-1.1) PWd 0.97 cm (0.6-1.1) EF (Teich) 65.40% FS 35.40% EDV (Teich) 67.10 mL ESV (Teich) 23.20 mL Other Information Study Quality: Fair Conclusion This is a limited TTE to evaluate for LV systolic function. Limited windows are obtained. The left ventricle is normal in size. There is increased LV wall thickness. There is normal global LV systolic function. No regional wall motion abnormalities are present. LVEF is 60%. Electronically signed by : Joana Gomes MD 04/27/2025 10:40:10
--- NOTE | 2025-04-27 18:22 | EXP.ACUTE.PN ---
Subjective *Date: 04/27/25 *Time: 18:35 Interval history: Continues to have significant abdominal pain. Appears to not have expected response to Dilaudid and oxycodone. Confirmed with patient's pain management/opiate use disorder clinic that he does take Suboxone 8/2 twice daily. This is likely a culprit in his hyperalgesia and poor response to opiate therapy. Will increase pain control regimen today. No vomiting. Continue with liquid diet. Stable on room air Medical Exam Vital signs and Labs for Last 24 Hours: Vital Signs Temp Pulse Pulse Resp BP Pulse Ox O2 Del Method 04/27/25 18:19 Room Air 04/27/25 17:00 Room Air 04/27/25 16:00 97.9 F 80 17 151/81 H 96 Room Air 04/27/25 16:00 80 04/27/25 15:00 Room Air 04/27/25 13:00 Room Air 04/27/25 12:00 70 04/27/25 11:00 Room Air 04/27/25 09:00 Room Air 04/27/25 08:00 Room Air 04/27/25 08:00 80 04/27/25 08:00 97.7 F 75 17 149/73 H 95 Room Air 04/27/25 05:56 Room Air 04/27/25 05:00 Room Air 04/27/25 04:00 97.6 F 80 14 187/110 H 98 Room Air 04/27/25 04:00 80 04/27/25 03:00 Room Air 04/27/25 01:00 Room Air 04/27/25 00:30 50 L 04/27/25 00:00 97.6 F 42 L 16 154/87 H 90 L Room Air 04/26/25 23:00 Room Air 04/26/25 21:00 Room Air 04/26/25 20:00 Room Air 04/26/25 20:00 97.6 F 42 L 14 158/96 H 95 Room Air 04/26/25 18:28 Room Air Intake and Output 04/27/25 04/27/25 04/27/25 07:59 15:59 23:59 Intake Total 1095 / 3050 940 / 3050 1015 / 3050 Output Total 1 / 501 500 / 501 Balance 1094 / 2549 440 / 2549 1015 / 2549 Intake: Intake, Oral Amount 80 / 620 540 / 620 Intake, Total IV Amount 1015 / 2430 400 / 2430 1015 / 2430 Calcium Gluc in NaCl, Iso-Osm 2 100 / 100 gm In 100 ml @ 50 mls/hr IV ONCE ONE Rx#:[id number] KCl 10mEq/100ml 100 ml @ 100 300 / 300 mls/hr IV Q1H [facility] Rx#:[id number] Mvi, Adult No.1 with Vit K 10 5 / 2029 1015 / 2029 ml Thiamine HCl 100 mg Magnesium Sulfate 2 gm In Lactated Ringers 1000ML 1,000 ml @ 125 mls/hr IV DAILY [facility] Rx #:[id number] Output: Output, Urine Amount 500 / 501 Other: Number of Voids 1 Number of Unmeasured Voids 0 2 Weight 88.451 kg Patient Weight 04/27/25 23:59 Weight 88.451 kg Laboratory Results - last 24 hr 04/26/25 16:13: Triglycerides 120, Cholesterol 106 L, LDL Cholesterol Direct 51.40 L, VLDL Cholesterol 24, HDL Cholesterol 31 L, Cholesterol/HDL Ratio 3.4 04/26/25 19:42: Lactate 4.2 H, Troponin I 0.27 H 04/26/25 23:46: Troponin I 0.44 H 04/27/25 00:15: Lactate 2.9 H 04/27/25 02:55: Lactate 3.3 H 04/27/25 06:03: WBC 17.1 H D, RBC 4.76, Hgb 17.2 D, Hct 50.0, MCV 105.0 H, MCH 36.1 H, MCHC 34.4, RDW 13.7, Plt Count 104 L D, MPV 10.3, Neut % (Auto) 92.2 H, Lymph % (Auto) 3.0 L, [place] % (Auto) 4.0, Eos % (Auto) 0.1, Baso % (Auto) 0.1, Neut # (Auto) 15.8 H, Lymph # (Auto) 0.5 L, [place] # (Auto) 0.7, Eos # (Auto) 0.0, Baso # (Auto) 0.0, Total Counted 100, Neutrophils % (Manual) 92 H, Lymphocytes % (Manual) 5 L, Monocytes % (Manual) 3, Platelet Estimate Slight decrease, Macrocytosis 2+, Sodium 134 L, Potassium 1.6 L* D, Chloride 85 L, Carbon Dioxide 39 H, Anion Gap 11.6, BUN 11 D, Creatinine 0.70, Estimated Creat Clear 142, Estimated GFR 115, Est GFR ( Amer) 140, Glucose 133 H D, Calcium 7.0 L, Phosphorus 4.0, Magnesium 2.3 D, Total Bilirubin 1.9 H, AST 114 H D, ALT 43, Alkaline Phosphatase 185 H, Troponin I 0.36 H, Total Protein 6.8, Albumin 3.6, Globulin 3.2, Albumin/Globulin Ratio 1.1, TSH 0.23 L I & O for Labs for Last 24 Hours: Intake & Output 04/24/25 04/25/25 04/26/25 04/27/25 23:59 23:59 23:59 23:59 Intake Total 1007 / 1087 3050 / 3050 Output Total 0 / 0 501 / 501 Balance 1007 / 1087 2549 / 2549 Weight 85.531 kg 88.451 kg Constitutional: Present mild distress, average body habitus, chronically ill appearing and cooperative Head: Present atraumatic and normocephalic Respiratory: Present normal respiratory effort; Absent accessory muscle use, rhonchi, wheezes or crackles Cardiac: Present Reg Rate and Rhythm GI: Present soft, tenderness (No significant left upper quadrant), guarding and diminished bowel sounds; Absent distention Extremities: Present normal inspection and full ROM Skin: Present intact; Absent erythema Neuro: Present Grossly Intact, alert, awake, oriented x 3 and moves all extremities Assessment and Plan *Assessment and plan (1) Pancreatitis: Status: Acute Qualifiers: Acute pancreatitis complication: unspecified Chronicity: acute Pancreatitis type: alcohol induced Qualified Code(s): K85.20 - Alcohol induced acute pancreatitis without necrosis or infection Category: Medical Code(s): K85.90 - Acute pancreatitis without necrosis or infection, unspecified (2) Acute hypokalemia: Status: Acute Category: Medical Code(s): E87.6 - Hypokalemia (3) History of alcohol use: Status: Acute Category: Medical Code(s): Z87.898 - Personal history of other specified conditions (4) NSTEMI (non-ST elevated myocardial infarction): Status: Acute Category: Medical Code(s): I21.4 - Non-ST elevation (NSTEMI) myocardial infarction (5) Opioid use disorder: Status: Acute Category: Medical Code(s): F11.90 - Opioid use, unspecified, uncomplicated Plan Jeison Barker is a 60-year-old male with a medical history significant for alcohol use disorder, opioid use disorder (reportedly on Suboxone), CAD with stents, GERD who presents with abdominal pain that started this morning. Patient states he has been drinking both beer and 5 shots of fireball, started having epigastric abdominal pain today. Also endorses some chest pain without radiation, denies shortness of breath, fever/chills. Workup in the ED significant for lipase 1644, troponin 0.06, AST 86, ALP 155, total bilirubin 2.0, CT abdomen/pelvis showed pancreatitis without pseudocyst or necrosis. WBC 7.2, potassium 1.6, magnesium 1.3.. Patient was given morphine, Dilaudi x 2, Zofran, IV potassium and magnesium. Given these findings ED provider discussed case with manage decided to admit patient for acute pancreatitis. Poor pain control. Right upper quadrant ultrasound obtained today. Continues to require patient management. Advance diet as tolerated. Problems addressed as follows: #Acute pancreatitis #Elevated LFTs ? Presented with epigastric pain, had been drinking beer and 5 shots of fireball daily. Initial lipase 1644, with CT findings of acute pancreatitis. ? Calcium decreased to 7. Potassium low at 1.6, magnesium 2.3. LLFTs elevated with bilirubin 1.9, AST 114, alk phos 185, ALT 43. - Right upper quadrant ultrasound obtained, no evidence of gallbladder disease or biliary obstruction my review. ? Full liquid diet ordered. Advance diet as tolerated. Rally pack at 125 mL/h. ? Increase Percocet to 15 mg every 6 hours scheduled, continue Dilaudid 0.5 mg as needed every 3 hours for breakthrough pain. Patient's outpatient Suboxone use complicates his therapy. Monitor for toxicity. #NSTEMI, likely type II #History of CAD with stents #PVCs ? Initial troponin 0.06, peaked at 0.4, trending down to 0.36. Suspect secondary to pain and hypertension. - Cardiology evaluated today. Echo with normal EF at 60%. Normal LV systolic function. No regional wall motion abnormality - Discussed case with cardiology, recommend holding captopril and statin. No further recommendations for inpatient evaluation or testing. Plan for follow-up as an outpatient ? Started metoprolol succinate 25 mg for PVCs. #Hypokalemia #Hypomagnesemia ? Initial potassium 1.6, improved to 2.5. Began to 1.6 this morning. Replacing aggressively both IV and oral. Magnesium improved to 2.3. Replace per protocol - Repeat CBC, CMP, magnesium ordered for the morning #Alcohol use disorder ? Multivitamins, rally pack. ? Monitor for withdrawal signs with CIWA. Diazepam as needed. ? Peer support consulted, patient open to alcohol cessation. #Opioid use disorder ? Reportedly on Suboxone. Confirmed with [facility]. Will resume at discharge. - Also reports using friend's Percocet to help control abdominal pain. #GERD ? Continue IV Protonix nightly. Full code DVT prophylaxis: Lovenox 40 mg
[2025-04-27] MEDS: PANTOPRAZOLE 40MG VIAL 40 MG IV (20:17)
[2025-04-27] MEDS: SODIUM CHLORIDE 0.9% 10ML VIAL 10 ML IV (20:17)
[2025-04-28] VITALS: PULSE 85
[2025-04-28] MEDS: POTASSIUM CHLORIDE 20MEQ TAB 40 MEQ PO ×7 (03:31→23:14)
[2025-04-28] MEDS: PROMETHAZINE HCL 25MG/ML 1ML VIAL 25 MG IV ×3 (03:31→19:36)
[2025-04-28] MEDS: SODIUM CHLORIDE 0.9% 25ML BAG 25 ML IV (03:31)
[2025-04-28 04:00] VITALS: BP 128/81; PULSE 90; PULSE 93; RESP 16; TEMP 36.4; O2SAT 93; BMI 27.1
[2025-04-28 06:38] LABS: Hematocrit 42.7 % (42.0-52.0); Immature Granulocytes % 0.7 %; Mean Corpuscular HGB Conc 34.7 g/dL (31.8-35.4); Mean Corpuscular Hemoglobin 37.2 pg (27.0-31.2); Mean Corpuscular Volume 107.3 fl (80-94); Nucleated Red Blood Cells % 0 %; Platelet Count 94 K/mm3 (142-424); Red Blood Count 3.98 M/mm3 (4.60-6.20); Red Cell Distribution Width-SD 56.8 fL; White Blood Count 18.3 K/mm3 (4.8-10.8)
[2025-04-28 06:43] LABS: Alanine Aminotransferase 25 U/L (12-78); Albumin Level 2.8 g/dl (3.5-5.0); Albumin/Globulin Ratio 1.1 (1.1-1.8); Alkaline Phosphatase 95 U/L (38-126); Aspartate Amino Transferase 52 U/L (17-59); Bilirubin,Total 1.7 mg/dl (0.2-1.3); Blood Urea Nitrogen 23 mg/dl (9-20); Calcium 5.8 mg/dl (8.4-10.2); Chloride 87 mmol/L (98-107); Creatinine Clearance Estimated 93 mL/min (50-200); Creatinine,Serum 1.10 mg/dl (0.66-1.25); Estimated Glomerular Filt Rate 69 ml/min (>60); GFR (African American) 83 ML/MIN (>60); Globulin 2.6 g/dL (1.3-3.2); Glucose 104 mg/dl (74-100); Magnesium 2.4 mg/dl (1.6-2.3); Sodium 132 mmol/L (136-145); Total Protein,Serum 5.4 g/dl (6.3-8.2)
[2025-04-28 06:45] LABS: Hemoglobin 14.9 g/dL (14.1-18.0)
[2025-04-28 06:51] LABS: Anion Gap 8.3 mEq/L (5-15); Carbon Dioxide 39 mmol/L (22.0-30.0)
[2025-04-28 07:00] LABS: Potassium 2.3 mmoL/L (3.5-5.1)
--- NOTE | 2025-04-28 07:00 | PC.NURSE ---
0700 critical Potassium 2.3 called from lab. Phoned Dr. Fan he ordered the electrolyte protocol. MATTHEW CAMPOS RN
[2025-04-28] MEDS: HYDROMORPHONE 2MG/ML SYRINGE 0.5 MG IV ×3 (07:55→20:38)
[2025-04-28 08:00] VITALS: BP 140/85; PULSE 94; RESP 16; TEMP 36.6; O2SAT 96
[2025-04-28] MEDS: FOLIC ACID 1MG TABLET 1 MG PO (08:01)
[2025-04-28] MEDS: THIAMINE 100MG TABLET 100 MG PO (08:01)
[2025-04-28] MEDS: METOPROLOL SUCCINATE XL 25MG TABLET 25 MG PO (08:01)
[2025-04-28] MEDS: IRBESARTAN 75MG TABLET 75 MG PO (08:01)
[2025-04-28] MEDS: ASPIRIN EC 81MG TABLET 81 MG PO (08:01)
[2025-04-28] MEDS: MVI, ADULT NO.1 WITH VIT K 10 ML, THIAMINE HCL 100 MG, MAGNESIUM SULFATE 2 GM in LACTAT... 125 ML IV (08:18)
[2025-04-28] MEDS: POLYETHYLENE GLYCOL 3350 17 GM PACKET PO ×2 (08:19→20:00)
[2025-04-28] MEDS: ONDANSETRON 4MG/2ML VIAL 4 MG IV (08:25)
--- NOTE | 2025-04-28 08:32 | PC.NURSE ---
soke with dr. gomez for pts K being 2.3. He is ok with just getting the protocol of 40 meq as ordered
[2025-04-28] MEDS: CALCIUM GLUC IN NACL, ISO-OSM 2 GM/100 ML BAG IV ×3 (09:15→20:01)
--- NOTE | 2025-04-28 10:05 | EXP.PULM.CON ---
History of Present Illness History of present illness: Mr. Barker is a 60-year-old male current smoker greater than [id number] smoking history using albuterol inhaler at baseline needing it 3-4 times a day not using any oxygen supplementation presented with worsening abdominal distress being managed for acute pancreatitis found to have an abnormal chest x-ray and pulmonary was called for further evaluation and management. [facility] Disclaimer: The information contained in this section may have been updated after the patient was seen, as this information can be updated by other users. Medical History (Updated 04/28/25 @ 12:55 by Vannessa Loera MD) Abnormal chest x-ray with multiple lung nodules Acute respiratory failure with hypoxia Hypovolemic shock Hypocalcemia Diarrhea Abnormal cardiovascular stress test Atypical angina Dyspnea Atypical chest pain Opioid use disorder Typical angina Witnessed apneic spells Edema of both lower extremities Hyperlipidemia Osteoarthritis Narcotic dependence Coronary artery disease HTN (hypertension) Tobacco dependence syndrome Surgical History History of right hip replacement S/P cardiac cath Family History Mother Heart attack, Onset Age: 42 Father Throat cancer, Onset Age: 81 Social History (Updated 04/26/25 @ 17:14 by Yelitza Mars RN) Smoking Status: Current every day smoker tobacco type: cigarettes packs per day: 1 years smoked: 30 alcohol intake: current substance use type: opiates current occupational status: employed Travel in the last 8 weeks?: Inside the [place] household members: significant other lives independently: Yes marital status: number of children: 3 service: Yes status: retired branch: [employer] current occupation: [employer]- [employer] Have you lived/traveled outside [place] in past 30 days?: No Contact w/someone who lives/traveled outside [place] past 30 days?: No Exposure to someone with infectious disease in past 14 days?: No Do you have a fever (greater than 100.4 F or 38 C)?: No Have you tested positive for COVID-19?: No Exposed to someone with COVID-19 in past 14 days?: No Do you have a sore throat?: No Do you have a cough?: No Do you have any weakness?: No Are you experiencing any nausea/vomitting?: No Do you have any diarrhea?: No Are you experiencing any unusual bleeding?: No Do you have any muscle aches/pain?: No Do you have any abdominal pain?: No Are you experiencing loss of taste or smell?: No Review of Systems Constitutional Constitutional: Reports anorexia, Reports body ache(s) and Reports fatigue Eyes Eyes: Denies eye discharge, Denies dry eyes, Denies irritation and Denies itchy eyes ENT Ears, Nose, Mouth, and Throat: Denies epistaxis, Denies facial pain, Denies lip swelling and Denies throat swelling *Cardiovascular Cardiovascular: Reports dyspnea and Reports dyspnea on exertion *Respiratory Respiratory: Denies change in phlegm color, Reports chest congestion, Reports cough, Reports dyspnea, Reports dyspnea on exertion, Denies excessive phlegm production, Denies hemoptysis, Denies pain on inspiration, Denies pain with cough and Reports wheezing *Gastrointestinal Gastrointestinal: Reports abdominal pain and Denies belching *Musculoskeletal Musculoskeletal: Reports back pain, Reports myalgias and Reports other (No small joint swelling or Pain) Psychiatric Psychiatric: Denies homicidal ideation and Denies suicidal ideation Endocrine Endocrine: Reports fatigue and Denies heat intolerance Hematologic/Lymphatic Hematologic/Lymphatic: Denies easy bleeding and Denies lymphadenopathy Allergic/Immunologic Allergic/Immunologic: Denies itchy eyes, Denies lip swelling, Denies throat swelling and Reports wheezing Pulmonology Exam Inpatient Vital signs and Labs for Last 24 Hours: Temp Pulse Resp BP Pulse Ox O2 Del Method O2 Flow Rate 97.6 F 93 H 16 128/81 93 L Nasal Cannula 2 04/28/25 04:00 04/28/25 04:00 04/28/25 04:00 04/28/25 04:00 04/28/25 04:00 04/28/25 09:00 04/28/25 09:00 Laboratory Results - last 24 hr 04/27/25 06:03: Hgb 17.2 D, Troponin I 0.36 H 04/28/25 06:03: WBC 18.3 H, RBC 3.98 L, Hgb 14.9 D, Hct 42.7, MCV 107.3 H, MCH 37.2 H, MCHC 34.7, RDW 14.1, Plt Count 94 L, MPV 11.0 H, Neut % (Auto) 92.3 H, Lymph % (Auto) 3.5 L, [place] % (Auto) 3.3, Eos % (Auto) 0.1, Baso % (Auto) 0.1, Neut # (Auto) 16.9 H, Lymph # (Auto) 0.7, [place] # (Auto) 0.6, Eos # (Auto) 0.0, Baso # (Auto) 0.0, Sodium 132 L, Potassium 2.3 L* D, Chloride 87 L, Carbon Dioxide 39 H, Anion Gap 8.3, BUN 23 H D, Creatinine 1.10 D, Estimated Creat Clear 93, Estimated GFR 69, Est GFR ( Amer) 83 D, Glucose 104 H D, Calcium 5.8 L, Magnesium 2.4 H, Total Bilirubin 1.7 H, AST 52 D, ALT 25 D, Alkaline Phosphatase 95, Lactate Dehydrogenase 1063 H, Total Protein 5.4 L, Albumin 2.8 L D, Globulin 2.6, Albumin/Globulin Ratio 1.1 I & O for Labs for Last 24 Hours: Intake & Output 04/25/25 04/26/25 04/27/25 04/28/25 23:59 23:59 23:59 23:59 Intake Total 1007 / 1087 3050 / 3530 480 / 480 Output Total 0 / 0 501 / 501 0 / 0 Balance 1007 / 1087 2549 / 3029 480 / 480 Weight 188 lb 9 oz 195 lb 200 lb 6.4 oz Constitutional: Present moderate distress Head: Present normocephalic and atraumatic ENT: Present normal exam, normal oropharynx and mucous membranes moist Neck: Present normal inspection and full ROM Respiratory: Present prolonged expiratory phase, rhonchi, wheezes and able to speak in complete sentences Cardiac: Present S1/S2, Tachycardia and radial pulses present GI: Present soft and distention Skin: Present intact; Absent cyanosis or jaundice Neuro: Present alert, awake and oriented x 3 Extremities: Present normal inspection; Absent clubbing or cyanosis Psychiatric: Present normal affect and cooperative Meds Home Medications and Allergies Home Medications ?Medication ?Instructions ?Recorded ?Confirmed ?Type omeprazole 40 mg capsule,delayed 40 mg PO DAILY 10/22/23 04/26/25 History release aspirin 81 mg tablet,delayed 81 mg PO DAILY 01/14/25 04/26/25 History release atorvastatin 40 mg tablet 40 mg PO HS 01/14/25 04/26/25 History buprenorphine 8 mg-naloxone 2 mg 2 tab sublingual DAILY 01/14/25 04/26/25 History sublingual tablet New Prescriptions to Start Prescriptions: Allergies Allergy/AdvReac Type Severity Reaction Status Date / Time celecoxib (From CELEBREX) Allergy Unknown I-HIVES Verified 02/10/25 08:51 NSAIDS (Non-Steroidal Allergy Unknown HEARTBURN/H Verified 02/10/25 08:51 Anti-Inflamma (NSAIDS EZEQUIEL (NON-STEROIDAL ANTI-INFLAMMA) Penicillins (PENICILLINS) Allergy Unknown I-HIVES Verified 02/10/25 08:51 amlodipine AdvReac Unknown Verified 04/27/25 07:24 allergy reaction isosorbide AdvReac Headache Verified 04/27/25 07:24 ticagrelor (From Brilinta) AdvReac Hypertensio Verified 04/27/25 07:24 n Results Laboratory Findings 04/28/25 06:03 04/28/25 06:03 Abnormal lab findings: Abnormal Labs 04/26/25 04/26/25 04/26/25 12:50 14:14 14:22 WBC RBC 4.16 L MCV 102.6 H MCH 37.0 H MCHC 36.1 H Plt Count MPV Neut % (Auto) 83.8 H Lymph % (Auto) Neut # (Auto) Lymph # (Auto) Neutrophils % (Manual) Lymphocytes % (Manual) Sodium Potassium 1.6 L* 2.5 L* D Chloride 83 L Carbon Dioxide 37 H Anion Gap 17.6 H BUN 4 L Glucose 185 H Lactate Calcium 8.0 L Magnesium 1.3 L Total Bilirubin 2.0 H AST 86 H Alkaline Phosphatase 155 H Lactate Dehydrogenase Troponin I NT-Pro-B Natriuret Pep 681 H Total Protein Albumin Cholesterol LDL Cholesterol Direct HDL Cholesterol Lipase 1644 H TSH Urine Blood 1+ A Urine Opiates Screen Positive H 04/26/25 04/26/25 04/26/25 16:13 19:42 23:46 WBC RBC MCV MCH MCHC Plt Count MPV Neut % (Auto) Lymph % (Auto) Neut # (Auto) Lymph # (Auto) Neutrophils % (Manual) Lymphocytes % (Manual) Sodium Potassium Chloride Carbon Dioxide Anion Gap BUN Glucose Lactate 4.2 H Calcium Magnesium Total Bilirubin AST Alkaline Phosphatase Lactate Dehydrogenase Troponin I 0.06 H 0.27 H 0.44 H NT-Pro-B Natriuret Pep Total Protein Albumin Cholesterol 106 L LDL Cholesterol Direct 51.40 L HDL Cholesterol 31 L Lipase TSH Urine Blood Urine Opiates Screen 04/27/25 04/27/25 04/27/25 00:15 02:55 06:03 WBC 17.1 H D RBC MCV 105.0 H MCH 36.1 H MCHC Plt Count 104 L D MPV Neut % (Auto) 92.2 H Lymph % (Auto) 3.0 L Neut # (Auto) 15.8 H Lymph # (Auto) 0.5 L Neutrophils % (Manual) 92 H Lymphocytes % (Manual) 5 L Sodium 134 L Potassium 1.6 L* D Chloride 85 L Carbon Dioxide 39 H Anion Gap BUN Glucose 133 H D Lactate 2.9 H 3.3 H Calcium 7.0 L Magnesium Total Bilirubin 1.9 H AST 114 H D Alkaline Phosphatase 185 H Lactate Dehydrogenase Troponin I 0.36 H NT-Pro-B Natriuret Pep Total Protein Albumin Cholesterol LDL Cholesterol Direct HDL Cholesterol Lipase TSH 0.23 L Urine Blood Urine Opiates Screen 04/28/25 06:03 WBC 18.3 H RBC 3.98 L MCV 107.3 H MCH 37.2 H MCHC Plt Count 94 L MPV 11.0 H Neut % (Auto) 92.3 H Lymph % (Auto) 3.5 L Neut # (Auto) 16.9 H Lymph # (Auto) Neutrophils % (Manual) Lymphocytes % (Manual) Sodium 132 L Potassium 2.3 L* D Chloride 87 L Carbon Dioxide 39 H Anion Gap BUN 23 H D Glucose 104 H D Lactate Calcium 5.8 L Magnesium 2.4 H Total Bilirubin 1.7 H AST Alkaline Phosphatase Lactate Dehydrogenase 1063 H Troponin I NT-Pro-B Natriuret Pep Total Protein 5.4 L Albumin 2.8 L D Cholesterol LDL Cholesterol Direct HDL Cholesterol Lipase TSH Urine Blood Urine Opiates Screen Assessment and Plan *Assessment and plan (1) Acute respiratory failure with hypoxia: Status: Acute Category: Medical Code(s): J96.01 - Acute respiratory failure with hypoxia (2) Abnormal chest x-ray with multiple lung nodules: Status: Acute Category: Medical Code(s): R91.8 - Other nonspecific abnormal finding of lung field Plan Mr. Barker is a 60-year-old male current smoker greater than [id number] smoking history using albuterol inhaler at baseline needing it 3-4 times a day not using any oxygen supplementation presented with worsening abdominal distress being managed for acute pancreatitis found to have an abnormal chest x-ray and pulmonary was called for further evaluation and management. Patient admits chickenpox infection when he was young. 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 Denies any known TB contacts. Hypocalcemia noted in the setting of acute pancreatitis. Chest x-ray per admission multiple scattered calcified nodules and miliary pattern. CT chest January 2025 multiple less than 6 mm scattered calcified pulmonary nodules. Also noted to have right upper lobe fissural based 12 mm ground glass nodule along with 9mm left lower nodule central calcification. Calcified mediastinal lymphadenopathy noted. On examination mild respiratory distress. Minimal wheezing noted on auscultation. Needing 2 L nasal cannula oxygen supplementation to maintain O2 saturation goal of 90% and above. Chest x-ray on this admission no dense consolidative/airspace changes. We noted with aortic calcifications can well be from his prior histoplasmosis exposure. Will follow with TB QuantiFERON testing. Will follow-up with serum fungal serologies diagnostic immunization status as an outpatient basis. Patient does have other normal pulmonary nodules with largest being a 12 mm in size that need to be followed as an outpatient basis with 3-month CT chest without contrast. Plan: Continue oxygen supplementation to maintain O2 saturation goal of 90% and above DuoNebs every 6 hours on a scheduled basis TB QuantiFERON testing Will follow with additional serological testing to evaluate for possible etiologies of the noted medullary calcifications as an outpatient basis Will also follow as an outpatient basis for the concerning right upper lobe 12 mm ground glass nodule. # Thank you for involving pulmonary in this patient care. Will continue to follow.
[2025-04-28] MEDS: OXYCODONE 5MG W/APAP 325MG TABLET 3 EACH PO ×3 (10:23→23:14)
--- NOTE | 2025-04-28 10:47 | EXP.ACUTE.PN ---
Subjective *Date: 04/28/25 *Time: 15:34 Interval history: Still having significant abdominal pain, mildly thick today, brown. Intermittent emesis that is bilious. Having bowel sounds but has not had a bowel movement yet. Stable on 2 L oxygen Medical Exam Vital signs and Labs for Last 24 Hours: Vital Signs Temp Pulse Pulse Resp BP Pulse Ox O2 Del Method 04/28/25 09:00 Nasal Cannula 04/28/25 08:48 Nasal Cannula 04/28/25 08:00 97.8 F 94 H 16 140/85 96 Nasal Cannula 04/28/25 07:00 Nasal Cannula 04/28/25 05:00 Nasal Cannula 04/28/25 04:00 97.6 F 93 H 16 128/81 93 L Nasal Cannula 04/28/25 04:00 90 04/28/25 03:00 Nasal Cannula 04/28/25 01:00 Nasal Cannula 04/28/25 00:00 85 04/27/25 23:53 97.5 F L 93 H 17 136/80 94 L Room Air 04/27/25 23:00 Room Air 04/27/25 21:00 Room Air 04/27/25 20:00 Room Air 04/27/25 20:00 85 04/27/25 20:00 98.1 F 91 H 16 138/86 91 L Room Air 04/27/25 18:19 Room Air 04/27/25 17:00 Room Air 04/27/25 16:00 97.9 F 80 17 151/81 H 96 Room Air 04/27/25 16:00 80 04/27/25 15:00 Room Air 04/27/25 13:00 Room Air 04/27/25 12:00 70 04/27/25 11:00 Room Air O2 Flow Rate 04/28/25 09:00 2 04/28/25 08:48 2 04/28/25 08:00 2 04/28/25 07:00 2 04/28/25 05:00 2 04/28/25 04:00 2 04/28/25 04:00 04/28/25 03:00 2 04/28/25 01:00 2 04/28/25 00:00 04/27/25 23:53 04/27/25 23:00 04/27/25 21:00 04/27/25 20:00 04/27/25 20:00 04/27/25 20:00 04/27/25 18:19 04/27/25 17:00 04/27/25 16:00 04/27/25 16:00 04/27/25 15:00 04/27/25 13:00 04/27/25 12:00 04/27/25 11:00 Intake and Output 04/27/25 04/28/25 04/28/25 23:59 07:59 15:59 Intake Total 1015 / 3530 480 / 480 Output Total 0 / 501 0 / 0 Balance 1015 / 3029 480 / 480 Intake: Intake, Oral Amount 480 / 480 Intake, Total IV Amount 1015 / 2430 Mvi, Adult No.1 with Vit K 10 1015 / 2030 ml Thiamine HCl 100 mg Magnesium Sulfate 2 gm In Lactated Ringers 1000ML 1,000 ml @ 125 mls/hr IV DAILY [facility] Rx #:[id number] Output: Output, Urine Amount 0 / 501 0 / 0 Other: Number of Unmeasured Voids 1 1 Weight 90.9 kg Patient Weight 04/28/25 23:59 Weight 90.9 kg Laboratory Results - last 24 hr 04/27/25 06:03: Hgb 17.2 D, Troponin I 0.36 H 04/28/25 06:03: WBC 18.3 H, RBC 3.98 L, Hgb 14.9 D, Hct 42.7, MCV 107.3 H, MCH 37.2 H, MCHC 34.7, RDW 14.1, Plt Count 94 L, MPV 11.0 H, Neut % (Auto) 92.3 H, Lymph % (Auto) 3.5 L, Nobles % (Auto) 3.3, Eos % (Auto) 0.1, Baso % (Auto) 0.1, Neut # (Auto) 16.9 H, Lymph # (Auto) 0.7, Nobles # (Auto) 0.6, Eos # (Auto) 0.0, Baso # (Auto) 0.0, Sodium 132 L, Potassium 2.3 L* D, Chloride 87 L, Carbon Dioxide 39 H, Anion Gap 8.3, BUN 23 H D, Creatinine 1.10 D, Estimated Creat Clear 93, Estimated GFR 69, Est GFR ( Amer) 83 D, Glucose 104 H D, Calcium 5.8 L, Magnesium 2.4 H, Total Bilirubin 1.7 H, AST 52 D, ALT 25 D, Alkaline Phosphatase 95, Lactate Dehydrogenase 1063 H, Total Protein 5.4 L, Albumin 2.8 L D, Globulin 2.6, Albumin/Globulin Ratio 1.1 I & O for Labs for Last 24 Hours: Intake & Output 04/25/25 04/26/25 04/27/25 04/28/25 23:59 23:59 23:59 23:59 Intake Total 1007 / 1087 3050 / 3530 480 / 480 Output Total 0 / 0 501 / 501 0 / 0 Balance 1007 / 1087 2549 / 3029 480 / 480 Weight 85.531 kg 88.451 kg 90.9 kg Constitutional: Present moderate distress, average body habitus, chronically ill appearing and cooperative Head: Present atraumatic and normocephalic Respiratory: Present normal respiratory effort; Absent accessory muscle use, rhonchi, wheezes or crackles Cardiac: Present Regular Rhythm and Tachycardia GI: Present soft, tenderness (Diffusely tender, no rebound. Does have guarding. Worse pain in right and left upper quadrant), guarding and hypoactive bowel sounds; Absent distention Extremities: Present normal inspection and full ROM Skin: Present intact; Absent erythema Neuro: Present Grossly Intact, alert, awake, oriented x 3 and moves all extremities Assessment and Plan *Assessment and plan (1) Pancreatitis: Status: Acute Qualifiers: Acute pancreatitis complication: unspecified Chronicity: acute Pancreatitis type: alcohol induced Qualified Code(s): K85.20 - Alcohol induced acute pancreatitis without necrosis or infection Category: Medical Code(s): K85.90 - Acute pancreatitis without necrosis or infection, unspecified (2) Acute hypokalemia: Status: Acute Category: Medical Code(s): E87.6 - Hypokalemia (3) History of alcohol use: Status: Acute Category: Medical Code(s): Z87.898 - Personal history of other specified conditions (4) NSTEMI (non-ST elevated myocardial infarction): Status: Acute Category: Medical Code(s): I21.4 - Non-ST elevation (NSTEMI) myocardial infarction (5) Opioid use disorder: Status: Acute Category: Medical Code(s): F11.90 - Opioid use, unspecified, uncomplicated (6) Abnormal chest x-ray with multiple lung nodules: Status: Acute Category: Medical Code(s): R91.8 - Other nonspecific abnormal finding of lung field (7) Acute respiratory failure with hypoxia: Status: Acute Category: Medical Code(s): J96.01 - Acute respiratory failure with hypoxia Plan Jeison Barker is a 60-year-old male with a medical history significant for alcohol use disorder, opioid use disorder (reportedly on Suboxone), CAD with stents, GERD who presents with abdominal pain that started this morning. Patient states he has been drinking both beer and 5 shots of fireball, started having epigastric abdominal pain today. Also endorses some chest pain without radiation, denies shortness of breath, fever/chills. Workup in the ED significant for lipase 1644, troponin 0.06, AST 86, ALP 155, total bilirubin 2.0, CT abdomen/pelvis showed pancreatitis without pseudocyst or necrosis. WBC 7.2, potassium 1.6, magnesium 1.3.. Patient was given morphine, Dilaudi x 2, Zofran, IV potassium and magnesium. Given these findings ED provider discussed case with manage decided to admit patient for acute pancreatitis. Poor pain control. Continues to have significant pain and discomfort. Moderate pancreatitis at this time, concern for potential worsening if develops worsening organ dysfunction. Continues to require inpatient management. Advance diet as tolerated. Problems addressed as follows: #Acute pancreatitis #Elevated LFTs ? Presented with epigastric pain, had been drinking beer and 5 shots of fireball daily. Initial lipase 1644, with CT findings of acute pancreatitis. ?Calcium continues to decrease, 5.8 today. Will administer 2 g calcium gluconate IV twice today. Repeat calcium level ordered for this afternoon. LFTs with no elevation. - LDH elevated at 1600. Patient has 4 points on Erie criteria, 15% mortality rate - Full liquid diet ordered. Advance diet as tolerated. Rally pack at 125 mL/h. ?Continue Percocet 15 mg every 6 hours scheduled, continue Dilaudid 0.5 mg as needed every 3 hours for breakthrough pain. Patient's outpatient Suboxone use complicates his therapy. Monitor for toxicity. #NSTEMI, likely type II #History of CAD with stents #PVCs ? Initial troponin 0.06, peaked at 0.4, trending down to 0.36. Suspect secondary to pain and hypertension. - Cardiology evaluated today. Echo with normal EF at 60%. Normal LV systolic function. No regional wall motion abnormality - Discussed case with cardiology, recommend holding captopril and statin. No further recommendations for inpatient evaluation or testing. Plan for follow-up as an outpatient ? Started metoprolol succinate 25 mg for PVCs. Abnormal image findings, bilateral calcified granulomas Acute hypoxic respiratory failure. - Saturation of 90 in the setting of distress from pancreatitis. - Pulmonology consulted today due to diffuse innumerable calcified lesions in lungs bilaterally. Will obtain TB QuantiFERON testing. I have added HIV testing. Continue oxygen supplementation as needed for goal sats greater 90%. Currently on 2 L. DuoNebs every 6 hours as needed. No focal consolidation or indication for antibiotics from a pneumonia standpoint at this time. -Reviewed old chest x-rays on patient, has diffuse granulomas per my review. CT of abdomen on admission per my review shows calcified granulomas in lower lung barker. - Findings on chest x-ray consistent per my review with histoplasmosis, miliary TB, or other potential fungal abnormality. He was treated for histo approximately 15 years ago and has no known TB contacts. #Hypokalemia #Hypomagnesemia ?Potassium low this morning at 2.3. Magnesium 2.4. Continue replacement per protocol. Repeat CMP and magnesium level ordered for this afternoon. Repeat CBC, CMP, magnesium ordered for the #Alcohol use disorder ? Multivitamins, rally pack. ? Monitor for withdrawal signs with CIWA. Diazepam as needed. ? Peer support consulted, patient open to alcohol cessation. #Opioid use disorder ? Reportedly on Suboxone. Confirmed with [facility] clinic. Will resume at discharge. - Also reports using friend's Percocet to help control abdominal pain. #GERD ? Continue IV Protonix nightly. Full code DVT prophylaxis: Lovenox 40 mg
[2025-04-28] MEDS: SENNOSIDES 8.6MG/DOCUSATE 50MG TABLET 1 TAB PO (11:25)
[2025-04-28 12:00] VITALS: PULSE 100
[2025-04-28 16:00] VITALS: PULSE 100
[2025-04-28] MEDS: MULTIVITAMIN TABLET 1 EACH PO (17:38)
--- NOTE | 2025-04-28 17:51 | PC.NURSE ---
pt resting in bed, PRN given through out the day, small amounts of vomit x2 today (Dr. 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
--- NOTE | 2025-04-28 17:52 | PEERSUPPORT ---
Peer Support Note Patient Information Patient Information: DOS: 04/27/2025 ? Pt states he is in pain with his stomach, not able to communicate at best due to pain and discomfort. -He has never felt this kind of pain and sickness in his stomach with no desire to eat. -Admits to drinking daily after work in the evenings, then getting three pain pills to help with his pain the day before coming to hospital. ? -Actively enrolled at [facility] and taking suboxone. ? Ps educated on alcohol use disorder, withdrawal symptoms, and timeline being a process to bring awareness. ? Pt receptive to ps. ? Ps acted as advocate to nurse KB of pts discomfort. ? -Ps will follow up on 04/28/2025 ?
[2025-04-28 18:07] LABS: Albumin Level 2.7 g/dl (3.5-5.0); Chloride 88 mmol/L (98-107); Potassium 3.8 mmoL/L (3.5-5.1); Sodium 132 mmol/L (136-145)
[2025-04-28 18:10] LABS: Alanine Aminotransferase 20 U/L (12-78); Albumin/Globulin Ratio 1.0 (1.1-1.8); Alkaline Phosphatase 80 U/L (38-126); Anion Gap 7.8 mEq/L (5-15); Aspartate Amino Transferase 51 U/L (17-59); Bilirubin,Total 1.6 mg/dl (0.2-1.3); Blood Urea Nitrogen 31 mg/dl (9-20); Calcium 6.4 mg/dl (8.4-10.2); Carbon Dioxide 40 mmol/L (22.0-30.0); Creatinine Clearance Estimated 68 mL/min (50-200); Creatinine,Serum 1.50 mg/dl (0.66-1.25); Estimated Glomerular Filt Rate 48 ml/min (>60); GFR (African American) 58 ML/MIN (>60); Globulin 2.6 g/dL (1.3-3.2); Glucose 104 mg/dl (74-100); Magnesium 2.5 mg/dl (1.6-2.3); Total Protein,Serum 5.3 g/dl (6.3-8.2)
--- NOTE | 2025-04-28 19:30 | PC.NURSE ---
contacted Kiki in lab for update on [facility] lab results - it is a send out lab and will take roughly 5 days to result.
[2025-04-28 20:00] VITALS: BP 116/67; PULSE 90; PULSE 93; RESP 17; TEMP 36.6; O2SAT 96
[2025-04-28] MEDS: PANTOPRAZOLE 40MG VIAL 40 MG IV (20:00)
[2025-04-29] VITALS: BP 110/67; PULSE 86; PULSE 90; RESP 17; TEMP 36.5; O2SAT 94
[2025-04-29] MEDS: PROMETHAZINE HCL 25MG/ML 1ML VIAL 25 MG IV ×4 (01:20→23:36)
[2025-04-29] MEDS: CALCIUM GLUC IN NACL, ISO-OSM 2 GM/100 ML BAG IV ×2 (01:49→06:39)
[2025-04-29] MEDS: POTASSIUM CHLORIDE 20MEQ TAB 40 MEQ PO ×5 (03:09→22:42)
[2025-04-29] MEDS: HYDROMORPHONE 2MG/ML SYRINGE 0.5 MG IV ×5 (03:09→20:26)
--- NOTE | 2025-04-29 03:38 | PC.NURSE ---
Pt A&OX4 and has remained on 2L nasal cannula. He has complained of nausea and abdominal pain multiple times this shift and was medicated per MAR. Electrolytes have been replaced throughout the shift. No complaints at this time, call light within reach.
[2025-04-29 04:00] VITALS: BP 127/71; PULSE 80; PULSE 88; RESP 16; TEMP 36.8; O2SAT 94; BMI 27.3
[2025-04-29] MEDS: OXYCODONE 5MG W/APAP 325MG TABLET 3 EACH PO ×4 (04:47→22:42)
[2025-04-29 06:16] LABS: Hematocrit 37.5 % (42.0-52.0); Immature Granulocytes % 0.7 %; Mean Corpuscular HGB Conc 33.6 g/dL (31.8-35.4); Mean Corpuscular Hemoglobin 37.5 pg (27.0-31.2); Mean Corpuscular Volume 111.6 fl (80-94); Nucleated Red Blood Cells % 0 %; Platelet Count 100 K/mm3 (142-424); Red Blood Count 3.36 M/mm3 (4.60-6.20); Red Cell Distribution Width-SD 60.7 fL; White Blood Count 13.5 K/mm3 (4.8-10.8)
[2025-04-29 06:26] LABS: Hemoglobin 12.6 g/dL (14.1-18.0)
[2025-04-29 06:33] LABS: Alanine Aminotransferase 19 U/L (12-78); Albumin Level 2.6 g/dl (3.5-5.0); Albumin/Globulin Ratio 1.0 (1.1-1.8); Alkaline Phosphatase 89 U/L (38-126); Anion Gap 6.5 mEq/L (5-15); Aspartate Amino Transferase 48 U/L (17-59); Bilirubin,Total 1.7 mg/dl (0.2-1.3); Blood Urea Nitrogen 33 mg/dl (9-20); Calcium 6.6 mg/dl (8.4-10.2); Carbon Dioxide 39 mmol/L (22.0-30.0); Chloride 89 mmol/L (98-107); Creatinine Clearance Estimated 54 mL/min (50-200); Creatinine,Serum 1.90 mg/dl (0.66-1.25); Estimated Glomerular Filt Rate 36 ml/min (>60); GFR (African American) 44 ML/MIN (>60); Globulin 2.6 g/dL (1.3-3.2); Glucose 96 mg/dl (74-100); Magnesium 2.8 mg/dl (1.6-2.3); Potassium 3.5 mmoL/L (3.5-5.1); Sodium 131 mmol/L (136-145); Total Protein,Serum 5.2 g/dl (6.3-8.2)
--- NOTE | 2025-04-29 07:45 | P.PN_ITS ---
Subjective *Date: 04/29/25 *Time: 11:23 Interval history: Moderate abdominal pain. Still having intermittent bilious emesis. Finally had large bowel movement this morning. Continuing to require 2 L oxygen. Remains afebrile Medical Exam Vital signs and Labs for Last 24 Hours: Vital Signs Temp Pulse Pulse Resp BP Pulse Ox O2 Del Method 04/29/25 07:00 Nasal Cannula 04/29/25 05:00 Nasal Cannula 04/29/25 04:00 98.3 F 88 16 127/71 94 L Nasal Cannula 04/29/25 04:00 80 04/29/25 03:00 Nasal Cannula 04/29/25 01:00 Nasal Cannula 04/29/25 00:00 90 04/29/25 00:00 97.7 F 86 17 110/67 94 L 04/28/25 23:00 Nasal Cannula 04/28/25 20:50 Nasal Cannula 04/28/25 20:00 90 04/28/25 20:00 Nasal Cannula 04/28/25 20:00 97.9 F 93 H 17 116/67 96 Nasal Cannula 04/28/25 18:11 Room Air 04/28/25 16:19 Room Air 04/28/25 16:00 100 H 04/28/25 14:21 Room Air 04/28/25 12:00 100 H 04/28/25 11:00 Nasal Cannula 04/28/25 09:00 Nasal Cannula 04/28/25 08:48 Nasal Cannula 04/28/25 08:00 97.8 F 94 H 16 140/85 96 Nasal Cannula O2 Flow Rate 04/29/25 07:00 2 04/29/25 05:00 2 04/29/25 04:00 04/29/25 04:00 04/29/25 03:00 2 04/29/25 01:00 2 04/29/25 00:00 04/29/25 00:00 04/28/25 23:00 2 04/28/25 20:50 2 04/28/25 20:00 04/28/25 20:00 2 04/28/25 20:00 04/28/25 18:11 04/28/25 16:19 04/28/25 16:00 04/28/25 14:21 04/28/25 12:00 04/28/25 11:00 2 09/17/25 09:00 2 04/28/25 08:48 2 04/28/25 08:00 2 Intake and Output 04/28/25 04/28/25 04/29/25 15:59 23:59 07:59 Intake Total 300 / 2195 1315 / 2195 200 / 200 Output Total 400 / 400 Balance 300 / 2195 1315 / 2195 -200 / -200 Intake: Intake, Oral Amount 100 / 680 100 / 100 Intake, Total IV Amount 200 / 1515 1315 / 1515 100 / 100 Calcium Gluc in NaCl, Iso-Osm 2 100 / 100 gm In 100 ml @ 50 mls/hr IV ONCE ONE Rx#:[id number] Calcium Gluc in NaCl, Iso-Osm 2 100 / 100 gm In 100 ml @ 50 mls/hr IV ONCE ONE Rx#:[id number] Calcium Gluc in NaCl, Iso-Osm 2 100 / 100 100 / 100 gm In 100 ml @ 50 mls/hr IV Q6H [facility] Rx#:[id number] KCl 20mEq/100ml 100 ml @ 50 mls 100 / 200 100 / 200 /hr IV Q2H [facility] Rx#:[id number] Mvi, Adult No.1 with Vit K 10 1015 / 1015 ml Thiamine HCl 100 mg Magnesium Sulfate 2 gm In Lactated Ringers 1000ML 1,000 ml @ 125 mls/hr IV DAILY [facility] Rx #:[id number] Output: Output, Urine Amount 400 / 400 Other: Number of Unmeasured Voids 0 Weight 91.626 kg Patient Weight 04/29/25 23:59 Weight 91.626 kg Laboratory Results - last 24 hr 04/28/25 06:03: Lactate Dehydrogenase 1063 H 04/28/25 17:44: Sodium 132 L, Potassium 3.8 D, Chloride 88 L, Carbon Dioxide 40 H, Anion Gap 7.8, BUN 31 H D, Creatinine 1.50 H D, Estimated Creat Clear 68, Estimated GFR 48 L, Est GFR ( Amer) 58 L D, Glucose 104 H, Calcium 6.4 L, Magnesium 2.5 H, Total Bilirubin 1.6 H, AST 51, ALT 20, Alkaline Phosphatase 80, Total Protein 5.3 L, Albumin 2.7 L, Globulin 2.6, Albumin/Globulin Ratio 1.0 L, HIV Ag/Ab Combo Qual Negative 04/29/25 05:37: WBC 13.5 H D, RBC 3.36 L, Hgb 12.6 L D, Hct 37.5 L, MCV 111.6 H, MCH 37.5 H, MCHC 33.6, RDW 14.6, Plt Count 100 L, MPV 10.4, Neut % (Auto) 90.0 H , Lymph % (Auto) 5.1 L, Jerome % (Auto) 3.5, Eos % (Auto) 0.6, Baso % (Auto) 0.1, Neut # (Auto) 12.2 H, Lymph # (Auto) 0.7, Jerome # (Auto) 0.5, Eos # (Auto) 0.1, Baso # (Auto) 0.0, Sodium 131 L, Potassium 3.5, Chloride 89 L, Carbon Dioxide 39 H, Anion Gap 6.5, BUN 33 H, Creatinine 1.90 H D, Estimated Creat Clear 54, Estimated GFR 36 L, Est GFR ( Amer) 44 L D, Glucose 96, Calcium 6.6 L, Magnesium 2.8 H D, Total Bilirubin 1.7 H, AST 48, ALT 19, Alkaline Phosphatase 89, Total Protein 5.2 L, Albumin 2.6 L, Globulin 2.6, Albumin/Globulin Ratio 1.0 L I & O for Labs for Last 24 Hours: Intake & Output 04/26/25 04/27/25 04/28/25 04/29/25 23:59 23:59 23:59 23:59 Intake Total 1007 / 1087 3050 / 3530 2094 / 2195 200 / 200 Output Total 0 / 0 501 / 501 0 / 0 400 / 400 Balance 1007 / 1087 2549 / 3029 2094 / 2194 -200 / -200 Weight 85.531 kg 88.451 kg 90.9 kg 91.626 kg Constitutional: Present mild distress, average body habitus, chronically ill appearing and cooperative Head: Present atraumatic and normocephalic Respiratory: Present normal respiratory effort; Absent accessory muscle use, rhonchi, wheezes or crackles Cardiac: Present Regular Rhythm and Tachycardia GI: Present soft, tenderness (Diffusely tender, no rebound. Does have guarding. Worse pain in right and left upper quadrant), guarding and hypoactive bowel sounds; Absent distention Extremities: Present normal inspection and full ROM Skin: Present intact; Absent erythema Neuro: Present Grossly Intact, alert, awake, oriented x 3 and moves all extremities Assessment and Plan *Assessment and plan (1) Pancreatitis: Status: Acute Qualifiers: Acute pancreatitis complication: unspecified Chronicity: acute Pancreatitis type: alcohol induced Qualified Code(s): K85.20 - Alcohol induced acute pancreatitis without necrosis or infection Category: Medical Code(s): K85.90 - Acute pancreatitis without necrosis or infection, unspecified (2) Hypocalcemia: Status: Acute Category: Medical Code(s): E83.51 - Hypocalcemia (3) Acute hypokalemia: Status: Acute Category: Medical Code(s): E87.6 - Hypokalemia (4) Acute kidney injury: Status: Acute Category: Medical Code(s): N17.9 - Acute kidney failure, unspecified (5) History of alcohol use: Status: Acute Category: Medical Code(s): Z87.898 - Personal history of other specified conditions (6) NSTEMI (non-ST elevated myocardial infarction): Status: Acute Category: Medical Code(s): I21.4 - Non-ST elevation (NSTEMI) myocardial infarction (7) Opioid use disorder: Status: Acute Category: Medical Code(s): F11.90 - Opioid use, unspecified, uncomplicated (8) Abnormal chest x-ray with multiple lung nodules: Status: Acute Category: Medical Code(s): R91.8 - Other nonspecific abnormal finding of lung field (9) Acute respiratory failure with hypoxia: Status: Acute Category: Medical Code(s): J96.01 - Acute respiratory failure with hypoxia Plan Jeison Barker is a 60-year-old male with a medical history significant for alcohol use disorder, opioid use disorder (reportedly on Suboxone), CAD with stents, GERD who presents with abdominal pain that started this morning. Patient states he has been drinking both beer and 5 shots of fireball, started having epigastric abdominal pain today. Also endorses some chest pain without radiation, denies shortness of breath, fever/chills. Workup in the ED significant for lipase 1644, troponin 0.06, AST 86, ALP 155, total bilirubin 2.0, CT abdomen/pelvis showed pancreatitis without pseudocyst or necrosis. WBC 7.2, potassium 1.6, magnesium 1.3.. Patient was given morphine, Dilaudi x 2, Zofran, IV potassium and magnesium. Given these findings ED provider discussed case with manage decided to admit patient for acute pancreatitis. Poor pain control. Continues to have significant pain and discomfort. Moderate pancrea titis at this time, concern for potential worsening if develops worsening organ dysfunction. Continues to require inpatient management. Advance diet as tolerated. Problems addressed as follows: #Acute pancreatitis, severe with organ dysfunction (GWENDOLYN, oxygen requirement/respiratory failure) #Elevated LFTs #Acute hypocalcemia ? Presented with epigastric pain, had been drinking beer and 5 shots of fireball daily. Initial lipase 1644, with CT findings of acute pancreatitis. ? Calcium showing slow response but necessitating significant repletion. Continuing 2 g replacement every 6 hours IV. Calcium 6.6 this morning. Repeat level ordered for the afternoon. - LDH elevated at 1600. Patient has 4 points on Gilles criteria, 15% mortality rate - Continue with full liquid diet. Will attempt to advance. Administer 1 L LR bolus at 500 cc an hour for 2 hours. Finished rally pack today. Will transition to maintenance fluids with LR ?Continue Percocet 15 mg every 6 hours scheduled, continue Dilaudid 0.5 mg as needed every 3 hours for breakthrough pain. Patient's outpatient Suboxone use complicates his therapy. Monitor for toxicity. - White count improved to 13.5. Hemoglobin 12.6. Liver enzymes bilirubin 1.7, AST 48, ALT 19, alk phos 89. GWENDOLYN - Kidney function worsening. Creatinine up to 1.9, BUN 33. Baseline creatinine about 0.7 - Repeat CMP ordered for the afternoon. CBC, CMP, magnesium ordered for the morning - GWENDOLYN likely from pancreatitis and poor p.o. intake #NSTEMI, likely type II #History of CAD with stents #PVCs ? Initial troponin 0.06, peaked at 0.4, trending down to 0.36. Suspect secondary to pain and hypertension. - Cardiology evaluated today. Echo with normal EF at 60%. Normal LV systolic function. No regional wall motion abnormality - Discussed case with cardiology, recommend holding captopril and statin. No further recommendations for inpatient evaluation or testing. Plan for follow-up as an outpatient ? Continue metoprolol succinate 25 mg for PVCs. Abnormal image findings, bilateral calcified granulomas Acute hypoxic respiratory failure. - Saturation of 90 in the setting of distress from pancreatitis. Continues to require 2 L for sats greater 90%. Wean as tolerated - Pulmonology consulted today due to diffuse innumerable calcified lesions in lungs bilaterally. Will obtain TB QuantiFERON testing. I have added HIV testing. - DuoNebs every 6 hours as needed. No focal consolidation or indication for antibiotics from a pneumonia standpoint at this time. - Findings on chest x-ray consistent per my review with histoplasmosis, miliary TB, or other potential fungal abnormality. He was treated for histo approximately 15 years ago and has no known TB contacts. #Hypokalemia #Hypomagnesemia ? Potassium improved to 3.5, magnesium 2.8. Continue replacement per protocol. Repeat CMP and magnesium level ordered for this afternoon. Repeat CBC, CMP, magnesium ordered for the #Alcohol use disorder ? Finish rally pack today, discontinue thereafter. Minimal CIWA scores the past 24 hours. No benzos in 48 hours. Discontinue CIWA protocol - Peer support consulted, patient open to alcohol cessation. #Opioid use disorder ? Reportedly on Suboxone. Confirmed with [facility] clinic. Will resume at discharge. - Also reports using friend's Percocet to help control abdominal pain. #GERD ? Continue IV Protonix nightly. Full code DVT prophylaxis: Lovenox 40 mg Full liquid diet
[2025-04-29 08:00] VITALS: BP 134/84; PULSE 90; RESP 16; TEMP 36.6; O2SAT 94
[2025-04-29 08:01] LABS: Lipase 505 U/L (23-300)
[2025-04-29] MEDS: ONDANSETRON 4MG/2ML VIAL 4 MG IV (08:13)
[2025-04-29] MEDS: IRBESARTAN 75MG TABLET 75 MG PO (08:13)
[2025-04-29] MEDS: SENNOSIDES 8.6MG/DOCUSATE 50MG TABLET 1 TAB PO (08:13)
[2025-04-29] MEDS: FOLIC ACID 1MG TABLET 1 MG PO (08:14)
[2025-04-29] MEDS: POLYETHYLENE GLYCOL 3350 17 GM PACKET PO ×2 (08:14→20:26)
[2025-04-29] MEDS: METOPROLOL SUCCINATE XL 25MG TABLET 25 MG PO (08:14)
[2025-04-29] MEDS: MVI, ADULT NO.1 WITH VIT K 10 ML, THIAMINE HCL 100 MG, MAGNESIUM SULFATE 2 GM in LACTAT... 125 ML IV (08:50)
[2025-04-29] MEDS: ASPIRIN EC 81MG TABLET 81 MG PO (08:50)
[2025-04-29] MEDS: CALCIUM CHLORIDE 2 GM in 0.9 % SODIUM CHLORIDE 250 ML IV ×2 (09:58→23:36)
[2025-04-29] MEDS: LACTATED RINGERS 1000ML 1,000 ML 500 ML IV (11:29)
[2025-04-29 12:00] VITALS: BP 132/76; PULSE 68; PULSE 80; RESP 16; TEMP 36.6; O2SAT 96
[2025-04-29] MEDS: MULTIVITAMIN TABLET 1 EACH PO (15:15)
[2025-04-29 16:00] VITALS: BP 147/90; PULSE 101; RESP 16; TEMP 36.6; O2SAT 96
[2025-04-29] MEDS: OXYCODONE 10MG W/APAP 325MG TABLET 2 EACH PO (17:20)
[2025-04-29] MEDS: PROMETHAZINE 25MG TABLET 25 MG PO (17:25)
--- NOTE | 2025-04-29 17:32 | PC.NURSE ---
Iv infiltrated and removed by charge nurse.
[2025-04-29] MEDS: SODIUM CHLORIDE 0.9% 25ML BAG 25 ML IV (18:02)
[2025-04-29 20:00] VITALS: BP 163/95; PULSE 100; PULSE 98; RESP 16; TEMP 36.5; O2SAT 97
[2025-04-29] MEDS: PANTOPRAZOLE 40MG VIAL 40 MG IV (20:26)
[2025-04-29 20:58] LABS: Albumin Level 2.6 g/dl (3.5-5.0); Chloride 92 mmol/L (98-107); Sodium 132 mmol/L (136-145)
[2025-04-29 20:59] LABS: Potassium 3.6 mmoL/L (3.5-5.1)
[2025-04-29 21:01] LABS: Alanine Aminotransferase 19 U/L (12-78); Albumin/Globulin Ratio 1.0 (1.1-1.8); Alkaline Phosphatase 101 U/L (38-126); Anion Gap 7.6 mEq/L (5-15); Aspartate Amino Transferase 51 U/L (17-59); Bilirubin,Total 1.6 mg/dl (0.2-1.3); Blood Urea Nitrogen 30 mg/dl (9-20); Calcium 7.0 mg/dl (8.4-10.2); Carbon Dioxide 36 mmol/L (22.0-30.0); Creatinine Clearance Estimated 79 mL/min (50-200); Creatinine,Serum 1.30 mg/dl (0.66-1.25); Estimated Glomerular Filt Rate 57 ml/min (>60); GFR (African American) 68 ML/MIN (>60); Globulin 2.7 g/dL (1.3-3.2); Glucose 109 mg/dl (74-100); Magnesium 2.5 mg/dl (1.6-2.3); Total Protein,Serum 5.3 g/dl (6.3-8.2)
[2025-04-29] MEDS: NICOTINE 21MG/24HR PATCH 21 MG TD (22:42)
[2025-04-30] VITALS: BP 170/96; PULSE 90; RESP 16; TEMP 36.8; O2SAT 93
[2025-04-30] MEDS: HYDROMORPHONE 2MG/ML SYRINGE 0.5 MG IV ×5 (00:57→20:05)
[2025-04-30] MEDS: POTASSIUM CHLORIDE 20MEQ TAB 40 MEQ PO (02:49)
[2025-04-30 04:00] VITALS: BP 188/107; PULSE 100; PULSE 92; RESP 17; TEMP 36.5; O2SAT 92; BMI 27.8
--- NOTE | 2025-04-30 04:13 | PC.NURSE ---
Pt A&OX4 and has tolerated room air. He has continued to complain of abdominal pain throughout the shift. He has been treated per MAR. He has ambulated to the bathroom independently. No other complaints at this time, call light within reach.
[2025-04-30] MEDS: OXYCODONE 5MG W/APAP 325MG TABLET 3 EACH PO ×4 (04:31→22:05)
[2025-04-30] MEDS: PROMETHAZINE HCL 25MG/ML 1ML VIAL 25 MG IV ×4 (05:33→23:10)
[2025-04-30 07:18] LABS: Hematocrit 34.9 % (42.0-52.0); Hemoglobin 11.7 g/dL (14.1-18.0); Immature Granulocytes % 0.6 %; Mean Corpuscular HGB Conc 33.5 g/dL (31.8-35.4); Mean Corpuscular Hemoglobin 37.3 pg (27.0-31.2); Mean Corpuscular Volume 111.1 fl (80-94); Nucleated Red Blood Cells % 0 %; Platelet Count 114 K/mm3 (142-424); Red Blood Count 3.14 M/mm3 (4.60-6.20); Red Cell Distribution Width-SD 56.6 fL; White Blood Count 9.5 K/mm3 (4.8-10.8)
[2025-04-30 07:45] LABS: Total Cells Counted 100
[2025-04-30 07:46] LABS: Macrocytosis 2+
[2025-04-30 08:00] VITALS: BP 191/111; PULSE 62; PULSE 90; RESP 20; TEMP 36.6; O2SAT 98
[2025-04-30] MEDS: ASPIRIN EC 81MG TABLET 81 MG PO (08:25)
[2025-04-30] MEDS: FOLIC ACID 1MG TABLET 1 MG PO (08:25)
[2025-04-30] MEDS: METOPROLOL SUCCINATE XL 25MG TABLET 25 MG PO (08:25)
[2025-04-30] MEDS: IRBESARTAN 75MG TABLET 75 MG PO (08:25)
[2025-04-30 10:01] LABS: Albumin Level 2.8 g/dl (3.5-5.0)
[2025-04-30 10:03] LABS: Alanine Aminotransferase 20 U/L (12-78); Blood Urea Nitrogen 23 mg/dl (9-20); Carbon Dioxide 34 mmol/L (22.0-30.0); Creatinine Clearance Estimated 105 mL/min (50-200); Creatinine,Serum 1.00 mg/dl (0.66-1.25); Estimated Glomerular Filt Rate 76 ml/min (>60); GFR (African American) 93 ML/MIN (>60)
[2025-04-30 10:04] LABS: Albumin/Globulin Ratio 1.1 (1.1-1.8); Aspartate Amino Transferase 53 U/L (17-59); Calcium 8.4 mg/dl (8.4-10.2); Globulin 2.6 g/dL (1.3-3.2); Glucose 94 mg/dl (74-100); Magnesium 2.3 mg/dl (1.6-2.3); Total Protein,Serum 5.4 g/dl (6.3-8.2)
[2025-04-30] MEDS: KETOROLAC 30MG/ML VIAL 30 MG IV ×3 (10:58→23:10)
--- NOTE | 2025-04-30 11:58 | CT_ITS ---
FINAL REPORT TECHNIQUE: After the administration of intravenous contrast, axial images were obtained through the abdomen and pelvis by computed tomography. This study was performed with technique to keep radiation doses as low as reasonably achievable, (ALARA). Individualized dose reduction techniques using automated exposure control or adjustment of the MA and/or KV according to the patient's size were employed. CLINICAL HISTORY: eval pancreatitis evolutioin, cyst? COMPARISON: 04/26/2025 FINDINGS: Abdomen: There are moderate left and small right pleural effusions, new from prior exam. There is a new small amount of ascites in the upper quadrants. There is severe pancreatitis, which has significantly progressed from prior exam. There is increased peripancreatic fluid. There are no pseudocyst, although the patient is considered high risk for pseudocyst formation. There is borderline biliary ductal dilatation. The gallbladder is mildly distended. There is new wall thickening of the distal stomach and duodenum probably related to secondary inflammation. There is a fluid-filled bowel suggestive of ileus. Pelvis: There is trace free fluid. The pelvic bowel loops are unremarkable. The bladder and prostate are unremarkable. IMPRESSION: Significant worsening of pancreatitis with increasing surrounding fluid, ascites, and pleural effusions. Although not present at this time, the patient remains at high risk for the development of pseudocyst. Reviewed, Interpreted and Dictated by Zafar Vela MD Transcribed by Juliet Coelho Authenticated and . [facility]
[2025-04-30 11:59] LABS: Anion Gap 9.0 mEq/L (5-15); Chloride 94 mmol/L (98-107); Potassium 4.0 mmoL/L (3.5-5.1); Sodium 133 mmol/L (136-145)
[2025-04-30 12:00] VITALS: BP 186/113; PULSE 80; PULSE 88; RESP 12; TEMP 36.7; O2SAT 98
[2025-04-30 12:02] LABS: Alkaline Phosphatase 97 U/L (38-126); Bilirubin,Total 2.0 mg/dl (0.2-1.3)
--- NOTE | 2025-04-30 12:53 | EXP.ACUTE.PN ---
Subjective *Date: 04/30/25 *Time: 12:55 Interval history: Continues to have significant pain. Still having bilious emesis. Having flatus and bowel movements. Afebrile. Transition to to room air in the past 24 hours. Medical Exam Vital signs and Labs for Last 24 Hours: Vital Signs Temp Pulse Pulse Resp BP Pulse Ox O2 Del Method 04/30/25 12:00 98.1 F 88 12 186/113 H 98 Room Air 04/30/25 11:00 Room Air 04/30/25 09:00 Room Air 04/30/25 08:00 Room Air 04/30/25 08:00 90 04/30/25 08:00 97.8 F 62 20 191/111 H 98 Room Air 04/30/25 06:51 Room Air 04/30/25 05:00 Room Air 04/30/25 04:00 97.7 F 92 H 17 188/107 H 92 L Room Air 04/30/25 04:00 100 H 04/30/25 03:00 Room Air 04/30/25 01:00 Room Air 04/30/25 00:00 98.3 F 90 16 170/96 H 93 L 04/29/25 23:00 Room Air 04/29/25 21:00 Room Air 04/29/25 20:00 100 H 04/29/25 20:00 Room Air 04/29/25 20:00 97.7 F 98 H 16 163/95 H 97 Room Air 04/29/25 18:30 Room Air 04/29/25 16:18 Room Air 04/29/25 16:00 98 F 101 H 16 147/90 H 96 Room Air 04/29/25 13:00 Room Air Intake and Output 04/29/25 04/30/25 04/30/25 23:59 07:59 15:59 Intake Total 1215 / 2905 270 / 510 240 / 510 Output Total 300 / 300 0 / 300 Balance 1215 / 2405 -30 / 210 240 / 210 Intake: Intake, Oral Amount 200 / 420 240 / 240 Intake, Total IV Amount 1015 / 2485 270 / 270 Calcium Chloride 2 gm In 0.9 % 270 / 270 Sodium Chloride 250 ml @ 67.5 mls/hr IV Q6H [facility] Rx#:[id number] Mvi, Adult No.1 with Vit K 10 1015 / 1015 ml Thiamine HCl 100 mg Magnesium Sulfate 2 gm In Lactated Ringers 1000ML 1,000 ml @ 125 mls/hr IV DAILY [facility] Rx #:[id number] Output: Output, Urine Amount 300 / 300 0 / 300 Other: Number of Unmeasured Voids 1 Number of Bowel Movements 1 Weight 93.44 kg Patient Weight 04/30/25 23:59 Weight 93.44 kg Laboratory Results - last 24 hr 04/29/25 20:40: Sodium 132 L, Potassium 3.6, Chloride 92 L, Carbon Dioxide 36 H, Anion Gap 7.6, BUN 30 H, Creatinine 1.30 H D, Estimated Creat Clear 79, Estimated GFR 57 L, Est GFR ( Amer) 68 D, Glucose 109 H, Calcium 7.0 L, Magnesium 2.5 H D, Total Bilirubin 1.6 H, AST 51, ALT 19, Alkaline Phosphatase 101, Total Protein 5.3 L, Albumin 2.6 L, Globulin 2.7, Albumin/Globulin Ratio 1.0 L 04/30/25 06:50: WBC 9.5 D, RBC 3.14 L, Hgb 11.7 L, Hct 34.9 L, MCV 111.1 H, MCH 37.3 H, MCHC 33.5, RDW 13.8, Plt Count 114 L, MPV 10.3, Neut % (Auto) 88.1 H, Lymph % (Auto) 4.4 L, [place] % (Auto) 5.6, Eos % (Auto) 1.1, Baso % (Auto) 0.2, Neut # (Auto) 8.4 H, Lymph # (Auto) 0.4 L, [place] # (Auto) 0.5, Eos # (Auto) 0.1, Baso # (Auto) 0.0, Total Counted 100, Neutrophils % (Manual) 87 H, Lymphocytes % (Manual) 7 L, Monocytes % (Manual) 5, Eosinophils % (Manual) 1, Platelet Estimate Normal, Macrocytosis 2+, Sodium 133 L, Potassium 4.0, Chloride 94 L, Carbon Dioxide 34 H, Anion Gap 9.0, BUN 23 H, Creatinine 1.00 D, Estimated Creat Clear 105, Estimated GFR 76, Est GFR ( Amer) 93 D, Glucose 94, Calcium 8.4, Magnesium 2.3, Total Bilirubin 2.0 H, AST 53, ALT 20, Alkaline Phosphatase 97, Total Protein 5.4 L, Albumin 2.8 L, Globulin 2.6, Albumin/Globulin Ratio 1.1 I & O for Labs for Last 24 Hours: Intake & Output 04/27/25 04/28/25 04/29/25 04/30/25 23:59 23:59 23:59 23:59 Intake Total 3050 / 3530 5 / 2195 2905 / 2905 510 / 510 Output Total 501 / 501 0 / 0 500 / 500 300 / 300 Balance 2549 / 3029 5 / 2195 2405 / 2405 210 / 210 Weight 88.451 kg 90.9 kg 91.626 kg 93.44 kg Constitutional: Present mild distress, average body habitus, chronically ill appearing and cooperative Head: Present atraumatic and normocephalic Respiratory: Present normal respiratory effort; Absent accessory muscle use, rhonchi, wheezes or crackles Cardiac: Present Reg Rate and Rhythm GI: Present soft, distention, tenderness (Diffusely tender, no rebound. Does have guarding. Worse pain in right and left upper quadrant), guarding and normal bowel sounds Extremities: Present normal inspection and full ROM Skin: Present intact; Absent erythema Neuro: Present Grossly Intact, alert, awake, oriented x 3 and moves all extremities Assessment and Plan *Assessment and plan (1) Pancreatitis: Status: Acute Qualifiers: Acute pancreatitis complication: unspecified Chronicity: acute Pancreatitis type: alcohol induced Qualified Code(s): K85.20 - Alcohol induced acute pancreatitis without necrosis or infection Category: Medical Code(s): K85.90 - Acute pancreatitis without necrosis or infection, unspecified (2) Hypocalcemia: Status: Acute Category: Medical Code(s): E83.51 - Hypocalcemia (3) Acute hypokalemia: Status: Acute Category: Medical Code(s): E87.6 - Hypokalemia (4) Acute kidney injury: Status: Acute Category: Medical Code(s): N17.9 - Acute kidney failure, unspecified (5) History of alcohol use: Status: Acute Category: Medical Code(s): Z87.898 - Personal history of other specified conditions (6) NSTEMI (non-ST elevated myocardial infarction): Status: Acute Category: Medical Code(s): I21.4 - Non-ST elevation (NSTEMI) myocardial infarction (7) Opioid use disorder: Status: Acute Category: Medical Code(s): F11.90 - Opioid use, unspecified, uncomplicated (8) Abnormal chest x-ray with multiple lung nodules: Status: Acute Category: Medical Code(s): R91.8 - Other nonspecific abnormal finding of lung field (9) Acute respiratory failure with hypoxia: Status: Acute Category: Medical Code(s): J96.01 - Acute respiratory failure with hypoxia Plan Jeison Barker is a 60-year-old male with a medical history significant for alcohol use disorder, opioid use disorder (reportedly on Suboxone), CAD with stents, GERD who presents with abdominal pain that started this morning. Patient states he has been drinking both beer and 5 shots of fireball, started having epigastric abdominal pain today. Also endorses some chest pain without radiation, denies shortness of breath, fever/chills. Workup in the ED significant for lipase 1644, troponin 0.06, AST 86, ALP 155, total bilirubin 2.0, CT abdomen/pelvis showed pancreatitis without pseudocyst or necrosis. WBC 7.2, potassium 1.6, magnesium 1.3.. Patient was given morphine, Dilaudi x 2, Zofran, IV potassium and magnesium. Given these findings ED provider discussed case with manage decided to admit patient for acute pancreatitis. Continues to have significant pain. See improvement in kidney function however. Given his severity of pancreatitis, will obtain repeat CT today to evaluate for development of pseudocyst or pancreatic necrosis. Continue to advance diet. Will continue to work on pain control. Would like to see improvement in electrolytes, stable kidney function, stable pain control prior to discharge home. Problems addressed as follows: #Acute pancreatitis, severe with organ dysfunction (GWENDOLYN, oxygen requirement/respiratory failure) #Elevated LFTs #Acute hypocalcemia ? Presented with epigastric pain, had been drinking beer and 5 shots of fireball daily. Initial lipase 1644, with CT findings of acute pancreatitis. ? Calcium showing slow response but necessitating significant repletion. Continuing 2 g replacement every 6 hours IV. Calcium 6.6 this morning. Repeat level ordered for the afternoon. - LDH elevated at 1600. Repeat lipase at 500 yesterday. Patient has 4 points on [place] criteria, 15% mortality rate - Advance to bland diet. Holding on IV fluids today. Continue aggressive pain control with Percocet 15 mg every 6 hours scheduled. Continue Dilaudid 0.5 mg as needed every 3 hours. Will initiate Toradol 30 mg IV every 6 hours for nonopiate pain control. Monitoring for toxicity. - White count improved to 9.5. - Repeat CT of abdomen with contrast to evaluate for pseudocyst or pancreatic necrosis development given continued severity of pain GWENDOLYN, improving - Kidney function improving today, creatinine 1.0. BUN 23. Baseline approximate 0.7. Magnesium 2.3. - Repeat CBC, CMP, magnesium ordered for the morning - GWENDOLYN likely from pancreatitis and poor p.o. intake #NSTEMI, likely type II #History of CAD with stents #PVCs ? Initial troponin 0.06, peaked at 0.4, trending down to 0.36. Suspect secondary to pain and hypertension. - Cardiology evaluated today. Echo with normal EF at 60%. Normal LV systolic function. No regional wall motion abnormality - Continue metoprolol succinate 25 mg for PVCs. Abnormal image findings, bilateral calcified granulomas Acute hypoxic respiratory failure. - Saturation of 90 in the setting of distress from pancreatitis. Continues to require 2 L for sats greater 90%. Wean as tolerated - Pulmonology consulted today due to diffuse innumerable calcified lesions in lungs bilaterally. Will obtain TB QuantiFERON testing. I have added HIV testing. - DuoNebs every 6 hours as needed. No focal consolidation or indication for antibiotics from a pneumonia standpoint at this time. - Findings on chest x-ray consistent per my review with histoplasmosis, miliary TB, or other potential fungal abnormality. He was treated for histo approximately 15 years ago and has no known TB contacts. #Hypokalemia #Hypomagnesemia ? Potassium improved to 3.5, magnesium 2.8. Continue replacement per protocol. Repeat CMP and magnesium level ordered for this afternoon. Repeat CBC, CMP, magnesium ordered for the #Alcohol use disorder ? No withdrawal symptoms. No benzos needed for over 48 hours. Discontinued CIWA protocol. Discontinued rally packs. Peer support assisting with care. #Opioid use disorder ? Reportedly on Suboxone. Confirmed with [facility]. Will resume at discharge. - Also reports using friend's Percocet to help control abdominal pain. #GERD ? Continue IV Protonix nightly. Full code DVT prophylaxis: Lovenox 40 mg Full liquid diet
[2025-04-30] MEDS: SODIUM CHLORIDE 0.9% 10ML SYR (RAD ONLY) 10 ML IV (13:36)
[2025-04-30] MEDS: IOPAMIDOL-370 (76%);100ML BOTTLE 75 ML IV (13:36)
[2025-04-30 15:56] VITALS: BMI 27.8
[2025-04-30 16:00] VITALS: BP 163/101; PULSE 95; RESP 18; TEMP 36.7; O2SAT 98
[2025-04-30] MEDS: MULTIVITAMIN TABLET 1 EACH PO (16:11)
[2025-04-30] MEDS: ONDANSETRON 4MG/2ML VIAL 4 MG IV ×2 (16:16→22:05)
--- NOTE | 2025-04-30 18:10 | PC.NURSE ---
AOX4, TOLERATING ROOM AIR. MEDICATED FOR PAIN AND NAUSEA AT FREQUENT INTERVALS.
[2025-04-30 20:00] VITALS: BP 138/93; PULSE 90; RESP 14; TEMP 36.4; O2SAT 88; O2SAT 98
[2025-04-30] MEDS: SODIUM CHLORIDE 0.9% 10ML VIAL 10 ML IV (20:05)
[2025-04-30] MEDS: PANTOPRAZOLE 40MG VIAL 40 MG IV (20:05)
[2025-04-30] MEDS: POLYETHYLENE GLYCOL 3350 17 GM PACKET PO (20:05)
[2025-04-30] MEDS: SODIUM CHLORIDE 0.9% 25ML BAG 25 ML IV (23:10)
[2025-05-01 04:00] VITALS: BP 160/98; PULSE 102; RESP 16; TEMP 36.8; O2SAT 98; BMI 27.5
[2025-05-01] MEDS: ONDANSETRON 4MG/2ML VIAL 4 MG IV ×2 (04:00→20:03)
[2025-05-01] MEDS: OXYCODONE 5MG W/APAP 325MG TABLET 3 EACH PO ×4 (04:00→23:23)
--- NOTE | 2025-05-01 04:10 | PC.NURSE ---
Patient is alert and oriented x4. He was observed to be resting in bed with eyes closed, respirations even and unlabored on room air, and no apparent distress throughout most of this shift. Patient has complained of severe, burning, abdominal pain (right quadrants, particular to left quadrants) this shift of which has been treated accordingly with scheduled Oxycodone and as needed Toradol (no apparent allergic reactions noted this shift). Dilautid was given once thus far for breakthrough pain. Patient stated that all of these medications help with his pain, but they do not last very long for him. He has also complained of intermittent nausea throughout this shift and has been expelling thin, green intestinal contents. Zofran and Phenergan have been administered accordingly per OCT for the nausea complaints. Abdomen is especially aggravated by palpation and is slightly round in appearance. Patient reports having a fair appetite, just can't keep anything down. On bland diet. He also stated that consuming food items does not aggravate his pain. Scheduled Miralax and Protonix given per MAR. Patient ambulates independently without difficulties. Auscultation of his heart and bowels were within normal findings; lung sounds clear but diminished. At this time, the patient is resting in bed with no new needs vocalized. Call light within reach.
[2025-05-01] MEDS: KETOROLAC 30MG/ML VIAL 30 MG IV ×3 (05:05→19:35)
[2025-05-01] MEDS: PROMETHAZINE HCL 25MG/ML 1ML VIAL 25 MG IV ×3 (05:05→18:27)
[2025-05-01] MEDS: SODIUM CHLORIDE 0.9% 25ML BAG 25 ML IV ×2 (05:05→12:16)
[2025-05-01 07:28] LABS: Hematocrit 32.9 % (42.0-52.0); Hemoglobin 11.3 g/dL (14.1-18.0); Immature Granulocytes % 2.9 %; Mean Corpuscular HGB Conc 34.3 g/dL (31.8-35.4); Mean Corpuscular Hemoglobin 37.5 pg (27.0-31.2); Mean Corpuscular Volume 109.3 fl (80-94); Nucleated Red Blood Cells % 0 %; Platelet Count 116 K/mm3 (142-424); Red Blood Count 3.01 M/mm3 (4.60-6.20); Red Cell Distribution Width-SD 56.7 fL; White Blood Count 7.0 K/mm3 (4.8-10.8)
[2025-05-01 08:00] VITALS: BP 185/98; PULSE 93; RESP 20; TEMP 36.4; O2SAT 95
[2025-05-01 08:10] LABS: Albumin Level 2.7 g/dl (3.5-5.0); Chloride 96 mmol/L (98-107); Sodium 134 mmol/L (136-145)
[2025-05-01 08:11] LABS: Potassium 3.3 mmoL/L (3.5-5.1)
[2025-05-01] MEDS: HYDROMORPHONE 2MG/ML SYRINGE 0.5 MG IV ×3 (08:12→20:03)
[2025-05-01] MEDS: POLYETHYLENE GLYCOL 3350 17 GM PACKET PO (08:12)
[2025-05-01 08:13] LABS: Alanine Aminotransferase 15 U/L (12-78); Anion Gap 12.3 mEq/L (5-15); Aspartate Amino Transferase 47 U/L (17-59); Bilirubin,Total 1.5 mg/dl (0.2-1.3); Blood Urea Nitrogen 16 mg/dl (9-20); Carbon Dioxide 29 mmol/L (22.0-30.0); Creatinine Clearance Estimated 130 mL/min (50-200); Creatinine,Serum 0.80 mg/dl (0.66-1.25); Estimated Glomerular Filt Rate 99 ml/min (>60); GFR (African American) 120 ML/MIN (>60)
[2025-05-01 08:14] LABS: Albumin/Globulin Ratio 1.0 (1.1-1.8); Alkaline Phosphatase 115 U/L (38-126); Calcium 7.0 mg/dl (8.4-10.2); Globulin 2.7 g/dL (1.3-3.2); Glucose 84 mg/dl (74-100); Magnesium 2.3 mg/dl (1.6-2.3); Total Protein,Serum 5.4 g/dl (6.3-8.2)
[2025-05-01] MEDS: FOLIC ACID 1MG TABLET 1 MG PO (08:14)
[2025-05-01] MEDS: METOPROLOL SUCCINATE XL 25MG TABLET 25 MG PO (08:14)
[2025-05-01] MEDS: IRBESARTAN 75MG TABLET 75 MG PO (08:14)
[2025-05-01] MEDS: ASPIRIN EC 81MG TABLET 81 MG PO (08:14)
[2025-05-01 08:24] LABS: RBC Morphology Normal; Total Cells Counted 100
--- NOTE | 2025-05-01 09:19 | EXP.ACUTE.PN ---
Subjective *Date: 05/01/25 *Time: 13:06 Interval history: No vomiting overnight. Tolerating some p.o. intake. Stable on room air today. Abdomen tinning equipment tender but showing improvement. Had large loose bowel movement overnight. Afebrile Medical Exam Vital signs and Labs for Last 24 Hours: Vital Signs Temp Pulse Pulse Pulse Resp BP Pulse Ox 05/01/25 08:00 97.6 F 93 H 20 185/98 H 95 05/01/25 06:35 05/01/25 05:00 05/01/25 04:00 98.2 F 102 H 16 160/98 H 98 05/01/25 03:00 05/01/25 01:00 04/30/25 23:00 04/30/25 21:00 04/30/25 20:00 98 04/30/25 20:00 97.6 F 90 14 138/93 H 88 L 04/30/25 17:12 04/30/25 17:00 04/30/25 16:00 98.0 F 95 H 18 163/101 H 98 04/30/25 15:00 04/30/25 13:00 04/30/25 12:00 80 04/30/25 12:00 98.1 F 88 12 186/113 H 98 04/30/25 11:00 O2 Del Method 05/01/25 08:00 Room Air 05/01/25 06:35 Room Air 05/01/25 05:00 Room Air 05/01/25 04:00 Room Air 05/01/25 03:00 Room Air 05/01/25 01:00 Room Air 04/30/25 23:00 Room Air 04/30/25 21:00 Room Air 04/30/25 20:00 Room Air 04/30/25 20:00 Room Air 04/30/25 17:12 Room Air 04/30/25 17:00 Room Air 04/30/25 16:00 Room Air 04/30/25 15:00 Room Air 04/30/25 13:00 Room Air 04/30/25 12:00 04/30/25 12:00 Room Air 04/30/25 11:00 Room Air Intake and Output 04/30/25 05/01/25 05/01/25 23:59 07:59 15:59 Intake Total 240 / 1170 200 / 440 240 / 440 Output Total 150 / 450 425 / 425 0 / 425 Balance 90 / 720 -225 / 15 240 / 15 Intake: Intake, Oral Amount 240 / 900 200 / 440 240 / 440 Output: Output, Urine Amount 0 / 300 425 / 425 0 / 425 Output, Emesis Amount 150 / 150 Other: Number of Unmeasured Voids 1 0 1 Number of Bowel Movements 1 Weight 92.17 kg Patient Weight 05/01/25 23:59 Weight 92.17 kg Laboratory Results - last 24 hr 04/28/25 13:06: TB Test (QFT) Nil 0.01, TB Test (QFT) Mitogen 4.93, TB Test (QFT) Ag 1 0.01, TB Test (QFT) Ag 2 0.02, TB Positive Criteria Comment, TB Test (QFT) Interp Negative 04/30/25 06:50: Sodium 133 L, Potassium 4.0, Chloride 94 L, Carbon Dioxide 34 H, Anion Gap 9.0, BUN 23 H, Creatinine 1.00 D, Estimated Creat Clear 105, Estimated GFR 76, Est GFR ( Amer) 93 D, Glucose 94, Calcium 8.4, Magnesium 2.3, Total Bilirubin 2.0 H, AST 53, ALT 20, Alkaline Phosphatase 97, Total Protein 5.4 L, Albumin 2.8 L, Globulin 2.6, Albumin/Globulin Ratio 1.1 05/01/25 06:42: WBC 7.0 D, RBC 3.01 L, Hgb 11.3 L, Hct 32.9 L, MCV 109.3 H, MCH 37.5 H, MCHC 34.3, RDW 14.0, Plt Count 116 L, MPV 10.1, Neut % (Auto) 80.2 H, Lymph % (Auto) 6.0 L, Moore % (Auto) 7.9, Eos % (Auto) 2.7, Baso % (Auto) 0.3, Neut # (Auto) 5.6, Lymph # (Auto) 0.4 L, Moore # (Auto) 0.6, Eos # (Auto) 0.2, Baso # (Auto) 0.0, Total Counted 100, Neutrophils % (Manual) 79 H, Lymphocytes % (Manual) 8 L, Monocytes % (Manual) 8, Eosinophils % (Manual) 5 H, Platelet Estimate Normal, RBC Morphology Normal, Sodium 134 L, Potassium 3.3 L, Chloride 96 L, Carbon Dioxide 29, Anion Gap 12.3, BUN 16 D, Creatinine 0.80, Estimated Creat Clear 130, Estimated GFR 99, Est GFR ( Amer) 120 D, Glucose 84, Calcium 7.0 L, Magnesium 2.3, Total Bilirubin 1.5 H, AST 47, ALT 15, Alkaline Phosphatase 115, Total Protein 5.4 L, Albumin 2.7 L, Globulin 2.7, Albumin/Globulin Ratio 1.0 L I & O for Labs for Last 24 Hours: Intake & Output 04/28/25 04/29/25 04/30/25 05/01/25 23:59 23:59 23:59 23:59 Intake Total 2094 / 5 2905 / 2905 970 / 1170 440 / 440 Output Total 0 / 0 500 / 500 450 / 450 425 / 425 Balance 2094 / 5 2405 / 2405 520 / 720 15 Weight 90.9 kg 91.626 kg 93.44 kg 92.17 kg Constitutional: Present mild distress, average body habitus, chronically ill appearing and cooperative Head: Present atraumatic and normocephalic Respiratory: Present diminished air movement (Bases bilateral) and normal respiratory effort; Absent accessory muscle use, rhonchi, wheezes or crackles Cardiac: Present Reg Rate and Rhythm GI: Present soft, distention, tenderness (Interval improvement diffusely tender, no rebound. Does have guarding), guarding and normal bowel sounds Extremities: Present normal inspection and full ROM Skin: Present intact; Absent erythema Neuro: Present Grossly Intact, alert, awake, oriented x 3 and moves all extremities Assessment and Plan *Assessment and plan (1) Pancreatitis: Status: Acute Qualifiers: Acute pancreatitis complication: unspecified Chronicity: acute Pancreatitis type: alcohol induced Qualified Code(s): K85.20 - Alcohol induced acute pancreatitis without necrosis or infection Category: Medical Code(s): K85.90 - Acute pancreatitis without necrosis or infection, unspecified (2) Hypocalcemia: Status: Acute Category: Medical Code(s): E83.51 - Hypocalcemia (3) Acute hypokalemia: Status: Acute Category: Medical Code(s): E87.6 - Hypokalemia (4) Acute kidney injury: Status: Acute Category: Medical Code(s): N17.9 - Acute kidney failure, unspecified (5) History of alcohol use: Status: Acute Category: Medical Code(s): Z87.898 - Personal history of other specified conditions (6) NSTEMI (non-ST elevated myocardial infarction): Status: Acute Category: Medical Code(s): I21.4 - Non-ST elevation (NSTEMI) myocardial infarction (7) Opioid use disorder: Status: Acute Category: Medical Code(s): F11.90 - Opioid use, unspecified, uncomplicated (8) Abnormal chest x-ray with multiple lung nodules: Status: Acute Category: Medical Code(s): R91.8 - Other nonspecific abnormal finding of lung field (9) Acute respiratory failure with hypoxia: Status: Acute Category: Medical Code(s): J96.01 - Acute respiratory failure with hypoxia Plan Jeison Barker is a 60-year-old male with a medical history significant for alcohol use disorder, opioid use disorder (reportedly on Suboxone), CAD with stents, GERD who presents with abdominal pain that started this morning. Patient states he has been drinking both beer and 5 shots of fireball, started having epigastric abdominal pain today. Also endorses some chest pain without radiation, denies shortness of breath, fever/chills. Workup in the ED significant for lipase 1644, troponin 0.06, AST 86, ALP 155, total bilirubin 2.0, CT abdomen/pelvis showed pancreatitis without pseudocyst or necrosis. WBC 7.2, potassium 1.6, magnesium 1.3.. Patient was given morphine, Dilaudi x 2, Zofran, IV potassium and magnesium. Given these findings ED provider discussed case with manage decided to admit patient for acute pancreatitis. Continues to have significant pain. See improvement in kidney function however. Given his severity of pancreatitis, will obtain repeat CT today to evaluate for development of pseudocyst or pancreatic necrosis. Continue to advance diet. Will continue to work on pain control. Would like to see improvement in electrolytes, stable kidney function, stable pain control prior to discharge home. Problems addressed as follows: #Acute pancreatitis, severe with organ dysfunction (GWENDOLYN, oxygen requirement/respiratory failure) #Elevated LFTs #Acute hypocalcemia ? Presented with epigastric pain, had been drinking beer and 5 shots of fireball daily. Initial lipase 1644, with CT findings of acute pancreatitis. ? Calcium showing slow response but necessitating significant repletion. Continue gluconate 2 g replacement IV once today. Calcium 7 this morning. Magnesium 2.3. Potassium 3.3. Replace per protocol. -Repeat CT obtained yesterday, shows pancreatic necrosis and significant peripancreatic edema with effusion in lower lung field bilaterally. No formal cyst identified per my review - Continue with bland diet. - Holding on IV fluids today. - Continue aggressive pain control with Percocet 15 mg every 6 hours scheduled. Continue Dilaudid 0.5 mg as needed every 3 hours. Will initiate Toradol 30 mg IV every 6 hours for nonopiate pain control. Monitoring for toxicity. - White count normal at 7, hemoglobin 11. Repeat CBC, CMP, magnesium ordered for the morning. GWENDOLYN, resolved - Kidney function better with BUN 16, creatinine 0.8. Back to baseline #NSTEMI, likely type II #History of CAD with stents #PVCs ? Initial troponin 0.06, peaked at 0.4, trending down to 0.36. Suspect secondary to pain and hypertension. - Cardiology evaluated today. Echo with normal EF at 60%. Normal LV systolic function. No regional wall motion abnormality - Continue metoprolol succinate 25 mg for PVCs. Abnormal image findings, bilateral calcified granulomas Acute hypoxic respiratory failure. - Saturation of 90 in the setting of distress from pancreatitis. On room air today - Pulmonology consulted today due to diffuse innumerable calcified lesions in lungs bilaterally. Quant Farren gold negative for TB. - HIV pending - DuoNebs every 6 hours as needed. No focal consolidation or indication for antibiotics from a pneumonia standpoint at this time. #Hypokalemia #Hypomagnesemia ? Potassium 3.3, magnesium 2.3 #Alcohol use disorder ? No withdrawal symptoms. No benzos needed for over 48 hours. Discontinued CIWA protocol. Discontinued rally packs. Peer support assisting with care. #Opioid use disorder ? Reportedly on Suboxone. Confirmed with [facility]. Will resume at discharge. - Also reports using friend's Percocet to help control abdominal pain. #GERD ? Continue IV Protonix nightly. Full code DVT prophylaxis: Lovenox 40 mg [place] diet
[2025-05-01] MEDS: BUMETANIDE 1MG/4ML VIAL 1 MG IV (09:42)
[2025-05-01] MEDS: CALCIUM GLUC IN NACL, ISO-OSM 2 GM/100 ML BAG IV (09:42)
[2025-05-01 15:58] VITALS: BP 167/107; PULSE 91; RESP 16; TEMP 36.7; O2SAT 94
--- NOTE | 2025-05-01 16:40 | PC.NURSE ---
patient is a/o x4 and remains on room air. treated pain and nausea per MAR. no episodes of emesis this shift. patient had loose BM this shift. tolerating bland diet. call light within reach, no further requests at this time
[2025-05-01] MEDS: MULTIVITAMIN TABLET 1 EACH PO (17:34)
[2025-05-01] MEDS: POTASSIUM CHLORIDE 20MEQ TAB 40 MEQ PO ×2 (17:34→19:35)
[2025-05-01 20:00] VITALS: BP 164/102; PULSE 102; RESP 18; TEMP 36.5; O2SAT 96
[2025-05-01] MEDS: PANTOPRAZOLE 40MG VIAL 40 MG IV (20:02)
[2025-05-02] VITALS (7 sets, daily range): BP systolic 144–171; BP diastolic 84–109; PULSE 88–97; RESP 14–16; TEMP 36.7–37.1; O2SAT 91–97; BMI 27.3
[2025-05-02] MEDS: KETOROLAC 30MG/ML VIAL 30 MG IV ×4 (01:20→23:37)
[2025-05-02] MEDS: PROMETHAZINE HCL 25MG/ML 1ML VIAL 25 MG IV ×4 (01:20→21:04)
--- NOTE | 2025-05-02 01:31 | PC.NURSE ---
Pt AOx4. Still tolerating room air. Pt has had continuous nausea and pain throughout shift that has been treated with prn medications per the MAR. Pt is currently resting in bed. Respirations even and unlabored. Bed is low, locked, and call light is in reach. Pt denies additional needs at this time.
[2025-05-02] MEDS: OXYCODONE 5MG W/APAP 325MG TABLET 3 EACH PO (05:14)
[2025-05-02] MEDS: ONDANSETRON 4MG/2ML VIAL 4 MG IV ×3 (05:14→23:37)
[2025-05-02 07:44] LABS: Hematocrit 32.7 % (42.0-52.0); Hemoglobin 11.0 g/dL (14.1-18.0); Immature Granulocytes % 3.0 %; Mean Corpuscular HGB Conc 33.6 g/dL (31.8-35.4); Mean Corpuscular Hemoglobin 37.3 pg (27.0-31.2); Mean Corpuscular Volume 110.8 fl (80-94); Nucleated Red Blood Cells % 0 %; Platelet Count 138 K/mm3 (142-424); Red Blood Count 2.95 M/mm3 (4.60-6.20); Red Cell Distribution Width-SD 59.7 fL; White Blood Count 6.6 K/mm3 (4.8-10.8)
[2025-05-02 07:54] LABS: Albumin Level 2.7 g/dl (3.5-5.0); Chloride 97 mmol/L (98-107); Potassium 4.0 mmoL/L (3.5-5.1); Sodium 136 mmol/L (136-145)
[2025-05-02 07:57] LABS: Alanine Aminotransferase 15 U/L (12-78); Albumin/Globulin Ratio 0.9 (1.1-1.8); Alkaline Phosphatase 126 U/L (38-126); Anion Gap 8.0 mEq/L (5-15); Aspartate Amino Transferase 40 U/L (17-59); Bilirubin,Total 1.2 mg/dl (0.2-1.3); Blood Urea Nitrogen 16 mg/dl (9-20); Calcium 7.1 mg/dl (8.4-10.2); Carbon Dioxide 35 mmol/L (22.0-30.0); Creatinine Clearance Estimated 103 mL/min (50-200); Creatinine,Serum 1.00 mg/dl (0.66-1.25); Estimated Glomerular Filt Rate 76 ml/min (>60); GFR (African American) 93 ML/MIN (>60); Globulin 2.9 g/dL (1.3-3.2); Glucose 116 mg/dl (74-100); Total Protein,Serum 5.6 g/dl (6.3-8.2)
[2025-05-02 07:58] LABS: Magnesium 2.2 mg/dl (1.6-2.3)
[2025-05-02] MEDS: SODIUM CHLORIDE 0.9% 25ML BAG 25 ML IV ×2 (08:32→14:41)
[2025-05-02] MEDS: OXYCODONE 5MG W/APAP 325MG TABLET 2 EACH PO ×3 (08:39→19:58)
[2025-05-02] MEDS: ASPIRIN EC 81MG TABLET 81 MG PO (08:40)
[2025-05-02] MEDS: METOPROLOL SUCCINATE XL 25MG TABLET 25 MG PO (08:41)
[2025-05-02] MEDS: FOLIC ACID 1MG TABLET 1 MG PO (08:41)
[2025-05-02] MEDS: IRBESARTAN 75MG TABLET 75 MG PO (08:41)
[2025-05-02] MEDS: CALCIUM GLUC IN NACL, ISO-OSM 1 GM/50 ML BAG IV (08:52)
[2025-05-02 09:33] LABS: RBC Morphology Normal; Total Cells Counted 100
--- NOTE | 2025-05-02 10:00 | EXP.ACUTE.PN ---
Subjective *Date: 05/02/25 *Time: 10:00 Interval history: During he feels some 100 today. Still having bowel movements. No vomiting for 24 hours. Stable on room air. Pain improving. Discussed weaning pain regimen today in anticipation of home in the next 24 to 48 hours. Medical Exam Vital signs and Labs for Last 24 Hours: Vital Signs Temp Pulse Resp BP Pulse Ox O2 Del Method 05/02/25 08:00 95 Room Air 05/02/25 07:32 98.1 F 94 H 16 165/109 H 95 Room Air 05/02/25 06:39 Room Air 05/02/25 05:00 Room Air 05/02/25 04:00 98.4 F 92 H 16 171/96 H 91 L Room Air 05/02/25 03:00 Room Air 05/02/25 01:00 Room Air 05/02/25 00:00 98.2 F 92 H 16 156/90 H 93 L Room Air 05/01/25 23:00 Room Air 05/01/25 21:00 Room Air 05/01/25 20:00 97.7 F 102 H 18 164/102 H 96 Room Air 05/01/25 20:00 Room Air 05/01/25 18:34 Room Air 05/01/25 17:00 Room Air 05/01/25 15:58 98.1 F 91 H 16 167/107 H 94 L Room Air 05/01/25 15:00 Room Air 05/01/25 13:00 Room Air 05/01/25 11:00 Room Air Intake and Output 05/01/25 05/02/25 05/02/25 23:59 07:59 15:59 Intake Total 240 / 500 260 / 500 Output Total 50 / 725 350 / 350 Balance -50 / 275 -110 / 150 260 / 150 Intake: Intake, Oral Amount 240 / 500 260 / 500 Output: Output, Urine Amount 50 / 725 350 / 350 Other: Number of Unmeasured Voids 1 1 Number of Bowel Movements 1 2 Weight 91.824 kg Patient Weight 05/02/25 23:59 Weight 91.824 kg Laboratory Results - last 24 hr 05/02/25 07:25: WBC 6.6, RBC 2.95 L, Hgb 11.0 L, Hct 32.7 L, MCV 110.8 H, MCH 37.3 H, MCHC 33.6, RDW 14.4, Plt Count 138 L, MPV 9.5, Neut % (Auto) 77.8, Lymph % (Auto) 7.1 L, [place] % (Auto) 8.4, Eos % (Auto) 3.2, Baso % (Auto) 0.5, Neut # (Auto) 5.2, Lymph # (Auto) 0.5 L, [place] # (Auto) 0.6, Eos # (Auto) 0.2, Baso # (Auto) 0.0, Total Counted 100, Neutrophils % (Manual) 81 H, Lymphocytes % (Manual) 8 L, Monocytes % (Manual) 8, Eosinophils % (Manual) 3, Platelet Estimate Normal, RBC Morphology Normal, Sodium 136, Potassium 4.0 D, Chloride 97 L, Carbon Dioxide 35 H, Anion Gap 8.0, BUN 16, Creatinine 1.00 D, Estimated Creat Clear 103, Estimated GFR 76, Est GFR ( Amer) 93 D, Glucose 116 H, Calcium 7.1 L, Magnesium 2.2, Total Bilirubin 1.2, AST 40, ALT 15, Alkaline Phosphatase 126, Total Protein 5.6 L, Albumin 2.7 L, Globulin 2.9, Albumin/Globulin Ratio 0.9 L I & O for Labs for Last 24 Hours: Intake & Output 04/29/25 04/30/25 05/01/25 05/02/25 23:59 23:59 23:59 23:59 Intake Total 2905 / 2905 970 / 1170 760 / 1000 500 / 500 Output Total 500 / 500 450 / 450 725 / 725 350 / 350 Balance 2405 / 2405 520 / 720 35 / 275 150 / 150 Weight 91.626 kg 93.44 kg 92.17 kg 91.824 kg Constitutional: Present no acute distress, average body habitus, chronically ill appearing and cooperative Head: Present atraumatic and normocephalic Respiratory: Present crackles (Bases bilaterally), diminished air movement (Bases bilateral) and normal respiratory effort; Absent accessory muscle use, rhonchi or wheezes Cardiac: Present Reg Rate and Rhythm GI: Present soft, distention, tenderness (Interval improvement, tender only in right upper quadrant, left quadrant better today) and normal bowel sounds; Absent guarding Extremities: Present normal inspection and full ROM Skin: Present intact; Absent erythema Neuro: Present Grossly Intact, alert, awake, oriented x 3 and moves all extremities Assessment and Plan *Assessment and plan (1) Pancreatitis: Status: Acute Qualifiers: Acute pancreatitis complication: unspecified Chronicity: acute Pancreatitis type: alcohol induced Qualified Code(s): K85.20 - Alcohol induced acute pancreatitis without necrosis or infection Category: Medical Code(s): K85.90 - Acute pancreatitis without necrosis or infection, unspecified (2) Hypocalcemia: Status: Acute Category: Medical Code(s): E83.51 - Hypocalcemia (3) Acute hypokalemia: Status: Acute Category: Medical Code(s): E87.6 - Hypokalemia (4) Acute kidney injury: Status: Acute Category: Medical Code(s): N17.9 - Acute kidney failure, unspecified (5) History of alcohol use: Status: Acute Category: Medical Code(s): Z87.898 - Personal history of other specified conditions (6) NSTEMI (non-ST elevated myocardial infarction): Status: Acute Category: Medical Code(s): I21.4 - Non-ST elevation (NSTEMI) myocardial infarction (7) Opioid use disorder: Status: Acute Category: Medical Code(s): F11.90 - Opioid use, unspecified, uncomplicated (8) Abnormal chest x-ray with multiple lung nodules: Status: Acute Category: Medical Code(s): R91.8 - Other nonspecific abnormal finding of lung field (9) Acute respiratory failure with hypoxia: Status: Acute Category: Medical Code(s): J96.01 - Acute respiratory failure with hypoxia Plan Jeison Barker is a 60-year-old male with a medical history significant for alcohol use disorder, opioid use disorder (reportedly on Suboxone), CAD with stents, GERD who presents with abdominal pain that started this morning. Patient states he has been drinking both beer and 5 shots of fireball, started having epigastric abdominal pain today. Also endorses some chest pain without radiation, denies shortness of breath, fever/chills. Workup in the ED significant for lipase 1644, troponin 0.06, AST 86, ALP 155, total bilirubin 2.0, CT abdomen/pelvis showed pancreatitis without pseudocyst or necrosis. WBC 7.2, potassium 1.6, magnesium 1.3.. Patient was given morphine, Dilaudi x 2, Zofran, IV potassium and magnesium. Given these findings ED provider discussed case with manage decided to admit patient for acute pancreatitis. Continues to have significant pain. See improvement in kidney function however. Given his severity of pancreatitis, will obtain repeat CT today to evaluate for development of pseudocyst or pancreatic necrosis. Advance to low-fat diet today. Weaning pain control. Electrolytes doing well. Anticipate discharge in the next day or 2. Problems addressed as follows: #Acute pancreatitis, severe with organ dysfunction (GWENDOLYN, oxygen requirement/respiratory failure) #Elevated LFTs #Acute hypocalcemia ? Presented with epigastric pain, had been drinking beer and 5 shots of fireball daily. Initial lipase 1644, with CT findings of acute pancreatitis. ? Calcium 7.1, will replace with 1 g IV gluconate today. Repeat CBC, CMP, magnesium ordered for the morning. Magnesium 2.2, potassium 4.0. Replace per protocol - Repeat CT obtained 04/30 in the afternoon showed pancreatic necrosis and significant peripancreatic edema with effusion in lower lung field bilaterally. No formal cyst identified per my review -Albumin also low at 2.7. Initiate boost with trays -Initiate weaning of pain control today. Continue Percocet 10 mg every 6 hours scheduled. Decrease frequency of Dilaudid to 0.5 mg every 4 hours as needed for breakthrough. Continue Toradol 30 mg IV every 6 hours for nonopiate pain control. Monitoring for toxicity. - White count normal at 6.6, hemoglobin stable at 11 GWENDOLYN, resolved: BUN stable at 16. Creatinine 1 #NSTEMI, likely type II #History of CAD with stents #PVCs ? Initial troponin 0.06, peaked at 0.4, trending down to 0.36. Suspect secondary to pain and hypertension. - Cardiology evaluated today. Echo with normal EF at 60%. Normal LV systolic function. No regional wall motion abnormality - Continue metoprolol succinate 25 mg for PVCs. Abnormal image findings, bilateral calcified granulomas Acute hypoxic respiratory failure. - Saturation of 90 in the setting of distress from pancreatitis. On room air today - Pulmonology consulted today due to diffuse innumerable calcified lesions in lungs bilaterally. QuantiFERON gold negative for TB. - HIV negative - DuoNebs every 6 hours as needed. No focal consolidation or indication for antibiotics from a pneumonia standpoint at this time. #Hypokalemia #Hypomagnesemia -Resolved, stable with potassium of 4 and magnesium 2.2 #Alcohol use disorder ? No withdrawal symptoms. No benzos needed for over 48 hours. Discontinued CIWA protocol. Discontinued rally packs. Peer support assisting with care. #Opioid use disorder ? Reportedly on Suboxone. Confirmed with [facility]. Will resume at discharge. - Also reports using friend's Percocet to help control abdominal pain. #GERD ? Continue IV Protonix nightly. Full code DVT prophylaxis: Lovenox 40 mg Low-fat diet
[2025-05-02] MEDS: TRAMADOL 50MG TABLET 50 MG PO ×2 (14:49→21:10)
[2025-05-02] MEDS: MULTIVITAMIN TABLET 1 EACH PO (17:32)
[2025-05-02] MEDS: PANTOPRAZOLE 40MG VIAL 40 MG IV (19:59)
[2025-05-03] VITALS (9 sets, daily range): BP systolic 141–174; BP diastolic 76–98; PULSE 80–99; RESP 16–18; TEMP 36.7–37.1; O2SAT 93–97; BMI 27.2
[2025-05-03] MEDS: OXYCODONE 5MG W/APAP 325MG TABLET 2 EACH PO ×2 (02:22→07:53)
--- NOTE | 2025-05-03 03:09 | PC.NURSE ---
Pt AOx4. Continually reports pain throughout shift with some relief with prn pain meds given per OCT. Pt has had no vomiting this shift. Currently resting in bed with eyes open. Respirations even and unlabored. Bed low, locked, and call light in reach.
[2025-05-03] MEDS: PROMETHAZINE HCL 25MG/ML 1ML VIAL 25 MG IV (03:20)
[2025-05-03] MEDS: KETOROLAC 30MG/ML VIAL 30 MG IV ×4 (05:58→23:29)
[2025-05-03 06:17] LABS: Hematocrit 31.4 % (42.0-52.0); Hemoglobin 10.1 g/dL (14.1-18.0); Immature Granulocytes % 3.5 %; Mean Corpuscular HGB Conc 32.2 g/dL (31.8-35.4); Mean Corpuscular Hemoglobin 36.2 pg (27.0-31.2); Mean Corpuscular Volume 112.5 fl (80-94); Nucleated Red Blood Cells % 0 %; Platelet Count 155 K/mm3 (142-424); Red Blood Count 2.79 M/mm3 (4.60-6.20); Red Cell Distribution Width-SD 59.9 fL; White Blood Count 7.4 K/mm3 (4.8-10.8)
[2025-05-03 07:23] LABS: Albumin Level 2.5 g/dl (3.5-5.0); Chloride 99 mmol/L (98-107); Potassium 3.6 mmoL/L (3.5-5.1); Sodium 135 mmol/L (136-145)
[2025-05-03 07:26] LABS: Alanine Aminotransferase 15 U/L (12-78); Albumin/Globulin Ratio 0.9 (1.1-1.8); Alkaline Phosphatase 131 U/L (38-126); Anion Gap 8.6 mEq/L (5-15); Aspartate Amino Transferase 37 U/L (17-59); Bilirubin,Total 0.8 mg/dl (0.2-1.3); Blood Urea Nitrogen 18 mg/dl (9-20); Calcium 7.0 mg/dl (8.4-10.2); Carbon Dioxide 31 mmol/L (22.0-30.0); Creatinine Clearance Estimated 128 mL/min (50-200); Creatinine,Serum 0.80 mg/dl (0.66-1.25); Estimated Glomerular Filt Rate 99 ml/min (>60); GFR (African American) 120 ML/MIN (>60); Globulin 2.7 g/dL (1.3-3.2); Glucose 115 mg/dl (74-100); Total Protein,Serum 5.2 g/dl (6.3-8.2)
[2025-05-03 07:53] LABS: Magnesium 2.1 mg/dl (1.6-2.3)
[2025-05-03] MEDS: ASPIRIN EC 81MG TABLET 81 MG PO (08:18)
[2025-05-03] MEDS: FOLIC ACID 1MG TABLET 1 MG PO (08:18)
[2025-05-03] MEDS: IRBESARTAN 75MG TABLET 75 MG PO (08:18)
[2025-05-03] MEDS: METOPROLOL SUCCINATE XL 25MG TABLET 25 MG PO (08:18)
[2025-05-03] MEDS: ONDANSETRON 4MG/2ML VIAL 4 MG IV ×2 (10:03→23:32)
[2025-05-03] MEDS: TRAMADOL 50MG TABLET 50 MG PO ×2 (10:03→20:12)
--- NOTE | 2025-05-03 10:28 | EXP.DC.SUM ---
General Admission date:: 04/26/25 Discharge date: 05/03/25 HPI HPI HPI: Jeison Barker is a 60-year-old male with a medical history significant for alcohol use disorder, opioid use disorder (reportedly on Suboxone), CAD with stents, GERD who presents with abdominal pain that started this morning. Patient states he has been drinking both beer and 5 shots of fireball, started having epigastric abdominal pain today. Also endorses some chest pain without radiation, denies shortness of breath, fever/chills. Workup in the ED significant for lipase 1644, troponin 0.06, AST 86, ALP 155 CT abdomen/pelvis showed pancreatitis without pseudocyst or necrosis. WBC 7.2, potassium 1.6, magnesium 1.3.. Patient was given morphine, Dilaudi x 2, Zofran, IV potassium and magnesium. Given these findings ED provider discussed case with manage decided to admit patient for acute pancreatitis. Exam Data for Last 24 hours Vital signs and Labs for Last 24 Hours: Temp Pulse Resp BP Pulse Ox O2 Del Method O2 Flow Rate 98.0 F 90 17 174/98 H 97 Room Air 2 05/03/25 07:26 05/03/25 08:00 05/03/25 07:26 05/03/25 07:26 05/03/25 07:26 05/03/25 08:00 04/29/25 07:00 Laboratory Results - last 24 hr 05/03/25 05:53: WBC 7.4, RBC 2.79 L, Hgb 10.1 L, Hct 31.4 L, MCV 112.5 H, MCH 36.2 H, MCHC 32.2, RDW 14.5, Plt Count 155, MPV 9.8, Neut % (Auto) 76.0, Lymph % (Auto) 8.1 L, [place] % (Auto) 8.0, Eos % (Auto) 4.0, Baso % (Auto) 0.4, Neut # (Auto) 5.6, Lymph # (Auto) 0.6 L, [place] # (Auto) 0.6, Eos # (Auto) 0.3, Baso # (Auto) 0.0, Sodium 135 L, Potassium 3.6, Chloride 99, Carbon Dioxide 31 H, Anion Gap 8.6, BUN 18, Creatinine 0.80, Estimated Creat Clear 128, Estimated GFR 99, Est GFR ( Amer) 120 D, Glucose 115 H, Calcium 7.0 L, Magnesium 2.1, Total Bilirubin 0.8, AST 37, ALT 15, Alkaline Phosphatase 131 H, Total Protein 5.2 L, Albumin 2.5 L, Globulin 2.7, Albumin/Globulin Ratio 0.9 L I & O for Last 24 hours: Intake & Output 04/30/25 05/01/25 05/02/25 05/03/25 23:59 23:59 23:59 23:59 Intake Total 970 / 1170 760 / 1000 1130 / 1130 120 / 120 Output Total 450 / 450 725 / 725 600 / 600 0 / 0 Balance 520 / 720 35 / 275 530 / 530 120 / 120 Weight 93.44 kg 92.17 kg 91.824 kg 91.217 kg Results Data Completed and Pending Labs on day of discharge: Labs from last 24 hours 05/03/25 05:53 WBC 7.4 RBC 2.79 L Hgb 10.1 L Hct 31.4 L MCV 112.5 H MCH 36.2 H MCHC 32.2 RDW 14.5 Plt Count 155 MPV 9.8 Neut % (Auto) 76.0 Lymph % (Auto) 8.1 L [place] % (Auto) 8.0 Eos % (Auto) 4.0 Baso % (Auto) 0.4 Neut # (Auto) 5.6 Lymph # (Auto) 0.6 L [place] # (Auto) 0.6 Eos # (Auto) 0.3 Baso # (Auto) 0.0 Sodium 135 L Potassium 3.6 Chloride 99 Carbon Dioxide 31 H Anion Gap 8.6 BUN 18 Creatinine 0.80 Estimated Creat Clear 128 Estimated GFR 99 Est GFR ( Amer) 120 D Glucose 115 H Calcium 7.0 L Magnesium 2.1 Total Bilirubin 0.8 AST 37 ALT 15 Alkaline Phosphatase 131 H Total Protein 5.2 L Albumin 2.5 L Globulin 2.7 Albumin/Globulin Ratio 0.9 L DS: Diagnosis Discharge Diagnosis (1) Pancreatitis: Status: Acute Code(s): K85.90 - Acute pancreatitis without necrosis or infection, unspecified Qualifiers: Acute pancreatitis complication: unspecified Chronicity: acute Pancreatitis type: alcohol induced Qualified Code(s): K85.20 - Alcohol induced acute pancreatitis without necrosis or infection (2) Hypocalcemia: Status: Acute Code(s): E83.51 - Hypocalcemia (3) Acute hypokalemia: Status: Acute Code(s): E87.6 - Hypokalemia (4) Acute kidney injury: Status: Acute Code(s): N17.9 - Acute kidney failure, unspecified (5) History of alcohol use: Status: Acute Code(s): Z87.898 - Personal history of other specified conditions (6) NSTEMI (non-ST elevated myocardial infarction): Status: Acute Code(s): I21.4 - Non-ST elevation (NSTEMI) myocardial infarction (7) Opioid use disorder: Status: Acute Code(s): F11.90 - Opioid use, unspecified, uncomplicated (8) Abnormal chest x-ray with multiple lung nodules: Status: Acute Code(s): R91.8 - Other nonspecific abnormal finding of lung field (9) Acute respiratory failure with hypoxia: Status: Acute Code(s): J96.01 - Acute respiratory failure with hypoxia Meds Home Medications and Allergies Home Medications ?Medication ?Instructions ?Recorded ?Confirmed ?Type omeprazole 40 mg capsule,delayed 40 mg PO DAILY 10/22/23 04/26/25 History release aspirin 81 mg tablet,delayed 81 mg PO DAILY 01/14/25 04/26/25 History release atorvastatin 40 mg tablet 40 mg PO HS 01/14/25 04/26/25 History buprenorphine 8 mg-naloxone 2 mg 2 tab sublingual DAILY 01/14/25 04/26/25 History sublingual tablet New Prescriptions to Start Prescriptions: Allergies Allergy/AdvReac Type Severity Reaction Status Date / Time celecoxib (From CELEBREX) Allergy Unknown I-HIVES Verified 02/10/25 08:51 NSAIDS (Non-Steroidal Allergy Unknown HEARTBURN/H Verified 02/10/25 08:51 Anti-Inflamma (NSAIDS EZEQUIEL (NON-STEROIDAL ANTI-INFLAMMA) Penicillins (PENICILLINS) Allergy Unknown I-HIVES Verified 02/10/25 08:51 amlodipine AdvReac Unknown Verified 04/27/25 07:24 allergy reaction isosorbide AdvReac Headache Verified 04/27/25 07:24 ticagrelor (From Brilinta) AdvReac Hypertensio Verified 04/27/25 07:24 n Discharge Plan Disposition Condition: Fair Follow up Plan Prescriptions/Medication Reconciliation: No Action omeprazole 40 mg capsule,delayed release(DR/EC) 40 mg PO DAILY atorvastatin 40 mg tablet 40 mg PO HS aspirin 81 mg tablet,delayed release (DR/EC) 81 mg PO DAILY buprenorphine-naloxone 8-2 mg Tablet, Sublingual 2 tab SUBLINGUAL DAILY Patient Discharge Instructions Patient Instructions: DI for Pancreatitis, DI for Alcohol Use Disorder, DI for Hypokalemia, DI for Hypocalcemia, Stop Light Infection Print Language: [place] Providers Primary Care Provider: Provider,Referral Admit Provider: Ta New Attending Provider: Ta New
[2025-05-03] MEDS: BUMETANIDE 1MG/4ML VIAL 1 MG IV (10:57)
[2025-05-03] MEDS: PROMETHAZINE 25MG TABLET 25 MG PO ×2 (12:03→22:03)
--- NOTE | 2025-05-03 14:09 | EXP.ACUTE.PN ---
Subjective *Date: 05/03/25 *Time: 16:21 Interval history: Some improvement today. Tolerating weaning of pain medication. Stable on room air. Advancing diet. Eating portions of his trays with regular diet. No fever, nausea or vomiting. Still having loose stools. Medical Exam Vital signs and Labs for Last 24 Hours: Vital Signs Temp Pulse Pulse Resp BP Pulse Ox O2 Del Method 05/03/25 13:00 Room Air 05/03/25 12:00 80 05/03/25 11:34 98.2 F 85 18 158/90 H 97 Room Air 05/03/25 11:00 Room Air 05/03/25 08:00 90 05/03/25 08:00 Room Air 05/03/25 07:36 Room Air 05/03/25 07:26 98.0 F 88 17 174/98 H 97 Room Air 05/03/25 06:36 Room Air 05/03/25 05:00 Room Air 05/03/25 04:00 98.2 F 85 16 154/86 H 96 Room Air 05/03/25 03:00 Room Air 05/03/25 01:00 Room Air 05/03/25 00:00 98.3 F 92 H 16 169/96 H 93 L Room Air 05/02/25 23:00 Room Air 05/02/25 21:00 Room Air 05/02/25 20:00 98.5 F 97 H 16 144/84 H 95 Room Air 05/02/25 20:00 Room Air 05/02/25 18:46 Room Air 05/02/25 17:00 Room Air 05/02/25 16:00 98.7 F 95 H 16 149/95 H 97 Room Air 05/02/25 15:00 Room Air Intake and Output 05/02/25 05/03/25 05/03/25 23:59 07:59 15:59 Intake Total 120 / 120 Output Total 250 / 600 0 / 300 300 / 300 Balance -250 / 530 120 / -180 -300 / -180 Intake: Intake, Oral Amount 120 / 120 Output: Output, Urine Amount 250 / 600 0 / 300 300 / 300 Other: Number of Unmeasured Voids 1 1 1 Number of Bowel Movements 1 1 Weight 91.217 kg Patient Weight 05/03/25 23:59 Weight 91.217 kg Laboratory Results - last 24 hr 05/03/25 05:53: WBC 7.4, RBC 2.79 L, Hgb 10.1 L, Hct 31.4 L, MCV 112.5 H, MCH 36.2 H, MCHC 32.2, RDW 14.5, Plt Count 155, MPV 9.8, Neut % (Auto) 76.0, Lymph % (Auto) 8.1 L, [place] % (Auto) 8.0, Eos % (Auto) 4.0, Baso % (Auto) 0.4, Neut # (Auto) 5.6, Lymph # (Auto) 0.6 L, [place] # (Auto) 0.6, Eos # (Auto) 0.3, Baso # (Auto) 0.0, Sodium 135 L, Potassium 3.6, Chloride 99, Carbon Dioxide 31 H, Anion Gap 8.6, BUN 18, Creatinine 0.80, Estimated Creat Clear 128, Estimated GFR 99, Est GFR ( Amer) 120 D, Glucose 115 H, Calcium 7.0 L, Magnesium 2.1, Total Bilirubin 0.8, AST 37, ALT 15, Alkaline Phosphatase 131 H, Total Protein 5.2 L, Albumin 2.5 L, Globulin 2.7, Albumin/Globulin Ratio 0.9 L I & O for Labs for Last 24 Hours: Intake & Output 04/30/25 05/01/25 05/02/25 05/03/25 23:59 23:59 23:59 23:59 Intake Total 970 / 1170 760 / 1000 1130 / 1130 120 / 120 Output Total 450 / 450 725 / 725 600 / 600 300 / 300 Balance 520 / 720 35 / 275 530 / 530 -180 / -180 Weight 93.44 kg 92.17 kg 91.824 kg 91.217 kg Constitutional: Present no acute distress, average body habitus, chronically ill appearing and cooperative Head: Present atraumatic and normocephalic Respiratory: Present crackles (Bases bilaterally, improving) and normal respiratory effort; Absent accessory muscle use, rhonchi or wheezes Cardiac: Present Reg Rate and Rhythm GI: Present soft, distention, tenderness (Interval improvement, tender only in right upper quadrant, left quadrant better today) and normal bowel sounds; Absent guarding Extremities: Present normal inspection and full ROM Skin: Present intact; Absent erythema Neuro: Present Grossly Intact, alert, awake, oriented x 3 and moves all extremities Assessment and Plan *Assessment and plan (1) Pancreatitis: Status: Acute Qualifiers: Acute pancreatitis complication: unspecified Chronicity: acute Pancreatitis type: alcohol induced Qualified Code(s): K85.20 - Alcohol induced acute pancreatitis without necrosis or infection Category: Medical Code(s): K85.90 - Acute pancreatitis without necrosis or infection, unspecified (2) Hypocalcemia: Status: Acute Category: Medical Code(s): E83.51 - Hypocalcemia (3) Acute hypokalemia: Status: Acute Category: Medical Code(s): E87.6 - Hypokalemia (4) Acute kidney injury: Status: Acute Category: Medical Code(s): N17.9 - Acute kidney failure, unspecified (5) History of alcohol use: Status: Acute Category: Medical Code(s): Z87.898 - Personal history of other specified conditions (6) NSTEMI (non-ST elevated myocardial infarction): Status: Acute Category: Medical Code(s): I21.4 - Non-ST elevation (NSTEMI) myocardial infarction (7) Opioid use disorder: Status: Acute Category: Medical Code(s): F11.90 - Opioid use, unspecified, uncomplicated (8) Abnormal chest x-ray with multiple lung nodules: Status: Acute Category: Medical Code(s): R91.8 - Other nonspecific abnormal finding of lung field (9) Acute respiratory failure with hypoxia: Status: Acute Category: Medical Code(s): J96.01 - Acute respiratory failure with hypoxia Plan Jeiosn Barker is a 60-year-old male with a medical history significant for alcohol use disorder, opioid use disorder (reportedly on Suboxone), CAD with stents, GERD who presents with abdominal pain that started this morning. Patient states he has been drinking both beer and 5 shots of fireball, started having epigastric abdominal pain today. Also endorses some chest pain without radiation, denies shortness of breath, fever/chills. Workup in the ED significant for lipase 1644, troponin 0.06, AST 86, ALP 155, total bilirubin 2.0, CT abdomen/pelvis showed pancreatitis without pseudocyst or necrosis. WBC 7.2, potassium 1.6, magnesium 1.3.. Patient was given morphine, Dilaudi x 2, Zofran, IV potassium and magnesium. Given these findings ED provider discussed case with manage decided to admit patient for acute pancreatitis. Continues to have significant pain. See improvement in kidney function however. Given his severity of pancreatitis, will obtain repeat CT today to evaluate for development of pseudocyst or pancreatic necrosis. Tolerating advance to low-fat diet. Weaning pain control. Electrolytes doing well. Anticipate discharge tomorrow. Problems addressed as follows: #Acute pancreatitis, severe with organ dysfunction (GWENDOLYN, oxygen requirement/respiratory failure) #Elevated LFTs #Acute hypocalcemia ? Presented with epigastric pain, had been drinking beer and 5 shots of fireball daily. Initial lipase 1644, with CT findings of acute pancreatitis. ? Calcium 7, magnesium 2.1. Hold on replacement today. Repeat CBC, CMP, magnesium ordered for the morning. - Repeat CT obtained 04/30 in the afternoon showed pancreatic necrosis and significant peripancreatic edema with effusion in lower lung field bilaterally. No formal cyst identified per my review - Albumin also low at 2.5. Initiate boost with trays - Continue weaning pain control today. Decrease to Percocet 5 mg every 6 hours. Continue Toradol IV and tramadol as needed. Plan to discharge on Percocet for a few days with close follow-up with his Suboxone clinic to resume Suboxone as an outpatient. -White count normal at 7.4. Hemoglobin 10.1. - Due to significant volume administered early in admission, will administer diuresis 1 more time today with Bumex 1 mg IV. GWENDOLYN, resolved: BUN stable at 1 creatinine 0.8 #NSTEMI, likely type II #History of CAD with stents #PVCs ? Initial troponin 0.06, peaked at 0.4, trending down to 0.36. Suspect secondary to pain and hypertension. - Cardiology evaluated today. Echo with normal EF at 60%. Normal LV systolic function. No regional wall motion abnormality - Continue metoprolol succinate 25 mg for PVCs. Abnormal image findings, bilateral calcified granulomas Acute hypoxic respiratory failure. - Saturation of 90 in the setting of distress from pancreatitis. On room air today - Pulmonology consulted today due to diffuse innumerable calcified lesions in lungs bilaterally. QuantiFERON gold negative for TB. - HIV negative - DuoNebs every 6 hours as needed. No focal consolidation or indication for antibiotics from a pneumonia standpoint at this time. #Hypokalemia #Hypomagnesemia -Resolved, stable with potassium of 4 and magnesium 2.2 #Alcohol use disorder ? No withdrawal symptoms. No benzos needed for over 48 hours. Discontinued CIWA protocol. Discontinued rally packs. Peer support assisting with care. #Opioid use disorder ? Reportedly on Suboxone. Confirmed with [facility]. Will resume at discharge. - Also reports using friend's Percocet to help control abdominal pain. #GERD ? Continue IV Protonix nightly. Full code DVT prophylaxis: Lovenox 40 mg Low-fat diet
[2025-05-03] MEDS: OXYCODONE 5MG W/APAP 325MG TABLET 1 EACH PO ×2 (15:29→22:03)
--- NOTE | 2025-05-03 15:38 | PC.NURSE ---
Patient refused ice water
[2025-05-03] MEDS: MULTIVITAMIN TABLET 1 EACH PO (17:30)
[2025-05-03] MEDS: PANTOPRAZOLE 40MG VIAL 40 MG IV (20:12)
--- NOTE | 2025-05-04 00:42 | CT_ITS ---
PROCEDURE INFORMATION: Exam: CT Abdomen And Pelvis With Contrast Exam date and time: 05/04/2025 2:11 AM Age: 60 years old Clinical indication: Condition or disease; Pancreatic condition; Pancreatitis; Additional info: Severe pancreatitis TECHNIQUE: Imaging protocol: Computed tomography of the abdomen and pelvis with contrast. Radiation optimization: All CT scans at this facility use at least one of these dose optimization techniques: automated exposure control; mA and/or kV adjustment per patient size (includes targeted exams where dose is matched to clinical indication); or iterative reconstruction. Contrast material: ISOVUE; Contrast volume: 75 ml; Contrast route: IV; COMPARISON: CT ABDOMEN PELVIS W CON 04/30/2025 1:18 PM FINDINGS: Lungs: Many granulomas are seen throughout the lungs bilaterally. Pleural spaces: Stable moderate left-sided pleural effusion. Coronary arteries: Moderate coronary calcifications. Liver: Normal. No mass. Gallbladder and biliary ducts: Normal. No calcified stones. No ductal dilation. Pancreas: Extensive peripancreatic edema and fluid is noted. No definite pancreatic necrosis is seen. Overall the appearance of the pancreas and fluid is not significantly changed when compared to the prior study of 04/30/2025. Spleen: Normal. No splenomegaly. Adrenal glands: Normal. No mass. Kidneys and ureters: Normal. No hydronephrosis. Stomach and bowel: Unremarkable. No obstruction. No mucosal thickening. Appendix: No evidence of appendicitis. Intraperitoneal space: The edema and fluid extend into the paracolic gutters bilaterally. Small amount of free fluid is seen in the dependent pelvis. Vasculature: Unremarkable. No abdominal aortic aneurysm. Lymph nodes: Unremarkable. No enlarged lymph nodes. Urinary bladder: Unremarkable as visualized. Reproductive: Unremarkable as visualized. Bones/joints: The patient is status post right hip arthroplasty. Moderate to severe multilevel degenerative disc disease including disc space narrowing, vacuum disc phenomena, spondylosis and degenerative facet changes. Soft tissues: Unremarkable. IMPRESSION: 1. Extensive interstitial pancreatitis not significantly changed from recent prior study of 04/30/2025. No pseudocyst development or abscess. No definite pancreatic necrosis noted. 2. Stable left-sided pleural effusion. 3. Coronary atherosclerosis.
[2025-05-04] MEDS: HYDROMORPHONE 2MG/ML SYRINGE 0.5 MG IV ×2 (00:43→05:22)
[2025-05-04] MEDS: SODIUM CHLORIDE 0.9% 10ML SYR (RAD ONLY) 10 ML IV (02:12)
[2025-05-04] MEDS: IOPAMIDOL-370 (76%);100ML BOTTLE 75 ML IV (02:13)
[2025-05-04] MEDS: TRAMADOL 50MG TABLET 50 MG PO (02:25)
[2025-05-04 04:00] VITALS: BP 182/100; RESP 18; TEMP 36.7; O2SAT 94; BMI 27.3
[2025-05-04] MEDS: OXYCODONE 5MG W/APAP 325MG TABLET 2 EACH PO (04:02)
--- NOTE | 2025-05-04 04:06 | PC.NURSE ---
Pt A&OX4 and has tolerated room air. He has complained of abdominal pain and N/V multiple times throughout the shift. He has been medicated per MAR. He has ambulated room independently. Currently resting in bed with call lights within reach.
[2025-05-04 06:13] LABS: Hematocrit 28.8 % (42.0-52.0); Hemoglobin 9.5 g/dL (14.1-18.0); Immature Granulocytes % 3.0 %; Mean Corpuscular HGB Conc 33.0 g/dL (31.8-35.4); Mean Corpuscular Hemoglobin 36.3 pg (27.0-31.2); Mean Corpuscular Volume 109.9 fl (80-94); Nucleated Red Blood Cells % 0 %; Platelet Count 179 K/mm3 (142-424); Red Blood Count 2.62 M/mm3 (4.60-6.20); Red Cell Distribution Width-SD 58.9 fL; White Blood Count 9.2 K/mm3 (4.8-10.8)
[2025-05-04 06:23] LABS: Chloride 97 mmol/L (98-107)
[2025-05-04 06:24] LABS: Albumin Level 2.6 g/dl (3.5-5.0); Potassium 3.4 mmoL/L (3.5-5.1); Sodium 134 mmol/L (136-145)
[2025-05-04 06:26] LABS: Alanine Aminotransferase 16 U/L (12-78); Blood Urea Nitrogen 15 mg/dl (9-20); Creatinine Clearance Estimated 147 mL/min (50-200); Creatinine,Serum 0.70 mg/dl (0.66-1.25); Estimated Glomerular Filt Rate 115 ml/min (>60); GFR (African American) 140 ML/MIN (>60)
[2025-05-04 06:27] LABS: Albumin/Globulin Ratio 1.0 (1.1-1.8); Alkaline Phosphatase 137 U/L (38-126); Anion Gap 9.4 mEq/L (5-15); Aspartate Amino Transferase 38 U/L (17-59); Bilirubin,Total 0.6 mg/dl (0.2-1.3); Calcium 7.3 mg/dl (8.4-10.2); Carbon Dioxide 31 mmol/L (22.0-30.0); Globulin 2.5 g/dL (1.3-3.2); Glucose 127 mg/dl (74-100); Total Protein,Serum 5.1 g/dl (6.3-8.2)
[2025-05-04 08:00] VITALS: BP 177/96; PULSE 90; RESP 16; TEMP 36.8; O2SAT 96
[2025-05-04] MEDS: IRBESARTAN 75MG TABLET 75 MG PO (08:10)
[2025-05-04] MEDS: FOLIC ACID 1MG TABLET 1 MG PO (08:10)
[2025-05-04] MEDS: ASPIRIN EC 81MG TABLET 81 MG PO (08:10)
[2025-05-04] MEDS: METOPROLOL SUCCINATE XL 25MG TABLET 25 MG PO (08:10)
[2025-05-04] MEDS: KETOROLAC 30MG/ML VIAL 30 MG IV (08:10)
[2025-05-04] MEDS: POTASSIUM CHLORIDE 20MEQ TAB 40 MEQ PO ×2 (08:43→11:13)
--- NOTE | 2025-05-04 09:38 | PC.NURSE ---
patient returned to floor from radiology at 02:17
--- NOTE | 2025-05-04 11:42 | EXP.DC.SUM ---
General Admission date:: 04/26/25 Hospital Course Hospital Course Hospital Course: Jeison Barker is a 60-year-old male with a medical history significant for alcohol use disorder, opioid use disorder (reportedly on Suboxone), CAD with stents, GERD who presents with abdominal pain that started this morning. Patient states he has been drinking both beer and 5 shots of fireball, started having epigastric abdominal pain today. Also endorses some chest pain without radiation, denies shortness of breath, fever/chills. Workup in the ED significant for lipase 1644, troponin 0.06, AST 86, ALP 155, total bilirubin 2.0, CT abdomen/pelvis showed pancreatitis without pseudocyst or necrosis. WBC 7.2, potassium 1.6, magnesium 1.3.. Patient was given morphine, Dilaudi x 2, Zofran, IV potassium and magnesium. Given these findings ED provider discussed case with manage decided to admit patient for acute pancreatitis. #Acute pancreatitis, severe with organ dysfunction (GWENDOLYN, oxygen requirement/respiratory failure) #Transaminitis #Acute hypocalcemia ? Presented with epigastric pain, had been drinking beer and 5 shots of fireball daily. Initial lipase 1644, with CT findings of acute pancreatitis. ? Initial LFTs also elevated, AST 86, ALP 155, total bilirubin 2.0, concerning for gallstone pancreatitis however RUQ ultrasound did not show acute findings. ? Patient had a long, arduous hospital course with worsening abdominal pain and developing GWENDOLYN, hypoxia, hypocalcemia, anemia. Cumulative Gilles score was 6 points, 40% predicted mortality. ? Ultimately, patient clinically improved with IV fluid resuscitation, slowly advancing diet, repleting calcium, and weaned back to room air without acute findings on imaging. ? Hospital course complicated by patient being on Suboxone, requiring higher doses of opioids. ? Hemoglobin currently 9.5, in the setting of hemodilution. No active signs of bleeding. Corrected calcium for hypoalbuminemia 8.0. ? Repeat CT abdomen/pelvis on day of discharge did not show pseudocyst, necrosis. Did show extensive interstitial pancreatitis, but patient symptoms improved and now tolerating p.o. intake without issues. ? Discharged with Mobic 7.5 mg twice daily (on Suboxone, will avoid outpatient opioids). Will follow-up closely with GI within the next week. #GWENDOLYN ? Creatinine peaked at 1.9, improved to 0.70 on day of discharge.. Will plan for outpatient ischemic workup. #NSTEMI, likely type II #History of CAD with stents #PVCs #Hypertension ? Initial troponin 0.06, peaked at 0.40, trending down to 0.36. Suspect secondary to pain and hypertension. EKG with PVCs but no acute ischemia. - Cardiology evaluated. Echo with normal EF at 60%. Normal LV systolic function. No regional wall motion abnormality. Will plan for outpatient ischemic workup. - Started metoprolol succinate 25 mg for PVCs, hydrochlorothiazide 25 mg for hypertension. ? Follow-up with cardiology within 1 week. #Abnormal image findings, bilateral calcified granulomas #Acute hypoxic respiratory failure, resolved - Saturation of 90 in the setting of distress from pancreatitis. - Pulmonology consulted due to diffuse innumerable calcified lesions in lungs bilaterally. QuantiFERON gold negative for TB. HIV negative. - DuoNebs every 6 hours as needed. No focal consolidation or indication for antibiotics from a pneumonia standpoint at this time. ? Will follow-up with pulmonology within 2 weeks for further evaluation and management. #Alcohol use disorder ? No withdrawal symptoms. No benzos needed for over 48 hours. Discontinued CIWA protocol. Discontinued rally packs. Peer support assisting with care. ? Discharged with gabapentin 300 mg nightly. Patient motivated to quit alcohol use. Naltrexone contraindicated as patient take Suboxone. #Opioid use disorder ? On Suboxone 16/4 mg daily. Confirmed with [facility] clinic. Will resume at discharge. #GERD ? Continue home omeprazole 40 mg daily. Exam Data for Last 24 hours Vital signs and Labs for Last 24 Hours: Temp Pulse Resp BP Pulse Ox O2 Del Method O2 Flow Rate 98.2 F 90 16 177/96 H 96 Room Air 2 05/04/25 08:00 05/04/25 08:00 05/04/25 08:00 05/04/25 08:00 05/04/25 08:00 05/04/25 11:00 04/29/25 07:00 Laboratory Results - last 24 hr 05/04/25 05:58: WBC 9.2, RBC 2.62 L, Hgb 9.5 L, Hct 28.8 L, MCV 109.9 H, MCH 36.3 H, MCHC 33.0, RDW 14.6, Plt Count 179, MPV 9.4, Neut % (Auto) 78.7, Lymph % (Auto) 7.8 L, [place] % (Auto) 7.6, Eos % (Auto) 2.7, Baso % (Auto) 0.2, Neut # (Auto) 7.2, Lymph # (Auto) 0.7, [place] # (Auto) 0.7, Eos # (Auto) 0.3, Baso # (Auto) 0.0, Sodium 134 L, Potassium 3.4 L, Chloride 97 L, Carbon Dioxide 31 H, Anion Gap 9.4, BUN 15, Creatinine 0.70, Estimated Creat Clear 147, Estimated GFR 115, Est GFR ( Amer) 140, Glucose 127 H, Calcium 7.3 L, Total Bilirubin 0.6, AST 38, ALT 16, Alkaline Phosphatase 137 H, Total Protein 5.1 L, Albumin 2.6 L, Globulin 2.5, Albumin/Globulin Ratio 1.0 L I & O for Last 24 hours: Intake & Output 05/01/25 05/02/25 05/03/25 05/04/25 23:59 23:59 23:59 23:59 Intake Total 760 / 1000 1130 / 1130 720 / 720 320 / 320 Output Total 725 / 725 600 / 600 500 / 500 Balance 35 / 275 530 / 530 220 / 220 320 / 320 Weight 92.17 kg 91.824 kg 91.217 kg 91.767 kg Constitutional Constitutional: no acute distress *Routine HEENT Exam Head: Present normocephalic Eye: Present EOMI and PERRL ENT: Present mucous membranes moist *Routine Neck Exam Neck: Present supple; Absent lymphadenopathy *Routine Respiratory Exam Respiratory: Present CTA bilaterally *Routine Cardiovascular Exam Cardiovascular: Present RRR *Routine Abdominal Exam Abdominal: Present soft and normoactive bowel sounds; Absent tenderness *Routine Extremities Exam Extremities: Absent cyanosis, clubbing or edema *Routine Skin Exam Skin: Present warm; Absent rash *Routine Neurological Exam Neurological: Present alert and oriented X3 Results Data Completed and Pending Labs on day of discharge: Labs from last 24 hours 05/04/25 05:58 WBC 9.2 RBC 2.62 L Hgb 9.5 L Hct 28.8 L MCV 109.9 H MCH 36.3 H MCHC 33.0 RDW 14.6 Plt Count 179 MPV 9.4 Neut % (Auto) 78.7 Lymph % (Auto) 7.8 L [place] % (Auto) 7.6 Eos % (Auto) 2.7 Baso % (Auto) 0.2 Neut # (Auto) 7.2 Lymph # (Auto) 0.7 [place] # (Auto) 0.7 Eos # (Auto) 0.3 Baso # (Auto) 0.0 Sodium 134 L Potassium 3.4 L Chloride 97 L Carbon Dioxide 31 H Anion Gap 9.4 BUN 15 Creatinine 0.70 Estimated Creat Clear 147 Estimated GFR 115 Est GFR ( Amer) 140 Glucose 127 H Calcium 7.3 L Total Bilirubin 0.6 AST 38 ALT 16 Alkaline Phosphatase 137 H Total Protein 5.1 L Albumin 2.6 L Globulin 2.5 Albumin/Globulin Ratio 1.0 L DS: Diagnosis Discharge Diagnosis (1) Pancreatitis: Status: Acute Code(s): K85.90 - Acute pancreatitis without necrosis or infection, unspecified Qualifiers: Acute pancreatitis complication: unspecified Chronicity: acute Pancreatitis type: alcohol induced Qualified Code(s): K85.20 - Alcohol induced acute pancreatitis without necrosis or infection (2) Hypocalcemia: Status: Acute Code(s): E83.51 - Hypocalcemia (3) Acute hypokalemia: Status: Acute Code(s): E87.6 - Hypokalemia (4) Acute kidney injury: Status: Acute Code(s): N17.9 - Acute kidney failure, unspecified (5) History of alcohol use: Status: Acute Code(s): Z87.898 - Personal history of other specified conditions (6) NSTEMI (non-ST elevated myocardial infarction): Status: Acute Code(s): I21.4 - Non-ST elevation (NSTEMI) myocardial infarction (7) Opioid use disorder: Status: Acute Code(s): F11.90 - Opioid use, unspecified, uncomplicated (8) Abnormal chest x-ray with multiple lung nodules: Status: Acute Code(s): R91.8 - Other nonspecific abnormal finding of lung field (9) Acute respiratory failure with hypoxia: Status: Acute Code(s): J96.01 - Acute respiratory failure with hypoxia Meds Home Medications and Allergies Home Medications ?Medication ?Instructions ?Recorded ?Confirmed ?Type omeprazole 40 mg capsule,delayed 40 mg PO DAILY 10/22/23 04/26/25 History release aspirin 81 mg tablet,delayed 81 mg PO DAILY 01/14/25 04/26/25 History release atorvastatin 40 mg tablet 40 mg PO HS 01/14/25 04/26/25 History buprenorphine 8 mg-naloxone 2 mg 2 tab sublingual DAILY 01/14/25 04/26/25 History sublingual tablet gabapentin 300 mg capsule 300 mg PO HS #30 caps 05/04/25 Rx hydrochlorothiazide 25 mg tablet 25 mg PO DAILY #30 tabs 05/04/25 Rx meloxicam 7.5 mg tablet 7.5 mg PO BIDP PRN Pancreatic pain 05/04/25 Rx 7 days #14 tabs metoprolol succinate 25 mg 25 mg PO DAILY 30 days #30 tabs 05/04/25 Rx tablet,extended release 24 hr nicotine 21 mg/24 hr daily 21 mg transdermal DAILYP PRN 05/04/25 Rx transdermal patch Nicotine Cravings 30 days #28 ea ondansetron HCl 4 mg tablet 4 mg PO Q6H PRN nausea and 05/04/25 Rx vomiting #14 tabs New Prescriptions to Start Prescriptions: gabapentin Virgen,Ta hydrochlorothiazide Virgen,Ta meloxicam Virgen,Ta metoprolol succinate Virgen,Ta nicotine Virgen,Ta ondansetron HCl Ta New Allergies Allergy/AdvReac Type Severity Reaction Status Date / Time celecoxib (From CELEBREX) Allergy Unknown I-HIVES Verified 02/10/25 08:51 NSAIDS (Non-Steroidal Allergy Unknown HEARTBURN/H Verified 02/10/25 08:51 Anti-Inflamma (NSAIDS EZEQUIEL (NON-STEROIDAL ANTI-INFLAMMA) Penicillins (PENICILLINS) Allergy Unknown I-HIVES Verified 02/10/25 08:51 amlodipine AdvReac Unknown Verified 04/27/25 07:24 allergy reaction isosorbide AdvReac Headache Verified 04/27/25 07:24 ticagrelor (From Brilinta) AdvReac Hypertensio Verified 04/27/25 07:24 n Discharge Plan Disposition Patient Disposition: [facility] Hospital Condition: Fair Discharge Order Discharge Orders: Discharge Order (Routine); Ordered 05/04/25 Ordered By: Ta New Follow up Plan Follow up with: Milagros Nicholas APRN [Nurse Practitioner, Cardiology] - 05/18/25 10:45 am Harpreet Galvez II, MD [Staff Physician, Gastroenterology] - 05/12/25 10:15 am Vannessa Loera MD [Physician, Pulmonology] - 05/31/25 1:00 pm Chanelle Perez APRN [Nurse Practitioner, Family Practice] - 05/10/25 1:00 pm Prescriptions/Medication Reconciliation: New nicotine 21 mg/24 hr Patch 24 Hour 21 mg transdermal DAILYP PRN (Reason: Nicotine Cravings) 30 Days Qty: 28 0RF metoprolol succinate 25 mg Tablet Extended Release 24 Hr 25 mg PO DAILY 30 Days Qty: 30 0RF hydrochlorothiazide 25 mg tablet 25 mg PO DAILY Qty: 30 0RF ondansetron HCl 4 mg tablet 4 mg PO Q6H PRN (Reason: nausea and vomiting) Qty: 14 0RF meloxicam 7.5 mg tablet 7.5 mg PO BIDP PRN (Reason: Pancreatic pain) 7 Days Qty: 14 0RF gabapentin 300 mg capsule 300 mg PO HS Qty: 30 0RF Continued omeprazole 40 mg capsule,delayed release(DR/EC) 40 mg PO DAILY atorvastatin 40 mg tablet 40 mg PO HS aspirin 81 mg tablet,delayed release (DR/EC) 81 mg PO DAILY buprenorphine-naloxone 8-2 mg Tablet, Sublingual 2 tab SUBLINGUAL DAILY Problem Reconciliation Problems Reviewed?: Yes Patient Discharge Instructions ACTIVITY: Continue current activity DIET: advance to your usual diet and low fat, low cholesterol Stand Alone Forms: [facility] Work Release Patient Instructions: DI for Pancreatitis, DI for Alcohol Use Disorder, DI for Hypokalemia, DI for Hypocalcemia, Stop Light Infection Print Language: Albanian Providers Primary Care Provider: Provider,Referral Admit Provider: Ta New Attending Provider: Ta New
[2025-05-04] MEDS: OXYCODONE 5MG W/APAP 325MG TABLET 1 EACH PO (12:07)
--- NOTE | 2025-05-06 10:06 | SW/DCPLANNER ---
Phoned patient x2. Patient's phone number has a voicemail that is not sat up. Elif Cee
== END 2025-05-04 13:21 | DRG 438 ==
LOC: ER 14:15 → ICU 14:27 → 2ND 15:32
PROVIDERS: Internal Medicine Adolescent Medicine; Internal Medicine Pulmonary Disease; Nurse Practitioner Acute Care; Physician Assistant; Admitting Provider Student in an Organized Health Care Education/Training Program; Emergency Provider Student in an Organized Health Care Education/Training Program; Visit Provider Student in an Organized Health Care Education/Training Program
DX: K85.20 Alcohol induced acute pancreatitis without necrosis or infection (principal); I21.A1 Myocardial infarction type 2; J96.01 Acute respiratory failure with hypoxia; N17.9 Acute kidney failure, unspecified; F11.20 Opioid dependence, uncomplicated; I10 Essential (primary) hypertension; E83.51 Hypocalcemia; F10.10 Alcohol abuse, uncomplicated; D64.9 Anemia, unspecified; J98.4 Other disorders of lung; E83.42 Hypomagnesemia; E78.5 Hyperlipidemia, unspecified; E87.6 Hypokalemia; K21.9 Gastro-esophageal reflux disease without esophagitis; I25.10 Atherosclerotic heart disease of native coronary artery without angina pectoris; I49.3 Ventricular premature depolarization; F17.210 Nicotine dependence, cigarettes, uncomplicated; Y90.0 Blood alcohol level of less than 20 mg/100 ml; Z95.5 Presence of coronary angioplasty implant and graft; Z79.82 Long term (current) use of aspirin; Z79.899 Other long term (current) drug therapy; Z88.1 Allergy status to other antibiotic agents; Z88.6 Allergy status to analgesic agent; Z88.8 Allergy status to other drugs, medicaments and biological substances; Z86.19 Personal history of other infectious and parasitic diseases
CPT/HCPCS: 36415; 71045; 74177; 76705; 80053; 80061; 80307; 80320; 81001; 83605; 83615; 83690; 83735; 83880; 84100; 84132; 84443; 84484; 85007; 85025; 86480; 87389; 93005; 93308; 99285; J0360; J0612; J1171; J1650; J1885; J1939; J2270; J2405; J2470; J2550; J3360; J3411; J3475; J3480; J7050; J7120; Q9967

== ENCOUNTER 2025-05-12 10:43 | Outpatient (CLI) | payer MEDICAID, SELFPAY ==
[2025-05-12 11:02] LABS: Hematocrit 28.8 % (42.0-52.0); Hemoglobin 9.5 g/dL (14.1-18.0); Immature Granulocytes % 0.5 %; Mean Corpuscular HGB Conc 33.0 g/dL (31.8-35.4); Mean Corpuscular Hemoglobin 35.6 pg (27.0-31.2); Mean Corpuscular Volume 107.9 fl (80-94); Nucleated Red Blood Cells % 0 %; Platelet Count 370 K/mm3 (142-424); Red Blood Count 2.67 M/mm3 (4.60-6.20); Red Cell Distribution Width-SD 55.5 fL; White Blood Count 5.6 K/mm3 (4.8-10.8)
--- OUTSIDE RECORDS SUMMARY | 2025-05-12 11:22 | XMS_ITS | Clinical Summary ---
Author Organization Healthcare Address [address] [place] [address] Care Team Providers Care Pattern Worker Name Role Phone Felton Cruz MD Primary Care Provider + [phone] Family History Medical History Relation Name Comments [...] of Treatment Not on file Care Teams Pattern Worker Relationship Specialty Start Date End Date Felton Cruz MD [address] [place] [address] PCP - General 12/23/20
--- OUTSIDE RECORDS SUMMARY | 2025-05-12 11:23 | XMS_ITS | Referral Summary ---
Author Organization [facility] ([place], [place], [place], [place]) Address [address] [place] [address] Care Team Providers Care Debone Processing Supervisor Name Role Phone Unavailable Primary Care Provider [...] EACH DAY 09/12/2022 Active Narcan 4 mg/actuation [place] SMARTSIG:Bot h Nares 08/23/2022 Active loratadine (CLARITIN) [...] Date Calvin rded Speak language other than Turkmen at home Not on file 08/30/2023 Want [...] on file Medical Devices Implanted Type Area Network Control Operators Supervisor Device Identifier Shelf Expiration Date Model / Serial / Lot Implants IMPLANTS Right: Hip Insurance [employer] [facility] [place] [address] Advance Directives For more information, please contact: [phone] * Full Code (Latest Code Status on File) Date Activated Date Inactivated Comments 07/02/2022 11:51 AM 07/02/2022 4:02 PM -Attempt Resuscitation if person has no pulse and is not breathing. -If no pulse or not breathing attempt CPR/CODE. -Call Rapid Response if patient is in distress.
[2025-05-12 11:37] LABS: Alanine Aminotransferase 68 U/L (12-78); Albumin Level 2.9 g/dl (3.5-5.0); Albumin/Globulin Ratio 1.1 (1.1-1.8); Alkaline Phosphatase 257 U/L (38-126); Anion Gap 12.0 mEq/L (5-15); Aspartate Amino Transferase 43 U/L (17-59); Bilirubin,Total 0.7 mg/dl (0.2-1.3); Blood Urea Nitrogen 3 mg/dl (9-20); Calcium 8.3 mg/dl (8.4-10.2); Carbon Dioxide 32 mmol/L (22.0-30.0); Chloride 96 mmol/L (98-107); Creatinine,Serum 0.60 mg/dl (0.66-1.25); Estimated Glomerular Filt Rate 138 ml/min (>60); GFR (African American) 167 ML/MIN (>60); Globulin 2.7 g/dL (1.3-3.2); Glucose 116 mg/dl (74-100); Potassium 4.0 mmoL/L (3.5-5.1); Sodium 136 mmol/L (136-145); Total Protein,Serum 5.6 g/dl (6.3-8.2)
[2025-05-12 12:34] LABS: Macrocytosis 2+; Total Cells Counted 100
[2025-05-12 12:43] LABS: Iron 48 ug/dL (49-181)
[2025-05-12 12:52] LABS: Total Iron Binding Capacity 250 ug/dL (261-462)
[2025-05-12 13:19] LABS: Ferritin 492 ng/ml (17.9-464)
== END 2025-05-12 23:59 | disposition home or self-care (01) ==
PROVIDERS: PCP Nurse Practitioner Family; Visit Provider Nurse Practitioner Family
DX: K70.10 Alcoholic hepatitis without ascites (principal)
CPT/HCPCS: 36415; 80053; 82728; 83540; 83550; 85007; 85025

== ENCOUNTER 2025-05-17 06:33 | Day surgery (SDC) | payer MEDICAID, SELFPAY ==
--- NOTE | 2025-05-13 06:45 | EXP.HP ---
History of Present Illness *Admission Date: 05/17/25 *History of present illness: Mr. Barker is a 60-year-old gentleman who is here for diagnostic EGD secondary to persistent nausea and vomiting. He does report some black emesis. He has been having generalized abdominal pain which is worse in the left upper abdomen. He has been having a lot of bloating, gassiness, belching and diarrhea. He does have a history of alcohol use disorder and had alcohol induced pancreatitis. The patient does have macrocytic anemia with hemoglobin 9.5, hematocrit 28.5 and MCV 107.9. The examination is deemed medically necessary for diagnostic EGD. The patient has been seen, interviewed and examined prior to the procedure by both myself and the anesthesia provider. [facility] Disclaimer: The information contained in this section may have been updated after the patient was seen, as this information can be updated by other users. Medical History Diarrhea Family history of ischemic heart disease Hypertensive emergency Hyperlipidemia Hypotension Hypokalemia Knee pain, left Bradycardia Opioid use disorder in remission History of alcohol use Acute kidney injury Dehydration GWENDOLYN (acute kidney injury) Parainfluenza Acute hypokalemia Hypocalcemia Abnormal chest x-ray with multiple lung nodules Acute respiratory failure with hypoxia Hypovolemic shock Abnormal cardiovascular stress test Atypical angina Dyspnea Atypical chest pain Opioid use disorder Typical angina Witnessed apneic spells Edema of both lower extremities Hyperlipidemia Osteoarthritis Narcotic dependence Coronary artery disease HTN (hypertension) Tobacco dependence syndrome Surgical History History of mandibular surgery History of surgery on arm History of ankle surgery History of lung surgery History of right hip replacement S/P cardiac cath Family History Mother Heart attack, Onset Age: 42 Father Throat cancer, Onset Age: 81 Social History (Updated 05/17/25 @ 07:05 by Ta Zamora RN) Smoking Status: Current every day smoker tobacco type: cigarettes packs per day: 1 smoking status start date: 2004 years smoked: 30 quit status: considering quitting alcohol intake: current substance use type: opiates current occupational status: employed Travel in the last 8 weeks?: None household members: significant other lives independently: Yes marital status: number of children: 3 service: Yes status: retired branch: [employer] current occupation: [employer] Have you lived/traveled outside US in past 30 days?: No Contact w/someone who lives/traveled outside US past 30 days?: No Exposure to someone with infectious disease in past 14 days?: No Do you have a fever (greater than 100.4 F or 38 C)?: No Have you tested positive for COVID-19?: No Exposed to someone with COVID-19 in past 14 days?: No Do you have a sore throat?: No Do you have a cough?: No Do you have any weakness?: No Are you experiencing any nausea/vomitting?: No Do you have any diarrhea?: No Are you experiencing any unusual bleeding?: No Do you have any muscle aches/pain?: No Do you have any abdominal pain?: No Are you experiencing loss of taste or smell?: No Other Medical History Have you received the Flu Vaccine for this season: No Have you received the Pneumonia Vaccine: Yes Review of Systems Review of Systems Review of systems (narrative): Negative *Cardiovascular Comments: Negative *Gastrointestinal Comments: Negative *Genitourinary Comments: Negative *Musculoskeletal Comments: Negative *Neurologic Comments: Negative Meds Home Medications and Allergies Home Medications ?Medication ?Instructions ?Recorded ?Confirmed ?Type aspirin 81 mg tablet,delayed 81 mg PO DAILY 01/14/25 05/17/25 History release nicotine 21 mg/24 hr daily 21 mg transdermal DAILYP PRN 05/04/25 05/17/25 Rx transdermal patch Nicotine Cravings 30 days #28 ea hydrochlorothiazide 25 mg tablet 25 mg PO DAILY #30 tabs 05/10/25 05/17/25 Rx metoprolol succinate 25 mg 25 mg PO DAILY #30 tabs 05/10/25 05/17/25 Rx tablet,extended release 24 hr omeprazole 40 mg capsule,delayed 40 mg PO DAILY #30 caps 05/10/25 05/17/25 Rx release ondansetron 4 mg disintegrating 4 mg PO Q8H PRN nausea and 05/12/25 05/17/25 Rx tablet vomiting #30 tabs New Prescriptions to Start Prescriptions: Allergies Allergy/AdvReac Type Severity Reaction Status Date / Time celecoxib (From CELEBREX) Allergy Unknown I-HIVES Verified 05/17/25 07:06 NSAIDS (Non-Steroidal Allergy Unknown HEARTBURN/H Verified 05/17/25 07:06 Anti-Inflamma (NSAIDS EZEQUIEL (NON-STEROIDAL ANTI-INFLAMMA) Penicillins (PENICILLINS) Allergy Unknown I-HIVES Verified 05/17/25 07:06 amlodipine AdvReac Unknown Verified 05/17/25 07:06 allergy reaction isosorbide AdvReac Headache Verified 05/17/25 07:06 ticagrelor (From Brilinta) AdvReac Hypertensio Verified 05/17/25 07:06 n Exam *Routine HEENT Exam Head: Present normocephalic Eye: Present EOMI and PERRL ENT: Present mucous membranes moist *Routine Neck Exam Neck: Present supple *Routine Respiratory Exam Respiratory: Present CTA bilaterally *Routine Cardiovascular Exam Cardiovascular: Present RRR *Routine Abdominal Exam Abdominal: Present soft and normoactive bowel sounds; Absent tenderness *Routine Rectal Exam Rectal:: deferred *Routine Genitalia Exam Genitalia:: deferred *Routine Extremities Exam Extremities: Absent cyanosis, clubbing or edema *Routine Skin Exam Skin: Present warm; Absent rash *Routine Neurological Exam Neurological: Present alert and oriented X3 Assessment and Plan *Assessment and plan (1) Nausea & vomiting: Status: Acute Category: Medical Code(s): R11.2 - Nausea with vomiting, unspecified (2) Bloating: Status: Acute Category: Medical Code(s): R14.0 - Abdominal distension (gaseous) (3) Coffee ground emesis: Status: Acute Category: Medical Code(s): K92.0 - Hematemesis (4) Anemia: Status: Acute Category: Medical Code(s): D64.9 - Anemia, unspecified Plan A/P: 1. Nausea, vomiting, coffee-ground emesis, bloating and diarrhea is the preprocedural diagnosis. The patient will be anesthetized/sedated using MAC sedation. The patient has been seen and examined. Cardiac and lung assessment prior to the examination is stable. Proceed with planned diagnostic EGD.
--- NOTE | 2025-05-17 06:42 | HMH.PROCNOTE ---
[facility] Procedure Note Date: 05/17/25 Time: 08:11 Procedure Note:: Upper Endoscopy Procedure Report: Esophagogastroduodenoscopy with cold biopsies Endoscopost: Harpreet Galvez II, MD Referring Physician: CITLALY Grey Date of Procedure: May 17, 2025 Equipment: Olympus GIF-1100 standard upper endoscope Sedation: MAC sedation Indications: Mr. Barker is a 60-year-old gentleman who is here for diagnostic EGD secondary to persistent nausea and infrequent vomiting. He does report some black emesis. He has been having generalized abdominal pain which is worse in the left upper abdomen. The patient does report early satiety. He has been having a lot of bloating, gassiness, belching and bowel irregularity. He will alternate between constipation and diarrhea. He does have a history of alcohol use disorder and had alcohol induced pancreatitis. His most recent CAT scan from 05/04/2025 did show interstitial pancreatitis without pseudocyst, abscess or necrosis. He does report that he has been abstinent from alcohol. The patient does have macrocytic anemia with hemoglobin 9.5, hematocrit 28.5 and MCV 107.9. He is Hemoccult negative. The examination is deemed medically necessary for diagnostic EGD. Procedure: Prior to the procedure, a history and physical exam was performed, and patient's medications and allergies were reviewed. The risks, benefits and alternatives of the sedation and procedure were discussed with the patient. All questions were answered and informed consent was obtained. The patient was brought to the procedure room. Patient identification and proposed procedure were verified by the physician and the nurse. The patient was placed in a left lateral decubitus position and the scope was passed under direct vision. Throughout the procedure, the patient's blood pressure, pulse, and oxygen saturations were monitored continuously. The upper GI endoscopy was accomplished without difficulty. The patient tolerated the procedure well. Findings: The scope was passed directly into the upper esophagus and advanced to the third portion of the duodenum. The post bulbar duodenum, ampulla and duodenal bulb were normal with normal mucosa and conniventes. A cold biopsy was taken from the second portion of the duodenum for the disaccharidase assay. The scope was withdrawn through a normal duodenal bulb and pylorus into the stomach. There was mild reactive gastropathy of the antrum. There was an abundant amount of retained solid food in the body and fundus of the stomach suggestive of gastric dysmotility/gastroparesis. Cold biopsies were taken from the antrum and lesser curvature of the stomach. Upon retroflexion there was no hiatal hernia. The scope was then withdrawn into the esophagus. There was a single tongue of salmon-colored mucosa that was biopsied to rule out intestinal metaplasia. There was no evidence of reflux esophagitis. There were no esophageal varices. There were tertiary contractions and evidence of mild esophageal dysmotility. The remainder of the esophageal mucosa was normal. Impression: 1. Retained gastric food residue and content?rule out gastric dysmotility/gastroparesis Plan: I will follow-up the biopsies and disaccharidase assay. I would recommend metoclopramide and Creon. I do feel that his ongoing pain is related to the pancreatitis. He will need to maintain abstinence from alcohol use.
[2025-05-17 07:01] VITALS: BMI 24.4
[2025-05-17] MEDS: LACTATED RINGERS 1000ML 1,000 ML 50 ML IV (07:03)
[2025-05-17 07:07] VITALS: BP 139/86; PULSE 75; RESP 18; TEMP 36.4; O2SAT 96
--- NOTE | 2025-05-17 07:51 | EXP.ANES.CKL ---
[facility] Disclaimer: The information contained in this section may have been updated after the patient was seen, as this information can be updated by other users. Medical History Diarrhea Family history of ischemic heart disease Hypertensive emergency Hyperlipidemia Hypotension Hypokalemia Knee pain, left Bradycardia Opioid use disorder in remission History of alcohol use Acute kidney injury Dehydration GWENDOLYN (acute kidney injury) Parainfluenza Acute hypokalemia Hypocalcemia Abnormal chest x-ray with multiple lung nodules Acute respiratory failure with hypoxia Hypovolemic shock Abnormal cardiovascular stress test Atypical angina Dyspnea Atypical chest pain Opioid use disorder Typical angina Witnessed apneic spells Edema of both lower extremities Hyperlipidemia Osteoarthritis Narcotic dependence Coronary artery disease HTN (hypertension) Tobacco dependence syndrome Surgical History History of mandibular surgery History of surgery on arm History of ankle surgery History of lung surgery History of right hip replacement S/P cardiac cath Family History Mother Heart attack, Onset Age: 42 Father Throat cancer, Onset Age: 81 Social History (Updated 05/17/25 @ 07:05 by Ta Zamora RN) Smoking Status: Current every day smoker tobacco type: cigarettes packs per day: 1 smoking status start date: 2004 years smoked: 30 quit status: considering quitting alcohol intake: current substance use type: opiates current occupational status: employed Travel in the last 8 weeks?: None household members: significant other lives independently: Yes marital status: number of children: 3 service: Yes status: retired branch: [employer] current occupation: [employer] Have you lived/traveled outside [place] in past 30 days?: No Contact w/someone who lives/traveled outside [place] past 30 days?: No Exposure to someone with infectious disease in past 14 days?: No Do you have a fever (greater than 100.4 F or 38 C)?: No Have you tested positive for COVID-19?: No Exposed to someone with COVID-19 in past 14 days?: No Do you have a sore throat?: No Do you have a cough?: No Do you have any weakness?: No Are you experiencing any nausea/vomitting?: No Do you have any diarrhea?: No Are you experiencing any unusual bleeding?: No Do you have any muscle aches/pain?: No Do you have any abdominal pain?: No Are you experiencing loss of taste or smell?: No [facility] Anesthesia Checklist Patient Identification Patient Identification: Verbal (Name & ) Structural Data Admitted From: Home Planned Operative Procedure/s: egd Consent for Planned Operative Procedure(s) Verified: Yes NPO Status Verified Time NPO: 00:00 Airway Assessment Mallampati Score:: Class II C-Spine Mobility Assessed: Yes TMJ Mobility Assessed: Yes Dentition: Poor Dentition Neurological Assessment Level of Consciousness: Awake, Alert and Appropriate Anesthesia Plan Anesthesia Risk discussed: Yes Anesthesia Plan: Verified ASA Class: III Anesthesia Type: MAC
[2025-05-17 08:13] VITALS: BP 119/68; PULSE 77; RESP 16; TEMP 36.4; O2SAT 97
[2025-05-17 08:23] VITALS: BP 117/68; PULSE 74; RESP 17; TEMP 36.4; O2SAT 99
[2025-05-17 08:33] VITALS: BP 130/71; PULSE 83; RESP 17; TEMP 36.4; O2SAT 97
[2025-05-17 08:43] VITALS: BP 124/83; PULSE 81; RESP 18; TEMP 36.4; O2SAT 99
[2025-05-20 16:57] LABS: Interpretation Notes (.); Lactase 18.37 (>/= 14.0); Maltase 239.34 (>/= 110.0); Palatinase 17.25 (>/= 8.5); Reference Notes (.); Sucrase 67.67 (>/= 25.0)
== END 2025-05-17 09:03 | disposition home or self-care (01) ==
PROVIDERS: PCP Nurse Practitioner Family; Visit Provider Internal Medicine Gastroenterology
PROC: 0DJ08ZZ Inspection of Upper Intestinal Tract, Via Natural or Artificial Opening Endoscopic (ICD-10-PCS; CPT 43239; principal; 2025-05-17 08:00)
DX: K92.0 Hematemesis (principal); D64.9 Anemia, unspecified; F17.210 Nicotine dependence, cigarettes, uncomplicated; I10 Essential (primary) hypertension; Z88.8 Allergy status to other drugs, medicaments and biological substances; Z88.0 Allergy status to penicillin; Z88.6 Allergy status to analgesic agent; Z88.2 Allergy status to sulfonamides; K31.89 Other diseases of stomach and duodenum; K21.00 Gastro-esophageal reflux disease with esophagitis, without bleeding
CPT/HCPCS: 43239; 82657; J2003; J2704; J7120

== ENCOUNTER 2025-06-07 07:58 | Outpatient (CLI) | payer MEDICAID, SELFPAY ==
--- OUTSIDE RECORDS SUMMARY | 2025-06-07 08:00 | XMS_ITS | Data Portability ---
Author Organization [facility] Address [address] [place] [address] Assessment No assessment recorded. Plan of Treatment Reminders Order Date Submit Date Provider Last Modified By Organization Details Last Modified Time Details Appointments None recorded. Lab unlisted lab - compliance drug dylon, no THC 2023 024 [place] [facility], [address], [address], [place], [address], 4 04:09:36 lipid panel, serum 2023 024 [place] [facility], [address], [address], [place], [address], 4 14:13:18 CBC w/ auto diff 2023 024 [place] [facility], [address], [address], [place], [address], 4 14:13:16 CMP, serum or plasma 2023 024 [place] [facility], [address], [address], [place], [address], 4 14:13:17 TSH + free T4, serum 2023 024 [place] [facility], [address], [address], [place], [address], 4 14:13:15 CMP, serum or plasma [email or web address] (Lab), [address] [place], [place] [address]y [address], [place], [address], 3 16:04:10 TSH + free T4, serum [email or web address] (Lab), [address], [place], [address], 3 11:59:01 CBC w/ auto diff 2022 023 [facility] (Lab), [address], [place], [address], 3 11:59:01 unlisted lab - compliance drug dylon, no THC 2022 023 [place] [facility], [address], [address], [place], [address], 3 09:14:58 unlisted lab - compliance drug dylon, no THC 2022 023 [place] [facility], [address], [address], [place], [address], 3 16:13:49 Referral cardiologis t referral 2022 023 [email or web address] Z[facility] Wood MD, [address] , [address], [place], [address], 3 21:16:28 Procedures None recorded. Surgeries None recorded. Imaging home sleep study 2023 024 [facility], [address], [place], [address], 4 10:35:28 LDCT, chest, for lung cancer screening 2023 024 [place] [facility] Central[facility] Scheduling, [address] [facility] , [place], [address], 4 16:40:17 Medication Orders gabapentin 400 mg capsule 2023 024 [place] [employer] [facility], [address] [place] [address], [id number], 4 15:12:31 omeprazole 40 mg capsule,del ayed release 2023 024 [place] [employer] [facility], [address] [place] [address], [id number], 4 11:22:35 Ventolin HFA 90 mcg/actuati on aerosol inhaler 2023 024 [facility] [employer] [facility], [address] [place] [address], [id number], 4 13:45:49 gabapentin 400 mg capsule 2023 024 [place] [employer] [facility], [address] [place] [address], [id number], 4 17:44:55 omeprazole 40 mg capsule,del ayed release 2023 024 [place] [employer] [facility], [address] [place] [address], [id number], 4 17:44:56 Lasix 20 mg tablet 2022 023 [place] [employer] [facility], [address] [place] [address], [id number], 3 16:51:28 gabapentin 400 mg capsule 2022 023 [place] [employer] [facility], [address] [place] [address], [id number], 3 16:51:29 Ventolin HFA 90 mcg/actuati on aerosol inhaler 2022 023 [place] [employer] [facility], [address] [place] [address], [id number], 4 15:44:26 pantoprazol e 40 mg tablet,carroll yed release 2022 023 [email or web address] [employer] [facility], [address] [place] [address], [id number], 4 15:34:57 gabapentin 400 mg capsule 2022 023 [place] [employer] [facility], [address] [place] [address], [id number], 3 14:31:28 aspirin 81 mg tablet,carroll yed release 2022 023 [place] [employer] [facility], [address] [place] [address], [id number], 4 10:05:19 ProAir HFA 90 mcg/actuati on aerosol inhaler 2022 023 [place] [employer] [facility], [address] [place] [address], [id number], 3 14:31:29 gabapentin 400 mg capsule 2021 022 [place] [employer] [facility], [address] [place] [address], [id number], 2 14:11:18 pantoprazol e 40 mg tablet,carroll yed release 2021 [place] [place] [address] [employer] [facility], [address] [place] [address], [id number], 4 15:34:57 Patient TargetsNo targets recorded. Patient Instructions Encounter Date Encounter Id Patient Instructions Last Modified By Organization Details Last Modified Time 07/20/2022 [id number] ASHTYN/PDMR reviewed and appropriate. UDS on file, current and appropriate. No evidence of abuse or diversion of the scheduled medication. Not available 07/20/2022 14:02:09 10/18/2022 [id number] He is going to hold the isosorbide and HCTZ. He could restart the isosorbide if he were having any chest discomfort. It is recommended that the patient monitor their blood pressure at home and that they keep and bring a log of the blood pressure readings to future appointments. It is recommended that the patient follow up for recheck of the blood pressure, review of the log of home blood pressure measurements, and further management as required. Not available 10/18/2022 14:25:00 01/17/2023 [id number] Keep appointment with cardilogy [email or web address] Not available 01/17/2023 16:42:01 10/21/2023 [id number] Quitting Tobacco : Care Instructions Not available 10/21/2023 16:02:21 body mass index: care instructions Not available 10/21/2023 16:02:21 learning about healthy weight Not available 10/21/2023 16:02:21 Felton Duvall started this conversation with Ching Choudhury Oct 11 MD Felton Duvall3:52 PM Get a copy of his upper and lower endoscopy from Dr Crowell. Follow up in a month and as needed. Keep appointment with cardiology for tomorrow. Will defer on treatment for depression at this time (discussed). He denies that the gabapentin makes him sleepy. We discussed that if he has sleep apnea then any medication that causes drowsiness may carry increased risk (of worsening sleep apnea including ). Not available 10/21/2023 16:16:14 11/21/2023 [id number] He is going to complete the home sleep study. ASHTYN/PDMR reviewed and appropriate. UDS on file, current and appropriate. No evidence of abuse or diversion of the scheduled medication. Not available 11/21/2023 13:36:03 Reason for Referral Exceptional Student Education Aide Referral for [facility] coronary artery Referring Physician: Felton Duvall, Family Medicine, Encounter Date: 10/18/2022 Results Created Date Observation Date Name Description Value Unit Range Abnormal Flag Note LastModifiedBy Organization Detail LastModifiedTime 10/19/19 23 10/24/2022 COMPL IANCE DRUG DYLON , NO THC summary report (summary) FINAL ===== ===== ===== ===== ===== ===== ===== ===== ===== ===== ===== ===== ===== === TOXAS SURE COMP DRUG DYLON SIS,N O THC,U R ===== ===== ===== ===== ===== ===== ===== ===== ===== ===== ===== ===== ===== === Test Resul t Flag Units Drug Prese nt Oxyco done 873 ng/mg creat Oxymo rphon e 256 ng/mg creat Norox ycodo ne 320 ng/mg creat Norox ymorp sajan 119 ng/mg creat Sourc es of oxyco done are sched uled presc ripti on medic ation s. Oxymo rphon e, norox ycodo ne, and norox ymorp sajan are expec jeanna metab olite s of oxyco done. Oxymo rphon e is also avail able as a sched uled presc ripti on medic ation . Bupre norph ine 39 ng/mg creat Norbu preno rphin e 236 ng/mg creat Sourc e of bupre norph ine is a sched uled presc ripti on medic ation . Norbu preno rphin e is an expec jeanna metab olite of bupre norph ine. Gabap entin PRESE NT Napro xen PRESE NT ===== ===== ===== ===== ===== ===== ===== ===== ===== ===== ===== ===== ===== === Test Resul t Flag Units Ref Range Creat inine 64 mg/dL >=20 ===== ===== ===== ===== ===== ===== ===== ===== ===== ===== ===== ===== ===== === Decla red Medic ation s: Medic ation list was not provi ded. ===== ===== ===== ===== ===== ===== ===== ===== ===== ===== ===== ===== ===== === For clini gala consu ltati on, pleas e call [phone]. ===== ===== ===== ===== ===== ===== ===== ===== ===== ===== ===== ===== ===== === Not Available [facility] ([facility]) [address] [place], [address], 10/24/2022 16:13:49 10/19/19 23 10/24/2022 COMPL IANCE DRUG DYLON , NO THC pdf . Not Available [facility] ([facility]) [address] [place], [address], 10/24/2022 16:13:49 01/18/20 23 01/24/2023 COMPL IANCE DRUG DYLON , NO THC summary report (summary) FINAL ===== ===== ===== ===== ===== ===== ===== ===== ===== ===== ===== ===== ===== === TOXAS SURE COMP DRUG DYLON SIS,N O THC,U R ===== ===== ===== ===== ===== ===== ===== ===== ===== ===== ===== ===== ===== === Test Resul t Flag Units Drug Prese nt Bupre norph ine 58 ng/mg creat Norbu preno rphin e 301 ng/mg creat Sourc e of bupre norph ine is a sched uled presc ripti on medic ation . Norbu preno rphin e is an expec jeanna metab olite of bupre norph ine. Gabap entin PRESE NT Trazo done PRESE NT 1,3 chlor ophen yl piper azine PRESE NT 1,3-c hloro pheny l piper azine is an expec jeanna metab olite of trazo done. Napro xen PRESE NT ===== ===== ===== ===== ===== ===== ===== ===== ===== ===== ===== ===== ===== === Test Resul t Flag Units Ref Range Creat inine 295 mg/dL >=20 ===== ===== ===== ===== ===== ===== ===== ===== ===== ===== ===== ===== ===== === Decla red Medic ation s: Medic ation list was not provi ded. ===== ===== ===== ===== ===== ===== ===== ===== ===== ===== ===== ===== ===== === For clini gala consu ltati on, pleas e call . ===== ===== ===== ===== ===== ===== ===== ===== ===== ===== ===== ===== ===== === Not Available [facility] ([facility]) [address] [facility] [place] [facility], [place], [address], 01/24/2023 09:14:58 0601/24/2023 COMPL RAJAN DRUG DYLON , NO THC pdf . Not Available [facility] ([facility]) [address] [place], [address], 01/24/2023 09:14:58 10/21/19 24 10/22/2023 TSH+F REE T4 TSH 1.020 uIU/m L 0.450- 4.500 Not Available [facility] ([facility]) [address] [place], [address], 10/22/2023 14:13:15 10/21/19 24 10/22/2023 TSH+F REE T4 T4,free(dire ct) 1.17 NG/dL 0.82-1 .77 Not Available [facility] ([facility]) [address] [facility] [place], [place], [address], 10/22/2023 14:13:15 10/21/19 24 10/22/2023 CBC WITH DIFFE RENTI AL/PL ATELE T WBC 8.6 x10e3 /uL 3.4-10 .8 Not Available [facility] ([facility]) [address] [place], [address], 10/22/2023 14:13:16 10/21/19 24 10/22/2023 CBC WITH DIFFE RENTI AL/PL ATELE T RBC 4.12 x10e6 /uL 4.14-5 .80 below low normal Not Available [facility] ([facility]) [address] [place], [address], 10/22/2023 14:13:16 10/21/19 24 10/22/2023 CBC WITH DIFFE RENTI AL/PL ATELE T hemoglobin 13.2 g/dL 13.0-1 7.7 Not Available [facility] ([facility]) [address] [place], [address], 10/22/2023 14:13:16 10/21/19 24 10/22/2023 CBC WITH DIFFE RENTI AL/PL ATELE T hematocrit 38.5 % 37.5-5 1.0 Not Available [facility] ([facility]) [address] [facility] [place] [facility], [place], [address], 10/22/2023 14:13:16 10/21/19 24 10/22/2023 CBC WITH DIFFE RENTI AL/PL ATELE T MCV 93 fL 79-97 Not Available [facility] ([facility]) [address] [facility] [place], [place], [address], 10/22/2023 14:13:16 10/21/19 24 10/22/2023 CBC WITH DIFFE RENTI AL/PL ATELE T MCH 32.0 pg 26.6-3 3.0 Not Available [facility] ([facility]) [address] [facility] [place], [place], [address], 10/22/2023 14:13:16 10/21/19 24 10/22/2023 CBC WITH DIFFE RENTI AL/PL ATELE T MCHC 34.3 g/dL 31.5-3 5.7 Not Available [facility] ([facility]) [address] [place], [address], 10/22/2023 14:13:16 10/21/19 24 10/22/2023 CBC WITH DIFFE RENTI AL/PL ATELE T RDW 12.9 % 11.6-1 5.4 Not Available [facility] ([facility]) [address] [place], [address], 10/22/2023 14:13:16 10/21/19 24 10/22/2023 CBC WITH DIFFE RENTI AL/PL ATELE T platelets 194 x10e3 /uL 150-45 0 Not Available [facility] ([facility]) [address] [facility] [place], [place], [address], 10/22/2023 14:13:16 10/21/19 24 10/22/2023 CBC WITH DIFFE RENTI AL/PL ATELE T neutrophils 69 % not estab. Not Available [facility] ([facility]) [address] [facility] [place], [place], [address], 10/22/2023 14:13:16 10/21/19 24 10/22/2023 CBC WITH DIFFE RENTI AL/PL ATELE T lymphs 16 % not estab. Not Available [facility] ([facility]) [address] [facility] [place], [place], [address], 10/22/2023 14:13:16 10/21/19 24 10/22/2023 CBC WITH DIFFE RENTI AL/PL ATELE T monocytes 9 % not estab. Not Available [facility] ([facility]) [address] [facility] [place], [place], [address], 10/22/2023 14:13:16 10/21/19 24 10/22/2023 CBC WITH DIFFE RENTI AL/PL ATELE T eos 4 % not estab. Not Available [facility] ([facility]) [address] [facility] [place], [place], [address], 10/22/2023 14:13:16 10/21/19 24 10/22/2023 CBC WITH DIFFE RENTI AL/PL ATELE T basos 1 % not estab. Not Available [facility] ([facility]) [address] [facility] [place], [place], [address], 10/22/2023 14:13:16 10/21/19 24 10/22/2023 CBC WITH DIFFE RENTI AL/PL ATELE T immature cells ALLEY TENDER Not Available [facility] ([facility]) [address] [place], [address], 10/22/2023 14:13:16 10/21/19 24 10/22/2023 CBC WITH DIFFE RENTI AL/PL ATELE T neutrophils (absolute) 6.1 x10e3 /uL 1.4-7. 0 Not Available [facility] ([facility]) [address] [place], [address], 10/22/2023 14:13:16 10/21/19 24 10/22/2023 CBC WITH DIFFE RENTI AL/PL ATELE T lymphs (absolute) 1.4 x10e3 /uL 0.7-3. 1 Not Available [facility] ([facility]) [address] [facility] [place], [place], [address], 10/22/2023 14:13:16 10/21/19 24 10/22/2023 CBC WITH DIFFE RENTI AL/PL ATELE T monocytes(ab solute) 0.7 x10e3 /uL 0.1-0. 9 Not Available [facility] ([facility]) [address] [facility] [place], [place], [address], 10/22/2023 14:13:16 10/21/19 24 10/22/2023 CBC WITH DIFFE RENTI AL/PL ATELE T eos (absolute) 0.3 x10e3 /uL 0.0-0. 4 Not Available [facility] ([facility]) [address] [facility] [place], [place], [address], 10/22/2023 14:13:16 10/21/19 24 10/22/2023 CBC WITH DIFFE RENTI AL/PL ATELE T baso (absolute) 0.1 x10e3 /uL 0.0-0. 2 Not Available [facility] ([facility]) [address] [facility] [place], [place], [address], 10/22/2023 14:13:16 10/21/19 24 10/22/2023 CBC WITH DIFFE RENTI AL/PL ATELE T immature granulocytes 1 % not estab. Not Available [facility] ([facility]) [address] [place], [address], 10/22/2023 14:13:16 10/21/19 24 10/22/2023 CBC WITH DIFFE RENTI AL/PL ATELE T immature grans (abs) 0.1 x10e3 /uL 0.0-0. 1 Not Available [facility] ([facility]) [address], [place], [address], 10/22/2023 14:13:16 10/21/19 24 10/22/2023 CBC WITH DIFFE RENTI AL/PL ATELE T NRBC ALLEY TENDER Not Available [facility] ([facility]) [address], [place], [address], 10/22/2023 14:13:16 10/21/19 24 10/22/2023 CBC WITH DIFFE RENTI AL/PL ATELE T hematology comments: ALLEY TENDER Not Available [facility] ([facility]) [address], [place], [address], 10/22/2023 14:13:16 10/21/19 24 10/22/2023 COMP. METAB OLIC PANEL (14) glucose 94 mg/dL 70-99 Not Available [facility] ([facility]) [address], [place], [address], 10/22/2023 14:13:17 10/21/19 24 10/22/2023 COMP. METAB OLIC PANEL (14) BUN 10 mg/dL 6-24 Not Available [facility] ([facility]) [address] [place], [address], 10/22/2023 14:13:17 10/21/19 24 10/22/2023 COMP. METAB OLIC PANEL (14) creatinine 1.29 mg/dL 0.76-1 .27 above high normal Not Available [facility] ([facility]) [address] [place], [address], 10/22/2023 14:13:17 10/21/19 24 10/22/2023 COMP. METAB OLIC PANEL (14) eGFR 65 mL/mi n/1.7 3 >59 Not Available [facility] ([facility]) [address] [place], [address], 10/22/2023 14:13:17 10/21/19 24 10/22/2023 COMP. METAB OLIC PANEL (14) BUN/creatini ne ratio 8 9-20 below low normal Not Available [facility] ([facility]) [address] [facility] [place], [place], [address], 10/22/2023 14:13:17 10/21/19 24 10/22/2023 COMP. METAB OLIC PANEL (14) sodium 137 mmol/ L 134-14 4 Not Available [facility] ([facility]) [address] [place], [address], 10/22/2023 14:13:17 10/21/19 24 10/22/2023 COMP. METAB OLIC PANEL (14) potassium 4.4 mmol/ L 3.5-5. 2 Not Available [facility] ([facility]) [address] [place], [address], 10/22/2023 14:13:17 10/21/19 24 10/22/2023 COMP. METAB OLIC PANEL (14) chloride 100 mmol/ L 96-106 Not Available [facility] ([facility]) [address] [place], [address], 10/22/2023 14:13:17 10/21/19 24 10/22/2023 COMP. METAB OLIC PANEL (14) carbon dioxide, total 24 mmol/ L 20-29 Not Available [facility] ([facility]) [address] [place], [address], 10/22/2023 14:13:17 10/21/19 24 10/22/2023 COMP. METAB OLIC PANEL (14) calcium 9.5 mg/dL 8.7-10 .2 Not Available [facility] ([facility]) [address] [place], [address], 10/22/2023 14:13:17 10/21/19 24 10/22/2023 COMP. METAB OLIC PANEL (14) protein, total 6.9 g/dL 6.0-8. 5 Not Available [facility] ([facility]) [address] [place], [address], 10/22/2023 14:13:17 10/21/19 24 10/22/2023 COMP. METAB OLIC PANEL (14) albumin 4.3 g/dL 3.8-4. 9 Not Available [facility] ([facility]) [address] [place], [address], 10/22/2023 14:13:17 10/21/19 24 10/22/2023 COMP. METAB OLIC PANEL (14) globulin, total 2.6 g/dL 1.5-4. 5 Not Available [facility] ([facility]) [address] [place], [address], 10/22/2023 14:13:17 10/21/19 24 10/22/2023 COMP. METAB OLIC PANEL (14) A/G ratio 1.7 1.2-2. 2 Not Available [facility] ([facility]) [address] [place], [address], 10/22/2023 14:13:17 10/21/19 24 10/22/2023 COMP. METAB OLIC PANEL (14) bilirubin, total 0.3 mg/dL 0.0-1. 2 Not Available [facility] ([facility]) [address] [place], [address], 10/22/2023 14:13:17 10/21/19 24 10/22/2023 COMP. METAB OLIC PANEL (14) alkaline phosphatase 110 IU/L 44-121 Not Available [facility]) [address] [place], [address], 10/22/2023 14:13:17 10/21/19 24 10/22/2023 COMP. METAB OLIC PANEL (14) AST (SGOT) 17 IU/L 0-40 Not Available [facility] ([facility]) [address] [facility] [place], [place], [address], 10/22/2023 14:13:17 10/21/19 24 10/22/2023 COMP. METAB OLIC PANEL (14) ALT (SGPT) 18 IU/L 0-44 Not Available [facility] ([facility]) [address] [facility] [place], [place], [address], 10/22/2023 14:13:17 10/21/19 24 10/22/2023 LIPID PANEL cholesterol, total 111 mg/dL 100-19 9 Not Available [facility] ([facility]) [address] [place], [address], 10/22/2023 14:13:18 10/21/19 24 10/22/2023 LIPID PANEL triglyceride s 175 mg/dL 0-149 above high normal Not Available [facility] ([facility]) [address] [place], [address], 10/22/2023 14:13:18 10/21/19 24 10/22/2023 LIPID PANEL HDL cholesterol 30 mg/dL >39 below low normal Not Available [facility] ([facility]) [address] [place], [address], 10/22/2023 14:13:18 10/21/19 24 10/22/2023 LIPID PANEL VLDL cholesterol gala 29 mg/dL 5-40 Not Available [facility] ([facility]) [address] [place], [address], 10/22/2023 14:13:18 10/21/19 24 10/22/2023 LIPID PANEL LDL chol calc ([facility]) 52 mg/dL 0-99 Not Available [facility]) [address] [place], [address], 10/22/2023 14:13:18 10/21/19 24 10/22/2023 LIPID PANEL comment: ALLEY TENDER Not Available [facility] ([facility]) [address], [place], [address], 10/22/2023 14:13:18 10/21/19 24 10/28/2023 COMPL IANCE DRUG DYLON , NO THC summary report (summary) FINAL ===== ===== ===== ===== ===== ===== ===== ===== ===== ===== ===== ===== ===== === TOXAS SURE COMP DRUG DYLON SIS,N O THC,U R ===== ===== ===== ===== ===== ===== ===== ===== ===== ===== ===== ===== ===== === Test Resul t Flag Units Drug Prese nt Bupre norph ine 125 ng/mg creat Norbu preno rphin e >1124 ng/mg creat Sourc e of bupre norph ine is a sched uled presc ripti on medic ation . Norbu preno rphin e is an expec jeanna metab olite of bupre norph ine. Guaif enesi n PRESE NT Guaif enesi n may be admin ister ed as an over- the-c ounte r or presc ripti on drug; it may also be prese nt as a break down produ ct of metho carba mol. ===== ===== ===== ===== ===== ===== ===== ===== ===== ===== ===== ===== ===== === Test Resul t Flag Units Ref Range Creat inine 89 mg/dL >=20 ===== ===== ===== ===== ===== ===== ===== ===== ===== ===== ===== ===== ===== === Decla red Medic ation s: Medic ation list was not provi ded. ===== ===== ===== ===== ===== ===== ===== ===== ===== ===== ===== ===== ===== === For clini gala consu ltati on, pleas e call [phone]. ===== ===== ===== ===== ===== ===== ===== ===== ===== ===== ===== ===== ===== === Not Available [facility] ([facility]) [address] [facility] [place], [place], [address], 10/29/2023 04:09:36 10/21/19 24 10/28/2023 COMPL IANCE DRUG DYLON , NO THC pdf . Not Available [facility] ([facility]) [address] [facility] [place], [place], [address], 10/29/2023 04:09:36 07/13/20 22 07/13/2022 stres s echoc ardio gram No observ ation record ed. [facility] [address], [place], [address], 07/16/2022 08:22:11 07/13/20 22 07/13/2022 nucle ar stres s test No observ ation record ed. [facility] [address], [place], [address], 07/16/2022 09:02:08 07/23/20 22 07/23/2022 US, duple x, renal arter y No observ ation record ed. [email or web address] [place] [address], [place], [address], 10/18/2022 14:00:31 07/23/20 22 07/23/2022 US, retro perit oneum , compl ete No observ ation record ed. [email or web address], [place], [address], 10/18/2022 13:57:45 07/24/20 22 07/23/2022 elect aroldo schuster am No observ ation record ed. [email or web address], [place], [address], 10/18/2022 13:55:20 11/05/19 24 11/05/2023 LDCT, chest , for lung cance r scree kalyn No observ ation record ed. [address] ([facility]) [address] [facility], [place], [address], 11/21/2023 13:25:05 01/03/20 24 01/03/2024 home sleep study No observ ation record ed. c[address] [place] [address] 1, [place], [address], 01/08/2024 15:59:51 Result Notes None recorded. Problems Name Problem SNOMED Code Status Onset Date Resolution Date Notes Provider Name and Address Organization Details Recorded Time Hypertens astrid disorder 99904078 Completed 201702/26/2020 Felton Duvall MD [address], [place], [address], [place] - [facility] 0 12:19:46 Depressiv e disorder 49237590 Active 2017 [place] - [facility] 8 14:14:30 History of right hip replaceme nt 436945336715 9108 Active 2017 Rossy Cormier APRN [address], [place], [address], [facility] - [facility] 8 15:30:02 Chronic pain 76465914 Active 2017 Rossy Cormier , CRUDE UNIT OPERATOR [address], [place], [address], [place] [facility] 8 15:30:19 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 Felton Duvall MD [address], [place], [address], [place] [facility] 8 16:26:00 Pain of right hip joint 917589545229 102 Active 2017 Felton Duvall MD [address], [place], [address], [place] [facility] 8 16:26:03 Post-trau matic stress disorder 63380934 Active 2017 Felton Duvall MD [address], [place], [address], [place] [facility] 8 16:26:04 Tobacco dependenc e syndrome 34620802 Active 2018 Felton Duvall MD [address], [place], [address], [place] [facility] 9 14:57:42 History of drug abuse 715869654 Active 2019 Grace Akers null, [place] - [facility] 0 11:34:51 Chronic back pain 948299558 Active 2019 Felton Duvall MD [address], [place], [address], [place] [facility] 0 15:06:53 Spinal stenosis of lumbar region 47836628 Active 2019 Felton Duvall MD [address], [place], [address], [place] [facility] 0 15:07:03 Radicular pain 79743389 Active 2019 Felton Duvall MD [address], [place], [address], [place] [facility] 0 15:07:16 Essential hypertens ion 10931358 Active 2019 Felton Duvall MD [address], [place], [address] [facility] 0 12:19:33 Degenerat ion of lumbar intervert ebral disc 93957689 Active 2019 Felton Duvall MD [address], [place], [address], [place] [facility] 0 12:21:11 Cannabis dependenc e 21125598 Active 2019 Felton Duvall MD [address], [place], [address], [place] [facility] 0 12:21:50 Body mass index 30+ - obesity 847137826 Active 2020 Felton Duvall MD [address], [place], [address] [facility] 1 18:10:28 Atypical chest pain 879897010 Active 2021 Felton Duvall MD [address], [place], [address], [place] [facility] 2 18:57:08 Acute right otitis media 619344977 Active 2021 Felton Duvall MD [address], [place], [address], [place] [facility] 2 18:57:15 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 644868829393 70315 Active 2021 Felton Duvall MD [address], [place], [address], [place] [facility] 2 15:01:48 Pain of sacroilia c joint 755508581 Active 2021 Felton Duvall MD [address], [place], [address], [place] [facility] 2 15:04:38 Diverticu lar disease of colon 738468386 Active 2021 Felton Duvall MD [address], [place], [address] [facility] 2 13:31:54 Stented coronary artery 623359114 Active 2022 Felton Duvall MD [address], [place], [address] [facility] 3 13:56:50 Coronary arteriosc lerosis 18425911 Active 2022 Felton Duvall MD [address], [place], [address], [place] [facility] 3 14:16:03 Gastroeso phageal reflux disease without esophagit is 876129119 Active 2023 Felton Duvall MD [address], [place], [address] [facility] 4 15:35:39 Hyperlipi demia 66790884 Active 2023 Felton Duvall MD [address], [place], [address] [facility] 4 15:55:21 Sleep disorder 46870668 Active 2023 Felton Duvall MD [address], [place], [address] [facility] 4 16:13:08 Anemia 490806515 Active 2023 Felton Duvall MD [address], [place], [address] [facility] 4 16:13:13 Edema of lower extremity 394103039 Active 2023 Felton Duvall MD [address], [place], [address], [place] [facility] 4 16:13:18 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 Procedures Surgical History Date Name Laterality Status Provider Name and Address Organization Details Recorded Time 03/28/20 Medication Reconcilliation cancelled Ching Hussein [place] - [facility] 03/28/2020 08:30:24 placement of stent in cardiac conduit completed Ching Hussein [place] [facility] 10/21/2023 15:22:12 Hip Replacement completed Pricila Barker [place] [facility] 06/12/2018 14:17:36 Ankle arthroscopy/surgery completed Pricila Barker [place] [facility] 06/12/2018 14:17:54 Imaging Results None recorded. Procedure Notes None recorded. Medical Equipment None Reported. Allergies Allergen ID Allergen Name Allergen Category Reaction Reaction Severity Criticality Documentation Date Start Date Code Code System Note Provider Name and Address Organization Details Recorded Time 010860 Product containin g penicilli n (product) medicatio n Not available Not available Not available 06/12/2018 02919 8001 SNOMED Pricila agarwal, [place] - [facility] 8 14:13:08 Medications Name Sig Start Date Stop Date Status Note LastModified by Organization Details LastModified Time cyclobenz aprine 10 mg tablet 07/17 completed Not Available Not Available Not Available atorvasta tin 40 mg tablet TAKE 1 TABLET 1 TIME EACH DAY FOR HIGH CHOLESTE ROL active Not Available Not Available No t Available bupropion HCl SR 150 mg tablet,12 hr sustained -release TAKE 1 TABLET FOR 3 DAYS THEN TAKE 1 TABLET 2 TIMES EACH DAY 04/20 completed Not Available Not Available Not Available clonidine HCl 0.1 mg tablet TAKE 1 TABLET 2 TIMES EACH DAY 10/18 completed Not Available Not Available Not Available carvedilo l 6.25 mg tablet TAKE 1 TABLET 2 TIMES EACH DAY WITH FOOD active Not Available Not Available No t Available prednison e 10 mg tablet TAKE 6 TABLETS ON 07/31. TAKE 5 TABLETS ON 08/01. TAKE 4 TABLETS ON 08/02. TAKE 3 TABLETS ON 08/03. TAKE 2 TABLETS ON 08/04. TAKE 1 TABLET ON 08/05. 09/18 completed Not Available Not Available Not Available doxycycli ne hyclate 100 mg capsule Take 1 capsule twice a day by oral route for 7 days. 08/17 completed Not Available Not Available Not Available clindamyc in HCl 300 mg capsule TAKE 1 CAPSULE EVERY 6 HOURS FOR 7 DAYS 01/04 completed Not Available Not Available Not Available trazodone 50 mg tablet TAKE 1 TO 2 TABLETS 1 TIME EACH DAY AT BEDTIME FOR SLEEP 10/20 completed Not Available Not Available Not Available ibuprofen 800 mg tablet TAKE 1 TABLET EVERY 6 TO 8 HOURS NEEDED FOR PAIN 10/13 completed Not Available Not Available Not Available Lidocaine Viscous 2 % mucosal solution APPLY TO THE PAINFUL AREA USING A Q-TIP OR COTTON BALL 02/02 completed Not Available Not Available Not Available tizanidin e 4 mg tablet TAKE 1 TABLET 2 TIMES EACH DAY NEEDED 10/18 completed Not Available Not Available Not Available metoprolo l succinate ER 50 mg tablet,ex tended release 24 hr TAKE 1 TABLET 1 TIME EACH DAY 10/18 completed Not Available Not Available Not Available lisinopri l 20 mg tablet TAKE 1 TABLET 1 TIME EACH DAY 10/18 completed Not Available Not Available Not Available prednison e 20 mg tablet 07/17 completed Not Available Not Available Not Available isosorbid e mononitra te ER 30 mg tablet,ex tended release 24 hr TAKE 1 TABLET 1 TIME EACH DAY 01/17 completed Not Available Not Available Not Available metoprolo l succinate ER 100 mg tablet,ex tended release 24 hr TAKE 1 TABLET 1 TIME EACH DAY 10/20 completed Not Available Not Available Not Available gabapenti n 400 mg capsule TAKE 1 CAPSULE 3 TIMES EACH DAY active Not Available Not Available No t Available clindamyc in HCl 150 mg capsule TAKE TWO CAPSULES NOW. THEN, TAKE 1 CAPSULE 4 TIMES EACH DAY UNTIL GONE. active Not Available Not Available No t Available clopidogr el 75 mg tablet TAKE 1 TABLET 1 TIME EACH DAY FOR ARTERY DISEASE active Not Available Not Available No t Available amlodipin e 5 mg tablet TAKE 1 TABLET 1 TIME EACH DAY 10/18 completed Not Available Not Available Not Available sulfameth oxazole 800 mg-trimet hoprim 160 mg tablet TAKE 1 TABLET EVERY 12 HOURS FOR 7 DAYS 01/04 completed Not Available Not Available Not Available omeprazol e 40 mg capsule,d elayed release TAKE 1 CAPSULE 1 TIME EACH DAY WITH A MEAL active Not Available Not Available No t Available aspirin 81 mg tablet,de layed release TAKE 1 TABLET 1 TIME EACH DAY active Not Available Not Available No t Available Nicotrol 10 mg inhalatio n cartridge INHALE 1 PUFF EVERY 2 HOURS NEEDED AND DIRECTED . DO NOT USE MORE THAN 16 CARTRIDG ES EACH DAY. 10/18 completed Not Available Not Available Not Available acetamino phen 500 mg tablet TAKE 1 TO 2 TABLETS EVERY 6 HOURS NEEDED FOR PAIN. DO NOT TAKE MORE THAN 8 TABLETS IN 24 HOURS active Not Available Not Available No t Available ketorolac 10 mg tablet TAKE 1 TABLET EVERY 4 HOURS NEEDED. DO NOT TAKE MORE THAN 4 TABLETS IN 24 HOURS 10/18 completed Not Available Not Available Not Available amlodipin e 10 mg tablet TAKE 1 TABLET 1 TIME EACH DAY 01/17 completed Stopped by patient Not Available Not Available Not Available doxycycli ne monohydra te 100 mg capsule Take 1 capsule twice a day by oral route for 10 days. 08/17 completed Not Available Not Available Not Available hydrocodo ne 7.5 mg-acetam inophen 325 mg tablet Take 1 tablet every 6 hours by oral route for 3 days. 09/29 completed Not Available Not Available Not Available pantopraz ole 40 mg tablet,de layed release TAKE 1 TABLET 2 TIMES EACH DAY 10/20 completed They wouldn't pay for it Not Available Not Available Not Available gabapenti n 300 mg capsule TAKE 1 CAPSULE 3 TIMES EACH DAY. 02/02 completed Not Available Not Available Not Available hydrochlo rothiazid e 25 mg tablet TAKE 1 TABLET 1 TIME EACH DAY FOR HIGH BLOOD PRESSURE active Not Available Not Available No t Available mupirocin 2 % topical ointment APPLY A SMALL AMOUNT TO THE AFFECTED AREA BY TOPICAL ROUTE 3 TIMES PER DAY 10/18 completed Not Available Not Available Not Available furosemid e 20 mg tablet TAKE 1 TABLET 1 TIME EACH DAY NEEDED active Not Available Not Available No t Available ibuprofen 600 mg tablet Take 1 tablet 3 times a day by oral route. 11/18 completed Not Available Not Available Not Available polyethyl mona glycol 3350 17 gram/dose oral powder MIX 17 GRAMS IN 8 OUNCES OF WATER AND DRINK ONCE A DAY. 10/18 completed Not Available Not Available Not Available methylpre dnisolone 4 mg tablets in a dose pack take as directed 06/25 completed Not Available Not Available Not Available lisinopri l 40 mg tablet TAKE 1 TABLET 1 TIME EACH DAY 01/17 completed Not Available Not Available Not Available sertralin e 50 mg tablet 1 tab po qd 09/29 completed Not Available Not Available Not Available doxycycli ne hyclate 100 mg tablet TAKE 1 TABLET EVERY 12 HOURS FOR 10 DAYS 09/18 completed Not Available Not Available Not Available Hibiclens 4 % topical liquid Shower daily as needed 10/18 completed Not Available Not Available Not Available loratadin e 10 mg tablet TAKE 1 TABLET 1 TIME EACH DAY 01/17 completed Not Available Not Available Not Available nicotine 7 mg/24 hr daily transderm al patch APPLY 1 PATCH ONTO THE SKIN 1 TIME EACH DAY DIRECTED . REMOVE BEFORE APPLYING NEXT PATCH. 02/02 completed Not Available Not Available Not Available Ventolin HFA 90 mcg/actua tion aerosol inhaler INHALE 2 PUFFS EVERY 4 HOURS NEEDED active Not Available Not Available No t Available valsartan 160 mg tablet TAKE 1 TABLET 1 TIME EACH DAY active Not Available Not Available No t Available valsartan 40 mg tablet TAKE 1 TABLET 1 TIME EACH DAY active Not Available Not Available No t Available buprenorp shefali 8 mg-naloxo ne 2 mg sublingua l tablet PLACE 2 AND 1/4 TABLETS UNDER THE TONGUE AND ALLOW TO DISSOLVE 1 TIME EACH DAY. active Not Available Not Available No t Available nicotine (polacril ex) 4 mg buccal lozenge HOLD 1 LOZENGE INSIDE OF CHEEK EVERY 2 HOURS NEEDED active Not Available Not Available No t Available chlorhexi dine gluconate 0.12 % mouthwash SWISH AND SPIT 30 ML (1 OUNCE) 3 TIMES EACH DAY UNTIL GONE 02/02 completed Not Available Not Available Not Available ranolazin e ER 500 mg tablet,ex tended release,1 2 hr TAKE 1 TABLET 2 TIMES EACH DAY active Not Available Not Available No t Available hydrochlo rothiazid e 12.5 mg tablet TAKE 1 TABLET 1 TIME EACH DAY active Not Available Not Available No t Available bupropion HCl 150 mg tablet,12 hr sustained -release( smoking deterrent ) Take 1 tablet twice a day by oral route. 04/20 completed Not Available Not Available Not Available Vitals Date Recorded Body height Body mass index (BMI) Body weight Body temperature Respiratory rate Pain severity - 0-10 verbal numeric rating [Score] - Reported Heart rate Oxygen saturation Oxygen saturation in Arterial blood by Pulse oximetry Systolic And Diastolic Provider Name and Address Organization Details Last Updated DateTime 3 182.88 cm 33.2 kg/m2 360262. 13 g 98.1 [degF] 17 /min 5 62 /min 98 % 98 % 146/88 mm[Hg] Ching Hussein [place] - [facility] 03/09/202 3 13:47:55 Date Recorded Body height Body mass index (BMI) Body weight Heart rate Body temperature Oxygen saturation Oxygen saturation in Arterial blood by Pulse oximetry Respiratory rate Pain severity - 0-10 verbal numeric rating [Score] - Reported Systolic And Diastolic Provider Name and Address Organization Details Last Updated DateTime 4 182.88 cm 33.6 kg/m2 478293. 91 g 74 /min 98.1 [degF] 97 % 97 % 17 /min 6 122/68 mm[Hg] Ching Hussein [place] - [facility] 4 15:23:44 Date Recorded Body height Body mass index (BMI) Body weight Body temperature Heart rate Oxygen saturation Oxygen saturation in Arterial blood by Pulse oximetry Respiratory rate Systolic And Diastolic Provider Name and Address Organization Details Last Updated DateTime 4 182.88 cm 34.1 kg/m2 752180. 78 g 98 [degF] 80 /min 97 % 97 % 17 /min 134/86 mm[Hg] Ching Hussein [place] - [facility] 4 13:16:24 Date Recorded Body height Body temperature Respiratory rate Body mass index (BMI) Body weight Pain severity - 0-10 verbal numeric rating [Score] - Reported Heart rate Oxygen saturation Oxygen saturation in Arterial blood by Pulse oximetry Systolic And Diastolic Provider Name and Address Organization Details Last Updated DateTime 3 182.88 cm 97.8 [degF] 17 /min 34.2 kg/m2 491714. 28 g 6 72 /min 98 % 98 % 126/82 mm[Hg] Ching Hussein [place] - [facility] 3 15:54:22 Date Recorded Body height Body mass index (BMI) Body weight Body temperature Respiratory rate Heart rate Oxygen saturation Oxygen saturation in Arterial blood by Pulse oximetry Systolic And Diastolic Provider Name and Address Organization Details Last Updated DateTime 2 182.88 cm 32.5 kg/m2 887125. 17 g 97.8 [degF] 17 /min 57 /min 97 % 97 % 124/78 mm[Hg] Ching Hussein [place] - [facility] 2 13:44:51 Social History Question Answer Notes LastModified by Organizat ion Details LastModified Time Tobacco Smoking Status Current Every Day Smoker Pricila agarwal, [place] - [facility] 06/12/2018 14:16:09 Do You Have An Advance Directive? No Information not available 06/12/2018 Are You Blind Or Do You Have Difficulty Seeing? No Information not available 06/25/2018 What Is Your Level Of Caffeine Consumption? Moderate Information not available 06/12/2018 Are You Deaf Or Do You Have Serious Difficulty Hearing? No Information not available 06/25/2018 What Type Of Diet Are You Following? REGULAR Information not available 06/12/2018 Which Illicit Or Recreational Drugs Have You Used? History Of Illicit Drug Use With Rebound [facility] In [place] [id number] Information not available 11/19/2019 What Is The Highest Grade Or Level Of School You Have Completed Or The Highest Degree You Have Received? [id number] Information not available 06/25/2018 How Many Days Of Moderate To Strenuous Exercise, Like A Brisk Walk, Did You Do In The Last 7 Days? 7 Information not available 05/23/2020 On Those Days That You Engage In Moderate To Strenuous Exercise, How Many Minutes, On Average, Do You Exercise? 60 Information not available 05/23/2020 How Hard Is It For You To Pay For The Very Basics Like Food, Housing, Medical Care, And Heating? Not Very Hard Information not available 10/21/2023 Hard Of Hearing Or Deaf In One Or Both Ears? No Information not available 06/12/2018 Single Or Multi-level Home/work? Single Level Home Information not available 05/23/2020 Legally Blind In One Or Both Eyes? No Information not available 06/12/2018 Live Alone Or With Others? With Others Information not available 06/12/2018 Marital Status Single Informatio n not available 05/23/2020 What Was The Date Of Your Most Recent Tobacco Screening? 10/21/2023 Smoking 1 Ppd Information not available 10/21/2023 Seat Belts Used Routinely Yes Information not available 06/25/2018 Smoke Alarm In Home Yes Information not available 06/25/2018 At What Age Did You Start Smoking Tobacco? 38 Information not available 10/18/2022 How Much Tobacco Do You Smoke? 1 PPD Smoked 2ppd Information not available 10/21/2023 On What Date Was Tobacco Cessation Counseling Provided? 01/16/2021 Smoking Cessation Advised Information not available 01/16/2021 How Many Years Have You Smoked Tobacco? 36 Information not available 03/09/2022 Do You Have Difficulty Walking Or Climbing Stairs? Yes Information not available 06/25/2018 Sex: Male Functional Status Question Answer Note LastModified by Organizat ion Details LastModified Time What is your level of alcohol consumption? Moderate Information not available 06/12/2018 Do you or have you ever used smokeless tobacco? Never used smokeless tobacco Information not available 02/26/2020 Are you currently employed? No Information not available 06/12/2018 Urinary incontinence assessment performed? Yes Information not available 05/23/2020 Do you have difficulty doing errands alone? No Information not available 06/25/2018 Are you able to care for yourself independently? Yes Information not available 06/12/2018 Do you have difficulty dressing, bathing, grooming, or toileting? No Information not available 06/25/2018 Do you or have you ever used e-cigarettes or vape? Never used electronic cigarettes Information not available 02/26/2020 Mental Status Question Answer Note LastModified by Organizat ion Details LastModified Time Do you feel stressed (tense, restless, nervous, or anxious, or unable to sleep at night)? [id number] Information not available 06/25/2018 Do you have difficulty concentrating, remembering or making decisions? No Information no t available 06/25/2018 Family History Nothing Reported. Medical History Condition Response Hospitalizations Y Immunizations Vaccine Type Date Status Note Provider Name and Address Organization Details Recorded Time Influenza, split virus, quadrivalent, preservative 020 completed Chingabdullahi agarwal, [place] - [facility] 05/23/2020 13:06:38 Tdap 020 cancelled patient objection Felton Duvall MD [address], [place], [address], [place] [facility] 05/23/2020 12:28:26 Influenza, split virus, quadrivalent, preservative 018 completed Not Available [facility] 08/[facility] 03:55:24 Influenza, split virus, quadrivalent, preservative 018 completed Ching Hussein null, [place] - [facility] 10/18/2022 13:43:08 COVID-19 vaccine, vector-nr, rS-Ad26, PF, 0.5 mL 021 completed Ching Hussein [place], [place] - [facility] 10/18/2022 13:43:08 pneumococcal polysaccharide PPV23 018 completed Ching Hussein null, [place] - [facility] 10/18/2022 13:43:08 Past Encounters Encounter ID Performer Location Encounter Start Date Encounter Closed Date Diagnosis/Indication Diagnosis SNOMED-CT Code Diagnosis ICD10 Code Diagnosis IMO Codes Diagnosis Note [id number] Rossy Cormier APRN [facility] [address] [place] [address] 06/12/2018 14:06:12 06/12/2018 14:51:02 Cellulitis 711588691 L03.90 Cough 60843784 R05 Acute bronchitis 5901314 2 J20.9 Pain of ri ght hip joint 2156165360 42995 M25.551 History of right hip replacement 6041063076 374202 Z96.641 History of methicillin resistant Staphylococcus aureus infection 411948976 Z86.14 [id number] [facility] [address] [facility] [place] [place] [address] 06/25/2018 14:47:02 06/25/2018 16:38:47 History of right hip replacement 7263854628 590003 Z96.641 Methicilli n resistant Staphylococcus aureus infection 356004887 A49.02 Pain of ri ght hip joint 3288364278 74086 M25.551 Post-traum atic stress disorder 15687841 F43.10 [id number] Felton Sánchezbhupinder [facility] [address] [facility] [place] [address] 07/14/2018 15:18:11 07/14/2018 16:33:24 Chronic pain 55295832 G89.29 Administra tion of influenza vaccine 64483410 Z23 Inflammati on of sacroiliac joint 15958832 M46.1 [id number] Felton [facility] [address] [address], [place] [address] 09/29/2018 13:29:21 09/29/2018 14:34:22 Contusion of left hand 8828237038 8745212 S60.222A Acute bronchitis 3953587 2 J20.9 Essential hypertension 84021396 I10 [id number] Felton [facility]vall [facility] [place] [address] [address], [place] [address] 07/17/2019 14:09:24 07/17/2019 15:00:14 Essential hypertension 42553432 I10 Acute bronchitis 3341062 2 J20.9 Gastroesop hageal reflux disease 364704618 K21.9 Tobacco de pendence syndrome 27445517 F17.643 [id number] Felton [facility]vall [facility] [place] [address] [address], [place] [address] 08/17/2019 11:07:13 08/17/2019 12:30:28 Essential hypertension 64780793 I10 Spasm 89052787 R25.2 High risk sexual behavior 915464276 Z72.51 [id number] Felton Duvall [facility] [address] [address], [place] [address] 11/19/2019 14:41:54 11/19/2019 15:49:44 Hypertensive disorder 66043266 I10 Chronic pain 40951056 G8 9.29 Essential hypertension 23962930 I10 Spasm 76388214 R25.2 Gastroesop hageal reflux disease 050311063 K21.9 [id number] Felton Duvall MD [place] [address] [address], [place] [address] 12/17/2019 14:08:57 12/17/2019 15:12:15 Hypertensive disorder 98337840 I10 Chronic back pain 207889 002 M54.9 Spinal tate nosis of lumbar region 51427594 M48.061 Radicular pain 92170544 M54.10 Allergic rhinitis 897845 04 J30.9 [id number] Felton Duvall MD Gonzalobhupinder [facility] [address] [place] [address] 12/30/2019 13:57:35 12/30/2019 14:25:15 Chronic back pain 544865585 M54.9 Spinal tate nosis of lumbar region 72459768 M48.061 Long-term drug therapy 763368351 Z79.167 [id number] Felton Duvall MD [facility] [address] [place] [facility] [place] [address] 02/26/2020 10:55:42 02/26/2020 12:25:47 Chronic back pain 856994427 M54.9 Long-term drug therapy 781984100 Z79.899 Essential hypertension 94782814 I10 Spinal tate nosis of lumbar region 36320541 M48.061 Degenerati on of lumbar intervertebral disc 73139778 M51.36 Cannabis dependence 8500 5007 F12.20 [id number] Felton Duvall MD Gonzalobhupinder [facility] [address] [place] [address] 05/23/2020 11:25:02 05/23/2020 12:34:42 General examination of patient 359313177 Z00.01 Hyperlipid emia screening 629859764 Z13.220 Screening for malignant neoplasm of prostate 162380394 Z12.5 Endocrine/ metabolic screening 489064123 Z13.228 Exercises education, guidance, and counseling 712227985 Z71.82 Dietary ma nagement surveillance 342910172 Z71.3 Chronic back pain 800118 002 M54.9 Screening for malignant neoplasm of colon 448695963 Z12.11 Influenza vaccine needed 1153726383 106 Z23 Body mass index 25-29 - overweight 365231209 Z68.29 Administra tion of diphtheria and tetanus vaccine 32069852 Z23 [id number] Felton Sánchezbhupinder [facility] [address] [place] [facility] [place] [address] 07/28/2020 09:41:07 07/28/2020 10:16:42 Chronic back pain 817167110 M54.9 Abnormal r enal function 60200254 R94.4 Alkaline p hosphatase above reference range 271406457 R74.8 Essential hypertension 03991687 I10 [id number] Felton Duvall MD [facility] [address], [place] [address] 10/24/2020 09:52:09 10/24/2020 11:05:46 Chronic pain 28222284 G89.29 Abdominal pain 40156681 R10.9 Long-term drug therapy 174453101 Z79.899 Essential hypertension 98248849 I10 [id number] Felton Duvall MD [facility] [address], [place] [id number] 01/16/2021 15:14:06 01/16/2021 15:50:14 Abdominal pain 96887246 R10.9 Unexplaine d weight loss 238827201 R63.4 Constipation 49883303 K5 9.00 Diarrhea 74997407 R19.7 Nausea 647932313 R11.0 [id number] Felton Duvall MD [facility] [address], [place] [address] 02/02/2021 15:27:13 02/02/2021 16:08:54 Chronic pain 13304585 G89.29 Essential hypertension 70209091 I10 Chronic back pain 472613 002 M54.9 History of methicillin resistant Staphylococcus aureus infection 116814885 Z86.14 Abdominal pain 09616858 R10.9 Diarrhea 05481600 R19.7 Renewal of prescription 247216676 Z76.0 Body mass index 30+ - obesity 241720887 Z68.31 [id number] Jared Last APRN [facility] [address], [place] [id number] 05/03/2021 14:04:30 05/03/2021 14:33:26 Radicular pain 74370481 M54.10 Staphyloco ccal infection of skin 022298644 B95.8 [id number] Felton Duvall MD [facility] [address], [place] [address] 06/08/2021 14:02:51 06/08/2021 14:54:00 Radicular pain 38736515 M54.10 Long-term drug therapy 814673729 Z79.899 Cannabis dependence 8500 5007 F12.20 [id number] Felton Duvall MD [place] [address], [place] [address] 09/18/2021 13:48:52 09/18/2021 16:28:28 Radicular pain 24304905 M54.10 Essential hypertension 71530136 I10 Chest pain 45972292 R07. 9 Spasm 76081780 R25.2 legs [id number] Felton Duvall MD [place] [address] [address] MIQUEL [facility], [place] [address] 10/13/2021 12:59:32 10/13/2021 14:18:05 Essential hypertension 36644159 I10 Atypical chest pain 1025 32841 R07.89 Tobacco de pendence syndrome 58516297 F17.200 smoking cessation advised Acute righ t otitis media 143460550 H66.91 Chronic back pain 822871 002 M54.9 Long-term drug therapy 732215789 Z79.078 [id number] Felton Duvall MD [place] [address] [address] [place] [facility], [place] [address] 01/04/2022 14:05:12 01/04/2022 14:58:28 Essential hypertension 05640999 I10 Chronic back pain 730896 002 M54.9 Pain of sa croiliac joint 820123973 M53.3 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 [id number] 1067565 T84.84XS Radicular pain 07953928 M54.10 Spinal tate nosis of lumbar region 40040163 M48.061 Degenerati on of lumbar intervertebral disc 64665911 M51.36 [id number] Felton Duvall MD [place] [address] [address] MIQUEL [facility], [place] [address] 03/07/2022 12:38:07 03/07/2022 13:57:08 Abdominal pain 30697820 R10.9 Constipation 15696415 K5 9.00 Tobacco de pendence syndrome 81612614 F17.200 smoking cessation advised [id number] Felton Duvall MD Sheliabhupinder [facility] [address], [place] [address] 04/20/2022 13:38:28 04/20/2022 15:10:30 Chronic back pain 415086116 M54.9 Long-term drug therapy 024950079 Z79.959 [id number] [facility] [address], [place] [address] 07/20/2022 13:29:19 07/20/2022 14:05:19 Chronic back pain 587029571 M54.9 Renewal of prescription 338254880 Z76.0 [id number] [facility] [place] [address] [address], [place] [address] 10/18/2022 13:32:21 10/18/2022 14:30:08 Chronic back pain 057753771 M54.9 Essential hypertension 89056600 I10 Renewal of prescription 745725435 Z76.0 Stented co ronary artery 908874021 Z95.5 Long-term drug therapy 772081564 Z79.655 [id number] [facility] [place] [address] [address] [facility], [place] [address] 01/17/2023 15:32:26 01/17/2023 16:47:20 Chronic back pain 194191773 M54.9 Renewal of prescription 991557062 Z76.0 Long-term drug therapy 403337162 Z79.899 Edema of l ower extremity 584959457 R60.0 [id number] Felton Sánchezbhupinder [place] [address] [address] [facility], [place] [address] 10/21/2023 14:34:22 10/21/2023 16:22:12 Chronic back pain 028186902 M54.9 Renewal of prescription 864591899 Z76.0 Gastroesop hageal reflux disease without esophagitis 158532802 K21.9 Long-term drug therapy 523394303 Z79.899 Nicotine dependence 5629 4008 Z87.891 Neoplasm o f uncertain behavior of skin 73689847 D48.5 Edema of l ower extremity 872801855 R60.0 Body mass index 30+ - obesity 051371395 Z68.33 Anemia 475527503 D64.9 Hyperlipidemia 68344757 E78.5 Sleep disorder 37008006 G47.9 [id number] Felton Hi [facility] [address] [place] [address] 11/21/2023 13:02:13 11/21/2023 13:34:25 Chronic back pain 173387435 M54.9 Renewal of prescription 359082165 Z76.0 Health Concerns Section Related Observation LastModified by Organization Detai ls LastModified Time None Recorded Concern Status LastModified by Organization Details LastModified Time None Recorded Advance Directives Directive N: Payers Insurance Date Sequence Insurance Name Policy Number Policy Meyer Covered Member ID Meyer Member ID Guarantor Name 12/07/2023 1 [employer] [facility] (MEDICAID REPLACEMENT - HMO) Jeison Barker [id number] Jeison Barker 03/13/2023 1 [employer] BY [place] [facility] (MEDICAID REPLACEMENT - HMO) [id number] Jeison Barker [id number] Jeison Barker 02/17/2024 [place] [id number] [employer] (MEDICAID[place] MEDICAID Jeison Barker [id number] Jeison Barker Notes Date Note Type Note Provider Name and Address Organization Details Recorded Time 07/20/2022 text/html The patient is here today requesting refills on gabapentin for chronic back pain and right hip pain, and right sciatica.PDMR today.UDS 04/20/22Refill 06/19/22Pain at this time is 5/10He notes that the medication is helping. He has cut down on cigarettes.He had a COVID and flu shot.Seen cardiology and is going to have a heart cath. He had upper and lower endoscopy. They increased the pantoprazole to BID. Felton Duvall MD [address], [place], [address], [place] - [facility] 07/22/2022 22:37:15 10/18/2022 text/html The patient is here today requesting refills on gabapentin for chronic back pain.PDMR reviewed (10/24/22)UDS 04/20/22.Chronic low back and right hip pain. Stable. Pt is also following up on hypertension. He states he has been in the hospital with hypertension but over the last week his BP has been getting very low. Lowest it got on him was 59/82. He has not taken any BP medication today (carvedilol, lisinopril, HCTZ) and also has not taken any isosorbide. 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 Coronary stent. Felton Duvall MD [address], [place], [address], [facility] - [facility] 10/24/2022 17:49:51 01/17/2023 text/html The patient is here today requesting refills on gabapentin for chronic pain. He notes that the pain stays about a six . Gets worse with some activities such as weedeating. He notes It's my right sciatic nerve. Also pain in the right hip with a history of multiple hip replacements.He notes that the gabapentin helps with the pain.Medication compliance is reported.No medication side effects are noted.He is still taking suboxone.Discussed UDS 10/18/22.PDMR today. He also notes he has had some edema in bilateral feet. He will be seeing cardiology on 02/06/23. Refill protonix. He has stopped taking HCTZ 3-4 days ago. He doesn't think that he has been taking amlodipine (?). Felton Duvall MD [address], [place], [address], [facility] - [facility] 01/20/2023 21:59:16 10/21/2023 text/html The patient is here today for a follow up on back pain, he is requesting refills on gabapentin. No new symptoms. He notes I just quit coming to the doctor . The pain worsened after stopping the gabapentin quite a bit . He noted no side effects with the medication. He reports taking the medication as prescribed before running out. PRMD reviewed. Also states that he has had edema in bilateral legs, hands, has been going on for a while.Symptoms have been going on for about 1 year. He is seeing cardiology tomorrow (Dr Roche). GERD Current every day smoker. Smoking cessation advised. History of anemia. The patient notes upper and lower endoscopy about a year ago (Dr Crowell) HyperlipidemiaTake s atorvastatin. He snores. He snores and he will jump up like he's gasping for air .Witnessed apnea.Daytime drowsiness.He falls asleep talking to people.He gets up in the night (without remembering it).Has nightmares. Felton Duvall MD [address], [place], [address], [place] - [facility] 10/24/2023 13:47:55 11/21/2023 text/html The patient is here today requesting refills on gabapentin for chronic back pain.The medication is working well. He is also here today to discuss recent lab work. PDMR reviewed.UDS reviewed.CSA 10/24/23 Felton Duvall MD [address], [place], [address], [place] - [facility] 11/26/2023 22:50:25
--- OUTSIDE RECORDS SUMMARY | 2025-06-07 08:00 | XMS_ITS | Clinical Summary ---
Author Organization [employer] ([place], [place], [place], [place]) Address [address] [place] [address] Care Team Providers Care Professor Of Apologetics Name Role Phone Unavailable Primary Care Provider [...] EACH DAY 09/12/2022 Active Narcan 4 mg/actuation [employer]ART[employer]:Bot h Nares 08/23/2022 Active loratadine (CLARITIN) [...] Date Calvin rded Speak language other than Nepalese at home Not on file 08/30/2023 Want [...] Screening 07/02/2032 Medical Devices Implanted Type Area Aluminum Polisher Device Identifier Shelf Expiration Date Model / Serial / Lot Implants IMPLANTS Right: Hip Insurance [employer] [facility] Advance Directives For more information, please contact: [phone] * Full Code (Latest Code Status on File) Date Activated Date Inactivated Comments 07/02/2022 11:51 AM 07/02/2022 4:02 PM -Attempt Resuscitation if person has no pulse and is not breathing. -If no pulse or not breathing attempt CPR/CODE. -Call Rapid Response if patient is in distress.
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
--- OUTSIDE RECORDS SUMMARY | 2025-06-07 08:00 | XMS_ITS | Referral Summary ---
Author Organization [employer] ([place], [place], [place], [place]) Address [address] [place] [address] Care Team Providers Care Digital Developer Name Role Phone Unavailable Primary Care Provider [...] EACH DAY 09/12/2022 Active Narcan 4 mg/actuation [place] [employer]:Bot [employer] Nares 08/23/2022 Active loratadine (CLARITIN) [...] Date Calvin rded Speak language other than Bruneian at home Not on file 08/30/2023 Want [...] on file Medical Devices Implanted Type Area Sheet Mill Supervisor Device Identifier Shelf Expiration Date Model / Serial / Lot Implants IMPLANTS Right: Hip Insurance PASSPORT [facility] Advance Directives For more information, please contact: [phone] * Full Code (Latest Code Status on File) Date Activated Date Inactivated Comments 07/02/2022 11:51 AM 07/02/2022 4:02 PM -Attempt Resuscitation if person has no pulse and is not breathing. -If no pulse or not breathing attempt CPR/CODE. -Call Rapid Response if patient is in distress.
--- OUTSIDE RECORDS SUMMARY | 2025-06-07 08:00 | XMS_ITS | Clinical Summary ---
Author Organization Healthcare Address [address] [place] [address] Care Team Providers Care Bookstore Clerk Name Role Phone Felton Cruz MD Primary Care Provider + [phone] Family History Medical History Relation Name Comments [...] of Treatment Not on file Care Teams Bookstore Clerk Relationship Specialty Start Date End Date Felton Cruz MD [address] [place] [address] PCP - General 12/23/20
== END 2025-06-07 23:59 | disposition home or self-care (01) ==
LOC: RAD 07:58
PROVIDERS: PCP Nurse Practitioner Family; Visit Provider Nurse Practitioner Family
DX: K85.20 Alcohol induced acute pancreatitis without necrosis or infection (principal)